=== PATIENT | female | born 1995 | race African-American/Black ===

== ENCOUNTER 2022-12-02 17:53 | Inpatient (IN) | payer OTHER, SELFPAY ==
--- NOTE | 2022-12-02 18:12 | PHA.MEDREC ---
Pharmacy Consult ? Medication Reconciliation Pharmacy has completed the medication reconciliation. Patient dc'd from [facility] with med list. Felicia Starr, JoannaD
[2022-12-02 18:20] VITALS: BP 129/84; PULSE 76; RESP 16; TEMP 36.8; O2SAT 100; BMI 25.4
--- NOTE | 2022-12-02 18:21 | ED_ITS ---
HPI - General Adult General Chief complaint: Psychiatric Symptoms Stated complaint: failed d/c @[facility], needs eval to go back Time Seen by Provider: 12/02/22 17:59 Source: patient Mode of arrival: ambulatory Limitations: no limitations History of Present Illness HPI narrative: This is a 27-year-old female presenting to the emergency department via ambulance according to EMS patient failed discharge at [facility], she was discharged in became acutely psychotic, prior to her going back she needs a full evaluation and re-evaluation by her behavioral health team. According to patient she tells me her mom told her she had to come in and she called an ambulance she said she recently came back from [place] where she had a petra here to [place] and she is very anxious about this and depressed, tells me that she feels safe here but wants to go back to her hometown in [place]. Denies suicidal and homicidal ideations. Denies visual, auditory and tactile hallucinations however seems to be responding to internal stimuli during my history taking. Tells me she smokes marijuana recreationally but no other drugs or alcohol. No medical complaints at this time. She tells me ?my feelings are just hurt ?. Related Data Home Medications Medication Instructions Recorded Confirmed hydroxyzine HCl 50 mg tablet 50 mg PO Q6H PRN Anxiety 12/02/22 12/02/22 melatonin 3 mg tablet 6 mg PO BEDTIME PRN Insomnia 12/02/22 12/02/22 quetiapine 300 mg tablet 300 mg PO BEDTIME 12/02/22 12/02/22 Allergies Allergy/AdvReac Type Severity Reaction Status Date / Time shrimp AdvReac Intermediate Rash Verified 12/02/22 21:40 Review of Systems 2 Review of Systems: Constitutional : No Weight loss, No Fever, No Chills, No Fatigue, No Malaise ENT/Mouth : No sore throat, No Rhinorrhea Eyes: No Eye Pain, No Swelling, No Redness Cardiovascular : No Chest Pain, No SOB, No Dyspnea on Exertion, No Orthopnea, No Edema, No Palpitations Respiratory : No Cough, No Sputum, No Wheezing Gastrointestinal : No Nausea, No Vomiting, No Diarrhea, No Constipation, No abdominal Pain, No Hematochezia, No Melena Genitourinary : No Dysuria, No Urinary Frequency, No Hematuria, Musculoskeletal : No joint pain, No Myalgias, No Joint Swelling Skin : No Skin Lesions, No rash Neuro : No Weakness, No Numbness, No Dizziness, No Headache Psych : + Anxiety/Panic, No Depression, No Si Or HI All other systems reviewed and are negative Yes all other systems are reviewed and are negative [facility] Past Medical History Attestation statement: The following information was validated with the patient. Source: old records reviewed and nursing notes reviewed Social History Social History Smoked in Last 30 Days: No Use of substances other than those prescribed or required for medical reasons: Yes Substance Use Type: Marijuana Advance Directives: No Advance Directives Information Provided: No Patient : No Physical Exam ED Vital Signs: Vital Signs - 24 hr 12/02/22 18:20 12/02/22 19:06 Temperature 98.3 F 98.1 F Pulse Rate 76 83 Respiratory Rate 16 17 Blood Pressure 129/84 131/75 Pulse Oximetry 100 100 Oxygen Delivery Method Room Air Room Air BMI result Body Mass Index 25.4 vss Appearance: Alert.? Oriented X3.? No acute distress.? Patient talking to herself during my history and physical exam. Head: Normocephalic, atraumatic, no step-offs or deformities Eyes: Pupils equal, round and reactive to light.? CVS: Normal heart rate and rhythm.? Pulses normal.? Respiratory: No respiratory distress.? Breath sounds normal.? Abdomen: Soft and nontender.? Skin: Skin warm and dry.? Normal skin color.? Normal skin turgor.? Extremities: No lower extremity edema.? No calf ttp. 5/5 strength to bilateral upper and lower extremities Neuro: Oriented X 3.? No motor deficit.? No sensory deficit. CN 2-12 intact Course Reevaluation(s) Reevaluation #1: CBC unremarkable. Chemistry no acute findings requiring intervention. UA w/ 4+ bacteria concerns for UTI will treat w/ ceftin. Salicylates, acetaminophen negative. Urine positive for marijuana. COVID negative. At this time patient to be placed into observation to allow more time to be evaluated by care team. Is on Ceftin for UTI. At time observation was started patient common cooperative no acute distress will continue to monitor. Time: 22:20 Medical Decision Making Medical Decision Making [facility] Narrative: 1823 27-year-old female presents with acute psychosis responding to internal stimuli. Physical examination benign. Concerns for acute psychosis versus bipolar versus depression versus schizophrenia. Will rule out metabolic derangements, polysubstance abuse and alcohol intoxication. Plan at this time medical clearance evaluation by care team Differential Diagnosis Differential Diagnoses: The differential diagnosis associated with the presentation includes Concerns for acute psychosis versus bipolar versus depression versus schizophrenia. Will rule out metabolic derangements, polysubstance abuse and alcohol intoxication. Admission/Observation Consideration of admission/observation: Escalation of care including admission/observation considered likely Lab Data MDM Lab Attestation statement: I reviewed the patient's lab results. 12/02/22 21:20 12/02/22 21:20 Labs: Lab Results 12/02/22 12/02/22 12/02/22 Range/Units 18:55 21:20 21:48 WBC 7.8 (4.8-10.8) X10*3/uL RBC 4.50 (4.20-5.50) X10*6/uL Hgb 12.9 (12.0-16.0) g/dl Hct 39.6 (37.0-47.0) % MCV 88.0 (80.0-98.0) fL MCH 28.7 (27.0-33.0) pg MCHC 32.6 (31.0-35.0) g/dl RDW 13.0 (11.0-16.0) % Plt Count 221 (160-400) X10*3/uL MPV 11.4 (9.4-12.3) fL Immature Gran % (Auto) 0.3 (0.0-0.4) % Neut % (Auto) 58.9 (45-73) % Lymph % (Auto) 32.4 (20-40) % [place] % (Auto) 7.4 (2-11) % Eos % (Auto) 0.5 (0-4) % Baso % (Auto) 0.5 (0-2) % Lymph # (Auto) 2.5 (1.2-4.9) X10*3/uL [place] # (Auto) 0.6 (0.1-1.2) X10*3/uL Eos # (Auto) 0.0 (0.0-0.4) X10*3/uL Baso # (Auto) 0.0 (0.0-0.2) X10*3/uL Abs Immat Gran (auto) 0.02 (0.00-0.03) X10*3/uL Absolute Neuts (auto) 4.6 (2.0-8.3) x10*3/uL Absolute Nucleated RBC 0.000 (0.0-0.012) X10*3/uL Nucleated RBC % (auto) 0.0 (0.0-0.2) /100WBC Sodium 142 (135-145) mmol/L Potassium 3.8 (3.3-5.1) mmol/L Chloride 105 (96-108) mmol/L Carbon Dioxide 24 (22-29) mmol/L Anion Gap 17 (12-20) BUN 4 L (9-16) mg/dL Creatinine 0.79 (0.5-1.4) mg/dL Estim Creat Clear Calc 86.6 Estimated GFR > 60 Random Glucose 93 (60-115) mg/dL Calcium 10.1 (8.4-10.2) mg/dL Magnesium 2.3 (1.6-2.6) mg/dL Total Bilirubin 0.5 (0.0-1.0) mg/dL AST 18 (5-31) U/L ALT 15 (0-31) U/L Alkaline Phosphatase 85 (39-117) U/L Total Protein 8.2 H (6.5-8.0) g/dL Albumin 4.6 (3.5-5.0) g/dL Urine Color Yellow Urine Appearance Turbid Urine pH 6.5 (5.0-9.0) Ur Specific [place] 1.020 (1.005-1.025) Urine Protein Negative (Neg-Trace) mg/dL Urine Glucose (UA) Negative (Negative) mg/dL Urine Ketones Trace (Negative) mg/dL Urine Blood Negative (Negative) Urine Nitrite Negative (Negative) Ur Leukocyte Esterase Trace H (Negative) Urine RBC 0-2 (0-2) /HPF Urine WBC 11-20 H (0-5) /HPF Ur Squamous Epith Cells 11-20 (0-2) /HPF Urine Bacteria 4+ (None Seen) Hyaline Casts 0-2 (0-2) /LPF Salicylates < 5.0 L (15-30) mg/dL Urine Opiates Screen Not Detected (Not Detect) Urine Fentanyl Screen Not Detected (Not Detect) Acetaminophen < 17 (<30) mcg/mL Ur Barbiturates Screen Not Detected (Not Detect) Ur Phencyclidine Scrn Not Detected (Not Detect) Ur Amphetamines Screen Not Detected (Not Detect) U Benzodiazepines Scrn Not Detected (Not Detect) Urine Cocaine Screen Not Detected (Not Detect) U Marijuana (THC) Screen POSITIVE H (Not Detect) COVID-19 ([facility]) Negative (Negative) COVID-19 Clin Com See Note Social Determinants Patient?s care significantly limited by Social Determinants of Health including: Inadequate housing, Low income, Alcoholism and drug addiction in family, Problems related to primary support group, Unemployment, Problems related to employment and Other Social Determinant of Health Critical Care Time Critical Care Time Critical Care Time: No Discharge Plan Discharge Clinical Impression: Paranoid delusion, UTI (urinary tract infection) Patient Disposition: Still a Patient Additional Instructions: Please dc on ceftin Prescriptions: No Action quetiapine 300 mg Tablet 300 mg PO BEDTIME hydroxyzine HCl 50 mg Tablet 50 mg PO Q6H PRN (Reason: Anxiety) melatonin 3 mg Tablet 6 mg PO BEDTIME PRN (Reason: Insomnia) Interventions: [place]-Suicide Risk Severity Scale Last Done: 12/02/22 18:22
--- NOTE | 2022-12-02 18:25 | PC.NURSE ---
pt changed over with assistance from security, pt was recently d/c from [facility] for failed d/c. Pt has odd affect, unable to have linear conversation, non-logical thought process. Appears to be responding to internal stimuli but denies AH and VH. Denies SI and HI
[2022-12-02 19:06] VITALS: BP 131/75; PULSE 83; RESP 17; TEMP 36.7; O2SAT 100
--- NOTE | 2022-12-02 19:09 | MHC.EDTECH ---
PATIENT WAS UNABLE TO GIVE URINE SAMPLE AT THIS TIME ,ALSO THIS PCT TRIED TO GET LABS ,AND WAS UNABLE BECAUSE PT IS DIFFICULT STICK ,REGULO FRYE AWARE .
[2022-12-02 19:14] LABS: COVID-19 Test Negative (Negative); IDNOW Serial# 6674DD1D
[2022-12-02 21:24] LABS: MANUAL DIFF FLAG NO
[2022-12-02 21:26] LABS: Basophils Percent Auto 0.5 % (0-2); Eosinophils Percent Auto 0.5 % (0-4); Hematocrit 39.6 % (37.0-47.0); Hemoglobin 12.9 g/dl (12.0-16.0); Imm Gran Abs Auto 0.02 X10*3/uL (0.00-0.03); Imm Gran Pct Auto 0.3 % (0.0-0.4); Lymphocytes Absolute Auto 2.5 X10*3/uL (1.2-4.9); Lymphocytes Percent Auto 32.4 % (20-40); Mean Corpuscular HGB Conc 32.6 g/dl (31.0-35.0); Mean Corpuscular Hemoglobin 28.7 pg (27.0-33.0); Mean Platelet Volume 11.4 fL (9.4-12.3); Monocytes Absolute Auto 0.6 X10*3/uL (0.1-1.2); Monocytes Percent Auto 7.4 % (2-11); Neutrophils Absolute Auto 4.6 x10*3/uL (2.0-8.3); Neutrophils Percent Auto 58.9 % (45-73); Platelet Count 221 X10*3/uL (160-400); White Blood Count 7.8 X10*3/uL (4.8-10.8)
[2022-12-02 21:43] LABS: Alanine Aminotransferase 15 U/L (0-31); Albumin Level 4.6 g/dL (3.5-5.0); Alkaline Phosphatase 85 U/L (39-117); Anion Gap 17 (12-20); Aspartate Amino Transferase 18 U/L (5-31); Bilirubin Total 0.5 mg/dL (0.0-1.0); Blood Urea Nitrogen 4 mg/dL (9-16); Calcium 10.1 mg/dL (8.4-10.2); Carbon Dioxide 24 mmol/L (22-29); Chloride 105 mmol/L (96-108); Creatinine Clr Calc Pharmacy 86.6; Estimated Glomerular Filt Rate > 60; Glucose Random 93 mg/dL (60-115); Magnesium 2.3 mg/dL (1.6-2.6); Potassium 3.8 mmol/L (3.3-5.1); Sodium 142 mmol/L (135-145); Total Protein 8.2 g/dL (6.5-8.0)
[2022-12-02 21:44] LABS: Acetaminophen LAB < 17 mcg/mL (<30); Salicylate < 5.0 mg/dL (15-30)
[2022-12-02 21:58] LABS: Appearance Urine Turbid; Color Urine Yellow; Glucose Urine UA Negative (Negative); Leukocyte Esterase Urine Trace (Negative); Nitrite Urine Negative (Negative); PH 6.5 (5.0-9.0); UMIC TRIGGER UACC YES; Urine Blood Negative (Negative); Urine Ketones Trace mg/dL (Negative); Urine Protein Negative (Neg-Trace)
[2022-12-02 22:04] LABS: Amphetamine Screen Urine Not Detected (Not Detect); Bacteria Urine 4+ (None Seen); Barbiturates, Urine Not Detected (Not Detect); Benzodiazepines Screen Urine Not Detected (Not Detect); Cannabinoid Screen Urine POSITIVE (Not Detect); Cocaine Screen Urine Not Detected (Not Detect); Fentanyl, urine Not Detected (Not Detect); Hyaline Casts Urine 0-2 /LPF (0-2); Opiate Screen Urine Not Detected (Not Detect); Phencyclidine Screen Urine Not Detected (Not Detect); RBC Urine 0-2 /HPF (0-2); UACC Culture Trigger YES
[2022-12-02 22:38] LABS: UPreg QC Valid YES; Urine Pregnancy NEGATIVE (NEGATIVE)
[2022-12-02 23:23] LABS: Ethanol < 10 mg/dL
[2022-12-03 02:27] VITALS: BP 119/71; PULSE 66; RESP 16; TEMP 36.4; O2SAT 100
[2022-12-03] MEDS: OLANZapine 5 MG TABLET PO (03:50)
--- NOTE | 2022-12-03 07:18 | PC.NURSE ---
Patient slept through the night, no distress observed/reported, behavior non concerning, thought content paranoid, engaged well with care team disposition is section 12 inpatient bed search, med rec completed/pending provider's approval, VSS, labs completed/resulted, VSS, Ceftin 250 mg initiated for UTI, Olanzapine 5 mg po administered at 0350 with + effect, will continue to monitor.
[2022-12-03 09:14] VITALS: BP 117/61; PULSE 66; RESP 16; TEMP 36.3; O2SAT 100
--- NOTE | 2022-12-03 11:44 | MHC.CARE ---
MILDRED at [facility] calls, informing t/w that patient's possessions/ belongings remain at [facility] and an arrangement will need to be made with patient/ her father to obtain them.
--- NOTE | 2022-12-03 16:52 | PC.NURSE ---
PT in her room resting for most of the day. Ceftin 250mg given this AM for UTI. No behavioral concerns. No paranoia noted but minimally engaging with staff. Pt had a phone call with her father and mood was elevated after this call. Appetite good.
--- OUTSIDE RECORDS SUMMARY | 2022-12-03 17:30 | XMS_ITS | Summary of Care ---
Author Name Unknown Organization [facility] Address [address] [place] [id number]- Care Team Providers Care Wood Turner Name Role Phone ARIANA COOK, MPH, BROOKLYN Devine Primary Care Physic kim Encounter CHB_CSN [id number] Date(s): 05/31/21 - 06/01/[address] [address]- [place] Encounter Diagnosis TMJ - Dislocation of temporomandibular joint(Discharge Diagnosis) - 06/01/21 Discharge Disposition: Home Attending Physician: BO ARAUJO MD Referring Physician: ARIANA COOK, MPH, BROOKLYN Devine Allergies, Adverse Reactions, Alerts No Known Medication Allergies Substance Reaction Severity Status Shrimp Eye swelling Anaphylaxis due to ingested food. Active Medications No Known Medications Problem List Condition Effective Dates Status Health Status Inform ant MENORRHAGIA(Confirmed) Active Primary dysmenorrhea(Confirmed) 1 Active Pubertal bleeding and menorrhagia(Confirmed) 2 Active low von Willebrand levels(Confirmed) Active 1Added by [facility] 2Added by [facility]
[2022-12-03 18:00] VITALS: BP 124/68; PULSE 69; RESP 16; TEMP 36.4; O2SAT 98
[2022-12-03 18:37] VITALS: BMI 25.7
[2022-12-03] MEDS: QUEtiapine Fumarate 300 MG TABLET PO (20:54)
--- NOTE | 2022-12-03 22:54 | PC.ADMIT ---
Pt is a 27 year old -[place] female admitted for prosper. Alert and oriented x3. Vital sign stable, covid negative, tox screen positive for THC. Pt is calm and cooperative but tangential in speech. Speech is regular with regular rhythm, tone and spencer. Pt presents with poor impulse, judgment and insight. Pt denies SI/HI/AH/VH. Pt appears to be responding to internal stimuli. Pt declined FLu vaccine. Pt gives unrelated and nonsensical answers during assessment. Pt is resting in bed currently, no sign of distress noted. Admission orders obtained.
[2022-12-04 06:00] VITALS: BP 103/59; PULSE 70; RESP 16; TEMP 36.6; O2SAT 99
--- NOTE | 2022-12-04 10:06 | P.HPPS_ITS ---
HPI Date of Service: 12/04/22 Chief Complaint: mood Sources of Information: patient interviewed, chart reviewed and crisis/core team assessment reviewed HPI Subjective Notes: Naidu Warning and Conditional Voluntary Narrative: Patient is a 27-year-old female with history of psychotic illness who presents with disorganized speech and behavior, recently discharged from [facility] but brought back to the hospital at the behest of her father. Patient having trouble focusing on conversation and is almost talking in a word salad. If asked a question she will mostly respond with some completely irrelevant and nonsensical answer. She said something about double tongs; [place] song which she saying; physics; something about [place] in [place] and being stalked. She denies any AVH but does seem internally preoccupied. She denies any drug or alcohol use other than weed... A little. Patient gives permission for team to discuss case with her father and gives the phone number. Patient agreed to take antipsychotic medication. Later in the day, patient was more linear and organized. She agreed that she was at the hospital for help and understood criteria for having signed the CV, evidenced by asking relevant questions and later going up and asking to sign a 3 day notice. Past Psychiatric History: Recently discharged from [facility] Other psychiatric history unclear Medical Evaluation Reviewed: Yes PENDING SALE TO [facility] Medical History (Updated 12/04/22 @ 18:40 by Asad Luna MD) Psychosis Family History: Sister: Psychiatric hospital admission Social History: Unclear Substance History: Denies Trauma History: Defer Diagnostics Vital Signs (24Hr): Vital Signs - 24 hr 12/03/22 18:00 12/04/22 06:00 Temperature 97.6 F 98 F Pulse Rate 69 70 Respiratory Rate 16 16 Blood Pressure 124/68 103/59 L Pulse Oximetry 98 99 Oxygen Delivery Method Room Air Room Air BMI result Body Mass Index 25.7 Labs 12/02/22 21:20 12/04/22 08:17 Labs: Laboratory Results - last 48 hr 12/02/22 12/02/22 12/02/22 18:55 21:20 21:48 WBC 7.8 RBC 4.50 Hgb 12.9 Hct 39.6 MCV 88.0 MCH 28.7 MCHC 32.6 RDW 13.0 Plt Count 221 MPV 11.4 Immature Gran % (Auto) 0.3 Neut % (Auto) 58.9 Lymph % (Auto) 32.4 [place] % (Auto) 7.4 Eos % (Auto) 0.5 Baso % (Auto) 0.5 Lymph # (Auto) 2.5 [place] # (Auto) 0.6 Eos # (Auto) 0.0 Baso # (Auto) 0.0 Abs Immat Gran (auto) 0.02 Absolute Neuts (auto) 4.6 Absolute Nucleated RBC 0.000 Nucleated RBC % (auto) 0.0 Sodium 142 Potassium 3.8 Chloride 105 Carbon Dioxide 24 Anion Gap 17 BUN 4 L Creatinine 0.79 Estim Creat Clear Calc 86.6 Estimated GFR > 60 Random Glucose 93 Calcium 10.1 Magnesium 2.3 Total Bilirubin 0.5 AST 18 ALT 15 Alkaline Phosphatase 85 Total Protein 8.2 H Albumin 4.6 Urine Color Yellow Urine Appearance Turbid Urine pH 6.5 Ur Specific [place] 1.020 Urine Protein Negative Urine Glucose (UA) Negative Urine Ketones Trace Urine Blood Negative Urine Nitrite Negative Ur Leukocyte Esterase Trace H Urine RBC 0-2 Urine WBC 11-20 H Ur Squamous Epith Cells 11-20 Urine Bacteria 4+ Hyaline Casts 0-2 Urine Test NEGATIVE Salicylates < 5.0 L Urine Opiates Screen Not Detected Urine Fentanyl Screen Not Detected Acetaminophen < 17 Ur Barbiturates Screen Not Detected Ur Phencyclidine Scrn Not Detected Ur Amphetamines Screen Not Detected U Benzodiazepines Scrn Not Detected Urine Cocaine Screen Not Detected U Marijuana (THC) Screen POSITIVE H Ethyl Alcohol < 10 COVID-19 ([facility]) Negative COVID-19 Clin Com See Note Meds/Allergies Meds Home Medications Medication Instructions Recorded Confirmed Type hydroxyzine HCl 50 mg tablet 50 mg PO Q6H PRN Anxiety 12/02/22 12/02/22 History melatonin 3 mg tablet 6 mg PO BEDTIME PRN Insomnia 12/02/22 12/02/22 History quetiapine 300 mg tablet 300 mg PO BEDTIME 12/02/22 12/02/22 History Allergies Allergies Allergy/AdvReac Type Severity Reaction Status Date / Time shrimp AdvReac Intermediate Rash Verified 12/02/22 21:40 Assessment & Plan Assessment & Plan (1) Psychosis: Status: Acute Code(s): F29 - Unspecified psychosis not due to a substance or known physiological condition (2) UTI (urinary tract infection): Status: Acute Code(s): N39.0 - Urinary tract infection, site not specified Plan Patient is a 27-year-old female with history of psychotic illness who presents with disorganized speech and behavior, recently discharged from [facility] but brought back to the hospital at the behest of her father. Patient having trouble focusing on conversation and is almost talking in a word salad. If asked a question she will mostly respond with some completely irrelevant and nonsensical answer. She said something about double tongs; [employer] [place] song which she saying; physics; something about [place] in [place] and being stalked. She denies any AVH but does seem internally preoccupied. She denies any drug or alcohol use other than weed... A little. Patient gives permission for team to discuss case with her father and gives the phone number. Patient agreed to take antipsychotic medication. Later in the day, patient was more linear and organized. She agreed that she was at the hospital for help and understood criteria for having signed the CV, evidenced by asking relevant questions and later going up and asking to sign a 3 day notice. Plan: CV-now 3 day notice Q 15 minute checks Risperdal 1 mg daily Risperdal 2 mg q.h.s. Gather collateral Patient educated on: diagnosis and medication risk/benefits Informed Consent: understands, does not understand and further education needed Reason for continued inpatient stay Substantial Risk for: inability to function Statement Statement: I have reviewed the history and physical and performed a pertinent examination on my patient. No changes have occurred unless specified. If the History and Physical was not performed prior to admission, the Hospitalist's service will be consulted for completing the admission physical. Time Spent With Patient Time: Total time managing care of this patient today ____ minutes.
[2022-12-04] MEDS: risperiDONE 1 MG TABLET PO (12:37)
[2022-12-04 14:48] LABS: Alanine Aminotransferase 15 U/L (0-31); Albumin Level 4.4 g/dL (3.5-5.0); Alkaline Phosphatase 91 U/L (39-117); Anion Gap 18 (12-20); Aspartate Amino Transferase 24 U/L (5-31); Bilirubin Total 0.7 mg/dL (0.0-1.0); Blood Urea Nitrogen 6 mg/dL (9-16); Carbon Dioxide 21 mmol/L (22-29); Chloride 107 mmol/L (96-108); Cholesterol 152 mg/dL (<200); Creatinine Clr Calc Pharmacy 81.9; Estimated Glomerular Filt Rate > 60; Glucose Fasting 79 mg/dL (60-99); HDL Cholesterol 52 mg/dL (>40); LDL Cholesterol Calculated 85 mg/dL (<100); Potassium 4.1 mmol/L (3.3-5.1); Sodium 142 mmol/L (135-145); Total Protein 8.2 g/dL (6.5-8.0); Triglycerides 75 mg/dL (<150)
[2022-12-04 18:00] VITALS: BP 122/75; PULSE 107; RESP 20; TEMP 36.6; O2SAT 100
[2022-12-04] MEDS: QUEtiapine Fumarate 300 MG TABLET PO (21:07)
[2022-12-04] MEDS: risperiDONE 2 MG TABLET PO (21:07)
[2022-12-05] MEDS: risperiDONE 1 MG TABLET PO (08:13)
[2022-12-05 08:15] VITALS: BP 125/80; PULSE 82; RESP 18; TEMP 36; O2SAT 100
[2022-12-05] MEDS: hydrOXYzine HCL 25 MG TABLET PO (14:33)
--- NOTE | 2022-12-05 20:47 | P.PNPSI_ITS ---
Subjective Subjective Date of Service: 12/05/22 Reason For Visit: mood Interim History: pt seen this morning as she was just waking up; polite, cooperative; confused and disoriented stating she was at a hotel called [facility]. She is still with delusional thinking and disorganized speech; she is eating, compliant with meds and out in milieu for short periods Medication Compliance: Yes Side effects from medications: No Attending Groups: No Review of Systems Acute medical concerns: No Medical Review of Systems: unchanged Review of Systems Review of Systems no change Yes all other systems are reviewed and are negative Mental Status Exam Mental Status Exam Patient Appearance: Disheveled Patient Orientation: Person (self only) Level of Consciousness: Awake Patient Behavior: Cooperative and Poor Eye Contact Mood Description: Calm and Blunted Affect Description: Calm, Blunted and Apprehensive Patient Cognition Impaired: Yes Ability to Follow Directions: Fair Speech Pattern: Mumbled and Long Pauses Memory Description: Remote Impaired, Immediate Impaired and Watch [employer] Supervisor Impaired Hallucinations: Auditory Delusions: Present Thought Process: Disoriented, Illogical and Confusion Thought Content: positive for Loose Associations and positive for Disorganized Judgement: Poor Diagnostics Vital Signs (24Hr): Vital Signs - 24 hr 12/05/22 08:15 Temperature 96.8 F Pulse Rate 82 Respiratory Rate 18 Blood Pressure 125/80 Pulse Oximetry 100 Oxygen Delivery Method Room Air BMI result Body Mass Index 25.7 Labs 12/02/22 21:20 12/04/22 08:17 Labs: Laboratory Results - last 48 hr 12/04/22 08:17 Sodium 142 Potassium 4.1 Chloride 107 Carbon Dioxide 21 L Anion Gap 18 BUN 6 L Creatinine 0.84 Estim Creat Clear Calc 81.9 Estimated GFR > 60 Fasting Glucose 79 Calcium 10.0 Total Bilirubin 0.7 AST 24 ALT 15 Alkaline Phosphatase 91 Total Protein 8.2 H Albumin 4.4 Triglycerides 75 Cholesterol 152 LDL Cholesterol, Calc 85 HDL Cholesterol 52 Medications Medications Current Medications Acetaminophen (Acetaminophen 325 Mg Tablet) 650 mg PO Q6H PRN PRN Reason: Headache/Pain Mild Scale (1-3) Al Hydroxide/Mg Hydroxide (Magnesium Hydrox/Alum Hydrox 30 Ml Oral.Susp) 30 ml PO Q6H PRN PRN Reason: Heartburn/Nausea Cefuroxime Axetil (Cefuroxime Axetil 250 Mg Tablet) 250 mg PO BID LETTY Last Admin: 12/05/22 08:13 Dose: 250 mg Hydroxyzine HCl (Hydroxyzine Hcl 25 Mg Tablet) 25 mg PO Q6H PRN PRN Reason: Anxiety Last Admin: 12/05/22 14:33 Dose: 25 mg Magnesium Hydroxide (Milk Of Magnesia 30 Ml Oral.Susp) 30 ml PO DAILY PRN PRN Reason: Constipation Melatonin (Melatonin 3 Mg Tablet) 6 mg PO BEDTIME PRN PRN Reason: Insomnia Quetiapine Fumarate (Quetiapine Fumarate 300 Mg Tablet) 300 mg PO BEDTIME LETTY Last Admin: 12/04/22 21:07 Dose: 300 mg Risperidone (Risperidone 2 Mg Tablet) 2 mg PO BEDTIME LETTY Last Admin: 12/04/22 21:07 Dose: 2 mg Risperidone (Risperidone 1 Mg Tablet) 1 mg PO DAILY LETTY Last Admin: 12/05/22 08:13 Dose: 1 mg Trazodone HCl (Trazodone Hcl 50 Mg Tablet) 50 mg PO BEDTIME MRX1 PRN PRN Reason: Insomnia Allergies Allergies Allergy/AdvReac Type Severity Reaction Status Date / Time shrimp AdvReac Intermediate Rash Verified 12/02/22 21:40 Assessment & Plan Assessment & Plan (1) Psychosis: Status: Acute Code(s): F29 - Unspecified psychosis not due to a substance or known physiological condition (2) UTI (urinary tract infection): Status: Acute Code(s): N39.0 - Urinary tract infection, site not specified Plan Patient is a 27-year-old female with history of psychotic illness who presents with disorganized speech and behavior, recently discharged from [facility] but brought back to the hospital at the behest of her father. Patient having trouble focusing on conversation and is almost talking in a word salad. If asked a question she will mostly respond with some completely irrelevant and nonsensical answer. She said something about [employer]; [employer] song which she saying; physics; something about [place] in [place] and being stalked. She denies any AVH but does seem internally preoccupied. She denies any drug or alcohol use other than weed... A little. Patient gives permission for team to discuss case with her father and gives the phone number. Patient agreed to take antipsychotic medication. Later in the day, patient was more linear and organized. She agreed that she was at the hospital for help and understood criteria for having signed the CV, evidenced by asking relevant questions and later going up and asking to sign a 3 day notice. Plan: CV-now 3 day notice Q 15 minute checks Risperdal 1 mg daily Risperdal 2 mg q.h.s. Gather collateral 12/05/22 contiue current treatmetn plan Reason for continued inpatient stay Substantial Risk for: harm to self, inability to function and rapid decompensation Time Spent With Patient Time: Total time managing care of this patient today ____ minutes.
[2022-12-05 21:35] VITALS: BP 124/83; PULSE 84; TEMP 36.6
[2022-12-05] MEDS: risperiDONE 2 MG TABLET PO (21:35)
[2022-12-05] MEDS: QUEtiapine Fumarate 300 MG TABLET PO (21:35)
[2022-12-06] MEDS: risperiDONE 1 MG TABLET PO (08:27)
[2022-12-06 10:11] VITALS: BP 134/79; PULSE 92; RESP 16; TEMP 36.8; O2SAT 100
--- NOTE | 2022-12-06 10:58 | HO.PSYCHPN ---
Subjective Subjective Date of Service: 12/06/22 Reason For Visit: mood Interim History: pt remains confused, psychotic and making illogical statements; polite, cooperative but guarded; She is still with delusional thinking and disorganized speech; she is eating, compliant with meds and out in milieu for short periods Medication Compliance: Yes Side effects from medications: No Attending Groups: No Review of Systems Acute medical concerns: No Medical Review of Systems: unchanged Review of Systems Review of Systems no change Yes all other systems are reviewed and are negative Mental Status Exam Mental Status Exam Patient Appearance: Disheveled Patient Orientation: Person (self only) Level of Consciousness: Awake Patient Behavior: Guarded, Cooperative and Poor Eye Contact Mood Description: Calm, Labile and Blunted Affect Description: Calm, Blunted and Apprehensive Patient Cognition Impaired: Yes Ability to Follow Directions: Fair Speech Pattern: Mumbled and Long Pauses Memory Description: Remote Impaired, Immediate Impaired and Assisted Impaired Thought Process: Distracted and Word Salad Judgement: Poor Diagnostics Vital Signs (24Hr): Vital Signs - 24 hr 12/05/22 21:35 12/06/22 10:11 Temperature 97.8 F 98.2 F Pulse Rate 84 92 Respiratory Rate 16 Blood Pressure 124/83 134/79 Pulse Oximetry 100 Oxygen Delivery Method Room Air BMI result Body Mass Index 25.7 Labs 12/02/22 21:20 12/04/22 08:17 Labs: Laboratory Results - last 48 hr 12/04/22 08:17 Sodium 142 Potassium 4.1 Chloride 107 Carbon Dioxide 21 L Anion Gap 18 BUN 6 L Creatinine 0.84 Estim Creat Clear Calc 81.9 Estimated GFR > 60 Fasting Glucose 79 Calcium 10.0 Total Bilirubin 0.7 AST 24 ALT 15 Alkaline Phosphatase 91 Total Protein 8.2 H Albumin 4.4 Triglycerides 75 Cholesterol 152 LDL Cholesterol, Calc 85 HDL Cholesterol 52 Medications Medications Current Medications Acetaminophen (Acetaminophen 325 Mg Tablet) 650 mg PO Q6H PRN PRN Reason: Headache/Pain Mild Scale (1-3) Al Hydroxide/Mg Hydroxide (Magnesium Hydrox/Alum Hydrox 30 Ml Oral.Susp) 30 ml PO Q6H PRN PRN Reason: Heartburn/Nausea Cefuroxime Axetil (Cefuroxime Axetil 250 Mg Tablet) 250 mg PO BID LETTY Last Admin: 12/06/22 08:27 Dose: 250 mg Hydroxyzine HCl (Hydroxyzine Hcl 25 Mg Tablet) 25 mg PO Q6H PRN PRN Reason: Anxiety Last Admin: 12/05/22 14:33 Dose: 25 mg Magnesium Hydroxide (Milk Of Magnesia 30 Ml Oral.Susp) 30 ml PO DAILY PRN PRN Reason: Constipation Melatonin (Melatonin 3 Mg Tablet) 6 mg PO BEDTIME PRN PRN Reason: Insomnia Quetiapine Fumarate (Quetiapine Fumarate 300 Mg Tablet) 300 mg PO BEDTIME LETTY Last Admin: 12/05/22 21:35 Dose: 300 mg Risperidone (Risperidone 2 Mg Tablet) 2 mg PO BEDTIME LETTY Last Admin: 12/05/22 21:35 Dose: 2 mg Risperidone (Risperidone 1 Mg Tablet) 1 mg PO DAILY LETTY Last Admin: 12/06/22 08:27 Dose: 1 mg Trazodone HCl (Trazodone Hcl 50 Mg Tablet) 50 mg PO BEDTIME MRX1 PRN PRN Reason: Insomnia Allergies Allergies Allergy/AdvReac Type Severity Reaction Status Date / Time shrimp AdvReac Intermediate Rash Verified 12/02/22 21:40 Assessment & Plan Assessment & Plan (1) Psychosis: Status: Acute Code(s): F29 - Unspecified psychosis not due to a substance or known physiological condition (2) UTI (urinary tract infection): Status: Acute Code(s): N39.0 - Urinary tract infection, site not specified Plan Patient is a 27-year-old female with history of psychotic illness who presents with disorganized speech and behavior, recently discharged from [facility] but brought back to the hospital at the behest of her father. Patient having trouble focusing on conversation and is almost talking in a word salad. If asked a question she will mostly respond with some completely irrelevant and nonsensical answer. She said something about [employer]; [employer] song which she saying; physics; something about [place] in [place] and being stalked. She denies any AVH but does seem internally preoccupied. She denies any drug or alcohol use other than weed... A little. Patient gives permission for team to discuss case with her father and gives the phone number. Patient agreed to take antipsychotic medication. Later in the day, patient was more linear and organized. She agreed that she was at the hospital for help and understood criteria for having signed the CV, evidenced by asking relevant questions and later going up and asking to sign a 3 day notice. Plan: CV-now 3 day notice Q 15 minute checks Risperdal 1 mg daily Risperdal 2 mg q.h.s. Gather collateral 12/05/22 contiue current treatmetn plan 12/06/22 continue treatment plan Reason for continued inpatient stay Substantial Risk for: harm to self, inability to function and rapid decompensation Time Spent With Patient Time: Total time managing care of this patient today ____ minutes.
[2022-12-06 19:15] VITALS: BP 126/79; PULSE 82; TEMP 35.9
[2022-12-06] MEDS: QUEtiapine Fumarate 300 MG TABLET PO (21:04)
[2022-12-06] MEDS: risperiDONE 2 MG TABLET PO (21:05)
[2022-12-07] MEDS: hydrOXYzine HCL 25 MG TABLET PO ×3 (01:57→20:41)
[2022-12-07 08:00] VITALS: BP 136/80; PULSE 112; RESP 16; TEMP 36.1; O2SAT 100
[2022-12-07] MEDS: risperiDONE 1 MG TABLET PO (09:14)
--- NOTE | 2022-12-07 09:53 | P.PNPSI_ITS ---
Subjective Subjective Date of Service: 12/07/22 Reason For Visit: mood Interim History: Pt oddly related thought disordered illogical difficulty giving any coherent history some improvement on risperadol Medication Compliance: Yes Side effects from medications: No Attending Groups: No Review of Systems Acute medical concerns: No Medical Review of Systems: unchanged Mental Status Exam Mental Status Exam Narrative: Pt behavior is cooperative and calm, guarded; dressed in casual attire; mood is described as good ; eye contact appropriate; Speech is normal rate, volume and prosody and not pressured; no psychomotor agitation/retardation present; thought process is organized and goal directed; Thought content is on discharge; otherwise pertinent to relevant topics and without any delusional content, paranoid ideations or grandiosity; denies SI/HI. There is no evidence of perceptual disturbance. Patients insight and judgment are poor but improving. Diagnostics Vital Signs (24Hr): Vital Signs - 24 hr 12/06/22 10:11 12/06/22 19:15 12/07/22 08:00 Temperature 98.2 F 96.6 F L 96.9 F Pulse Rate 92 82 112 H Respiratory Rate 16 16 Blood Pressure 134/79 126/79 136/80 Pulse Oximetry 100 100 Oxygen Delivery Method Room Air Room Air BMI result Body Mass Index 25.7 Labs 12/02/22 21:20 12/04/22 08:17 Medications Medications Current Medications Acetaminophen (Acetaminophen 325 Mg Tablet) 650 mg PO Q6H PRN PRN Reason: Headache/Pain Mild Scale (1-3) Al Hydroxide/Mg Hydroxide (Magnesium Hydrox/Alum Hydrox 30 Ml Oral.Susp) 30 ml PO Q6H PRN PRN Reason: Heartburn/Nausea Cefuroxime Axetil (Cefuroxime Axetil 250 Mg Tablet) 250 mg PO BID COUNT INCLUDES THE [facility] Last Admin: 12/07/22 09:14 Dose: 250 mg Hydroxyzine HCl (Hydroxyzine Hcl 25 Mg Tablet) 25 mg PO Q6H PRN PRN Reason: Anxiety Last Admin: 12/07/22 01:57 Dose: 25 mg Magnesium Hydroxide (Milk Of Magnesia 30 Ml Oral.Susp) 30 ml PO DAILY PRN PRN Reason: Constipation Melatonin (Melatonin 3 Mg Tablet) 6 mg PO BEDTIME PRN PRN Reason: Insomnia Quetiapine Fumarate (Quetiapine Fumarate 300 Mg Tablet) 300 mg PO BEDTIME COUNT INCLUDES THE [facility] Last Admin: 12/06/22 21:04 Dose: 300 mg Risperidone (Risperidone 2 Mg Tablet) 2 mg PO BEDTIME COUNT INCLUDES THE [facility] Last Admin: 12/06/22 21:05 Dose: 2 mg Risperidone (Risperidone 1 Mg Tablet) 1 mg PO DAILY COUNT INCLUDES THE [facility] Last Admin: 12/07/22 09:14 Dose: 1 mg Trazodone HCl (Trazodone Hcl 50 Mg Tablet) 50 mg PO BEDTIME MRX1 PRN PRN Reason: Insomnia Allergies Allergies Allergy/AdvReac Type Severity Reaction Status Date / Time shrimp AdvReac Intermediate Rash Verified 12/02/22 21:40 Assessment & Plan Assessment & Plan (1) Psychosis: Status: Acute Code(s): F29 - Unspecified psychosis not due to a substance or known physiological condition (2) UTI (urinary tract infection): Status: Acute Code(s): N39.0 - Urinary tract infection, site not specified Plan Patient is a 27-year-old female with history of psychotic illness who presents with disorganized speech and behavior, recently discharged from [facility] but brought back to the hospital at the behest of her father. Patient having trouble focusing on conversation and is almost talking in a word salad. If asked a question she will mostly respond with some completely irrelevant and nonsensical answer. She said something about [employer]; [employer] song which she saying; physics; something about [place] in [place] and being stalked. She denies any AVH but does seem internally preoccupied. She denies any drug or alcohol use other than weed... A little. Patient gives permission for team to discuss case with her father and gives the phone number. Patient agreed to take antipsychotic medication. Later in the day, patient was more linear and organized. She agreed that she was at the hospital for help and understood criteria for having signed the CV, evidenced by asking relevant questions and later going up and asking to sign a 3 day notice. Plan: CV-now 3 day notice Q 15 minute checks Risperdal 1 mg daily Risperdal 2 mg q.h.s. Gather collateral 12/05/22 contiue current treatmetn plan 12/07/22 Continue antipsychotic monitor response Reason for continued inpatient stay Substantial Risk for: inability to function and rapid decompensation Time Spent With Patient Time: Total time managing care of this patient today ____ minutes.
[2022-12-07 14:11] VITALS: BP 135/66; PULSE 100
[2022-12-07 18:00] VITALS: BP 134/89; PULSE 94; RESP 18; TEMP 36.1; O2SAT 99
[2022-12-07] MEDS: QUEtiapine Fumarate 300 MG TABLET PO (20:41)
[2022-12-07] MEDS: risperiDONE 2 MG TABLET PO (20:41)
[2022-12-07] MEDS: traZODone HCL 50 MG TABLET PO (20:41)
[2022-12-08 08:26] VITALS: BP 133/75; PULSE 99; RESP 16; TEMP 36.3; O2SAT 99
[2022-12-08] MEDS: risperiDONE 2 MG TABLET PO ×2 (08:42→20:45)
--- NOTE | 2022-12-08 09:34 | HO.PSYCHPN ---
Subjective Subjective Date of Service: 12/08/22 Reason For Visit: mood Subjective Notes: Conditional Voluntary Interim History: Reviewed in team and . Patient keeping to self. Presents guarded but organized. Pt stated, I'm feeling homesick. I'll keep taking my meds so I can leave . Patient retracted 3 day notice. denies SI/HI/VH/AH. Medication Compliance: Yes Side effects from medications: No Attending Groups: Intermittent Review of Systems Constitutional: Reports as per HPI Eyes: Reports as per HPI Reports as per HPI Cardiovascular: Reports as per HPI Respiratory: Reports as per HPI Gastrointestinal: Reports as per HPI Genitourinary: Reports as per HPI Musculoskeletal: Reports as per HPI Skin/Breast: Reports as per HPI Reports as per HPI Psychiatric: Reports as per HPI Endocrine: Reports as per HPI Hematologic/Lymphatic: Reports as per HPI Allergic/Immunologic: Reports as per HPI Mental Status Exam Mental Status Exam Narrative: Pt behavior is cooperative and calm, guarded; dressed in casual attire; mood is described as good ; eye contact appropriate; Speech is normal rate, volume and prosody and not pressured; no psychomotor agitation/retardation present; thought process is organized and goal directed; Thought content is on discharge; otherwise pertinent to relevant topics and without any delusional content, paranoid ideations or grandiosity; denies SI/HI. There is no evidence of perceptual disturbance. Patients insight and judgment are poor but improving. Diagnostics Vital Signs (24Hr): Vital Signs - 24 hr 12/07/22 14:11 12/07/22 18:00 12/08/22 08:26 Temperature 97.0 F 97.3 F Pulse Rate 100 94 99 Respiratory Rate 18 16 Blood Pressure 135/66 134/89 133/75 Pulse Oximetry 99 99 Oxygen Delivery Method Room Air Room Air BMI result Body Mass Index 25.7 Labs 12/02/22 21:20 12/04/22 08:17 Medications Medications Current Medications Acetaminophen (Acetaminophen 325 Mg Tablet) 650 mg PO Q6H PRN PRN Reason: Headache/Pain Mild Scale (1-3) Al Hydroxide/Mg Hydroxide (Magnesium Hydrox/Alum Hydrox 30 Ml Oral.Susp) 30 ml PO Q6H PRN PRN Reason: Heartburn/Nausea Cefuroxime Axetil (Cefuroxime Axetil 250 Mg Tablet) 250 mg PO BID LETTY Last Admin: 12/08/22 08:42 Dose: 250 mg Hydroxyzine HCl (Hydroxyzine Hcl 25 Mg Tablet) 25 mg PO Q6H PRN PRN Reason: Anxiety Last Admin: 12/07/22 20:41 Dose: 25 mg Magnesium Hydroxide (Milk Of Magnesia 30 Ml Oral.Susp) 30 ml PO DAILY PRN PRN Reason: Constipation Melatonin (Melatonin 3 Mg Tablet) 6 mg PO BEDTIME PRN PRN Reason: Insomnia Quetiapine Fumarate (Quetiapine Fumarate 200 Mg Tablet) 200 mg PO BEDTIME LETTY Risperidone (Risperidone 2 Mg Tablet) 2 mg PO BEDTIME LETTY Last Admin: 12/07/22 20:41 Dose: 2 mg Risperidone (Risperidone 2 Mg Tablet) 2 mg PO DAILY LETTY Last Admin: 12/08/22 08:42 Dose: 2 mg Trazodone HCl (Trazodone Hcl 50 Mg Tablet) 50 mg PO BEDTIME MRX1 PRN PRN Reason: Insomnia Last Admin: 12/07/22 20:41 Dose: 50 mg Allergies Allergies Allergy/AdvReac Type Severity Reaction Status Date / Time shrimp AdvReac Intermediate Rash Verified 12/02/22 21:40 Assessment & Plan Assessment & Plan (1) Psychosis: Status: Acute Code(s): F29 - Unspecified psychosis not due to a substance or known physiological condition (2) UTI (urinary tract infection): Status: Acute Code(s): N39.0 - Urinary tract infection, site not specified Plan Patient is a 27-year-old female with history of psychotic illness who presents with disorganized speech and behavior, recently discharged from [facility] but brought back to the hospital at the behest of her father. Patient having trouble focusing on conversation and is almost talking in a word salad. If asked a question she will mostly respond with some completely irrelevant and nonsensical answer. She said something about [employer]; [employer] song which she saying; physics; something about [place] in [place] and being stalked. She denies any AVH but does seem internally preoccupied. She denies any drug or alcohol use other than weed... A little. Patient gives permission for team to discuss case with her father and gives the phone number. Patient agreed to take antipsychotic medication. Later in the day, patient was more linear and organized. She agreed that she was at the hospital for help and understood criteria for having signed the CV, evidenced by asking relevant questions and later going up and asking to sign a 3 day notice. Plan: CV-now 3 day notice Q 15 minute checks Risperdal 1 mg daily Risperdal 2 mg q.h.s. Gather collateral 12/05/22 contiue current treatmetn plan 12/08: Patient keeping to self. Presents guarded but organized. Pt stated, I'm feeling homesick. I'll keep taking my meds so I can leave . Patient retracted 3 day notice. denies SI/HI/VH/AH. Continue current tx plan. Patient educated on: diagnosis and medication risk/benefits Informed Consent: understands and further education needed Reason for continued inpatient stay Substantial Risk for: med/psych decompensation Time Spent With Patient Time: Total time managing care of this patient today _30___ minutes.
[2022-12-08 18:00] VITALS: BP 113/79; PULSE 117; TEMP 36.4; O2SAT 98
[2022-12-08] MEDS: hydrOXYzine HCL 25 MG TABLET PO (20:00)
[2022-12-08] MEDS: QUEtiapine Fumarate 200 MG TABLET PO (20:01)
[2022-12-08] MEDS: traZODone HCL 50 MG TABLET PO (20:02)
[2022-12-09] MEDS: Melatonin 3 MG TABLET 6 MG PO (01:35)
[2022-12-09] MEDS: traZODone HCL 50 MG TABLET PO (01:35)
[2022-12-09] MEDS: hydrOXYzine HCL 25 MG TABLET PO (01:35)
[2022-12-09] MEDS: risperiDONE 2 MG TABLET PO ×2 (08:38→20:29)
[2022-12-09 08:40] VITALS: BP 155/85; PULSE 124; RESP 18; TEMP 35.8; O2SAT 97
[2022-12-09] MEDS: risperiDONE 0.5 MG TABLET PO (11:06)
[2022-12-09] MEDS: LORazepam 1 MG TABLET PO ×2 (11:06→20:29)
--- NOTE | 2022-12-09 13:26 | HO.PSYCHPN ---
Subjective Subjective Date of Service: 12/09/22 Reason For Visit: mood Subjective Notes: Conditional Voluntary Interim History: Reviewed in team and . Patient presents disorganized, confused with times of echolalia. When T/W would ask pt a question, pt would either repeat the question back, repeat a word from the sentence or state a word she overheard someone use who is standing within hearing distance. Patient attempted to elope from unit multiple times this morning. When T/W asked where she planned on going, pt stated, home. the rn documentation specialist will bring me home . T/W explained to patient she would have to wait until she improved; pt stated, okay. I can do that . Showered. Medication compliant. Medication Compliance: Yes Side effects from medications: No Review of Systems Constitutional: Reports as per HPI Eyes: Reports as per HPI Reports as per HPI Cardiovascular: Reports as per HPI Respiratory: Reports as per HPI Gastrointestinal: Reports as per HPI Genitourinary: Reports as per HPI Musculoskeletal: Reports as per HPI Skin/Breast: Reports as per HPI Reports as per HPI Psychiatric: Reports as per HPI Endocrine: Reports as per HPI Hematologic/Lymphatic: Reports as per HPI Allergic/Immunologic: Reports as per HPI Mental Status Exam Mental Status Exam Narrative: Pt is behavior is guarded and calm; dressed in hospital attire; mood is described as ok ; eye contact appropriate; Speech is normal rate, volume and prosody and not pressured;some echolalia. no psychomotor agitation/retardation present; thought process is disorganized and confused; denies SI/HI. There is no evidence of perceptual disturbance. Patients insight and judgment are poor. Diagnostics Vital Signs (24Hr): Vital Signs - 24 hr 12/08/22 18:00 12/09/22 08:40 Temperature 97.6 F 96.4 F L Pulse Rate 117 H 124 H Respiratory Rate 18 Blood Pressure 113/79 155/85 H Pulse Oximetry 98 97 Oxygen Delivery Method Room Air Room Air BMI result Body Mass Index 25.7 Labs 12/02/22 21:20 12/04/22 08:17 Medications Medications Current Medications Acetaminophen (Acetaminophen 325 Mg Tablet) 650 mg PO Q6H PRN PRN Reason: Headache/Pain Mild Scale (1-3) Al Hydroxide/Mg Hydroxide (Magnesium Hydrox/Alum Hydrox 30 Ml Oral.Susp) 30 ml PO Q6H PRN PRN Reason: Heartburn/Nausea Cefuroxime Axetil (Cefuroxime Axetil 250 Mg Tablet) 250 mg PO BID LETTY Last Admin: 12/09/22 08:38 Dose: 250 mg Hydroxyzine HCl (Hydroxyzine Hcl 25 Mg Tablet) 25 mg PO Q6H PRN PRN Reason: Anxiety Last Admin: 12/09/22 01:35 Dose: 25 mg Lorazepam (Lorazepam 1 Mg Tablet) 1 mg PO BID PRN PRN Reason: anxiety/restlessness Last Admin: 12/09/22 11:06 Dose: 1 mg Magnesium Hydroxide (Milk Of Magnesia 30 Ml Oral.Susp) 30 ml PO DAILY PRN PRN Reason: Constipation Melatonin (Melatonin 3 Mg Tablet) 6 mg PO BEDTIME PRN PRN Reason: Insomnia Last Admin: 12/09/22 01:35 Dose: 6 mg Quetiapine Fumarate (Quetiapine Fumarate 200 Mg Tablet) 200 mg PO BEDTIME LETTY Last Admin: 12/08/22 20:01 Dose: 200 mg Risperidone (Risperidone 2 Mg Tablet) 2 mg PO BEDTIME LETTY Last Admin: 12/08/22 20:45 Dose: 2 mg Risperidone (Risperidone 2 Mg Tablet) 2 mg PO DAILY LETTY Last Admin: 12/09/22 08:38 Dose: 2 mg Risperidone (Risperidone 0.5 Mg Tablet) 0.5 mg PO BID PRN PRN Reason: Psychosis Last Admin: 12/09/22 11:06 Dose: 0.5 mg Trazodone HCl (Trazodone Hcl 50 Mg Tablet) 50 mg PO BEDTIME MRX1 PRN PRN Reason: Insomnia Last Admin: 12/09/22 01:35 Dose: 50 mg Allergies Allergies Allergy/AdvReac Type Severity Reaction Status Date / Time shrimp AdvReac Intermediate Rash Verified 12/02/22 21:40 Assessment & Plan Assessment & Plan (1) Psychosis: Status: Acute Code(s): F29 - Unspecified psychosis not due to a substance or known physiological condition (2) UTI (urinary tract infection): Status: Acute Code(s): N39.0 - Urinary tract infection, site not specified Plan Patient is a 27-year-old female with history of psychotic illness who presents with disorganized speech and behavior, recently discharged from [facility] but brought back to the hospital at the behest of her father. Patient having trouble focusing on conversation and is almost talking in a word salad. If asked a question she will mostly respond with some completely irrelevant and nonsensical answer. She said something about [employer]; [employer] song which she saying; physics; something about [place] in [place] and being stalked. She denies any AVH but does seem internally preoccupied. She denies any drug or alcohol use other than weed... A little. Patient gives permission for team to discuss case with her father and gives the phone number. Patient agreed to take antipsychotic medication. Later in the day, patient was more linear and organized. She agreed that she was at the hospital for help and understood criteria for having signed the CV, evidenced by asking relevant questions and later going up and asking to sign a 3 day notice. Plan: CV-now 3 day notice Q 15 minute checks Risperdal 1 mg daily Risperdal 2 mg q.h.s. Gather collateral 12/05/22 contiue current treatmetn plan 12/08: Patient keeping to self. Presents guarded but organized. Pt stated, I'm feeling homesick. I'll keep taking my meds so I can leave . Patient retracted 3 day notice. denies SI/HI/VH/AH. Continue current tx plan. 12/09: Patient presents disorganized, confused with times of echolalia. When T/W would ask pt a question, pt would either repeat the question back, repeat a word from the sentence or state a word she overheard someone use who is standing within hearing distance. Patient attempted to elope from unit multiple times this morning. When T/W asked where she planned on going, pt stated, home. the rn documentation specialist will bring me home . T/W explained to patient she would have to wait until she improved; pt stated, okay. I can do that . Showered. Medication compliant. Added Ativan 1mg PO BID PRN and Risperdal 0.5mg PO BID PRN. Patient educated on: diagnosis and medication risk/benefits Informed Consent: understands and further education needed Reason for continued inpatient stay Substantial Risk for: med/psych decompensation Time Spent With Patient Time: Total time managing care of this patient today _30___ minutes.
[2022-12-09 18:00] VITALS: BP 144/85; PULSE 91; TEMP 35.2; O2SAT 100
[2022-12-09] MEDS: QUEtiapine Fumarate 200 MG TABLET PO (20:29)
[2022-12-10 07:00] VITALS: BMI 26.1
[2022-12-10] MEDS: risperiDONE 2 MG TABLET PO (08:09)
[2022-12-10 09:03] VITALS: BP 124/75; PULSE 123; RESP 18; TEMP 35.8; O2SAT 98
--- NOTE | 2022-12-10 09:15 | P.PNPSI_ITS ---
Subjective Subjective Date of Service: 12/10/22 Reason For Visit: mood Subjective Notes: Conditional Voluntary Interim History: Reviewed in team and . Patient presents disorganized, confused with times of echolalia. Staff reported patient was seen standing on chair, when asked reasoning, pt stated, I'm not a turkey baster . Patient unable to have logical conversation at this time. Appears restless. Medication compliant. Medication Compliance: Yes Side effects from medications: No Attending Groups: Intermittent Review of Systems Constitutional: Reports as per HPI Eyes: Reports as per HPI Reports as per HPI Cardiovascular: Reports as per HPI Respiratory: Reports as per HPI Gastrointestinal: Reports as per HPI Genitourinary: Reports as per HPI Musculoskeletal: Reports as per HPI Skin/Breast: Reports as per HPI Reports as per HPI Psychiatric: Reports as per HPI Endocrine: Reports as per HPI Hematologic/Lymphatic: Reports as per HPI Allergic/Immunologic: Reports as per HPI Mental Status Exam Mental Status Exam Narrative: Pt is behavior is guarded and calm; dressed in hospital attire; mood is described as ok ; eye contact appropriate; Speech is normal rate, volume and prosody and not pressured;some echolalia. no psychomotor agitation/retardation present; thought process is disorganized and confused; denies SI/HI. There is no evidence of perceptual disturbance. Patients insight and judgment are poor. Diagnostics Vital Signs (24Hr): Vital Signs - 24 hr 12/09/22 18:00 12/10/22 09:03 Temperature 95.3 F L 96.5 F L Pulse Rate 91 123 H Respiratory Rate 18 Blood Pressure 144/85 H 124/75 Pulse Oximetry 100 98 Oxygen Delivery Method Room Air BMI result Body Mass Index 25.7 Labs 12/02/22 21:20 12/04/22 08:17 Medications Medications Current Medications Acetaminophen (Acetaminophen 325 Mg Tablet) 650 mg PO Q6H PRN PRN Reason: Headache/Pain Mild Scale (1-3) Al Hydroxide/Mg Hydroxide (Magnesium Hydrox/Alum Hydrox 30 Ml Oral.Susp) 30 ml PO Q6H PRN PRN Reason: Heartburn/Nausea Cefuroxime Axetil (Cefuroxime Axetil 250 Mg Tablet) 250 mg PO BID LETTY Last Admin: 12/10/22 08:09 Dose: 250 mg Hydroxyzine HCl (Hydroxyzine Hcl 25 Mg Tablet) 25 mg PO Q6H PRN PRN Reason: Anxiety Last Admin: 12/09/22 01:35 Dose: 25 mg Lorazepam (Lorazepam 1 Mg Tablet) 1 mg PO BID PRN PRN Reason: anxiety/restlessness Last Admin: 12/09/22 20:29 Dose: 1 mg Magnesium Hydroxide (Milk Of Magnesia 30 Ml Oral.Susp) 30 ml PO DAILY PRN PRN Reason: Constipation Melatonin (Melatonin 3 Mg Tablet) 6 mg PO BEDTIME PRN PRN Reason: Insomnia Last Admin: 12/09/22 01:35 Dose: 6 mg Quetiapine Fumarate (Quetiapine Fumarate 200 Mg Tablet) 200 mg PO BEDTIME LETTY Last Admin: 12/09/22 20:29 Dose: 200 mg Risperidone (Risperidone 2 Mg Tablet) 2 mg PO BEDTIME LETTY Last Admin: 12/09/22 20:29 Dose: 2 mg Risperidone (Risperidone 2 Mg Tablet) 2 mg PO DAILY LETTY Last Admin: 12/10/22 08:09 Dose: 2 mg Risperidone (Risperidone 0.5 Mg Tablet) 0.5 mg PO BID PRN PRN Reason: Psychosis Last Admin: 12/09/22 11:06 Dose: 0.5 mg Trazodone HCl (Trazodone Hcl 50 Mg Tablet) 50 mg PO BEDTIME MRX1 PRN PRN Reason: Insomnia Last Admin: 12/09/22 01:35 Dose: 50 mg Allergies Allergies Allergy/AdvReac Type Severity Reaction Status Date / Time shrimp AdvReac Intermediate Rash Verified 12/02/22 21:40 Assessment & Plan Assessment & Plan (1) Psychosis: Status: Acute Code(s): F29 - Unspecified psychosis not due to a substance or known physiological condition (2) UTI (urinary tract infection): Status: Acute Code(s): N39.0 - Urinary tract infection, site not specified Plan Patient is a 27-year-old female with history of psychotic illness who presents with disorganized speech and behavior, recently discharged from [facility] but brought back to the hospital at the behest of her father. Patient having trouble focusing on conversation and is almost talking in a word salad. If asked a question she will mostly respond with some completely irrelevant and nonsensical answer. She said something about double tongs; [employer] song which she saying; physics; something about [place] in [place] and being stalked. She denies any AVH but does seem internally preoccupied. She denies any drug or alcohol use other than weed... A little. Patient gives permission for team to discuss case with her father and gives the phone number. Patient agreed to take antipsychotic medication. Later in the day, patient was more linear and organized. She agreed that she was at the hospital for help and understood criteria for having signed the CV, evidenced by asking relevant questions and later going up and asking to sign a 3 day notice. Plan: CV-now 3 day notice Q 15 minute checks Risperdal 1 mg daily Risperdal 2 mg q.h.s. Gather collateral 12/05: contiue current treatmetn plan 12/08: Patient keeping to self. Presents guarded but organized. Pt stated, I'm feeling homesick. I'll keep taking my meds so I can leave . Patient retracted 3 day notice. denies SI/HI/VH/AH. Continue current tx plan. 12/09: Patient presents disorganized, confused with times of echolalia. When T/W would ask pt a question, pt would either repeat the question back, repeat a word from the sentence or state a word she overheard someone use who is standing within hearing distance. Patient attempted to elope from unit multiple times this morning. When T/W asked where she planned on going, pt stated, home. the parts and service manager will bring me home . T/W explained to patient she would have to wait until she improved; pt stated, okay. I can do that . Showered. Medication compliant. Added Ativan 1mg PO BID PRN and Risperdal 0.5mg PO BID PRN. 12/10: Patient presents disorganized, confused with times of echolalia. Staff reported patient was seen standing on chair, when asked reasoning, pt stated, I'm not a turkey baster . Patient unable to have logical conversation at this time. Appears restless. Medication compliant. DC Risperdal, does not seem to be improving psychosis. Start Zyprexa 5mg PO bedtime. Patient aware. Patient educated on: medication risk/benefits Informed Consent: understands and further education needed Reason for continued inpatient stay Substantial Risk for: med/psych decompensation Time Spent With Patient Time: Total time managing care of this patient today _30___ minutes.
[2022-12-10] MEDS: Acetaminophen 325 MG TABLET 650 MG PO (13:43)
[2022-12-10 18:00] VITALS: BP 176/76; PULSE 126; TEMP 35.8; O2SAT 99
[2022-12-10] MEDS: LORazepam 1 MG TABLET PO (18:54)
[2022-12-10] MEDS: traZODone HCL 50 MG TABLET PO (19:52)
[2022-12-10] MEDS: OLANZapine 5 MG TABLET PO (19:52)
[2022-12-10] MEDS: risperiDONE 1 MG TABLET PO (19:52)
[2022-12-10] MEDS: Melatonin 3 MG TABLET 6 MG PO (19:53)
[2022-12-10] MEDS: QUEtiapine Fumarate 200 MG TABLET PO (19:53)
[2022-12-11] MEDS: Acetaminophen 325 MG TABLET 650 MG PO (06:23)
[2022-12-11 07:55] VITALS: BP 129/75; PULSE 103; RESP 16; TEMP 36.1; O2SAT 100
--- NOTE | 2022-12-11 08:00 | ECG_ITS ---
Test Reason : TACHYCARDIA Blood Pressure : / mmHG Vent. Rate : 091 BPM Atrial Rate : 091 BPM P-R Int : 132 ms QRS Dur : 070 ms QT Int : 326 ms P-R-T Axes : 048 053 036 degrees QTc Int : 400 ms Normal sinus rhythm Normal ECG No previous ECGs available Referred By: Jayme Solis Electronically Signed By:PIPPA RAY MD
[2022-12-11] MEDS: risperiDONE 1 MG TABLET PO ×2 (08:03→20:14)
[2022-12-11 08:54] LABS: TSH reflex Free T4 1.47 uIU/mL (0.32-4.0)
--- NOTE | 2022-12-11 09:08 | P.PNPSI_ITS ---
Subjective Subjective Date of Service: 12/11/22 Reason For Visit: mood Subjective Notes: Conditional Voluntary Interim History: Reviewed in team and . Patient presents disorganized, confused with times of echolalia. Patient unable to have logical conversation at this time; flight of ideas. Medication compliant. Patient standing in hallway, jumping up and down and stating I'm bat shit crazy! 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 If I don't go to medical school I'm going to [employer]. I wanna hug you! Medication Compliance: Yes Side effects from medications: No Attending Groups: Intermittent Review of Systems Constitutional: Reports as per HPI Eyes: Reports as per HPI Reports as per HPI Cardiovascular: Reports as per HPI Respiratory: Reports as per HPI Gastrointestinal: Reports as per HPI Genitourinary: Reports as per HPI Musculoskeletal: Reports as per HPI Skin/Breast: Reports as per HPI Reports as per HPI Psychiatric: Reports as per HPI Endocrine: Reports as per HPI Hematologic/Lymphatic: Reports as per HPI Allergic/Immunologic: Reports as per HPI Mental Status Exam Mental Status Exam Narrative: Pt is behavior is guarded and calm; dressed in hospital attire; mood is described as ok ; eye contact appropriate; Speech is normal rate, volume and prosody and not pressured;some echolalia. no psychomotor agitation/retardation present; thought process is disorganized and confused; denies SI/HI. There is no evidence of perceptual disturbance. Patients insight and judgment are poor. Diagnostics Vital Signs (24Hr): Vital Signs - 24 hr 12/10/22 18:00 Temperature 96.4 F L Pulse Rate 126 H Blood Pressure 176/76 H Pulse Oximetry 99 Oxygen Delivery Method Room Air BMI result Body Mass Index 26.1 Labs 12/02/22 21:20 12/04/22 08:17 Labs: Laboratory Results - last 48 hr 12/11/22 07:59 TSH 1.47 Medications Medications Current Medications Acetaminophen (Acetaminophen 325 Mg Tablet) 650 mg PO Q6H PRN PRN Reason: Headache/Pain Mild Scale (1-3) Last Admin: 12/11/22 06:23 Dose: 650 mg Al Hydroxide/Mg Hydroxide (Magnesium Hydrox/Alum Hydrox 30 Ml Oral.Susp) 30 ml PO Q6H PRN PRN Reason: Heartburn/Nausea Cefuroxime Axetil (Cefuroxime Axetil 250 Mg Tablet) 250 mg PO BID LETTY Last Admin: 12/11/22 08:03 Dose: 250 mg Hydroxyzine HCl (Hydroxyzine Hcl 25 Mg Tablet) 25 mg PO Q6H PRN PRN Reason: Anxiety Last Admin: 12/09/22 01:35 Dose: 25 mg Lorazepam (Lorazepam 1 Mg Tablet) 1 mg PO BID PRN PRN Reason: anxiety/restlessness Last Admin: 12/10/22 18:54 Dose: 1 mg Magnesium Hydroxide (Milk Of Magnesia 30 Ml Oral.Susp) 30 ml PO DAILY PRN PRN Reason: Constipation Melatonin (Melatonin 3 Mg Tablet) 6 mg PO BEDTIME LETTY Last Admin: 12/10/22 19:53 Dose: 6 mg Olanzapine (Olanzapine 5 Mg Tablet) 5 mg PO BEDTIME LETTY Last Admin: 12/10/22 19:52 Dose: 5 mg Olanzapine (Olanzapine 5 Mg Tablet) 5 mg PO DAILY PRN PRN Reason: Psychosis Quetiapine Fumarate (Quetiapine Fumarate 200 Mg Tablet) 200 mg PO BEDTIME LETTY Last Admin: 12/10/22 19:53 Dose: 200 mg Risperidone (Risperidone 1 Mg Tablet) 1 mg PO BID LETTY Stop: 12/13/22 09:01 Last Admin: 12/11/22 08:03 Dose: 1 mg Trazodone HCl (Trazodone Hcl 50 Mg Tablet) 50 mg PO BEDTIME MRX1 PRN PRN Reason: Insomnia Last Admin: 12/10/22 19:52 Dose: 50 mg Allergies Allergies Allergy/AdvReac Type Severity Reaction Status Date / Time shrimp AdvReac Intermediate Rash Verified 12/02/22 21:40 Assessment & Plan Assessment & Plan (1) Psychosis: Status: Acute Code(s): F29 - Unspecified psychosis not due to a substance or known physiological condition (2) UTI (urinary tract infection): Status: Acute Code(s): N39.0 - Urinary tract infection, site not specified Plan Patient is a 27-year-old female with history of psychotic illness who presents with disorganized speech and behavior, recently discharged from [facility] but brought back to the hospital at the behest of her father. Patient having trouble focusing on conversation and is almost talking in a word salad. If asked a question she will mostly respond with some completely irrelevant and nonsensical answer. She said something about double tongs; Cathi [employer] song which she saying; physics; something about [place] in [place] and being stalked. She denies any AVH but does seem internally preoccupied. She denies any drug or alcohol use other than weed... A little. Patient gives permission for team to discuss case with her father and gives the phone number. Patient agreed to take antipsychotic medication. Later in the day, patient was more linear and organized. She agreed that she was at the hospital for help and understood criteria for having signed the CV, evidenced by asking relevant questions and later going up and asking to sign a 3 day notice. Plan: CV-now 3 day notice Q 15 minute checks Risperdal 1 mg daily Risperdal 2 mg q.h.s. Gather collateral 12/05: contiue current treatmetn plan 12/08: Patient keeping to self. Presents guarded but organized. Pt stated, I'm feeling homesick. I'll keep taking my meds so I can leave . Patient retracted 3 day notice. denies SI/HI/VH/AH. Continue current tx plan. 12/09: Patient presents disorganized, confused with times of echolalia. When T/W would ask pt a question, pt would either repeat the question back, repeat a word from the sentence or state a word she overheard someone use who is standing within hearing distance. Patient attempted to elope from unit multiple times this morning. When T/W asked where she planned on going, pt stated, home. the watch electrician will bring me home . T/W explained to patient she would have to wait until she improved; pt stated, okay. I can do that . Showered. Medication compliant. Added Ativan 1mg PO BID PRN and Risperdal 0.5mg PO BID PRN. 12/10: Patient presents disorganized, confused with times of echolalia. Staff reported patient was seen standing on chair, when asked reasoning, pt stated, I'm not a turkey baster . Patient unable to have logical conversation at this time. Appears restless. Medication compliant. DC Risperdal, does not seem to be improving psychosis. Start Zyprexa 5mg PO daily. Patient aware. 12/11: Patient presents disorganized, confused with times of echolalia. Patient unable to have logical conversation at this time; flight of ideas. Medication compliant. Patient standing in hallway, jumping up and down and stating I'm bat shit crazy! 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 If I don't go to medical school I'm going to [employer]. I wanna hug you! Continue taper of risperdal and increase in Zyprexa. Patient educated on: diagnosis and medication risk/benefits Informed Consent: understands and further education needed Reason for continued inpatient stay Substantial Risk for: med/psych decompensation Time Spent With Patient Time: Total time managing care of this patient today _30___ minutes.
[2022-12-11] MEDS: OLANZapine 5 MG TABLET PO ×2 (13:33→20:47)
[2022-12-11 18:00] VITALS: BP 140/81; PULSE 97; RESP 18; TEMP 35.5; O2SAT 100
[2022-12-11] MEDS: Melatonin 3 MG TABLET 6 MG PO (20:14)
[2022-12-11] MEDS: QUEtiapine Fumarate 200 MG TABLET PO (20:14)
[2022-12-11] MEDS: LORazepam 1 MG TABLET PO (20:47)
[2022-12-12 08:00] VITALS: BP 120/68; PULSE 78; RESP 16; TEMP 36.6; O2SAT 97
[2022-12-12] MEDS: OLANZapine 5 MG TABLET PO (08:47)
[2022-12-12] MEDS: risperiDONE 1 MG TABLET PO ×2 (08:48→19:24)
--- NOTE | 2022-12-12 10:05 | P.PNPSI_ITS ---
Subjective Subjective Date of Service: 12/12/22 Reason For Visit: mood Interim History: Patient presents disorganized, confused. She is slow in her responses and has increased latency. Says she wants Isabel (her sister) to visit. When asked to call her, she says she doesn't know her number. Then asks for father. She is illogical. Taking medications. Placed on 5 min checks due to entering other people's rooms. Irrelevant and psychotic statements like saying spirits asking her to leave. Exit seeking. Needing redirection. Appears to respond to internal stimuli. Review of Systems Review of Systems no change Yes all other systems are reviewed and are negative Constitutional: Reports as per HPI Eyes: Reports as per HPI Reports as per HPI Cardiovascular: Reports as per HPI Respiratory: Reports as per HPI Gastrointestinal: Reports as per HPI Musculoskeletal: Reports as per HPI Skin/Breast: Reports as per HPI Reports as per HPI Psychiatric: Reports as per HPI Endocrine: Reports as per HPI Hematologic/Lymphatic: Reports as per HPI Allergic/Immunologic: Reports as per HPI Mental Status Exam Mental Status Exam Narrative: Pt is behavior is guarded and calm; dressed in hospital attire; mood is described as ok ; eye contact appropriate; Speech is normal rate, volume and prosody and not pressured;some echolalia. no psychomotor agitation/retardation present; thought process is disorganized and confused; denies SI/HI. There is no evidence of perceptual disturbance. Patients insight and judgment are poor. Patient Appearance: Disheveled Patient Orientation: Person (self only) Level of Consciousness: Awake Patient Behavior: Guarded, Cooperative and Poor Eye Contact Mood Description: Calm, Labile and Blunted Affect Description: Calm, Blunted and Apprehensive Patient Cognition Impaired: Yes Ability to Follow Directions: Fair Speech Pattern: Mumbled and Long Pauses Memory Description: Remote Impaired, Immediate Impaired and [employer] Impaired Diagnostics Vital Signs (24Hr): Vital Signs - 24 hr 12/11/22 18:00 12/12/22 08:00 Temperature 96 F L 97.8 F Pulse Rate 97 78 Respiratory Rate 18 16 Blood Pressure 140/81 H 120/68 Pulse Oximetry 100 97 Oxygen Delivery Method Room Air Room Air BMI result Body Mass Index 26.1 Labs 12/02/22 21:20 12/04/22 08:17 Labs: Laboratory Results - last 48 hr 12/11/22 07:59 TSH 1.47 Medications Medications Current Medications Acetaminophen (Acetaminophen 325 Mg Tablet) 650 mg PO Q6H PRN PRN Reason: Headache/Pain Mild Scale (1-3) Last Admin: 12/11/22 06:23 Dose: 650 mg Al Hydroxide/Mg Hydroxide (Magnesium Hydrox/Alum Hydrox 30 Ml Oral.Susp) 30 ml PO Q6H PRN PRN Reason: Heartburn/Nausea Cefuroxime Axetil (Cefuroxime Axetil 250 Mg Tablet) 250 mg PO BID LETTY Last Admin: 12/12/22 08:47 Dose: 250 mg Hydroxyzine HCl (Hydroxyzine Hcl 25 Mg Tablet) 25 mg PO Q6H PRN PRN Reason: Anxiety Last Admin: 12/09/22 01:35 Dose: 25 mg Lorazepam (Lorazepam 1 Mg Tablet) 1 mg PO BID PRN PRN Reason: anxiety/restlessness Last Admin: 12/11/22 20:47 Dose: 1 mg Magnesium Hydroxide (Milk Of Magnesia 30 Ml Oral.Susp) 30 ml PO DAILY PRN PRN Reason: Constipation Melatonin (Melatonin 3 Mg Tablet) 6 mg PO BEDTIME LETTY Last Admin: 12/11/22 20:14 Dose: 6 mg Olanzapine (Olanzapine 5 Mg Tablet) 5 mg PO DAILY PRN PRN Reason: Psychosis Olanzapine (Olanzapine 5 Mg Tablet) 5 mg PO DAILY LETTY Last Admin: 12/12/22 08:47 Dose: 5 mg Quetiapine Fumarate (Quetiapine Fumarate 200 Mg Tablet) 200 mg PO BEDTIME LETTY Last Admin: 12/11/22 20:14 Dose: 200 mg Risperidone (Risperidone 1 Mg Tablet) 1 mg PO BID LETTY Stop: 12/13/22 09:01 Last Admin: 12/12/22 08:48 Dose: 1 mg Trazodone HCl (Trazodone Hcl 50 Mg Tablet) 50 mg PO BEDTIME MRX1 PRN PRN Reason: Insomnia Last Admin: 12/10/22 19:52 Dose: 50 mg Allergies Allergies Allergy/AdvReac Type Severity Reaction Status Date / Time shrimp AdvReac Intermediate Rash Verified 12/02/22 21:40 Assessment & Plan Assessment & Plan (1) Psychosis: Status: Acute Code(s): F29 - Unspecified psychosis not due to a substance or known physiological condition (2) UTI (urinary tract infection): Status: Acute Code(s): N39.0 - Urinary tract infection, site not specified Plan Patient is a 27-year-old female with history of psychotic illness who presents with disorganized speech and behavior, recently discharged from [facility] but brought back to the hospital at the behest of her father. Patient having trouble focusing on conversation and is almost talking in a word salad. If asked a question she will mostly respond with some completely irrelevant and nonsensical answer. She said something about double tongs; Cathi [employer] song which she saying; physics; something about [place] in [place] and being stalked. She denies any AVH but does seem internally preoccupied. She denies any drug or alcohol use other than weed... A little. Patient gives permission for team to discuss case with her father and gives the phone number. Patient agreed to take antipsychotic medication. Later in the day, patient was more linear and organized. She agreed that she was at the hospital for help and understood criteria for having signed the CV, evidenced by asking relevant questions and later going up and asking to sign a 3 day notice. Plan: CV-now 3 day notice Q 15 minute checks Risperdal 1 mg daily Risperdal 2 mg q.h.s. Gather collateral 12/05: contiue current treatmetn plan 12/08: Patient keeping to self. Presents guarded but organized. Pt stated, I'm feeling homesick. I'll keep taking my meds so I can leave . Patient retracted 3 day notice. denies SI/HI/VH/AH. Continue current tx plan. 12/09: Patient presents disorganized, confused with times of echolalia. When T/W would ask pt a question, pt would either repeat the question back, repeat a word from the sentence or state a word she overheard someone use who is standing within hearing distance. Patient attempted to elope from unit multiple times this morning. When T/W asked where she planned on going, pt stated, home. the allied health teacher will bring me home . T/W explained to patient she would have to wait until she improved; pt stated, okay. I can do that . Showered. Medication compliant. Added Ativan 1mg PO BID PRN and Risperdal 0.5mg PO BID PRN. 12/10: Patient presents disorganized, confused with times of echolalia. Staff reported patient was seen standing on chair, when asked reasoning, pt stated, I'm not a turkey baster . Patient unable to have logical conversation at this time. Appears restless. Medication compliant. DC Risperdal, does not seem to be improving psychosis. Start Zyprexa 5mg PO daily. Patient aware. 12/11: Patient presents disorganized, confused with times of echolalia. Patient unable to have logical conversation at this time; flight of ideas. Medication compliant. Patient standing in hallway, jumping up and down and stating I'm bat shit crazy! 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 If I don't go to medical school I'm going to [employer]. I wanna hug you! Continue taper of risperdal and increase in Zyprexa. 12/12: Increase Zyprexa tomorrow and lower Risperidone. Reason for continued inpatient stay Substantial Risk for: inability to function and rapid decompensation Time Spent With Patient Time: Total time managing care of this patient today ____ minutes.
[2022-12-12 18:00] VITALS: RESP 16
[2022-12-12] MEDS: QUEtiapine Fumarate 200 MG TABLET PO (19:24)
[2022-12-12] MEDS: Melatonin 3 MG TABLET 6 MG PO (19:24)
--- NOTE | 2022-12-13 08:11 | P.PNPSI_ITS ---
Subjective Subjective Date of Service: 12/13/22 Reason For Visit: mood Interim History: Patient presents disorganized, confused. She is slow in her responses and has increased latency. She appears to respond to internal stimuli. Entering people's rooms. She has an odd affect with a faint smile on her face. She is illogical. Taking medications and tolerating them but suspected of cheeking. Can be exit seeking. Needing redirection. Appears to respond to internal stimuli. Review of Systems Review of Systems no change Yes all other systems are reviewed and are negative Constitutional: Reports as per HPI Eyes: Reports as per HPI Reports as per HPI Cardiovascular: Reports as per HPI Respiratory: Reports as per HPI Gastrointestinal: Reports as per HPI Musculoskeletal: Reports as per HPI Skin/Breast: Reports as per HPI Reports as per HPI Psychiatric: Reports as per HPI Endocrine: Reports as per HPI Hematologic/Lymphatic: Reports as per HPI Allergic/Immunologic: Reports as per HPI Mental Status Exam Mental Status Exam Narrative: Pt is behavior is guarded and calm; dressed in hospital attire; mood is described as ok ; eye contact appropriate; Speech is normal rate, volume and prosody and not pressured;some echolalia. no psychomotor agitation/retardation present; thought process is disorganized and confused; denies SI/HI. There is no evidence of perceptual disturbance. Patients insight and judgment are poor. Patient Appearance: Disheveled Patient Orientation: Person (self only) Level of Consciousness: Awake Patient Behavior: Guarded, Cooperative and Poor Eye Contact Mood Description: Calm, Labile and Blunted Affect Description: Calm, Blunted and Apprehensive Patient Cognition Impaired: Yes Ability to Follow Directions: Fair Speech Pattern: Mumbled and Long Pauses Memory Description: Remote Impaired, Immediate Impaired and Accounting Manager Controller Impaired Diagnostics Vital Signs (24Hr): Vital Signs - 24 hr 12/12/22 18:00 Respiratory Rate 16 BMI result Body Mass Index 26.1 Labs 12/02/22 21:20 12/04/22 08:17 Labs: Laboratory Results - last 48 hr 12/11/22 07:59 TSH 1.47 Medications Medications Current Medications Acetaminophen (Acetaminophen 325 Mg Tablet) 650 mg PO Q6H PRN PRN Reason: Headache/Pain Mild Scale (1-3) Last Admin: 12/11/22 06:23 Dose: 650 mg Al Hydroxide/Mg Hydroxide (Magnesium Hydrox/Alum Hydrox 30 Ml Oral.Susp) 30 ml PO Q6H PRN PRN Reason: Heartburn/Nausea Cefuroxime Axetil (Cefuroxime Axetil 250 Mg Tablet) 250 mg PO BID LETTY Last Admin: 12/12/22 19:24 Dose: 250 mg Hydroxyzine HCl (Hydroxyzine Hcl 25 Mg Tablet) 25 mg PO Q6H PRN PRN Reason: Anxiety Last Admin: 12/09/22 01:35 Dose: 25 mg Lorazepam (Lorazepam 1 Mg Tablet) 1 mg PO BID PRN PRN Reason: anxiety/restlessness Last Admin: 12/11/22 20:47 Dose: 1 mg Magnesium Hydroxide (Milk Of Magnesia 30 Ml Oral.Susp) 30 ml PO DAILY PRN PRN Reason: Constipation Melatonin (Melatonin 3 Mg Tablet) 6 mg PO BEDTIME LETTY Last Admin: 12/12/22 19:24 Dose: 6 mg Olanzapine (Olanzapine 5 Mg Tablet) 5 mg PO DAILY PRN PRN Reason: Psychosis Olanzapine (Olanzapine 5 Mg Tablet) 5 mg PO BID LETTY Quetiapine Fumarate (Quetiapine Fumarate 200 Mg Tablet) 200 mg PO BEDTIME LETTY Last Admin: 12/12/22 19:24 Dose: 200 mg Risperidone (Risperidone 1 Mg Tablet) 1 mg PO BID LETTY Stop: 12/13/22 09:01 Last Admin: 12/12/22 19:24 Dose: 1 mg Trazodone HCl (Trazodone Hcl 50 Mg Tablet) 50 mg PO BEDTIME MRX1 PRN PRN Reason: Insomnia Last Admin: 12/10/22 19:52 Dose: 50 mg Allergies Allergies Allergy/AdvReac Type Severity Reaction Status Date / Time shrimp AdvReac Intermediate Rash Verified 12/02/22 21:40 Assessment & Plan Assessment & Plan (1) Psychosis: Status: Acute Code(s): F29 - Unspecified psychosis not due to a substance or known physiological condition (2) UTI (urinary tract infection): Status: Acute Code(s): N39.0 - Urinary tract infection, site not specified Plan Patient is a 27-year-old female with history of psychotic illness who presents with disorganized speech and behavior, recently discharged from [facility] but brought back to the hospital at the behest of her father. Patient having trouble focusing on conversation and is almost talking in a word salad. If asked a question she will mostly respond with some completely irrelevant and nonsensical answer. 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 She denies any AVH but does seem internally preoccupied. She denies any drug or alcohol use other than weed... A little. Patient gives permission for team to discuss case with her father and gives the phone number. Patient agreed to take antipsychotic medication. Later in the day, patient was more linear and organized. She agreed that she was at the hospital for help and understood criteria for having signed the CV, evidenced by asking relevant questions and later going up and asking to sign a 3 day notice. Plan: CV-now 3 day notice Q 15 minute checks Risperdal 1 mg daily Risperdal 2 mg q.h.s. Gather collateral 12/05: contiue current treatmetn plan 12/08: Patient keeping to self. Presents guarded but organized. Pt stated, I'm feeling homesick. I'll keep taking my meds so I can leave . Patient retracted 3 day notice. denies SI/HI/VH/AH. Continue current tx plan. 12/09: Patient presents disorganized, confused with times of echolalia. When T/W would ask pt a question, pt would either repeat the question back, repeat a word from the sentence or state a word she overheard someone use who is standing within hearing distance. Patient attempted to elope from unit multiple times this morning. When T/W asked where she planned on going, pt stated, home. the nurse researcher will bring me home . T/W explained to patient she would have to wait until she improved; pt stated, okay. I can do that . Showered. Medication compliant. Added Ativan 1mg PO BID PRN and Risperdal 0.5mg PO BID PRN. 12/10: Patient presents disorganized, confused with times of echolalia. Staff reported patient was seen standing on chair, when asked reasoning, pt stated, I'm not a turkey baster . Patient unable to have logical conversation at this time. Appears restless. Medication compliant. DC Risperdal, does not seem to be improving psychosis. Start Zyprexa 5mg PO daily. Patient aware. 12/11: Patient presents disorganized, confused with times of echolalia. Patient unable to have logical conversation at this time; flight of ideas. Medication compliant. Patient standing in hallway, jumping up and down and stating I'm bat shit crazy! 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 If I don't go to medical school I'm going to [place]. I wanna hug you! Continue taper of risperdal and increase in Zyprexa. 12/12: Increase Zyprexa tomorrow and lower Risperidone. 12/13: DC Risperidone. Continue titrating Zyprexa. Mouth checks. Reason for continued inpatient stay Substantial Risk for: inability to function and rapid decompensation Time Spent With Patient Time: Total time managing care of this patient today ____ minutes.
[2022-12-13] MEDS: risperiDONE 1 MG TABLET PO (08:17)
[2022-12-13] MEDS: OLANZapine 5 MG TABLET PO ×2 (08:17→19:12)
[2022-12-13 08:20] VITALS: BP 135/77; PULSE 94; RESP 16; TEMP 36.5; O2SAT 99
[2022-12-13 18:00] VITALS: BP 169/84; PULSE 84; TEMP 36.1; O2SAT 99
[2022-12-13] MEDS: QUEtiapine Fumarate 200 MG TABLET PO (19:12)
[2022-12-13] MEDS: traZODone HCL 50 MG TABLET PO (19:12)
[2022-12-13] MEDS: Melatonin 3 MG TABLET 6 MG PO (19:13)
[2022-12-14 08:36] VITALS: BP 140/72; PULSE 109; RESP 16; TEMP 36.4; O2SAT 99
--- NOTE | 2022-12-14 10:15 | P.PNPSI_ITS ---
Subjective Subjective Date of Service: 12/14/22 Reason For Visit: mood Interim History: met with patient; discussed with team; reviewed chart pt disorganized and difficult with which to engage; would not speak to music writer. Pt going in/out of peers rooms, intrusive and irritating peers. Pt not sleeping. Mental Status Exam Mental Status Exam Narrative: Pt is alert and oriented to self; behavior is disorganized, intrusive; patient is not in distress; dressed in casual/hospital attire with unkempt hair and marginal hygiene; mood and affect blunted; eye contact limited; Speech sparse; no psychomotor agitation/retardation present; thought process disorganized; Thought content is vacuous; internally preoccupied Patients insight and judgment impaired. Diagnostics Vital Signs (24Hr): Vital Signs - 24 hr 12/13/22 18:00 12/14/22 08:36 Temperature 96.9 F 97.5 F Pulse Rate 84 109 H Respiratory Rate 16 Blood Pressure 169/84 H 140/72 H Pulse Oximetry 99 99 Oxygen Delivery Method Room Air Room Air BMI result Body Mass Index 26.1 Labs 12/02/22 21:20 12/04/22 08:17 Medications Medications Current Medications Acetaminophen (Acetaminophen 325 Mg Tablet) 650 mg PO Q6H PRN PRN Reason: Headache/Pain Mild Scale (1-3) Last Admin: 12/11/22 06:23 Dose: 650 mg Al Hydroxide/Mg Hydroxide (Magnesium Hydrox/Alum Hydrox 30 Ml Oral.Susp) 30 ml PO Q6H PRN PRN Reason: Heartburn/Nausea Hydroxyzine HCl (Hydroxyzine Hcl 25 Mg Tablet) 25 mg PO Q6H PRN PRN Reason: Anxiety Last Admin: 12/09/22 01:35 Dose: 25 mg Lorazepam (Lorazepam 1 Mg Tablet) 1 mg PO BID PRN PRN Reason: anxiety/restlessness Last Admin: 12/11/22 20:47 Dose: 1 mg Magnesium Hydroxide (Milk Of Magnesia 30 Ml Oral.Susp) 30 ml PO DAILY PRN PRN Reason: Constipation Melatonin (Melatonin 3 Mg Tablet) 6 mg PO BEDTIME LETTY Last Admin: 12/13/22 19:13 Dose: 6 mg Olanzapine (Olanzapine 5 Mg Tablet) 5 mg PO DAILY PRN PRN Reason: Psychosis Olanzapine (Olanzapine Odt 10 Mg Tab.Rapdis) 10 mg TRANSLINGU BID LETTY Olanzapine (Olanzapine Odt 10 Mg Tab.Rapdis) 10 mg TRANSLINGU ONCE ONE Stop: 12/14/22 10:13 Quetiapine Fumarate (Quetiapine Fumarate 200 Mg Tablet) 200 mg PO BEDTIME LETTY Last Admin: 12/13/22 19:12 Dose: 200 mg Trazodone HCl (Trazodone Hcl 50 Mg Tablet) 50 mg PO BEDTIME MRX1 PRN PRN Reason: Insomnia Last Admin: 12/13/22 19:12 Dose: 50 mg Allergies Allergies Allergy/AdvReac Type Severity Reaction Status Date / Time shrimp AdvReac Intermediate Rash Verified 12/02/22 21:40 Assessment & Plan Assessment & Plan (1) Psychosis: Status: Acute Code(s): F29 - Unspecified psychosis not due to a substance or known physiological condition (2) UTI (urinary tract infection): Status: Acute Code(s): N39.0 - Urinary tract infection, site not specified Plan Patient is a 27-year-old female with history of psychotic illness who presents with disorganized speech and behavior, recently discharged from [facility] but brought back to the hospital at the behest of her father. Patient having trouble focusing on conversation and is almost talking in a word salad. If asked a question she will mostly respond with some completely irrelevant and nonsensical answer. 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 She denies any AVH but does seem internally preoccupied. She denies any drug or alcohol use other than weed... A little. Patient gives permission for team to discuss case with her father and gives the phone number. Patient agreed to take antipsychotic medication. Later in the day, patient was more linear and organized. She agreed that she was at the hospital for help and understood criteria for having signed the CV, evidenced by asking relevant questions and later going up and asking to sign a 3 day notice. Plan: CV-now 3 day notice Q 15 minute checks Risperdal 1 mg daily Risperdal 2 mg q.h.s. Gather collateral Hospital course: 12/05: contiue current treatmetn plan 12/08: Patient keeping to self. Presents guarded but organized. Pt stated, I'm feeling homesick. I'll keep taking my meds so I can leave . Patient retracted 3 day notice. denies SI/HI/VH/AH. Continue current tx plan. 12/09: Patient presents disorganized, confused with times of echolalia. When T/W would ask pt a question, pt would either repeat the question back, repeat a word from the sentence or state a word she overheard someone use who is standing within hearing distance. Patient attempted to elope from unit multiple times this morning. When T/W asked where she planned on going, pt stated, home. the geothermal system installer will bring me home . T/W explained to patient she would have to wait until she improved; pt stated, okay. I can do that . Showered. Medication compliant. Added Ativan 1mg PO BID PRN and Risperdal 0.5mg PO BID PRN. 12/10: Patient presents disorganized, confused with times of echolalia. Staff reported patient was seen standing on chair, when asked reasoning, pt stated, I'm not a turkey baster . Patient unable to have logical conversation at this time. Appears restless. Medication compliant. DC Risperdal, does not seem to be improving psychosis. Start Zyprexa 5mg PO daily. Patient aware. 12/11: Patient presents disorganized, confused with times of echolalia. Patient unable to have logical conversation at this time; flight of ideas. Medication compliant. Patient standing in hallway, jumping up and down and stating I'm bat shit crazy! 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 If I don't go to medical school I'm going to [place]. I wanna hug you! Continue taper of risperdal and increase in Zyprexa. 12/12: Increase Zyprexa tomorrow and lower Risperidone. 12/13: DC Risperidone. Continue titrating Zyprexa. Mouth checks. 12/14: remains floridly psychotic, disorganized. Will switch to Zydis and increase dose to 10mg bid (up from 5mg bid) Patient educated on: diagnosis and medication risk/benefits Informed Consent: does not understand Reason for continued inpatient stay Substantial Risk for: inability to function Time Spent With Patient Time: Total time managing care of this patient today ____ minutes.
[2022-12-14] MEDS: OLANZapine ODT 10 MG TAB.RAPDIS TRANSLINGU ×2 (10:44→21:10)
[2022-12-14 17:10] VITALS: BP 146/80; PULSE 104; RESP 16; TEMP 36.2; O2SAT 100
[2022-12-14] MEDS: OLANZapine 5 MG TABLET PO (18:51)
[2022-12-14] MEDS: LORazepam 1 MG TABLET PO (18:51)
--- NOTE | 2022-12-14 20:07 | PC.NURSE ---
PT continues with intrusive behaviors however this evening they have escalated. PT walked in to another pt's room and took their belongings and also has attempted to disrobe in the hallway twice. Dr. Otriz contacted- pt placed on 1:1 observation for safety due to impulsivity, elopement risk and intrusiveness.
[2022-12-14] MEDS: Melatonin 3 MG TABLET 6 MG PO (21:10)
[2022-12-14] MEDS: QUEtiapine Fumarate 200 MG TABLET PO (21:10)
[2022-12-15 08:27] VITALS: BP 135/75; PULSE 127; RESP 16; TEMP 36.6; O2SAT 98
[2022-12-15] MEDS: OLANZapine ODT 10 MG TAB.RAPDIS TRANSLINGU (08:45)
[2022-12-15] MEDS: LORazepam 1 MG TABLET PO ×2 (08:54→18:35)
[2022-12-15] MEDS: hydrOXYzine HCL 25 MG TABLET PO (11:17)
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
[2022-12-15 18:00] VITALS: BP 142/85; PULSE 90; TEMP 35.8; O2SAT 90
[2022-12-16] MEDS: OLANZapine 5 MG TABLET PO (01:47)
[2022-12-16] MEDS: traZODone HCL 50 MG TABLET PO ×2 (01:47→21:37)
[2022-12-16 08:00] VITALS: BP 135/79; PULSE 107; RESP 16; TEMP 36.4; O2SAT 99
[2022-12-16] MEDS: OLANZapine ODT 10 MG TAB.RAPDIS TRANSLINGU (09:22)
[2022-12-16] MEDS: LORazepam 1 MG TABLET PO ×3 (09:22→21:36)
[2022-12-16] MEDS: Docusate Sodium 100 MG CAPSULE PO ×2 (09:22→21:36)
[2022-12-16 14:39] LABS: Risperidone 6.6 ng/mL; Risperidone + OH Risperidone 45.6 ng/mL
--- NOTE | 2022-12-16 15:54 | HO.PSYCHPN ---
Subjective Subjective Date of Service: 12/16/22 Reason For Visit: mood Interim History: met with patient; discussed with team Patient a little more linear today. Said she is feeling better. And that it has been a crazy ride. She said she thinks the medications are helping She can not really say more about it however. She then referenced getting an associate's degree at [employer]... Conversation was not productive going forward Mental Status Exam Mental Status Exam Narrative: Pt is alert and oriented to self; behavior is disorganized, intrusive; patient is not in distress; dressed in casual/hospital attire with unkempt hair and marginal hygiene; mood and affect blunted; eye contact limited; Speech sparse; no psychomotor agitation/retardation present; thought process disorganized; Thought content is vacuous; internally preoccupied Patients insight and judgment impaired. Diagnostics Vital Signs (24Hr): Vital Signs - 24 hr 12/15/22 18:00 12/16/22 08:00 Temperature 96.4 F L 97.6 F Pulse Rate 90 107 H Respiratory Rate 16 Blood Pressure 142/85 H 135/79 Pulse Oximetry 90 L 99 Oxygen Delivery Method Room Air Room Air BMI result Body Mass Index 26.1 Labs 12/02/22 21:20 12/04/22 08:17 Labs: Laboratory Results - last 48 hr 12/09/22 18:24 Risperidone 6.6 Risperidone &9-Hydroxy 45.6 9-Hydroxy Risperidone 39.0 Medications Medications Current Medications Acetaminophen (Acetaminophen 325 Mg Tablet) 650 mg PO Q6H PRN PRN Reason: Headache/Pain Mild Scale (1-3) Last Admin: 12/11/22 06:23 Dose: 650 mg Al Hydroxide/Mg Hydroxide (Magnesium Hydrox/Alum Hydrox 30 Ml Oral.Susp) 30 ml PO Q6H PRN PRN Reason: Heartburn/Nausea Docusate Sodium (Docusate Sodium 100 Mg Capsule) 100 mg PO BID LETTY Last Admin: 12/16/22 09:22 Dose: 100 mg Hydroxyzine HCl (Hydroxyzine Hcl 25 Mg Tablet) 25 mg PO Q6H PRN PRN Reason: Anxiety Last Admin: 12/15/22 11:17 Dose: 25 mg Lorazepam (Lorazepam 1 Mg Tablet) 1 mg PO BID PRN PRN Reason: anxiety/restlessness Last Admin: 12/15/22 18:35 Dose: 1 mg Lorazepam (Lorazepam 1 Mg Tablet) 1 mg PO TID LETTY Last Admin: 12/16/22 15:26 Dose: 1 mg Magnesium Hydroxide (Milk Of Magnesia 30 Ml Oral.Susp) 30 ml PO DAILY PRN PRN Reason: Constipation Melatonin (Melatonin 3 Mg Tablet) 6 mg PO BEDTIME LETTY Last Admin: 12/15/22 23:05 Dose: Not Given Olanzapine (Olanzapine 5 Mg Tablet) 5 mg PO DAILY PRN PRN Reason: Psychosis Last Admin: 12/16/22 01:47 Dose: 5 mg Olanzapine (Olanzapine Odt 10 Mg Tab.Rapdis) 10 mg TRANSLINGU DAILY LETTY Olanzapine (Olanzapine Odt 10 Mg Tab.Rapdis) 20 mg TRANSLINGU BEDTIME LETTY Trazodone HCl (Trazodone Hcl 50 Mg Tablet) 50 mg PO BEDTIME MRX1 PRN PRN Reason: Insomnia Last Admin: 12/16/22 01:47 Dose: 50 mg Allergies Allergies Allergy/AdvReac Type Severity Reaction Status Date / Time shrimp AdvReac Intermediate Rash Verified 12/02/22 21:40 Assessment & Plan Assessment & Plan (1) Psychosis: Status: Acute Code(s): F29 - Unspecified psychosis not due to a substance or known physiological condition (2) UTI (urinary tract infection): Status: Acute Code(s): N39.0 - Urinary tract infection, site not specified Plan Patient is a 27-year-old female with history of psychotic illness who presents with disorganized speech and behavior, recently discharged from [facility] but brought back to the hospital at the behest of her father. Patient having trouble focusing on conversation and is almost talking in a word salad. If asked a question she will mostly respond with some completely irrelevant and nonsensical answer. 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 She denies any AVH but does seem internally preoccupied. She denies any drug or alcohol use other than weed... A little. Patient gives permission for team to discuss case with her father and gives the phone number. Patient agreed to take antipsychotic medication. Later in the day, patient was more linear and organized. She agreed that she was at the hospital for help and understood criteria for having signed the CV, evidenced by asking relevant questions and later going up and asking to sign a 3 day notice. Hospital course: 12/05: contiue current treatmetn plan 12/08: Patient keeping to self. Presents guarded but organized. Pt stated, I'm feeling homesick. I'll keep taking my meds so I can leave . Patient retracted 3 day notice. denies SI/HI/VH/AH. Continue current tx plan. 12/09: Patient presents disorganized, confused with times of echolalia. When T/W would ask pt a question, pt would either repeat the question back, repeat a word from the sentence or state a word she overheard someone use who is standing within hearing distance. Patient attempted to elope from unit multiple times this morning. When T/W asked where she planned on going, pt stated, home. the hotel maintenance worker will bring me home . T/W explained to patient she would have to wait until she improved; pt stated, okay. I can do that . Showered. Medication compliant. Added Ativan 1mg PO BID PRN and Risperdal 0.5mg PO BID PRN. 12/10: Patient presents disorganized, confused with times of echolalia. Staff reported patient was seen standing on chair, when asked reasoning, pt stated, I'm not a turkey baster . Patient unable to have logical conversation at this time. Appears restless. Medication compliant. DC Risperdal, does not seem to be improving psychosis. Start Zyprexa 5mg PO daily. Patient aware. 12/11: Patient presents disorganized, confused with times of echolalia. Patient unable to have logical conversation at this time; flight of ideas. Medication compliant. Patient standing in hallway, jumping up and down and stating I'm bat shit crazy! 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 If I don't go to medical school I'm going to [employer]. I wanna hug you! Continue taper of risperdal and increase in Zyprexa. 12/12: Increase Zyprexa tomorrow and lower Risperidone. 12/13: DC Risperidone. Continue titrating Zyprexa. Mouth checks. 12/14: remains floridly psychotic, disorganized. Will switch to Zydis and increase dose to 10mg bid (up from 5mg bid) 12/15 continue tx plan 12/16 remains dsorganized; maybe a little less...did not sleep overnight. Will increase Zydis to 20mg qhs -service writer reviewed collateral and this seems to be a 1st break for patient; some psychotic symptoms coming up here in their over the past year but they emerged profoundly recently when patient got back from visiting a boyfriend in [place]. Plan: CV Q 15 minute checks continue Zydis 10mg daily Increased to Zydis 20mg qhs dc'd [place] Patient educated on: diagnosis and medication risk/benefits Informed Consent: understands, does not understand and further education needed Reason for continued inpatient stay Substantial Risk for: inability to function Time Spent With Patient Time: Total time managing care of this patient today ____ minutes.
[2022-12-16 17:04] VITALS: BP 142/83; PULSE 97; RESP 16; TEMP 36.2; O2SAT 100
[2022-12-16] MEDS: Melatonin 3 MG TABLET 6 MG PO (21:36)
[2022-12-16] MEDS: hydrOXYzine HCL 25 MG TABLET PO (21:36)
[2022-12-16] MEDS: OLANZapine ODT 10 MG TAB.RAPDIS 20 MG TRANSLINGU (21:37)
[2022-12-17 08:00] VITALS: BP 111/71; PULSE 77; RESP 16; TEMP 36.4; O2SAT 99
[2022-12-17] MEDS: LORazepam 1 MG TABLET PO ×2 (09:29→21:25)
[2022-12-17] MEDS: OLANZapine ODT 10 MG TAB.RAPDIS TRANSLINGU ×2 (09:29→21:25)
[2022-12-17] MEDS: Docusate Sodium 100 MG CAPSULE PO ×2 (09:29→21:25)
--- NOTE | 2022-12-17 10:03 | HO.PSYCHPN ---
Subjective Subjective Date of Service: 12/17/22 Reason For Visit: mood Interim History: met with patient; discussed with team This morning, patient was able to maintain a linear conversation with telegraphic typewriter repairer and then with nurse that was mostly logical. Attempted to take patient off one-to-one. Improvement did not last and patient soon dysregulated, wandering the halls, talking loudly and nonsensically; patient clawing at the doors trying to open them to leave the unit; on the phone talking to Ori a former patient that patient says she can see outside her window and thinks that the 2 are engaged. Patient also said she can see her family members outside the window. Patient told staff she feels unsafe without being on a one-to-one because there is safety in numbers. She also put soap in her mouth and explained it was because no one was with me... Patient also walking around the milieu with her hands on her neck imitating as if she is choking herself. Patient did come down some when she was replaced on one-to-one. Diagnostics Vital Signs (24Hr): Vital Signs - 24 hr 12/16/22 17:04 12/17/22 08:00 Temperature 97.2 F 97.5 F Pulse Rate 97 77 Respiratory Rate 16 16 Blood Pressure 142/83 H 111/71 Pulse Oximetry 100 99 Oxygen Delivery Method Room Air Room Air BMI result Body Mass Index 26.1 Labs 12/02/22 21:20 12/04/22 08:17 Labs: Laboratory Results - last 48 hr 12/09/22 18:24 Risperidone 6.6 Risperidone &9-Hydroxy 45.6 9-Hydroxy Risperidone 39.0 Medications Medications Current Medications Acetaminophen (Acetaminophen 325 Mg Tablet) 650 mg PO Q6H PRN PRN Reason: Headache/Pain Mild Scale (1-3) Last Admin: 12/11/22 06:23 Dose: 650 mg Al Hydroxide/Mg Hydroxide (Magnesium Hydrox/Alum Hydrox 30 Ml Oral.Susp) 30 ml PO Q6H PRN PRN Reason: Heartburn/Nausea Docusate Sodium (Docusate Sodium 100 Mg Capsule) 100 mg PO BID LETTY Last Admin: 12/17/22 09:29 Dose: 100 mg Hydroxyzine HCl (Hydroxyzine Hcl 25 Mg Tablet) 25 mg PO Q6H PRN PRN Reason: Anxiety Last Admin: 12/16/22 21:36 Dose: 25 mg Lorazepam (Lorazepam 1 Mg Tablet) 1 mg PO BID PRN PRN Reason: anxiety/restlessness Last Admin: 12/15/22 18:35 Dose: 1 mg Lorazepam (Lorazepam 1 Mg Tablet) 1 mg PO TID LETTY Last Admin: 12/17/22 09:29 Dose: 1 mg Magnesium Hydroxide (Milk Of Magnesia 30 Ml Oral.Susp) 30 ml PO DAILY PRN PRN Reason: Constipation Melatonin (Melatonin 3 Mg Tablet) 6 mg PO BEDTIME LETTY Last Admin: 12/16/22 21:36 Dose: 6 mg Olanzapine (Olanzapine 5 Mg Tablet) 5 mg PO DAILY PRN PRN Reason: Psychosis Last Admin: 12/16/22 01:47 Dose: 5 mg Olanzapine (Olanzapine Odt 10 Mg Tab.Rapdis) 10 mg TRANSLINGU DAILY LETTY Last Admin: 12/17/22 09:31 Dose: 10 mg Olanzapine (Olanzapine Odt 10 Mg Tab.Rapdis) 20 mg TRANSLINGU BEDTIME LETYT Last Admin: 12/16/22 21:37 Dose: 20 mg Trazodone HCl (Trazodone Hcl 50 Mg Tablet) 50 mg PO BEDTIME MRX1 PRN PRN Reason: Insomnia Last Admin: 12/16/22 21:37 Dose: 50 mg Allergies Allergies Allergy/AdvReac Type Severity Reaction Status Date / Time shrimp AdvReac Intermediate Rash Verified 12/02/22 21:40 Assessment & Plan Assessment & Plan (1) Psychosis: Status: Acute Code(s): F29 - Unspecified psychosis not due to a substance or known physiological condition (2) UTI (urinary tract infection): Status: Acute Code(s): N39.0 - Urinary tract infection, site not specified Plan Patient is a 27-year-old female with history of psychotic illness who presents with disorganized speech and behavior, recently discharged from [facility] but brought back to the hospital at the behest of her father. Patient having trouble focusing on conversation and is almost talking in a word salad. If asked a question she will mostly respond with some completely irrelevant and nonsensical answer. She said something about [employer]; [employer] song which she saying; physics; something about [place] in [place] and being stalked. She denies any AVH but does seem internally preoccupied. She denies any drug or alcohol use other than weed... A little. Patient gives permission for team to discuss case with her father and gives the phone number. Patient agreed to take antipsychotic medication. Later in the day, patient was more linear and organized. She agreed that she was at the hospital for help and understood criteria for having signed the CV, evidenced by asking relevant questions and later going up and asking to sign a 3 day notice. Hospital course: 12/05: contiue current treatmetn plan 12/08: Patient keeping to self. Presents guarded but organized. Pt stated, I'm feeling homesick. I'll keep taking my meds so I can leave . Patient retracted 3 day notice. denies SI/HI/VH/AH. Continue current tx plan. 12/09: Patient presents disorganized, confused with times of echolalia. When T/W would ask pt a question, pt would either repeat the question back, repeat a word from the sentence or state a word she overheard someone use who is standing within hearing distance. Patient attempted to elope from unit multiple times this morning. When T/W asked where she planned on going, pt stated, home. the email production consultant will bring me home . T/W explained to patient she would have to wait until she improved; pt stated, okay. I can do that . Showered. Medication compliant. Added Ativan 1mg PO BID PRN and Risperdal 0.5mg PO BID PRN. 12/10: Patient presents disorganized, confused with times of echolalia. Staff reported patient was seen standing on chair, when asked reasoning, pt stated, I'm not a turkey baster . Patient unable to have logical conversation at this time. Appears restless. Medication compliant. DC Risperdal, does not seem to be improving psychosis. Start Zyprexa 5mg PO daily. Patient aware. 12/11: Patient presents disorganized, confused with times of echolalia. Patient unable to have logical conversation at this time; flight of ideas. Medication compliant. Patient standing in hallway, jumping up and down and stating I'm bat shit crazy! 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 If I don't go to medical school I'm going to [employer]. I wanna hug you! Continue taper of risperdal and increase in Zyprexa. 12/12: Increase Zyprexa tomorrow and lower Risperidone. 12/13: DC Risperidone. Continue titrating Zyprexa. Mouth checks. 12/14: remains floridly psychotic, disorganized. Will switch to Zydis and increase dose to 10mg bid (up from 5mg bid) 12/15 continue tx plan 12/16 remains dsorganized; maybe a little less...did not sleep overnight. Will increase Zydis to 20mg qhs -telegraphic typewriter repairer reviewed collateral and this seems to be a 1st break for patient; some psychotic symptoms coming up here in their over the past year but they emerged profoundly recently when patient got back from visiting a boyfriend in [place]. 12/17 This morning, patient was able to maintain a linear conversation with telegraphic typewriter repairer and then with nurse that was mostly logical. Attempted to take patient off one-to-one. Improvement did not last and patient soon dysregulated, wandering the halls, talking loudly and nonsensically; patient clawing at the doors trying to open them to leave the unit; on the phone talking to Ori a former patient that patient says she can see outside her window and thinks that the 2 are engaged. Patient also said she can see her family members outside the window. Patient told staff she feels unsafe without being on a one-to-one because there is safety in numbers. She also put soap in her mouth and explained it was because no one was with me... Patient also walking around the milieu with her hands on her neck imitating as if she is choking herself. Patient did come down some when she was replaced on one-to-one. -since patient seem to improve a little bit with increase Zyprexa dose will leave current regimen for now; however if not continued improvements will consider whether to switch medications or to and another medication, possibly Depakote Plan: CV Q 15 minute checks continue Zydis 10mg daily Increased to Zydis 20mg qhs dc'd Risperdal; did not seem affective Patient educated on: diagnosis and medication risk/benefits Informed Consent: does not understand Reason for continued inpatient stay Substantial Risk for: inability to function Time Spent With Patient Time: Total time managing care of this patient today ____ minutes.
[2022-12-17] MEDS: Melatonin 3 MG TABLET 6 MG PO (21:24)
[2022-12-17] MEDS: OLANZapine ODT 10 MG TAB.RAPDIS 20 MG TRANSLINGU (21:26)
[2022-12-18 08:45] VITALS: BP 138/74; PULSE 98; RESP 18; TEMP 36.6; O2SAT 100
[2022-12-18] MEDS: Docusate Sodium 100 MG CAPSULE PO ×2 (09:58→21:45)
[2022-12-18] MEDS: LORazepam 1 MG TABLET PO ×3 (09:58→21:46)
[2022-12-18] MEDS: OLANZapine ODT 10 MG TAB.RAPDIS TRANSLINGU (09:58)
--- NOTE | 2022-12-18 10:06 | HO.PSYCHPN ---
Subjective Subjective Date of Service: 12/18/22 Reason For Visit: mood Interim History: met with patient; discussed with team pt slept through the night. Still disorganized requiring 1:1. ON approach, pt stepped back and agreed that she was a little frightened of database report writer and that said she did no know who this database report writer (despite database report writer having talked with her daily for past 4 days). Then she said Jorge Heriberto! are you Jorge Heriberto? Typesetting Supervisor reminded her database report writer was her provider; she then said she's looking for her mauricio and database report writer is not her mauricio... Mental Status Exam Mental Status Exam Narrative: Pt is alert and oriented to self; behavior is disorganized, intrusive; patient is not in distress; dressed in casual/hospital attire with unkempt hair and marginal hygiene; mood and affect blunted; eye contact appropriate; Speech sparse; no psychomotor agitation/retardation present; thought process disorganized; Thought content is vacuous or on random topics; pt internally preoccupied and with AVH. Patients insight and judgment impaired. Diagnostics Vital Signs (24Hr): Vital Signs - 24 hr 12/18/22 08:45 Temperature 97.9 F Pulse Rate 98 Respiratory Rate 18 Blood Pressure 138/74 Pulse Oximetry 100 Oxygen Delivery Method Room Air BMI result Body Mass Index 26.1 Labs 12/02/22 21:20 12/04/22 08:17 Labs: Laboratory Results - last 48 hr 12/09/22 18:24 Risperidone 6.6 Risperidone &9-Hydroxy 45.6 9-Hydroxy Risperidone 39.0 Medications Medications Current Medications Acetaminophen (Acetaminophen 325 Mg Tablet) 650 mg PO Q6H PRN PRN Reason: Headache/Pain Mild Scale (1-3) Last Admin: 12/11/22 06:23 Dose: 650 mg Al Hydroxide/Mg Hydroxide (Magnesium Hydrox/Alum Hydrox 30 Ml Oral.Susp) 30 ml PO Q6H PRN PRN Reason: Heartburn/Nausea Docusate Sodium (Docusate Sodium 100 Mg Capsule) 100 mg PO BID [facility] Last Admin: 12/18/22 09:58 Dose: 100 mg Hydroxyzine HCl (Hydroxyzine Hcl 25 Mg Tablet) 25 mg PO Q6H PRN PRN Reason: Anxiety Last Admin: 12/16/22 21:36 Dose: 25 mg Lorazepam (Lorazepam 1 Mg Tablet) 1 mg PO BID PRN PRN Reason: anxiety/restlessness Last Admin: 12/15/22 18:35 Dose: 1 mg Lorazepam (Lorazepam 1 Mg Tablet) 1 mg PO TID LETTY Last Admin: 12/18/22 09:58 Dose: 1 mg Magnesium Hydroxide (Milk Of Magnesia 30 Ml Oral.Susp) 30 ml PO DAILY PRN PRN Reason: Constipation Melatonin (Melatonin 3 Mg Tablet) 6 mg PO BEDTIME LETTY Last Admin: 12/17/22 21:24 Dose: 6 mg Olanzapine (Olanzapine 5 Mg Tablet) 5 mg PO DAILY PRN PRN Reason: Psychosis Last Admin: 12/16/22 01:47 Dose: 5 mg Olanzapine (Olanzapine Odt 10 Mg Tab.Rapdis) 10 mg TRANSLINGU DAILY LETTY Last Admin: 12/18/22 09:58 Dose: 10 mg Olanzapine (Olanzapine Odt 10 Mg Tab.Rapdis) 20 mg TRANSLINGU BEDTIME LETTY Last Admin: 12/17/22 21:26 Dose: 20 mg Trazodone HCl (Trazodone Hcl 50 Mg Tablet) 50 mg PO BEDTIME MRX1 PRN PRN Reason: Insomnia Last Admin: 12/16/22 21:37 Dose: 50 mg Allergies Allergies Allergy/AdvReac Type Severity Reaction Status Date / Time shrimp AdvReac Intermediate Rash Verified 12/02/22 21:40 Assessment & Plan Assessment & Plan (1) Psychosis: Status: Acute Code(s): F29 - Unspecified psychosis not due to a substance or known physiological condition (2) UTI (urinary tract infection): Status: Acute Code(s): N39.0 - Urinary tract infection, site not specified Plan Patient is a 27-year-old female with history of psychotic illness who presents with disorganized speech and behavior, recently discharged from [facility] but brought back to the hospital at the behest of her father. Patient having trouble focusing on conversation and is almost talking in a word salad. If asked a question she will mostly respond with some completely irrelevant and nonsensical answer. 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 She denies any AVH but does seem internally preoccupied. She denies any drug or alcohol use other than weed... A little. Patient gives permission for team to discuss case with her father and gives the phone number. Patient agreed to take antipsychotic medication. Later in the day, patient was more linear and organized. She agreed that she was at the hospital for help and understood criteria for having signed the CV, evidenced by asking relevant questions and later going up and asking to sign a 3 day notice. Hospital course: 12/05: contiue current treatmetn plan 12/08: Patient keeping to self. Presents guarded but organized. Pt stated, I'm feeling homesick. I'll keep taking my meds so I can leave . Patient retracted 3 day notice. denies SI/HI/VH/AH. Continue current tx plan. 12/09: Patient presents disorganized, confused with times of echolalia. When T/W would ask pt a question, pt would either repeat the question back, repeat a word from the sentence or state a word she overheard someone use who is standing within hearing distance. Patient attempted to elope from unit multiple times this morning. When T/W asked where she planned on going, pt stated, home. the ton cylinder inspector will bring me home . T/W explained to patient she would have to wait until she improved; pt stated, okay. I can do that . Showered. Medication compliant. Added Ativan 1mg PO BID PRN and Risperdal 0.5mg PO BID PRN. 12/10: Patient presents disorganized, confused with times of echolalia. Staff reported patient was seen standing on chair, when asked reasoning, pt stated, I'm not a turkey baster . Patient unable to have logical conversation at this time. Appears restless. Medication compliant. DC Risperdal, does not seem to be improving psychosis. Start Zyprexa 5mg PO daily. Patient aware. 12/11: Patient presents disorganized, confused with times of echolalia. Patient unable to have logical conversation at this time; flight of ideas. Medication compliant. Patient standing in hallway, jumping up and down and stating I'm bat shit crazy! 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 If I don't go to medical school I'm going to [employer]. I wanna hug you! Continue taper of risperdal and increase in Zyprexa. 12/12: Increase Zyprexa tomorrow and lower Risperidone. 12/13: DC Risperidone. Continue titrating Zyprexa. Mouth checks. 12/14: remains floridly psychotic, disorganized. Will switch to Zydis and increase dose to 10mg bid (up from 5mg bid) 12/15 continue tx plan 12/16 remains dsorganized; maybe a little less...did not sleep overnight. Will increase Zydis to 20mg qhs -database report writer reviewed collateral and this seems to be a 1st break for patient; some psychotic symptoms coming up here in their over the past year but they emerged profoundly recently when patient got back from visiting a boyfriend in [place]. 12/17 This morning, patient was able to maintain a linear conversation with database report writer and then with nurse that was mostly logical. Attempted to take patient off one-to-one. Improvement did not last and patient soon dysregulated, wandering the halls, talking loudly and nonsensically; patient clawing at the doors trying to open them to leave the unit; on the phone talking to Ori a former patient that patient says she can see outside her window and thinks that the 2 are engaged. Patient also said she can see her family members outside the window. Patient told staff she feels unsafe without being on a one-to-one because there is safety in numbers. She also put soap in her mouth and explained it was because no one was with me... Patient also walking around the milieu with her hands on her neck imitating as if she is choking herself. Patient did come down some when she was replaced on one-to-one. -since patient seem to improve a little bit with increase Zyprexa dose will leave current regimen for now; however if not continued improvements will consider whether to switch medications or to and another medication, possibly Depakote 12/18 pt is minimally better than on admission, sometimes able to have and now sleeping more through the night, suggesting that Zyprexa maybe partially helpful; however, she remains significantly disorganized; debating med change vs continue w/ zyprexa. Difficult to discern if there is a manic component of if pt is just disorganzed (was not sleeping, but symptoms more psychotic than manic); considering Haldol or other 1st generatoin antipsychotic Plan: CV Q 15 minute checks continue Zydis 10mg daily Increased to Zydis 20mg qhs dc'd Risperdal; did not seem affective Patient educated on: diagnosis Informed Consent: does not understand Reason for continued inpatient stay Substantial Risk for: inability to function Time Spent With Patient Time: Total time managing care of this patient today ____ minutes.
[2022-12-18 17:40] VITALS: BP 125/65; PULSE 107; RESP 18; TEMP 36.6; O2SAT 99
[2022-12-18] MEDS: Melatonin 3 MG TABLET 6 MG PO (21:46)
[2022-12-18] MEDS: OLANZapine ODT 10 MG TAB.RAPDIS 20 MG TRANSLINGU (21:46)
[2022-12-18] MEDS: HaloperidoL 5 MG TABLET PO (21:48)
[2022-12-19 08:20] VITALS: BP 147/80; PULSE 106; RESP 18; TEMP 36.6; O2SAT 100
[2022-12-19] MEDS: Docusate Sodium 100 MG CAPSULE PO ×2 (09:10→20:42)
[2022-12-19] MEDS: HaloperidoL 5 MG TABLET PO ×3 (09:10→20:42)
[2022-12-19] MEDS: LORazepam 1 MG TABLET PO ×3 (09:10→20:42)
[2022-12-19] MEDS: OLANZapine ODT 10 MG TAB.RAPDIS TRANSLINGU (09:15)
--- NOTE | 2022-12-19 09:54 | P.PNPSI_ITS ---
Subjective Subjective Date of Service: 12/19/22 Reason For Visit: mood Interim History: With patient; discussed with team Patient much more quiet today, sleeping most of the day. Patient sleeping on approach. Senior Javascript Developer decided to let her sleep rather than wake her. Mental Status Exam Mental Status Exam Narrative: Pt is alert and oriented to self; behavior is quiet; patient is not in distress; dressed in casual/hospital attire with unkempt hair and marginal hygiene; mood and affect blunted; Speech sparse; no psychomotor agitation/retardation present; thought process disorganized; Thought content is vacuous or on random topics; pt internally preoccupied and with AVH. Patients insight and judgment impaired. Diagnostics Vital Signs (24Hr): Vital Signs - 24 hr 12/18/22 17:40 12/19/22 08:20 Temperature 97.9 F 97.8 F Pulse Rate 107 H 106 H Respiratory Rate 18 18 Blood Pressure 125/65 147/80 H Pulse Oximetry 99 100 Oxygen Delivery Method Room Air Room Air BMI result Body Mass Index 26.1 Labs 12/02/22 21:20 12/04/22 08:17 Medications Medications Current Medications Acetaminophen (Acetaminophen 325 Mg Tablet) 650 mg PO Q6H PRN PRN Reason: Headache/Pain Mild Scale (1-3) Last Admin: 12/11/22 06:23 Dose: 650 mg Al Hydroxide/Mg Hydroxide (Magnesium Hydrox/Alum Hydrox 30 Ml Oral.Susp) 30 ml PO Q6H PRN PRN Reason: Heartburn/Nausea Docusate Sodium (Docusate Sodium 100 Mg Capsule) 100 mg PO BID [facility] Last Admin: 12/19/22 09:10 Dose: 100 mg Haloperidol (Haloperidol 5 Mg Tablet) 5 mg PO TID [facility] Last Admin: 12/19/22 09:10 Dose: 5 mg Hydroxyzine HCl (Hydroxyzine Hcl 25 Mg Tablet) 25 mg PO Q6H PRN PRN Reason: Anxiety Last Admin: 12/16/22 21:36 Dose: 25 mg Lorazepam (Lorazepam 1 Mg Tablet) 1 mg PO BID PRN PRN Reason: anxiety/restlessness Last Admin: 12/15/22 18:35 Dose: 1 mg Lorazepam (Lorazepam 1 Mg Tablet) 1 mg PO TID [facility] Last Admin: 12/19/22 09:10 Dose: 1 mg Magnesium Hydroxide (Milk Of Magnesia 30 Ml Oral.Susp) 30 ml PO DAILY PRN PRN Reason: Constipation Melatonin (Melatonin 3 Mg Tablet) 6 mg PO BEDTIME LETTY Last Admin: 12/18/22 21:46 Dose: 6 mg Olanzapine (Olanzapine 5 Mg Tablet) 5 mg PO DAILY PRN PRN Reason: Psychosis Last Admin: 12/16/22 01:47 Dose: 5 mg Olanzapine (Olanzapine Odt 10 Mg Tab.Rapdis) 10 mg TRANSLINGU DAILY LETTY Last Admin: 12/19/22 09:15 Dose: 10 mg Olanzapine (Olanzapine Odt 10 Mg Tab.Rapdis) 20 mg TRANSLINGU BEDTIME LETTY Last Admin: 12/18/22 21:46 Dose: 20 mg Trazodone HCl (Trazodone Hcl 50 Mg Tablet) 50 mg PO BEDTIME MRX1 PRN PRN Reason: Insomnia Last Admin: 12/16/22 21:37 Dose: 50 mg Allergies Allergies Allergy/AdvReac Type Severity Reaction Status Date / Time shrimp AdvReac Intermediate Rash Verified 12/02/22 21:40 Assessment & Plan Assessment & Plan (1) Psychosis: Status: Acute Code(s): F29 - Unspecified psychosis not due to a substance or known physiological condition (2) UTI (urinary tract infection): Status: Acute Code(s): N39.0 - Urinary tract infection, site not specified Plan Patient is a 27-year-old female with history of psychotic illness who presents with disorganized speech and behavior, recently discharged from [facility] but brought back to the hospital at the behest of her father. Patient having trouble focusing on conversation and is almost talking in a word salad. If asked a question she will mostly respond with some completely irrelevant and nonsensical answer. She said something about [employer]; [employer] song which she saying; physics; something about [place] in [place] and being stalked. She denies any AVH but does seem internally preoccupied. She denies any drug or alcohol use other than weed... A little. Patient gives permission for team to discuss case with her father and gives the phone number. Patient agreed to take antipsychotic medication. Later in the day, patient was more linear and organized. She agreed that she was at the hospital for help and understood criteria for having signed the CV, evidenced by asking relevant questions and later going up and asking to sign a 3 day notice. Hospital course: 12/05: contiue current treatmetn plan 12/08: Patient keeping to self. Presents guarded but organized. Pt stated, I'm feeling homesick. I'll keep taking my meds so I can leave . Patient retracted 3 day notice. denies SI/HI/VH/AH. Continue current tx plan. 12/09: Patient presents disorganized, confused with times of echolalia. When T/W would ask pt a question, pt would either repeat the question back, repeat a word from the sentence or state a word she overheard someone use who is standing within hearing distance. Patient attempted to elope from unit multiple times this morning. When T/W asked where she planned on going, pt stated, home. the workforce management analyst will bring me home . T/W explained to patient she would have to wait until she improved; pt stated, okay. I can do that . Showered. Medication compliant. Added Ativan 1mg PO BID PRN and Risperdal 0.5mg PO BID PRN. 12/10: Patient presents disorganized, confused with times of echolalia. Staff reported patient was seen standing on chair, when asked reasoning, pt stated, I'm not a turkey baster . Patient unable to have logical conversation at this time. Appears restless. Medication compliant. DC Risperdal, does not seem to be improving psychosis. Start Zyprexa 5mg PO daily. Patient aware. 12/11: Patient presents disorganized, confused with times of echolalia. Patient unable to have logical conversation at this time; flight of ideas. Medication compliant. Patient standing in hallway, jumping up and down and stating I'm bat shit crazy! 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 If I don't go to medical school I'm going to [employer]. I wanna hug you! Continue taper of risperdal and increase in Zyprexa. 12/12: Increase Zyprexa tomorrow and lower Risperidone. 12/13: DC Risperidone. Continue titrating Zyprexa. Mouth checks. 12/14: remains floridly psychotic, disorganized. Will switch to Zydis and increase dose to 10mg bid (up from 5mg bid) 12/15 continue tx plan 12/16 remains dsorganized; maybe a little less...did not sleep overnight. Will increase Zydis to 20mg qhs -comic book writer reviewed collateral and this seems to be a 1st break for patient; some psychotic symptoms coming up here in their over the past year but they emerged profoundly recently when patient got back from visiting a boyfriend in [place]. 12/17 This morning, patient was able to maintain a linear conversation with comic book writer and then with nurse that was mostly logical. Attempted to take patient off one-to-one. Improvement did not last and patient soon dysregulated, wandering the halls, talking loudly and nonsensically; patient clawing at the doors trying to open them to leave the unit; on the phone talking to Ori a former patient that patient says she can see outside her window and thinks that the 2 are engaged. Patient also said she can see her family members outside the window. Patient told staff she feels unsafe without being on a one-to-one because there is safety in numbers. She also put soap in her mouth and explained it was because no one was with me... Patient also walking around the milieu with her hands on her neck imitating as if she is choking herself. Patient did come down some when she was replaced on one-to-one. -since patient seem to improve a little bit with increase Zyprexa dose will leave current regimen for now; however if not continued improvements will consider whether to switch medications or to and another medication, possibly Depakote 12/18 pt is minimally better than on admission, sometimes able to have and now sleeping more through the night, suggesting that Zyprexa maybe partially helpful; however, she remains significantly disorganized; debating med change vs continue w/ zyprexa. Difficult to discern if there is a manic component of if pt is just disorganzed (was not sleeping, but symptoms more psychotic than manic); considering Haldol or other 1st generatoin antipsychotic 12/19 will continue with Haldol 5 mg t.i.d. and discontinue Zyprexa. Having started Haldol, This is the 1st time patient is psychotic symptoms have been subdued. Will continue to monitor Plan: CV Q 15 minute checks Continue Haldol 5 mg t.i.d. Discontinue Zydis dc'd Risperdal; did not seem affective Reason for continued inpatient stay Substantial Risk for: inability to function Time Spent With Patient Time: Total time managing care of this patient today ____ minutes.
[2022-12-19 18:00] VITALS: BP 138/82; PULSE 88; TEMP 36.7
[2022-12-19] MEDS: Melatonin 3 MG TABLET 6 MG PO (20:42)
[2022-12-20 08:50] VITALS: BP 134/84; PULSE 91; RESP 16; TEMP 36.2; O2SAT 100
[2022-12-20] MEDS: LORazepam 1 MG TABLET PO ×3 (08:58→21:26)
[2022-12-20] MEDS: HaloperidoL 5 MG TABLET PO ×2 (08:58→12:56)
[2022-12-20] MEDS: Docusate Sodium 100 MG CAPSULE PO ×2 (08:58→21:26)
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
[2022-12-20 17:41] VITALS: BP 132/65; PULSE 112; RESP 18; TEMP 36.7; O2SAT 99
[2022-12-20] MEDS: traZODone HCL 50 MG TABLET PO (21:26)
[2022-12-20] MEDS: Melatonin 3 MG TABLET 6 MG PO (21:26)
[2022-12-20] MEDS: HaloperidoL 5 MG TABLET 10 MG PO (21:26)
[2022-12-21] MEDS: Acetaminophen 325 MG TABLET 650 MG PO (02:55)
[2022-12-21 08:00] VITALS: BP 122/86; PULSE 111; RESP 18; TEMP 35.8; O2SAT 100
[2022-12-21] MEDS: LORazepam 1 MG TABLET PO ×2 (08:45→15:49)
[2022-12-21] MEDS: Docusate Sodium 100 MG CAPSULE PO (08:45)
[2022-12-21] MEDS: HaloperidoL 5 MG TABLET 10 MG PO (08:45)
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
[2022-12-21 18:00] VITALS: BP 118/78; PULSE 84; RESP 16; TEMP 36.6; O2SAT 100
--- NOTE | 2022-12-21 22:06 | PC.NURSE ---
Pt unable to cooperate with EKG due to mental status. PT would not sit still.
--- NOTE | 2022-12-21 22:08 | PC.NURSE ---
PT would not wake for evening meds. Kept rolling away from this quality analyst/technical writer. Multiple attempts made.
[2022-12-22] MEDS: hydrOXYzine HCL 25 MG TABLET PO (05:19)
[2022-12-22] MEDS: OLANZapine 5 MG TABLET PO (05:22)
[2022-12-22] MEDS: HaloperidoL 5 MG TABLET 10 MG PO ×2 (08:40→21:30)
[2022-12-22] MEDS: LORazepam 1 MG TABLET PO ×3 (08:40→21:30)
[2022-12-22] MEDS: Docusate Sodium 100 MG CAPSULE PO ×2 (08:40→21:30)
--- NOTE | 2022-12-22 09:00 | ECG_ITS ---
Test Reason : HTN Blood Pressure : / mmHG Vent. Rate : 120 BPM Atrial Rate : 120 BPM P-R Int : 128 ms QRS Dur : 072 ms QT Int : 306 ms P-R-T Axes : 048 048 013 degrees QTc Int : 432 ms Sinus tachycardia Nonspecific ST abnormality Abnormal ECG When compared with ECG of 11-DEC-2022 11:37, ST more depressed Inferior leads Referred By: Asad Luna Electronically Signed By:PIPPA RAY MD
[2022-12-22 09:41] VITALS: BP 144/91; PULSE 105; RESP 20; TEMP 36.3; O2SAT 100
--- NOTE | 2022-12-22 11:40 | P.PNPSI_ITS ---
Subjective Subjective Date of Service: 12/22/22 Reason For Visit: mood Interim History: Met with patient; discussed with team Had an encouraging discussion with patient who was aware of person place and time, date, year, that it was Halloween; no she is at [facility] in the psychiatric unit. She is here because her parents think she has .a little to crazy.. And she agrees that they had reason to be concerned prior to admission. She says she knows she is not . Patient agrees to try getting off one-to-one. Despite this seemingly lucid conversation, patient has been telling other staff all day long that she is worried about her ; sometimes able to talk in a logical/linear way other times remains disorganized Diagnostics Vital Signs (24Hr): Vital Signs - 24 hr 12/21/22 18:00 12/22/22 09:41 Temperature 98 F 97.3 F Pulse Rate 84 105 H Respiratory Rate 16 20 Blood Pressure 118/78 144/91 H Pulse Oximetry 100 100 Oxygen Delivery Method Room Air Room Air BMI result Body Mass Index 26.1 Labs 12/02/22 21:20 12/04/22 08:17 Medications Medications Current Medications Acetaminophen (Acetaminophen 325 Mg Tablet) 650 mg PO Q6H PRN PRN Reason: Headache/Pain Mild Scale (1-3) Last Admin: 12/21/22 02:55 Dose: 650 mg Al Hydroxide/Mg Hydroxide (Magnesium Hydrox/Alum Hydrox 30 Ml Oral.Susp) 30 ml PO Q6H PRN PRN Reason: Heartburn/Nausea Benztropine Mesylate (Benztropine Mesylate 0.5 Mg Tablet) 0.5 mg PO BID PRN PRN Reason: EPS Docusate Sodium (Docusate Sodium 100 Mg Capsule) 100 mg PO BID [facility] Last Admin: 12/22/22 08:40 Dose: 100 mg Haloperidol (Haloperidol 5 Mg Tablet) 10 mg PO BID [facility] Last Admin: 12/22/22 08:40 Dose: 10 mg Hydroxyzine HCl (Hydroxyzine Hcl 25 Mg Tablet) 25 mg PO Q6H PRN PRN Reason: Anxiety Last Admin: 12/22/22 05:19 Dose: 25 mg Lorazepam (Lorazepam 1 Mg Tablet) 1 mg PO TID [facility] Last Admin: 12/22/22 08:40 Dose: 1 mg Magnesium Hydroxide (Milk Of Magnesia 30 Ml Oral.Susp) 30 ml PO DAILY PRN PRN Reason: Constipation Melatonin (Melatonin 3 Mg Tablet) 6 mg PO BEDTIME LETTY Last Admin: 12/21/22 22:07 Dose: Not Given Olanzapine (Olanzapine 5 Mg Tablet) 5 mg PO DAILY PRN PRN Reason: Psychosis Last Admin: 12/22/22 05:22 Dose: 5 mg Trazodone HCl (Trazodone Hcl 50 Mg Tablet) 50 mg PO BEDTIME MRX1 PRN PRN Reason: Insomnia Last Admin: 12/20/22 21:26 Dose: 50 mg Allergies Allergies Allergy/AdvReac Type Severity Reaction Status Date / Time shrimp AdvReac Intermediate Rash Verified 12/02/22 21:40 Assessment & Plan Assessment & Plan (1) Psychosis: Status: Acute Code(s): F29 - Unspecified psychosis not due to a substance or known physiological condition (2) UTI (urinary tract infection): Status: Acute Code(s): N39.0 - Urinary tract infection, site not specified Plan Patient is a 27-year-old female with history of psychotic illness who presents with disorganized speech and behavior, recently discharged from [facility] but brought back to the hospital at the behest of her father. Patient having trouble focusing on conversation and is almost talking in a word salad. If asked a question she will mostly respond with some completely irrelevant and nonsensical answer. She said something about [place]; [employer] song which she saying; physics; something about [place] in [place] and being stalked. She denies any AVH but does seem internally preoccupied. She denies any drug or alcohol use other than weed... A little. Patient gives permission for team to discuss case with her father and gives the phone number. Patient agreed to take antipsychotic medication. Later in the day, patient was more linear and organized. She agreed that she was at the hospital for help and understood criteria for having signed the CV, evidenced by asking relevant questions and later going up and asking to sign a 3 day notice. Hospital course: 12/05: contiue current treatmetn plan 12/08: Patient keeping to self. Presents guarded but organized. Pt stated, I'm feeling homesick. I'll keep taking my meds so I can leave . Patient retracted 3 day notice. denies SI/HI/VH/AH. Continue current tx plan. 12/09: Patient presents disorganized, confused with times of echolalia. When T/W would ask pt a question, pt would either repeat the question back, repeat a word from the sentence or state a word she overheard someone use who is standing within hearing distance. Patient attempted to elope from unit multiple times this morning. When T/W asked where she planned on going, pt stated, home. the chief enterprise architect will bring me home . T/W explained to patient she would have to wait until she improved; pt stated, okay. I can do that . Showered. Medication compliant. Added Ativan 1mg PO BID PRN and Risperdal 0.5mg PO BID PRN. 12/10: Patient presents disorganized, confused with times of echolalia. Staff reported patient was seen standing on chair, when asked reasoning, pt stated, I'm not a turkey baster . Patient unable to have logical conversation at this time. Appears restless. Medication compliant. DC Risperdal, does not seem to be improving psychosis. Start Zyprexa 5mg PO daily. Patient aware. 12/11: Patient presents disorganized, confused with times of echolalia. Patient unable to have logical conversation at this time; flight of ideas. Medication compliant. Patient standing in hallway, jumping up and down and stating I'm bat shit crazy! 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 If I don't go to medical school I'm going to [employer]. I wanna hug you! Continue taper of risperdal and increase in Zyprexa. 12/12: Increase Zyprexa tomorrow and lower Risperidone. 12/13: DC Risperidone. Continue titrating Zyprexa. Mouth checks. 12/14: remains floridly psychotic, disorganized. Will switch to Zydis and increase dose to 10mg bid (up from 5mg bid) 12/15 continue tx plan 12/16 remains dsorganized; maybe a little less...did not sleep overnight. Will increase Zydis to 20mg qhs -hand sign writer reviewed collateral and this seems to be a 1st break for patient; some psychotic symptoms coming up here in their over the past year but they emerged profoundly recently when patient got back from visiting a boyfriend in [place]. 12/17 This morning, patient was able to maintain a linear conversation with hand sign writer and then with nurse that was mostly logical. Attempted to take patient off one-to-one. Improvement did not last and patient soon dysregulated, wandering the halls, talking loudly and nonsensically; patient clawing at the doors trying to open them to leave the unit; on the phone talking to Ori a former patient that patient says she can see outside her window and thinks that the 2 are engaged. Patient also said she can see her family members outside the window. Patient told staff she feels unsafe without being on a one-to-one because there is safety in numbers. She also put soap in her mouth and explained it was because no one was with me... Patient also walking around the milieu with her hands on her neck imitating as if she is choking herself. Patient did come down some when she was replaced on one-to-one. -since patient seem to improve a little bit with increase Zyprexa dose will leave current regimen for now; however if not continued improvements will consider whether to switch medications or to and another medication, possibly Depakote 12/18 pt is minimally better than on admission, sometimes able to have and now sleeping more through the night, suggesting that Zyprexa maybe partially helpful; however, she remains significantly disorganized; debating med change vs continue w/ zyprexa. Difficult to discern if there is a manic component of if pt is just disorganzed (was not sleeping, but symptoms more psychotic than manic); considering Haldol or other 1st generatoin antipsychotic 12/19 will continue with Haldol 5 mg t.i.d. and discontinue Zyprexa. Having started Haldol, This is the 1st time patient is psychotic symptoms have been subdued. Will continue to monitor 12/20 Will increase Haldol to 10 mg b.i.d. 12/21 not sure if Haldol is working; some hints that it might be lowering symptoms. Will continue with current regimen and monitor 12/22Had an encouraging discussion with patient who was aware of person place and time, date, year, that it was Halloween; no she is at [facility] in the psychiatric unit. She is here because her parents think she has .a little to crazy.. And she agrees that they had reason to be concerned prior to admission. She says she knows she is not . Patient agrees to try getting off one-to-one. Despite this seemingly lucid conversation, patient has been telling other staff all day long that she is worried about her ; sometimes able to talk in a logical/linear way other times remains disorganized -will soon decide whether to go up on Haldol or to switch medications Plan: CV Q 15 minute checks Continue Haldol 10 mg b.i.d. Discontinue Zydis dc'd Risperdal; did not seem affective Patient educated on: diagnosis and medication risk/benefits Informed Consent: understands, does not understand and further education needed Reason for continued inpatient stay Substantial Risk for: inability to function and rapid decompensation Time Spent With Patient Time: Total time managing care of this patient today ____ minutes.
[2022-12-22 18:00] VITALS: BP 142/77; PULSE 106; RESP 18; TEMP 36.5; O2SAT 99
[2022-12-22] MEDS: Melatonin 3 MG TABLET 6 MG PO (21:30)
[2022-12-23] MEDS: OLANZapine 5 MG TABLET PO (06:53)
[2022-12-23 08:30] VITALS: BP 152/71; PULSE 82; RESP 16; TEMP 36.2; O2SAT 100
[2022-12-23] MEDS: HaloperidoL 5 MG TABLET 10 MG PO ×2 (08:54→20:44)
[2022-12-23] MEDS: LORazepam 1 MG TABLET PO ×3 (08:54→20:44)
[2022-12-23 16:45] VITALS: BP 134/71; PULSE 110; RESP 16; TEMP 36; O2SAT 99
--- NOTE | 2022-12-23 18:06 | P.PNPSI_ITS ---
Subjective Subjective Date of Service: 12/23/22 Reason For Visit: mood Interim History: Met with patient; discussed with team Same presentation. Transcription Specialist asked how she was doing and she yelled out [place]... On further inquiry she said that is where she wants to go to get out of here. Still knows where she is. Still much disorganized thinking Mental Status Exam Mental Status Exam Narrative: Pt is alert and oriented to self; behavior is cooperative, still disorganized but maybe a little less so, calm and less intrusive; patient is not in distress; dressed in casual/hospital attire with unkempt hair and marginal hygiene; mood and affect blunted; Speech normal rate, volume, prosody; no psychomotor agitation/retardation present; thought process can be linear but still often disorganized; Thought content is on random topics; pt internally preoccupied and with AVH. Patients insight and judgment impaired. Diagnostics Vital Signs (24Hr): Vital Signs - 24 hr 12/23/22 08:30 12/23/22 16:45 Temperature 97.1 F 96.8 F Pulse Rate 82 110 H Respiratory Rate 16 16 Blood Pressure 152/71 H 134/71 Pulse Oximetry 100 99 Oxygen Delivery Method Room Air BMI result Body Mass Index 26.1 Labs 12/02/22 21:20 12/04/22 08:17 Medications Medications Current Medications Acetaminophen (Acetaminophen 325 Mg Tablet) 650 mg PO Q6H PRN PRN Reason: Headache/Pain Mild Scale (1-3) Last Admin: 12/21/22 02:55 Dose: 650 mg Al Hydroxide/Mg Hydroxide (Magnesium Hydrox/Alum Hydrox 30 Ml Oral.Susp) 30 ml PO Q6H PRN PRN Reason: Heartburn/Nausea Benztropine Mesylate (Benztropine Mesylate 0.5 Mg Tablet) 0.5 mg PO BID PRN PRN Reason: EPS Docusate Sodium (Docusate Sodium 100 Mg Capsule) 100 mg PO BID [facility] Last Admin: 12/23/22 08:56 Dose: Not Given Haloperidol (Haloperidol 5 Mg Tablet) 10 mg PO BID [facility] Last Admin: 12/23/22 08:54 Dose: 10 mg Hydroxyzine HCl (Hydroxyzine Hcl 25 Mg Tablet) 25 mg PO Q6H PRN PRN Reason: Anxiety Last Admin: 12/22/22 05:19 Dose: 25 mg Lorazepam (Lorazepam 1 Mg Tablet) 1 mg PO TID [facility] Last Admin: 12/23/22 14:13 Dose: 1 mg Magnesium Hydroxide (Milk Of Magnesia 30 Ml Oral.Susp) 30 ml PO DAILY PRN PRN Reason: Constipation Melatonin (Melatonin 3 Mg Tablet) 6 mg PO BEDTIME LETTY Last Admin: 12/22/22 21:30 Dose: 6 mg Olanzapine (Olanzapine 5 Mg Tablet) 5 mg PO DAILY PRN PRN Reason: Psychosis Last Admin: 12/23/22 06:53 Dose: 5 mg Trazodone HCl (Trazodone Hcl 50 Mg Tablet) 50 mg PO BEDTIME MRX1 PRN PRN Reason: Insomnia Last Admin: 12/20/22 21:26 Dose: 50 mg Allergies Allergies Allergy/AdvReac Type Severity Reaction Status Date / Time shrimp AdvReac Intermediate Rash Verified 12/02/22 21:40 Assessment & Plan Assessment & Plan (1) Psychosis: Status: Acute Code(s): F29 - Unspecified psychosis not due to a substance or known physiological condition (2) UTI (urinary tract infection): Status: Acute Code(s): N39.0 - Urinary tract infection, site not specified Plan Patient is a 27-year-old female with history of psychotic illness who presents with disorganized speech and behavior, recently discharged from [facility] but brought back to the hospital at the behest of her father. Patient having trouble focusing on conversation and is almost talking in a word salad. If asked a question she will mostly respond with some completely irrelevant and nonsensical answer. She said something about [employer]; [employer] song which she saying; physics; something about [place] in [place] and being stalked. She denies any AVH but does seem internally preoccupied. She denies any drug or alcohol use other than weed... A little. Patient gives permission for team to discuss case with her father and gives the phone number. Patient agreed to take antipsychotic medication. Later in the day, patient was more linear and organized. She agreed that she was at the hospital for help and understood criteria for having signed the CV, evidenced by asking relevant questions and later going up and asking to sign a 3 day notice. Hospital course: 12/05: contiue current treatmetn plan 12/08: Patient keeping to self. Presents guarded but organized. Pt stated, I'm feeling homesick. I'll keep taking my meds so I can leave . Patient retracted 3 day notice. denies SI/HI/VH/AH. Continue current tx plan. 12/09: Patient presents disorganized, confused with times of echolalia. When T/W would ask pt a question, pt would either repeat the question back, repeat a word from the sentence or state a word she overheard someone use who is standing within hearing distance. Patient attempted to elope from unit multiple times this morning. When T/W asked where she planned on going, pt stated, home. the commercial credit analyst will bring me home . T/W explained to patient she would have to wait until she improved; pt stated, okay. I can do that . Showered. Medication compliant. Added Ativan 1mg PO BID PRN and Risperdal 0.5mg PO BID PRN. 12/10: Patient presents disorganized, confused with times of echolalia. Staff reported patient was seen standing on chair, when asked reasoning, pt stated, I'm not a turkey baster . Patient unable to have logical conversation at this time. Appears restless. Medication compliant. DC Risperdal, does not seem to be improving psychosis. Start Zyprexa 5mg PO daily. Patient aware. 12/11: Patient presents disorganized, confused with times of echolalia. Patient unable to have logical conversation at this time; flight of ideas. Medication compliant. Patient standing in hallway, jumping up and down and stating I'm bat shit crazy! 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 If I don't go to medical school I'm going to [employer]. I wanna hug you! Continue taper of risperdal and increase in Zyprexa. 12/12: Increase Zyprexa tomorrow and lower Risperidone. 12/13: DC Risperidone. Continue titrating Zyprexa. Mouth checks. 12/14: remains floridly psychotic, disorganized. Will switch to Zydis and increase dose to 10mg bid (up from 5mg bid) 12/15 continue tx plan 12/16 remains dsorganized; maybe a little less...did not sleep overnight. Will increase Zydis to 20mg qhs -financial writer reviewed collateral and this seems to be a 1st break for patient; some psychotic symptoms coming up here in their over the past year but they emerged profoundly recently when patient got back from visiting a boyfriend in [place]. 12/17 This morning, patient was able to maintain a linear conversation with financial writer and then with nurse that was mostly logical. Attempted to take patient off one-to-one. Improvement did not last and patient soon dysregulated, wandering the halls, talking loudly and nonsensically; patient clawing at the doors trying to open them to leave the unit; on the phone talking to Ori a former patient that patient says she can see outside her window and thinks that the 2 are engaged. Patient also said she can see her family members outside the window. Patient told staff she feels unsafe without being on a one-to-one because there is safety in numbers. She also put soap in her mouth and explained it was because no one was with me... Patient also walking around the milieu with her hands on her neck imitating as if she is choking herself. Patient did come down some when she was replaced on one-to-one. -since patient seem to improve a little bit with increase Zyprexa dose will leave current regimen for now; however if not continued improvements will consider whether to switch medications or to and another medication, possibly Depakote 12/18 pt is minimally better than on admission, sometimes able to have and now sleeping more through the night, suggesting that Zyprexa maybe partially helpful; however, she remains significantly disorganized; debating med change vs continue w/ zyprexa. Difficult to discern if there is a manic component of if pt is just disorganzed (was not sleeping, but symptoms more psychotic than manic); considering Haldol or other 1st generatoin antipsychotic 12/19 will continue with Haldol 5 mg t.i.d. and discontinue Zyprexa. Having started Haldol, This is the 1st time patient is psychotic symptoms have been subdued. Will continue to monitor 12/20 Will increase Haldol to 10 mg b.i.d. 12/21 not sure if Haldol is working; some hints that it might be lowering symptoms. Will continue with current regimen and monitor 12/22Had an encouraging discussion with patient who was aware of person place and time, date, year, that it was Halloween; no she is at [facility] in the psychiatric unit. She is here because her parents think she has .a little to crazy.. And she agrees that they had reason to be concerned prior to admission. She says she knows she is not . Patient agrees to try getting off one-to-one. Despite this seemingly lucid conversation, patient has been telling other staff all day long that she is worried about her ; sometimes able to talk in a logical/linear way other times remains disorganized -will soon decide whether to go up on Haldol or to switch medications 12/23 continue current treatment plan Plan: CV Q 15 minute checks Continue Haldol 10 mg b.i.d. Discontinue Zydis dc'd Risperdal; did not seem affective Patient educated on: diagnosis Informed Consent: understands, does not understand and further education needed Reason for continued inpatient stay Substantial Risk for: inability to function Time Spent With Patient Time: Total time managing care of this patient today ____ minutes.
[2022-12-23] MEDS: Docusate Sodium 100 MG CAPSULE PO (20:44)
[2022-12-23] MEDS: traZODone HCL 50 MG TABLET PO (20:44)
[2022-12-23] MEDS: Melatonin 3 MG TABLET 6 MG PO (20:44)
[2022-12-24 08:30] VITALS: BP 141/82; PULSE 90; RESP 16; TEMP 36.2; O2SAT 98
[2022-12-24] MEDS: Docusate Sodium 100 MG CAPSULE PO ×2 (08:37→20:23)
[2022-12-24] MEDS: HaloperidoL 5 MG TABLET 10 MG PO ×2 (08:37→20:23)
[2022-12-24] MEDS: LORazepam 1 MG TABLET PO ×3 (08:37→20:23)
[2022-12-24 09:41] VITALS: BMI 25.5
--- NOTE | 2022-12-24 12:56 | PC.NURSE ---
PT signed a 3-day notice, 12/24, up on Wednesday, 12/29. MILDRED SEBASTIAN MD notified via email.
[2022-12-24] MEDS: HaloperidoL 5 MG TABLET PO (14:11)
[2022-12-24] MEDS: Divalproex Sodium ER 250 MG TAB.ER.24H PO (15:30)
[2022-12-24 18:00] VITALS: BP 140/87; PULSE 110; TEMP 36.2; O2SAT 100
[2022-12-24] MEDS: traZODone HCL 50 MG TABLET PO (20:23)
[2022-12-24] MEDS: Melatonin 3 MG TABLET 6 MG PO (20:23)
--- NOTE | 2022-12-24 23:43 | HO.PSYCHPN ---
Subjective Subjective Date of Service: 12/24/22 Reason For Visit: mood Interim History: met with patient; discussed with team no change in presentation pt says she's homesick; signed 3 day; says she'd stay longer if her father would visit Mental Status Exam Mental Status Exam Narrative: Pt is alert and oriented to self; behavior is cooperative, still disorganized but maybe a little less so, calm and less intrusive; patient is not in distress; dressed in casual/hospital attire with unkempt hair and marginal hygiene; mood and affect blunted; Speech normal rate, volume, prosody; no psychomotor agitation/retardation present; thought process can be linear but still often disorganized; Thought content is on random topics; pt internally preoccupied and with AVH. Patients insight and judgment impaired. Diagnostics Vital Signs (24Hr): Vital Signs - 24 hr 12/24/22 08:30 12/24/22 18:00 Temperature 97.1 F 97.2 F Pulse Rate 90 110 H Respiratory Rate 16 Blood Pressure 141/82 H 140/87 H Pulse Oximetry 98 100 Oxygen Delivery Method Room Air Room Air BMI result Body Mass Index 25.5 Labs 12/02/22 21:20 12/04/22 08:17 Medications Medications Current Medications Acetaminophen (Acetaminophen 325 Mg Tablet) 650 mg PO Q6H PRN PRN Reason: Headache/Pain Mild Scale (1-3) Last Admin: 12/21/22 02:55 Dose: 650 mg Al Hydroxide/Mg Hydroxide (Magnesium Hydrox/Alum Hydrox 30 Ml Oral.Susp) 30 ml PO Q6H PRN PRN Reason: Heartburn/Nausea Benztropine Mesylate (Benztropine Mesylate 0.5 Mg Tablet) 0.5 mg PO BID PRN PRN Reason: EPS Divalproex Sodium (Divalproex Sodium Er 250 Mg Tab.Er.24h) 250 mg PO DAILY [facility] Last Admin: 12/24/22 15:30 Dose: 250 mg Docusate Sodium (Docusate Sodium 100 Mg Capsule) 100 mg PO BID [facility] Last Admin: 12/24/22 20:23 Dose: 100 mg Haloperidol (Haloperidol 5 Mg Tablet) 10 mg PO BID [facility] Last Admin: 12/24/22 20:23 Dose: 10 mg Haloperidol (Haloperidol 5 Mg Tablet) 5 mg PO DAILY@1300 [facility] Last Admin: 12/24/22 14:11 Dose: 5 mg Hydroxyzine HCl (Hydroxyzine Hcl 25 Mg Tablet) 25 mg PO Q6H PRN PRN Reason: Anxiety Last Admin: 12/22/22 05:19 Dose: 25 mg Lorazepam (Lorazepam 1 Mg Tablet) 1 mg PO TID [facility]TY Last Admin: 12/24/22 20:23 Dose: 1 mg Magnesium Hydroxide (Milk Of Magnesia 30 Ml Oral.Susp) 30 ml PO DAILY PRN PRN Reason: Constipation Melatonin (Melatonin 3 Mg Tablet) 6 mg PO BEDTIME [facility] Last Admin: 12/24/22 20:23 Dose: 6 mg Olanzapine (Olanzapine 5 Mg Tablet) 5 mg PO DAILY PRN PRN Reason: Psychosis Last Admin: 12/23/22 06:53 Dose: 5 mg Trazodone HCl (Trazodone Hcl 50 Mg Tablet) 50 mg PO BEDTIME MRX1 PRN PRN Reason: Insomnia Last Admin: 12/24/22 20:23 Dose: 50 mg Allergies Allergies Allergy/AdvReac Type Severity Reaction Status Date / Time shrimp AdvReac Intermediate Rash Verified 12/02/22 21:40 Assessment & Plan Assessment & Plan (1) Psychosis: Status: Acute Code(s): F29 - Unspecified psychosis not due to a substance or known physiological condition (2) UTI (urinary tract infection): Status: Acute Code(s): N39.0 - Urinary tract infection, site not specified Plan Patient is a 27-year-old female with history of psychotic illness who presents with disorganized speech and behavior, recently discharged from [facility] but brought back to the hospital at the behest of her father. Patient having trouble focusing on conversation and is almost talking in a word salad. If asked a question she will mostly respond with some completely irrelevant and nonsensical answer. 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 She denies any AVH but does seem internally preoccupied. She denies any drug or alcohol use other than weed... A little. Patient gives permission for team to discuss case with her father and gives the phone number. Patient agreed to take antipsychotic medication. Later in the day, patient was more linear and organized. She agreed that she was at the hospital for help and understood criteria for having signed the CV, evidenced by asking relevant questions and later going up and asking to sign a 3 day notice. Hospital course: 12/05: contiue current treatmetn plan 12/08: Patient keeping to self. Presents guarded but organized. Pt stated, I'm feeling homesick. I'll keep taking my meds so I can leave . Patient retracted 3 day notice. denies SI/HI/VH/AH. Continue current tx plan. 12/09: Patient presents disorganized, confused with times of echolalia. When T/W would ask pt a question, pt would either repeat the question back, repeat a word from the sentence or state a word she overheard someone use who is standing within hearing distance. Patient attempted to elope from unit multiple times this morning. When T/W asked where she planned on going, pt stated, home. the food production associate will bring me home . T/W explained to patient she would have to wait until she improved; pt stated, okay. I can do that . Showered. Medication compliant. Added Ativan 1mg PO BID PRN and Risperdal 0.5mg PO BID PRN. 12/10: Patient presents disorganized, confused with times of echolalia. Staff reported patient was seen standing on chair, when asked reasoning, pt stated, I'm not a turkey baster . Patient unable to have logical conversation at this time. Appears restless. Medication compliant. DC Risperdal, does not seem to be improving psychosis. Start Zyprexa 5mg PO daily. Patient aware. 12/11: Patient presents disorganized, confused with times of echolalia. Patient unable to have logical conversation at this time; flight of ideas. Medication compliant. Patient standing in hallway, jumping up and down and stating I'm bat shit crazy! 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 If I don't go to medical school I'm going to [employer]. I wanna hug you! Continue taper of risperdal and increase in Zyprexa. 12/12: Increase Zyprexa tomorrow and lower Risperidone. 12/13: DC Risperidone. Continue titrating Zyprexa. Mouth checks. 12/14: remains floridly psychotic, disorganized. Will switch to Zydis and increase dose to 10mg bid (up from 5mg bid) 12/15 continue tx plan 12/16 remains dsorganized; maybe a little less...did not sleep overnight. Will increase Zydis to 20mg qhs -scientific technical writer reviewed collateral and this seems to be a 1st break for patient; some psychotic symptoms coming up here in their over the past year but they emerged profoundly recently when patient got back from visiting a boyfriend in [place]. 12/17 This morning, patient was able to maintain a linear conversation with scientific technical writer and then with nurse that was mostly logical. Attempted to take patient off one-to-one. Improvement did not last and patient soon dysregulated, wandering the halls, talking loudly and nonsensically; patient clawing at the doors trying to open them to leave the unit; on the phone talking to Ori a former patient that patient says she can see outside her window and thinks that the 2 are engaged. Patient also said she can see her family members outside the window. Patient told staff she feels unsafe without being on a one-to-one because there is safety in numbers. She also put soap in her mouth and explained it was because no one was with me... Patient also walking around the milieu with her hands on her neck imitating as if she is choking herself. Patient did come down some when she was replaced on one-to-one. -since patient seem to improve a little bit with increase Zyprexa dose will leave current regimen for now; however if not continued improvements will consider whether to switch medications or to and another medication, possibly Depakote 12/18 pt is minimally better than on admission, sometimes able to have and now sleeping more through the night, suggesting that Zyprexa maybe partially helpful; however, she remains significantly disorganized; debating med change vs continue w/ zyprexa. Difficult to discern if there is a manic component of if pt is just disorganzed (was not sleeping, but symptoms more psychotic than manic); considering Haldol or other 1st generatoin antipsychotic 12/19 will continue with Haldol 5 mg t.i.d. and discontinue Zyprexa. Having started Haldol, This is the 1st time patient is psychotic symptoms have been subdued. Will continue to monitor 12/20 Will increase Haldol to 10 mg b.i.d. 12/21 not sure if Haldol is working; some hints that it might be lowering symptoms. Will continue with current regimen and monitor 12/22Had an encouraging discussion with patient who was aware of person place and time, date, year, that it was Halloween; no she is at [facility] in the psychiatric unit. She is here because her parents think she has .a little to crazy.. And she agrees that they had reason to be concerned prior to admission. She says she knows she is not . Patient agrees to try getting off one-to-one. Despite this seemingly lucid conversation, patient has been telling other staff all day long that she is worried about her ; sometimes able to talk in a logical/linear way other times remains disorganized -will soon decide whether to go up on Haldol or to switch medications 12/23 continue current treatment plan 12/24 increasing haldol; added depakote Plan: 3 DAY Q 15 minute checks adding low dose depakote 250mg to see if helpful added Haldol 5mg @1300 Continue Haldol 10 mg b.i.d. Discontinue Zydis dc'd Risperdal; did not seem affective Patient educated on: diagnosis Informed Consent: understands, does not understand and further education needed Reason for continued inpatient stay Substantial Risk for: inability to function Time Spent With Patient Time: Total time managing care of this patient today ____ minutes.
[2022-12-25] MEDS: traZODone HCL 50 MG TABLET PO ×2 (00:37→19:44)
[2022-12-25] MEDS: hydrOXYzine HCL 25 MG TABLET PO (03:53)
[2022-12-25] MEDS: Divalproex Sodium ER 250 MG TAB.ER.24H PO (08:10)
[2022-12-25] MEDS: Docusate Sodium 100 MG CAPSULE PO ×2 (08:11→19:44)
[2022-12-25] MEDS: HaloperidoL 5 MG TABLET 10 MG PO ×2 (08:11→19:44)
[2022-12-25] MEDS: LORazepam 1 MG TABLET PO ×3 (08:11→19:44)
[2022-12-25 08:40] VITALS: BP 117/59; PULSE 97; RESP 18; TEMP 36.3; O2SAT 99
--- NOTE | 2022-12-25 10:06 | HO.PSYCHPN ---
Subjective Subjective Date of Service: 12/25/22 Reason For Visit: mood Subjective Notes: 3 Day Interim History: Reviewed with . Patient guarded and brief during 1:1. Soft spoken. She reports feeling okay today. Pt stated, I'm just hanging out. I'm not going to groups because they are boring . denies SI/HI/VH/AH. Medication Compliance: Yes Side effects from medications: No Attending Groups: No Review of Systems Constitutional: Reports as per HPI Eyes: Reports as per HPI Reports as per HPI Cardiovascular: Reports as per HPI Respiratory: Reports as per HPI Gastrointestinal: Reports as per HPI Genitourinary: Reports as per HPI Musculoskeletal: Reports as per HPI Skin/Breast: Reports as per HPI Reports as per HPI Psychiatric: Reports as per HPI Endocrine: Reports as per HPI Hematologic/Lymphatic: Reports as per HPI Allergic/Immunologic: Reports as per HPI Mental Status Exam Mental Status Exam Narrative: Pt behavior is cooperative, calm, guarded; dressed in casual attire; mood is described as good ; eye contact appropriate; Speech is normal rate, soft spoken and not pressured; no psychomotor agitation/retardation present; thought process is organized; Thought content is on discharge; denies any SI/HI/AH/VH. Diagnostics Vital Signs (24Hr): Vital Signs - 24 hr 12/24/22 18:00 Temperature 97.2 F Pulse Rate 110 H Blood Pressure 140/87 H Pulse Oximetry 100 Oxygen Delivery Method Room Air BMI result Body Mass Index 25.5 Labs 12/02/22 21:20 12/04/22 08:17 Medications Medications Current Medications Acetaminophen (Acetaminophen 325 Mg Tablet) 650 mg PO Q6H PRN PRN Reason: Headache/Pain Mild Scale (1-3) Last Admin: 12/21/22 02:55 Dose: 650 mg Al Hydroxide/Mg Hydroxide (Magnesium Hydrox/Alum Hydrox 30 Ml Oral.Susp) 30 ml PO Q6H PRN PRN Reason: Heartburn/Nausea Benztropine Mesylate (Benztropine Mesylate 0.5 Mg Tablet) 0.5 mg PO BID PRN PRN Reason: EPS Divalproex Sodium (Divalproex Sodium Er 250 Mg Tab.Er.24h) 250 mg PO DAILY [facility] Last Admin: 12/25/22 08:10 Dose: 250 mg Docusate Sodium (Docusate Sodium 100 Mg Capsule) 100 mg PO BID [facility] Last Admin: 12/25/22 08:11 Dose: 100 mg Haloperidol (Haloperidol 5 Mg Tablet) 10 mg PO BID [facility] Last Admin: 12/25/22 08:11 Dose: 10 mg Haloperidol (Haloperidol 5 Mg Tablet) 5 mg PO DAILY@1300 [facility] Last Admin: 12/24/22 14:11 Dose: 5 mg Hydroxyzine HCl (Hydroxyzine Hcl 25 Mg Tablet) 25 mg PO Q6H PRN PRN Reason: Anxiety Last Admin: 12/25/22 03:53 Dose: 25 mg Lorazepam (Lorazepam 1 Mg Tablet) 1 mg PO TID [facility] Last Admin: 12/25/22 08:11 Dose: 1 mg Magnesium Hydroxide (Milk Of Magnesia 30 Ml Oral.Susp) 30 ml PO DAILY PRN PRN Reason: Constipation Melatonin (Melatonin 3 Mg Tablet) 6 mg PO BEDTIME [facility] Last Admin: 12/24/22 20:23 Dose: 6 mg Olanzapine (Olanzapine 5 Mg Tablet) 5 mg PO DAILY PRN PRN Reason: Psychosis Last Admin: 12/23/22 06:53 Dose: 5 mg Trazodone HCl (Trazodone Hcl 50 Mg Tablet) 50 mg PO BEDTIME MRX1 PRN PRN Reason: Insomnia Last Admin: 12/25/22 00:37 Dose: 50 mg Allergies Allergies Allergy/AdvReac Type Severity Reaction Status Date / Time shrimp AdvReac Intermediate Rash Verified 12/02/22 21:40 Assessment & Plan Assessment & Plan (1) Psychosis: Status: Acute Code(s): F29 - Unspecified psychosis not due to a substance or known physiological condition (2) UTI (urinary tract infection): Status: Acute Code(s): N39.0 - Urinary tract infection, site not specified Plan Patient is a 27-year-old female with history of psychotic illness who presents with disorganized speech and behavior, recently discharged from [facility] but brought back to the hospital at the behest of her father. Patient having trouble focusing on conversation and is almost talking in a word salad. If asked a question she will mostly respond with some completely irrelevant and nonsensical answer. She said something about [employer]; [employer] song which she saying; physics; something about [place] in [place] and being stalked. She denies any AVH but does seem internally preoccupied. She denies any drug or alcohol use other than weed... A little. Patient gives permission for team to discuss case with her father and gives the phone number. Patient agreed to take antipsychotic medication. Later in the day, patient was more linear and organized. She agreed that she was at the hospital for help and understood criteria for having signed the CV, evidenced by asking relevant questions and later going up and asking to sign a 3 day notice. Hospital course: 12/05: contiue current treatmetn plan 12/08: Patient keeping to self. Presents guarded but organized. Pt stated, I'm feeling homesick. I'll keep taking my meds so I can leave . Patient retracted 3 day notice. denies SI/HI/VH/AH. Continue current tx plan. 12/09: Patient presents disorganized, confused with times of echolalia. When T/W would ask pt a question, pt would either repeat the question back, repeat a word from the sentence or state a word she overheard someone use who is standing within hearing distance. Patient attempted to elope from unit multiple times this morning. When T/W asked where she planned on going, pt stated, home. the fluorescent lamp replacer will bring me home . T/W explained to patient she would have to wait until she improved; pt stated, okay. I can do that . Showered. Medication compliant. Added Ativan 1mg PO BID PRN and Risperdal 0.5mg PO BID PRN. 12/10: Patient presents disorganized, confused with times of echolalia. Staff reported patient was seen standing on chair, when asked reasoning, pt stated, I'm not a turkey baster . Patient unable to have logical conversation at this time. Appears restless. Medication compliant. DC Risperdal, does not seem to be improving psychosis. Start Zyprexa 5mg PO daily. Patient aware. 12/11: Patient presents disorganized, confused with times of echolalia. Patient unable to have logical conversation at this time; flight of ideas. Medication compliant. Patient standing in hallway, jumping up and down and stating I'm bat shit crazy! 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 If I don't go to medical school I'm going to [employer]. I wanna hug you! Continue taper of risperdal and increase in Zyprexa. 12/12: Increase Zyprexa tomorrow and lower Risperidone. 12/13: DC Risperidone. Continue titrating Zyprexa. Mouth checks. 12/14: remains floridly psychotic, disorganized. Will switch to Zydis and increase dose to 10mg bid (up from 5mg bid) 12/15 continue tx plan 12/16 remains dsorganized; maybe a little less...did not sleep overnight. Will increase Zydis to 20mg qhs -procedure writer reviewed collateral and this seems to be a 1st break for patient; some psychotic symptoms coming up here in their over the past year but they emerged profoundly recently when patient got back from visiting a boyfriend in [place]. 12/17 This morning, patient was able to maintain a linear conversation with procedure writer and then with nurse that was mostly logical. Attempted to take patient off one-to-one. Improvement did not last and patient soon dysregulated, wandering the halls, talking loudly and nonsensically; patient clawing at the doors trying to open them to leave the unit; on the phone talking to Ori a former patient that patient says she can see outside her window and thinks that the 2 are engaged. Patient also said she can see her family members outside the window. Patient told staff she feels unsafe without being on a one-to-one because there is safety in numbers. She also put soap in her mouth and explained it was because no one was with me... Patient also walking around the milieu with her hands on her neck imitating as if she is choking herself. Patient did come down some when she was replaced on one-to-one. -since patient seem to improve a little bit with increase Zyprexa dose will leave current regimen for now; however if not continued improvements will consider whether to switch medications or to and another medication, possibly Depakote 12/18 pt is minimally better than on admission, sometimes able to have and now sleeping more through the night, suggesting that Zyprexa maybe partially helpful; however, she remains significantly disorganized; debating med change vs continue w/ zyprexa. Difficult to discern if there is a manic component of if pt is just disorganzed (was not sleeping, but symptoms more psychotic than manic); considering Haldol or other 1st generatoin antipsychotic 12/19 will continue with Haldol 5 mg t.i.d. and discontinue Zyprexa. Having started Haldol, This is the 1st time patient is psychotic symptoms have been subdued. Will continue to monitor 12/20 Will increase Haldol to 10 mg b.i.d. 12/21 not sure if Haldol is working; some hints that it might be lowering symptoms. Will continue with current regimen and monitor 12/22Had an encouraging discussion with patient who was aware of person place and time, date, year, that it was Halloween; no she is at [facility] in the psychiatric unit. She is here because her parents think she has .a little to crazy.. And she agrees that they had reason to be concerned prior to admission. She says she knows she is not . Patient agrees to try getting off one-to-one. Despite this seemingly lucid conversation, patient has been telling other staff all day long that she is worried about her ; sometimes able to talk in a logical/linear way other times remains disorganized -will soon decide whether to go up on Haldol or to switch medications 12/23 continue current treatment plan 12/25: Continue current tx plan. Plan: CV Q 15 minute checks Continue Haldol 10 mg b.i.d. Discontinue Zydis dc'd Risperdal; did not seem affective Patient educated on: diagnosis, medication risk/benefits and therapeutic strategies Informed Consent: understands and further education needed Reason for continued inpatient stay Substantial Risk for: med/psych decompensation Time Spent With Patient Time: Total time managing care of this patient today _30___ minutes.
[2022-12-25] MEDS: HaloperidoL 5 MG TABLET PO (14:22)
[2022-12-25 18:30] VITALS: BP 142/81; PULSE 113; RESP 16; TEMP 36.3; O2SAT 99
[2022-12-25] MEDS: Melatonin 3 MG TABLET 6 MG PO (19:44)
[2022-12-26 08:58] VITALS: BP 126/83; PULSE 105; RESP 18; TEMP 36.2; O2SAT 100
[2022-12-26] MEDS: Divalproex Sodium ER 250 MG TAB.ER.24H PO (09:25)
[2022-12-26] MEDS: Docusate Sodium 100 MG CAPSULE PO ×2 (09:25→20:13)
[2022-12-26] MEDS: HaloperidoL 5 MG TABLET 10 MG PO ×2 (09:25→20:13)
[2022-12-26] MEDS: LORazepam 1 MG TABLET PO ×2 (09:26→20:13)
--- NOTE | 2022-12-26 11:39 | HO.PSYCHPN ---
Subjective Subjective Date of Service: 12/26/22 Reason For Visit: mood Subjective Notes: 3 Day Healthcare Proxy: No Guardianship: No Medical Problems Affecting Mental Status: No Interim History: Reports feeling sleepy Has a list of her medications and understands that I will be looking at the list to address this complaint. Some sleep disturbance noted in chart. Eating OK. Medication Compliance: Yes Side effects from medications: No Attending Groups: Intermittent Review of Systems Acute medical concerns: No Medical Review of Systems: unchanged Mental Status Exam Mental Status Exam Patient Appearance: Unkempt (food stain on her shirt, otherwise well groomed) Patient Orientation: Person, Place, Time and Situation Level of Consciousness: Alert Patient Behavior: Appropriate Mood Description: Calm ( really good ) Affect Description: Blunted Patient Cognition Impaired: No Ability to Follow Directions: Good Speech Pattern: Clear Memory Description: Intact Hallucinations: None Delusions: Not Present Thought Process: Goal Oriented Thought Content: positive for Poverty of Content Depressive Symptoms: Insomnia Judgement: Good Diagnostics Vital Signs (24Hr): Vital Signs - 24 hr 12/25/22 18:30 12/26/22 08:58 Temperature 97.3 F 97.2 F Pulse Rate 113 H 105 H Respiratory Rate 16 18 Blood Pressure 142/81 H 126/83 Pulse Oximetry 99 100 Oxygen Delivery Method Room Air BMI result Body Mass Index 25.5 Labs 12/02/22 21:20 12/04/22 08:17 Medications Medications Current Medications Acetaminophen (Acetaminophen 325 Mg Tablet) 650 mg PO Q6H PRN PRN Reason: Headache/Pain Mild Scale (1-3) Last Admin: 12/21/22 02:55 Dose: 650 mg Al Hydroxide/Mg Hydroxide (Magnesium Hydrox/Alum Hydrox 30 Ml Oral.Susp) 30 ml PO Q6H PRN PRN Reason: Heartburn/Nausea Benztropine Mesylate (Benztropine Mesylate 0.5 Mg Tablet) 0.5 mg PO BID PRN PRN Reason: EPS Divalproex Sodium (Divalproex Sodium Er 250 Mg Tab.Er.24h) 250 mg PO DAILY [facility] Last Admin: 12/26/22 09:25 Dose: 250 mg Docusate Sodium (Docusate Sodium 100 Mg Capsule) 100 mg PO BID [facility] Last Admin: 12/26/22 09:25 Dose: 100 mg Haloperidol (Haloperidol 5 Mg Tablet) 10 mg PO BID [facility] Last Admin: 12/26/22 09:25 Dose: 10 mg Haloperidol (Haloperidol 5 Mg Tablet) 5 mg PO DAILY@1300 [facility] Last Admin: 12/25/22 14:22 Dose: 5 mg Hydroxyzine HCl (Hydroxyzine Hcl 25 Mg Tablet) 25 mg PO Q6H PRN PRN Reason: Anxiety Last Admin: 12/25/22 03:53 Dose: 25 mg Lorazepam (Lorazepam 1 Mg Tablet) 1 mg PO TID [facility] Last Admin: 12/26/22 09:26 Dose: 1 mg Magnesium Hydroxide (Milk Of Magnesia 30 Ml Oral.Susp) 30 ml PO DAILY PRN PRN Reason: Constipation Melatonin (Melatonin 3 Mg Tablet) 6 mg PO BEDTIME [facility] Last Admin: 12/25/22 19:44 Dose: 6 mg Olanzapine (Olanzapine 5 Mg Tablet) 5 mg PO DAILY PRN PRN Reason: Psychosis Last Admin: 12/23/22 06:53 Dose: 5 mg Trazodone HCl (Trazodone Hcl 50 Mg Tablet) 50 mg PO BEDTIME MRX1 PRN PRN Reason: Insomnia Last Admin: 12/25/22 19:44 Dose: 50 mg Allergies Allergies Allergy/AdvReac Type Severity Reaction Status Date / Time shrimp AdvReac Intermediate Rash Verified 12/02/22 21:40 Assessment & Plan Assessment & Plan (1) Psychosis: Status: Acute Code(s): F29 - Unspecified psychosis not due to a substance or known physiological condition (2) UTI (urinary tract infection): Status: Acute Code(s): N39.0 - Urinary tract infection, site not specified Plan Patient is a 27-year-old female with history of psychotic illness who presents with disorganized speech and behavior, recently discharged from [facility] but brought back to the hospital at the behest of her father. Patient having trouble focusing on conversation and is almost talking in a word salad. If asked a question she will mostly respond with some completely irrelevant and nonsensical answer. She said something about [employer]; [employer] song which she saying; physics; something about [place] in [place] and being stalked. She denies any AVH but does seem internally preoccupied. She denies any drug or alcohol use other than weed... A little. Patient gives permission for team to discuss case with her father and gives the phone number. Patient agreed to take antipsychotic medication. Later in the day, patient was more linear and organized. She agreed that she was at the hospital for help and understood criteria for having signed the CV, evidenced by asking relevant questions and later going up and asking to sign a 3 day notice. Hospital course: 12/05: contiue current treatmetn plan 12/08: Patient keeping to self. Presents guarded but organized. Pt stated, I'm feeling homesick. I'll keep taking my meds so I can leave . Patient retracted 3 day notice. denies SI/HI/VH/AH. Continue current tx plan. 12/09: Patient presents disorganized, confused with times of echolalia. When T/W would ask pt a question, pt would either repeat the question back, repeat a word from the sentence or state a word she overheard someone use who is standing within hearing distance. Patient attempted to elope from unit multiple times this morning. When T/W asked where she planned on going, pt stated, home. the script developer will bring me home . T/W explained to patient she would have to wait until she improved; pt stated, okay. I can do that . Showered. Medication compliant. Added Ativan 1mg PO BID PRN and Risperdal 0.5mg PO BID PRN. 12/10: Patient presents disorganized, confused with times of echolalia. Staff reported patient was seen standing on chair, when asked reasoning, pt stated, I'm not a turkey baster . Patient unable to have logical conversation at this time. Appears restless. Medication compliant. DC Risperdal, does not seem to be improving psychosis. Start Zyprexa 5mg PO daily. Patient aware. 12/11: Patient presents disorganized, confused with times of echolalia. Patient unable to have logical conversation at this time; flight of ideas. Medication compliant. Patient standing in hallway, jumping up and down and stating I'm bat shit crazy! 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 If I don't go to medical school I'm going to [employer]. I wanna hug you! Continue taper of risperdal and increase in Zyprexa. 12/12: Increase Zyprexa tomorrow and lower Risperidone. 12/13: DC Risperidone. Continue titrating Zyprexa. Mouth checks. 12/14: remains floridly psychotic, disorganized. Will switch to Zydis and increase dose to 10mg bid (up from 5mg bid) 12/15 continue tx plan 12/16 remains dsorganized; maybe a little less...did not sleep overnight. Will increase Zydis to 20mg qhs -story writer reviewed collateral and this seems to be a 1st break for patient; some psychotic symptoms coming up here in their over the past year but they emerged profoundly recently when patient got back from visiting a boyfriend in [place]. 12/17 This morning, patient was able to maintain a linear conversation with story writer and then with nurse that was mostly logical. Attempted to take patient off one-to-one. Improvement did not last and patient soon dysregulated, wandering the halls, talking loudly and nonsensically; patient clawing at the doors trying to open them to leave the unit; on the phone talking to Ori a former patient that patient says she can see outside her window and thinks that the 2 are engaged. Patient also said she can see her family members outside the window. Patient told staff she feels unsafe without being on a one-to-one because there is safety in numbers. She also put soap in her mouth and explained it was because no one was with me... Patient also walking around the milieu with her hands on her neck imitating as if she is choking herself. Patient did come down some when she was replaced on one-to-one. -since patient seem to improve a little bit with increase Zyprexa dose will leave current regimen for now; however if not continued improvements will consider whether to switch medications or to and another medication, possibly Depakote 12/18 pt is minimally better than on admission, sometimes able to have and now sleeping more through the night, suggesting that Zyprexa maybe partially helpful; however, she remains significantly disorganized; debating med change vs continue w/ zyprexa. Difficult to discern if there is a manic component of if pt is just disorganzed (was not sleeping, but symptoms more psychotic than manic); considering Haldol or other 1st generatoin antipsychotic 12/19 will continue with Haldol 5 mg t.i.d. and discontinue Zyprexa. Having started Haldol, This is the 1st time patient is psychotic symptoms have been subdued. Will continue to monitor 12/20 Will increase Haldol to 10 mg b.i.d. 12/21 not sure if Haldol is working; some hints that it might be lowering symptoms. Will continue with current regimen and monitor 12/22Had an encouraging discussion with patient who was aware of person place and time, date, year, that it was Halloween; no she is at [facility] in the psychiatric unit. She is here because her parents think she has .a little to crazy.. And she agrees that they had reason to be concerned prior to admission. She says she knows she is not . Patient agrees to try getting off one-to-one. Despite this seemingly lucid conversation, patient has been telling other staff all day long that she is worried about her ; sometimes able to talk in a logical/linear way other times remains disorganized -will soon decide whether to go up on Haldol or to switch medications 12/23 continue current treatment plan 12/25: Continue current tx plan. 12/26: change ativan to bid dosing Plan: CV Q 15 minute checks Continue Haldol 10 mg b.i.d. Discontinue Zydis dc'd Risperdal; did not seem affective Reason for continued inpatient stay Substantial Risk for: med/psych decompensation Time Spent With Patient Time: Total time managing care of this patient today ____ minutes.
[2022-12-26] MEDS: HaloperidoL 5 MG TABLET PO (13:17)
[2022-12-26 16:43] VITALS: BP 142/102; PULSE 117; RESP 16; TEMP 36.5; O2SAT 100
[2022-12-26 18:16] VITALS: BP 142/92; PULSE 99; RESP 16
--- NOTE | 2022-12-26 19:50 | PC.NURSE ---
PT's BP noted to be elevated and appears to have been trending that way more often than not since admission. PT also has been noted to be tachycardic frequently. Brought to the attention of Gayla Ortiz, telecommunications professional provider via [employer]. No further orders at this time. Plan of care ongoing.
[2022-12-26] MEDS: Melatonin 3 MG TABLET 6 MG PO (20:13)
--- NOTE | 2022-12-27 07:45 | HO.PSYCHPN ---
Subjective Subjective Date of Service: 12/27/22 Reason For Visit: mood Subjective Notes: 3 Day Healthcare Proxy: No Guardianship: No Medical Problems Affecting Mental Status: No Medication Compliance: Yes Side effects from medications: No Attending Groups: Intermittent Review of Systems Acute medical concerns: No Medical Review of Systems: unchanged Mental Status Exam Mental Status Exam Patient Appearance: Disheveled (clothing stained) Patient Orientation: Person, Place and Time Level of Consciousness: Alert Patient Behavior: Suspicious Mood Description: Withdrawn Affect Description: Flat Patient Cognition Impaired: No Ability to Follow Directions: Good Speech Pattern: Soft-Spoken Memory Description: Intact Hallucinations: Auditory (patient denies but latency of response consistent with internal stimuli) Delusions: Not Present Thought Process: Linear Thought Content: positive for Poverty of Content Abnormal Motor Activity Signs and Symptoms: Psychomotor Retardation Judgement: Fair Diagnostics Vital Signs (24Hr): Vital Signs - 24 hr 12/26/22 08:58 12/26/22 16:43 12/26/22 18:16 Temperature 97.2 F 97.7 F Pulse Rate 105 H 117 H 99 Respiratory Rate 18 16 16 Blood Pressure 126/83 142/102 H 142/92 H Pulse Oximetry 100 100 Oxygen Delivery Method Room Air Room Air BMI result Body Mass Index 25.5 Labs 12/02/22 21:20 12/04/22 08:17 Medications Medications Current Medications Acetaminophen (Acetaminophen 325 Mg Tablet) 650 mg PO Q6H PRN PRN Reason: Headache/Pain Mild Scale (1-3) Last Admin: 12/21/22 02:55 Dose: 650 mg Al Hydroxide/Mg Hydroxide (Magnesium Hydrox/Alum Hydrox 30 Ml Oral.Susp) 30 ml PO Q6H PRN PRN Reason: Heartburn/Nausea Benztropine Mesylate (Benztropine Mesylate 0.5 Mg Tablet) 0.5 mg PO BID PRN PRN Reason: EPS Divalproex Sodium (Divalproex Sodium Er 250 Mg Tab.Er.24h) 250 mg PO DAILY [facility] Last Admin: 12/26/22 09:25 Dose: 250 mg Docusate Sodium (Docusate Sodium 100 Mg Capsule) 100 mg PO BID [facility] Last Admin: 12/26/22 20:13 Dose: 100 mg Haloperidol (Haloperidol 5 Mg Tablet) 10 mg PO BID [facility] Last Admin: 12/26/22 20:13 Dose: 10 mg Haloperidol (Haloperidol 5 Mg Tablet) 5 mg PO DAILY@1300 [facility] Last Admin: 12/26/22 13:17 Dose: 5 mg Hydroxyzine HCl (Hydroxyzine Hcl 25 Mg Tablet) 25 mg PO Q6H PRN PRN Reason: Anxiety Last Admin: 12/25/22 03:53 Dose: 25 mg Lorazepam (Lorazepam 1 Mg Tablet) 1 mg PO BID [facility] Last Admin: 12/26/22 20:13 Dose: 1 mg Magnesium Hydroxide (Milk Of Magnesia 30 Ml Oral.Susp) 30 ml PO DAILY PRN PRN Reason: Constipation Melatonin (Melatonin 3 Mg Tablet) 6 mg PO BEDTIME [facility] Last Admin: 12/26/22 20:13 Dose: 6 mg Olanzapine (Olanzapine 5 Mg Tablet) 5 mg PO DAILY PRN PRN Reason: Psychosis Last Admin: 12/23/22 06:53 Dose: 5 mg Trazodone HCl (Trazodone Hcl 50 Mg Tablet) 50 mg PO BEDTIME MRX1 PRN PRN Reason: Insomnia Last Admin: 12/25/22 19:44 Dose: 50 mg Allergies Allergies Allergy/AdvReac Type Severity Reaction Status Date / Time shrimp AdvReac Intermediate Rash Verified 12/02/22 21:40 Assessment & Plan Assessment & Plan (1) Psychosis: Status: Acute Code(s): F29 - Unspecified psychosis not due to a substance or known physiological condition (2) UTI (urinary tract infection): Status: Acute Code(s): N39.0 - Urinary tract infection, site not specified Plan Patient is a 27-year-old female with history of psychotic illness who presents with disorganized speech and behavior, recently discharged from [facility] but brought back to the hospital at the behest of her father. Patient having trouble focusing on conversation and is almost talking in a word salad. If asked a question she will mostly respond with some completely irrelevant and nonsensical answer. She said something about [employer]; [employer] song which she saying; physics; something about [place] in [place] and being stalked. She denies any AVH but does seem internally preoccupied. She denies any drug or alcohol use other than weed... A little. Patient gives permission for team to discuss case with her father and gives the phone number. Patient agreed to take antipsychotic medication. Later in the day, patient was more linear and organized. She agreed that she was at the hospital for help and understood criteria for having signed the CV, evidenced by asking relevant questions and later going up and asking to sign a 3 day notice. Hospital course: 12/05: contiue current treatmetn plan 12/08: Patient keeping to self. Presents guarded but organized. Pt stated, I'm feeling homesick. I'll keep taking my meds so I can leave . Patient retracted 3 day notice. denies SI/HI/VH/AH. Continue current tx plan. 12/09: Patient presents disorganized, confused with times of echolalia. When T/W would ask pt a question, pt would either repeat the question back, repeat a word from the sentence or state a word she overheard someone use who is standing within hearing distance. Patient attempted to elope from unit multiple times this morning. When T/W asked where she planned on going, pt stated, home. the career development counselor will bring me home . T/W explained to patient she would have to wait until she improved; pt stated, okay. I can do that . Showered. Medication compliant. Added Ativan 1mg PO BID PRN and Risperdal 0.5mg PO BID PRN. 12/10: Patient presents disorganized, confused with times of echolalia. Staff reported patient was seen standing on chair, when asked reasoning, pt stated, I'm not a turkey baster . Patient unable to have logical conversation at this time. Appears restless. Medication compliant. DC Risperdal, does not seem to be improving psychosis. Start Zyprexa 5mg PO daily. Patient aware. 12/11: Patient presents disorganized, confused with times of echolalia. Patient unable to have logical conversation at this time; flight of ideas. Medication compliant. Patient standing in hallway, jumping up and down and stating I'm bat shit crazy! 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 If I don't go to medical school I'm going to [employer]. I wanna hug you! Continue taper of risperdal and increase in Zyprexa. 12/12: Increase Zyprexa tomorrow and lower Risperidone. 12/13: DC Risperidone. Continue titrating Zyprexa. Mouth checks. 12/14: remains floridly psychotic, disorganized. Will switch to Zydis and increase dose to 10mg bid (up from 5mg bid) 12/15 continue tx plan 12/16 remains dsorganized; maybe a little less...did not sleep overnight. Will increase Zydis to 20mg qhs -functional tester typewriters reviewed collateral and this seems to be a 1st break for patient; some psychotic symptoms coming up here in their over the past year but they emerged profoundly recently when patient got back from visiting a boyfriend in [place]. 12/17 This morning, patient was able to maintain a linear conversation with functional tester typewriters and then with nurse that was mostly logical. Attempted to take patient off one-to-one. Improvement did not last and patient soon dysregulated, wandering the halls, talking loudly and nonsensically; patient clawing at the doors trying to open them to leave the unit; on the phone talking to Ori a former patient that patient says she can see outside her window and thinks that the 2 are engaged. Patient also said she can see her family members outside the window. Patient told staff she feels unsafe without being on a one-to-one because there is safety in numbers. She also put soap in her mouth and explained it was because no one was with me... Patient also walking around the milieu with her hands on her neck imitating as if she is choking herself. Patient did come down some when she was replaced on one-to-one. -since patient seem to improve a little bit with increase Zyprexa dose will leave current regimen for now; however if not continued improvements will consider whether to switch medications or to and another medication, possibly Depakote 12/18 pt is minimally better than on admission, sometimes able to have and now sleeping more through the night, suggesting that Zyprexa maybe partially helpful; however, she remains significantly disorganized; debating med change vs continue w/ zyprexa. Difficult to discern if there is a manic component of if pt is just disorganzed (was not sleeping, but symptoms more psychotic than manic); considering Haldol or other 1st generatoin antipsychotic 12/19 will continue with Haldol 5 mg t.i.d. and discontinue Zyprexa. Having started Haldol, This is the 1st time patient is psychotic symptoms have been subdued. Will continue to monitor 10/29 Will increase Haldol to 10 mg b.i.d. 12/21 not sure if Haldol is working; some hints that it might be lowering symptoms. Will continue with current regimen and monitor 12/22Had an encouraging discussion with patient who was aware of person place and time, date, year, that it was Halloween; no she is at [facility] in the psychiatric unit. She is here because her parents think she has .a little to crazy.. And she agrees that they had reason to be concerned prior to admission. She says she knows she is not . Patient agrees to try getting off one-to-one. Despite this seemingly lucid conversation, patient has been telling other staff all day long that she is worried about her ; sometimes able to talk in a logical/linear way other times remains disorganized -will soon decide whether to go up on Haldol or to switch medications 12/23 continue current treatment plan 12/25: Continue current tx plan. 12/26: change ativan to bid dosing 12/27: monitor vitals as BP and pulse have been mildly elevated. Add standing jennifer as patient looking somewhat Parkinsonian. Plan: CV Q 15 minute checks Continue Haldol 11/26/09 Discontinue Zestiven dc'd Risperdal; did not seem affective Reason for continued inpatient stay Substantial Risk for: inability to function Time Spent With Patient Time: Total time managing care of this patient today ____ minutes.
[2022-12-27 08:00] VITALS: BP 143/82; PULSE 99; RESP 18; TEMP 36.1; O2SAT 98
[2022-12-27] MEDS: HaloperidoL 5 MG TABLET 10 MG PO ×2 (08:44→20:54)
[2022-12-27] MEDS: LORazepam 1 MG TABLET PO ×2 (08:44→20:54)
[2022-12-27] MEDS: Docusate Sodium 100 MG CAPSULE PO ×2 (08:44→20:54)
[2022-12-27] MEDS: Divalproex Sodium ER 250 MG TAB.ER.24H PO (08:44)
[2022-12-27] MEDS: Benztropine Mesylate 0.5 MG TABLET PO ×2 (08:45→20:54)
[2022-12-27] MEDS: HaloperidoL 5 MG TABLET PO (12:06)
[2022-12-27 18:00] VITALS: BP 143/70; PULSE 112; RESP 16; TEMP 37.2; O2SAT 94
[2022-12-27] MEDS: traZODone HCL 50 MG TABLET PO (20:54)
[2022-12-27] MEDS: Melatonin 3 MG TABLET 6 MG PO (20:54)
[2022-12-28 08:35] VITALS: BP 130/69; PULSE 110; RESP 18; TEMP 36.2; O2SAT 98
[2022-12-28] MEDS: Benztropine Mesylate 0.5 MG TABLET PO ×2 (08:39→20:21)
[2022-12-28] MEDS: Docusate Sodium 100 MG CAPSULE PO ×2 (08:39→20:39)
[2022-12-28] MEDS: LORazepam 1 MG TABLET PO ×2 (08:39→20:22)
[2022-12-28] MEDS: Divalproex Sodium ER 250 MG TAB.ER.24H PO (08:40)
[2022-12-28] MEDS: HaloperidoL 5 MG TABLET 10 MG PO (08:40)
--- NOTE | 2022-12-28 09:58 | P.PNPSI_ITS ---
Subjective Subjective Date of Service: 12/28/22 Reason For Visit: mood Interim History: met with patient; discussed with team Patient with flat affect, no expression, talking in monotone voice; walking more slowly. Thought content seems more vacuous, just answering questions and not referring to various thoughts she is having unlike the week prior. Patient is more organized in speech, answering questions appropriately however she is very concrete in her answers and with no extraneous words or thoughts expressed. Conservation Biology Professor asked about Ori a former patient about whom patient would sometimes expressed delusional memories, to which patient answered that was just a andrés I liked.. Which was matter of fact and without the typical additional odd or delusional comments. Denies AVH. Patient says she sleepy and over the weekend and today has been mostly keeping to herself, sleeping, not interacting with others, unchanged previous week Says she had a good visit with her family and that her parents told her to remain on the unit until the doctors think she is ready to go home. To that and patient agreed to retract 3 day notice. Again discussed clozapine and patient agreed to trial including weekly blood draws. Mental Status Exam Mental Status Exam Narrative: Pt is alert and oriented to self, place, partially to situation; behavior is cooperative, blunted affect, monotone voice, isolative; patient is not in distress; dressed in hospital attire with unkempt hair and marginal hygiene; mood and affect significantly blunted; monotone speech, softer volume; psychomotor retardation present; thought process goal oriented and concrete; Thought content is more vacuous and patient is not expressing much; not sure if internally preoccupied Patients insight and judgment impaired. Diagnostics Vital Signs (24Hr): Vital Signs - 24 hr 12/27/22 18:00 12/28/22 08:35 Temperature 98.9 F 97.1 F Pulse Rate 112 H 110 H Respiratory Rate 16 18 Blood Pressure 143/70 H 130/69 Pulse Oximetry 94 98 Oxygen Delivery Method Room Air Room Air BMI result Body Mass Index 25.5 Labs 12/02/22 21:20 12/04/22 08:17 Medications Medications Current Medications Acetaminophen (Acetaminophen 325 Mg Tablet) 650 mg PO Q6H PRN PRN Reason: Headache/Pain Mild Scale (1-3) Last Admin: 12/21/22 02:55 Dose: 650 mg Al Hydroxide/Mg Hydroxide (Magnesium Hydrox/Alum Hydrox 30 Ml Oral.Susp) 30 ml PO Q6H PRN PRN Reason: Heartburn/Nausea Benztropine Mesylate (Benztropine Mesylate 0.5 Mg Tablet) 0.5 mg PO BID PRN PRN Reason: EPS Benztropine Mesylate (Benztropine Mesylate 0.5 Mg Tablet) 0.5 mg PO BID [facility] Last Admin: 12/28/22 08:39 Dose: 0.5 mg Divalproex Sodium (Divalproex Sodium Er 250 Mg Tab.Er.24h) 250 mg PO DAILY [facility] Last Admin: 12/28/22 08:40 Dose: 250 mg Docusate Sodium (Docusate Sodium 100 Mg Capsule) 100 mg PO BID [facility] Last Admin: 12/28/22 08:39 Dose: 100 mg Haloperidol (Haloperidol 5 Mg Tablet) 10 mg PO BID [facility] Last Admin: 12/28/22 08:40 Dose: 10 mg Haloperidol (Haloperidol 5 Mg Tablet) 5 mg PO DAILY@1300 [facility] Last Admin: 12/27/22 12:06 Dose: 5 mg Hydroxyzine HCl (Hydroxyzine Hcl 25 Mg Tablet) 25 mg PO Q6H PRN PRN Reason: Anxiety Last Admin: 12/25/22 03:53 Dose: 25 mg Lorazepam (Lorazepam 1 Mg Tablet) 1 mg PO BID [facility] Last Admin: 12/28/22 08:39 Dose: 1 mg Magnesium Hydroxide (Milk Of Magnesia 30 Ml Oral.Susp) 30 ml PO DAILY PRN PRN Reason: Constipation Melatonin (Melatonin 3 Mg Tablet) 6 mg PO BEDTIME [facility] Last Admin: 12/27/22 20:54 Dose: 6 mg Olanzapine (Olanzapine 5 Mg Tablet) 5 mg PO DAILY PRN PRN Reason: Psychosis Last Admin: 12/23/22 06:53 Dose: 5 mg Trazodone HCl (Trazodone Hcl 50 Mg Tablet) 50 mg PO BEDTIME MRX1 PRN PRN Reason: Insomnia Last Admin: 12/27/22 20:54 Dose: 50 mg Allergies Allergies Allergy/AdvReac Type Severity Reaction Status Date / Time shrimp AdvReac Intermediate Rash Verified 12/02/22 21:40 Assessment & Plan Assessment & Plan (1) Psychosis: Status: Acute Code(s): F29 - Unspecified psychosis not due to a substance or known physiological condition (2) UTI (urinary tract infection): Status: Acute Code(s): N39.0 - Urinary tract infection, site not specified Plan Patient is a 27-year-old female with history of psychotic illness who presents with disorganized speech and behavior, recently discharged from [facility] but brought back to the hospital at the behest of her father. Patient having trouble focusing on conversation and is almost talking in a word salad. If asked a question she will mostly respond with some completely irrelevant and nonsensical answer. She said something about double tongs; [employer] song which she saying; physics; something about [place] in [place] and being stalked. She denies any AVH but does seem internally preoccupied. She denies any drug or alcohol use other than weed... A little. Patient gives permission for team to discuss case with her father and gives the phone number. Patient agreed to take antipsychotic medication. Later in the day, patient was more linear and organized. She agreed that she was at the hospital for help and understood criteria for having signed the CV, evidenced by asking relevant questions and later going up and asking to sign a 3 day notice. Hospital course: 12/05: contiue current treatmetn plan 12/08: Patient keeping to self. Presents guarded but organized. Pt stated, I'm feeling homesick. I'll keep taking my meds so I can leave . Patient retracted 3 day notice. denies SI/HI/VH/AH. Continue current tx plan. 12/09: Patient presents disorganized, confused with times of echolalia. When T/W would ask pt a question, pt would either repeat the question back, repeat a word from the sentence or state a word she overheard someone use who is standing within hearing distance. Patient attempted to elope from unit multiple times this morning. When T/W asked where she planned on going, pt stated, home. the pharmacy teacher will bring me home . T/W explained to patient she would have to wait until she improved; pt stated, okay. I can do that . Showered. Medication compliant. Added Ativan 1mg PO BID PRN and Risperdal 0.5mg PO BID PRN. 12/10: Patient presents disorganized, confused with times of echolalia. Staff reported patient was seen standing on chair, when asked reasoning, pt stated, I'm not a turkey baster . Patient unable to have logical conversation at this time. Appears restless. Medication compliant. DC Risperdal, does not seem to be improving psychosis. Start Zyprexa 5mg PO daily. Patient aware. 12/11: Patient presents disorganized, confused with times of echolalia. Patient unable to have logical conversation at this time; flight of ideas. Medication compliant. Patient standing in hallway, jumping up and down and stating I'm bat shit crazy! 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 If I don't go to medical school I'm going to [employer]. I wanna hug you! Continue taper of risperdal and increase in Zyprexa. 12/12: Increase Zyprexa tomorrow and lower Risperidone. 12/13: DC Risperidone. Continue titrating Zyprexa. Mouth checks. 12/14: remains floridly psychotic, disorganized. Will switch to Zydis and increase dose to 10mg bid (up from 5mg bid) 12/15 continue tx plan 12/16 remains dsorganized; maybe a little less...did not sleep overnight. Will increase Zydis to 20mg qhs -marine underwriter reviewed collateral and this seems to be a 1st break for patient; some psychotic symptoms coming up here in their over the past year but they emerged profoundly recently when patient got back from visiting a boyfriend in [place]. 12/17 This morning, patient was able to maintain a linear conversation with marine underwriter and then with nurse that was mostly logical. Attempted to take patient off one-to-one. Improvement did not last and patient soon dysregulated, wandering the halls, talking loudly and nonsensically; patient clawing at the doors trying to open them to leave the unit; on the phone talking to Ori a former patient that patient says she can see outside her window and thinks that the 2 are engaged. Patient also said she can see her family members outside the window. Patient told staff she feels unsafe without being on a one-to-one because there is safety in numbers. She also put soap in her mouth and explained it was because no one was with me... Patient also walking around the milieu with her hands on her neck imitating as if she is choking herself. Patient did come down some when she was replaced on one-to-one. -since patient seem to improve a little bit with increase Zyprexa dose will leave current regimen for now; however if not continued improvements will consider whether to switch medications or to and another medication, possibly Depakote 12/18 pt is minimally better than on admission, sometimes able to have and now sleeping more through the night, suggesting that Zyprexa maybe partially helpful; however, she remains significantly disorganized; debating med change vs continue w/ zyprexa. Difficult to discern if there is a manic component of if pt is just disorganzed (was not sleeping, but symptoms more psychotic than manic); considering Haldol or other 1st generatoin antipsychotic 12/19 will continue with Haldol 5 mg t.i.d. and discontinue Zyprexa. Having started Haldol, This is the 1st time patient is psychotic symptoms have been subdued. Will continue to monitor 12/20 Will increase Haldol to 10 mg b.i.d. 12/21 not sure if Haldol is working; some hints that it might be lowering symptoms. Will continue with current regimen and monitor 12/22Had an encouraging discussion with patient who was aware of person place and time, date, year, that it was Halloween; no she is at [facility] in the psychiatric unit. She is here because her parents think she has .a little to crazy.. And she agrees that they had reason to be concerned prior to admission. She says she knows she is not . Patient agrees to try getting off one-to-one. Despite this seemingly lucid conversation, patient has been telling other staff all day long that she is worried about her ; sometimes able to talk in a logical/linear way other times remains disorganized -will soon decide whether to go up on Haldol or to switch medications 12/23 continue current treatment plan 12/24 increasing haldol; added depakote 12/28Patient with flat affect, no expression, talking in monotone voice; walking more slowly. Thought content seems more vacuous, just answering questions and not referring to various thoughts she is having unlike the week prior. Patient is more organized in speech, answering questions appropriately however she is very concrete in her answers and with no extraneous words or thoughts expressed. Conservation [employer] Professor asked about Ori a former patient about whom patient would sometimes expressed delusional memories, to which patient answered that was just a andrés I liked.. Which was matter of fact and without the typical additional odd or delusional comments. Denies AVH. Patient says she sleepy and over the weekend and today has been mostly keeping to herself, sleeping, not interacting with others, unchanged previous week -Says she had a good visit with her family and that her parents told her to remain on the unit until the doctors think she is ready to go home. To that and patient agreed to retract 3 day notice. Again discussed clozapine and patient agreed to trial including weekly blood draws. -observation: On lower dose of Haldol, 10 mg b.i.d., patient with improved symptoms compared to admission, however still disorganized; with increased Haldol, adding Haldol 5 mg in the afternoon, patient was more organized thought process however significantly blunted affect and still with limited insight and ability to discuss illness Plan: CV (retracted 3 DAY on 12/28) Q 15 minute checks Discontinued depakote Lowered Haldol back to 10 mg b.i.d. Discontinued Haldol 5mg @1300 Discontinued Zyprexa; maybe partially effective Discontinued Risperdal; did not seem affective Patient educated on: diagnosis and medication risk/benefits Informed Consent: understands, does not understand and further education needed Reason for continued inpatient stay Substantial Risk for: inability to function Time Spent With Patient Time: Total time managing care of this patient today ____ minutes.
[2022-12-28] MEDS: HaloperidoL 5 MG TABLET PO ×2 (13:00→20:22)
[2022-12-28 18:00] VITALS: BP 129/71; PULSE 100; RESP 16; TEMP 36.7; O2SAT 95
[2022-12-28] MEDS: Melatonin 3 MG TABLET 6 MG PO (20:22)
[2022-12-29 08:00] VITALS: BP 137/61; PULSE 94; TEMP 36.3; O2SAT 100
[2022-12-29] MEDS: Benztropine Mesylate 0.5 MG TABLET PO ×2 (08:10)
[2022-12-29] MEDS: LORazepam 1 MG TABLET PO ×2 (08:10→19:21)
[2022-12-29] MEDS: HaloperidoL 5 MG TABLET 10 MG PO ×2 (08:10→19:20)
[2022-12-29] MEDS: Docusate Sodium 100 MG CAPSULE PO ×2 (08:10→19:21)
[2022-12-29 17:06] VITALS: BP 148/73; PULSE 102; TEMP 36.5; O2SAT 99
--- NOTE | 2022-12-29 17:52 | HO.PSYCHPN ---
Subjective Subjective Date of Service: 12/29/22 Reason For Visit: mood Interim History: Met with patient; discussed with team; discussed with colleagues both Dr. Solis and Dr. Horowitz Patient a little less flat today with lower dose of Haldol. She remains improved from admission but still disorganized and in the milieu patient would sit, stand again set then stand again without any obvious reason. Discussed case with colleagues who agreed that Haldol at 10 mg b.i.d. is partially helpful and at this point, having failed to resolve symptoms with 3 antipsychotic trials, the best next option is to add a 2nd antipsychotic. Discussed options which included both clozapine and Abilify. Patient is open to either, including blood draws for clozapine. However Patient's father had some hesitancy about clozapine, not sure if getting weekly blood draws was realistic. Elected to start Abilify Mental Status Exam Mental Status Exam Narrative: Pt is alert and oriented to self, place, partially to situation; behavior is cooperative, affect a little less blunted, more expressive, in the milieu more; patient is not in distress; dressed in hospital attire with unkempt hair and marginal hygiene; mood and affect still blunted but less; speech still softer volume but with a little more in flexion; mild psychomotor retardation/Agitation present; thought process goal oriented and concrete; Thought content is on missing her family another random topics; seems internally preoccupied Patients insight and judgment impaired. Diagnostics Vital Signs (24Hr): Vital Signs - 24 hr 12/28/22 18:00 12/29/22 08:00 12/29/22 17:06 Temperature 98.1 F 97.3 F 97.7 F Pulse Rate 100 94 102 H Respiratory Rate 16 Blood Pressure 129/71 137/61 148/73 H Pulse Oximetry 95 100 99 Oxygen Delivery Method Room Air Room Air Room Air BMI result Body Mass Index 25.5 Labs 12/02/22 21:20 12/04/22 08:17 Medications Medications Current Medications Acetaminophen (Acetaminophen 325 Mg Tablet) 650 mg PO Q6H PRN PRN Reason: Headache/Pain Mild Scale (1-3) Last Admin: 12/21/22 02:55 Dose: 650 mg Al Hydroxide/Mg Hydroxide (Magnesium Hydrox/Alum Hydrox 30 Ml Oral.Susp) 30 ml PO Q6H PRN PRN Reason: Heartburn/Nausea Aripiprazole (Aripiprazole 2 Mg Tablet) 2 mg PO DAILY [facility] Benztropine Mesylate (Benztropine Mesylate 0.5 Mg Tablet) 0.5 mg PO BID PRN PRN Reason: EPS Last Admin: 12/29/22 08:10 Dose: 0.5 mg Benztropine Mesylate (Benztropine Mesylate 0.5 Mg Tablet) 0.5 mg PO DAILY [facility] Last Admin: 12/29/22 08:10 Dose: 0.5 mg Docusate Sodium (Docusate Sodium 100 Mg Capsule) 100 mg PO BID [facility] Last Admin: 12/29/22 08:10 Dose: 100 mg Haloperidol (Haloperidol 5 Mg Tablet) 10 mg PO BID [facility] Hydroxyzine HCl (Hydroxyzine Hcl 25 Mg Tablet) 25 mg PO Q6H PRN PRN Reason: Anxiety Last Admin: 12/25/22 03:53 Dose: 25 mg Lorazepam (Lorazepam 1 Mg Tablet) 1 mg PO BID [facility] Stop: 12/29/22 21:00 Last Admin: 12/29/22 08:10 Dose: 1 mg Lorazepam (Lorazepam 1 Mg Tablet) 1 mg PO DAILY [facility] Magnesium Hydroxide (Milk Of Magnesia 30 Ml Oral.Susp) 30 ml PO DAILY PRN PRN Reason: Constipation Melatonin (Melatonin 3 Mg Tablet) 6 mg PO BEDTIME LETTY Last Admin: 12/28/22 20:22 Dose: 6 mg Trazodone HCl (Trazodone Hcl 50 Mg Tablet) 50 mg PO BEDTIME MRX1 PRN PRN Reason: Insomnia Last Admin: 12/27/22 20:54 Dose: 50 mg Allergies Allergies Allergy/AdvReac Type Severity Reaction Status Date / Time shrimp AdvReac Intermediate Rash Verified 12/02/22 21:40 Assessment & Plan Assessment & Plan (1) Psychosis: Status: Acute Code(s): F29 - Unspecified psychosis not due to a substance or known physiological condition (2) UTI (urinary tract infection): Status: Acute Code(s): N39.0 - Urinary tract infection, site not specified Plan Patient is a 27-year-old female with history of psychotic illness who presents with disorganized speech and behavior, recently discharged from [facility] but brought back to the hospital at the behest of her father. Patient having trouble focusing on conversation and is almost talking in a word salad. If asked a question she will mostly respond with some completely irrelevant and nonsensical answer. She said something about double tongs; Cathi Barakat song which she saying; physics; something about [place] in [place] and being stalked. She denies any AVH but does seem internally preoccupied. She denies any drug or alcohol use other than weed... A little. Patient gives permission for team to discuss case with her father and gives the phone number. Patient agreed to take antipsychotic medication. Later in the day, patient was more linear and organized. She agreed that she was at the hospital for help and understood criteria for having signed the CV, evidenced by asking relevant questions and later going up and asking to sign a 3 day notice. Hospital course: 12/05: contiue current treatmetn plan 12/08: Patient keeping to self. Presents guarded but organized. Pt stated, I'm feeling homesick. I'll keep taking my meds so I can leave . Patient retracted 3 day notice. denies SI/HI/VH/AH. Continue current tx plan. 12/09: Patient presents disorganized, confused with times of echolalia. When T/W would ask pt a question, pt would either repeat the question back, repeat a word from the sentence or state a word she overheard someone use who is standing within hearing distance. Patient attempted to elope from unit multiple times this morning. When T/W asked where she planned on going, pt stated, home. the vanstone machine operator will bring me home . T/W explained to patient she would have to wait until she improved; pt stated, okay. I can do that . Showered. Medication compliant. Added Ativan 1mg PO BID PRN and Risperdal 0.5mg PO BID PRN. 12/10: Patient presents disorganized, confused with times of echolalia. Staff reported patient was seen standing on chair, when asked reasoning, pt stated, I'm not a turkey baster . Patient unable to have logical conversation at this time. Appears restless. Medication compliant. DC Risperdal, does not seem to be improving psychosis. Start Zyprexa 5mg PO daily. Patient aware. 12/11: Patient presents disorganized, confused with times of echolalia. Patient unable to have logical conversation at this time; flight of ideas. Medication compliant. Patient standing in hallway, jumping up and down and stating I'm bat shit crazy! 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 If I don't go to medical school I'm going to [employer] [facility]. I wanna hug you! Continue taper of risperdal and increase in Zyprexa. 12/12: Increase Zyprexa tomorrow and lower Risperidone. 12/13: DC Risperidone. Continue titrating Zyprexa. Mouth checks. 12/14: remains floridly psychotic, disorganized. Will switch to Zydis and increase dose to 10mg bid (up from 5mg bid) 12/15 continue tx plan 12/16 remains dsorganized; maybe a little less...did not sleep overnight. Will increase Zydis to 20mg qhs -check writer salesperson reviewed collateral and this seems to be a 1st break for patient; some psychotic symptoms coming up here in their over the past year but they emerged profoundly recently when patient got back from visiting a boyfriend in [place]. 12/17 This morning, patient was able to maintain a linear conversation with check writer salesperson and then with nurse that was mostly logical. Attempted to take patient off one-to-one. Improvement did not last and patient soon dysregulated, wandering the halls, talking loudly and nonsensically; patient clawing at the doors trying to open them to leave the unit; on the phone talking to Ori a former patient that patient says she can see outside her window and thinks that the 2 are engaged. Patient also said she can see her family members outside the window. Patient told staff she feels unsafe without being on a one-to-one because there is safety in numbers. She also put soap in her mouth and explained it was because no one was with me... Patient also walking around the milieu with her hands on her neck imitating as if she is choking herself. Patient did come down some when she was replaced on one-to-one. -since patient seem to improve a little bit with increase Zyprexa dose will leave current regimen for now; however if not continued improvements will consider whether to switch medications or to and another medication, possibly Depakote 12/18 pt is minimally better than on admission, sometimes able to have and now sleeping more through the night, suggesting that Zyprexa maybe partially helpful; however, she remains significantly disorganized; debating med change vs continue w/ zyprexa. Difficult to discern if there is a manic component of if pt is just disorganzed (was not sleeping, but symptoms more psychotic than manic); considering Haldol or other 1st generatoin antipsychotic 12/19 will continue with Haldol 5 mg t.i.d. and discontinue Zyprexa. Having started Haldol, This is the 1st time patient is psychotic symptoms have been subdued. Will continue to monitor 12/20 Will increase Haldol to 10 mg b.i.d. 12/21 not sure if Haldol is working; some hints that it might be lowering symptoms. Will continue with current regimen and monitor 12/22Had an encouraging discussion with patient who was aware of person place and time, date, year, that it was Halloween; no she is at [facility] in the psychiatric unit. She is here because her parents think she has .a little to crazy.. And she agrees that they had reason to be concerned prior to admission. She says she knows she is not . Patient agrees to try getting off one-to-one. Despite this seemingly lucid conversation, patient has been telling other staff all day long that she is worried about her ; sometimes able to talk in a logical/linear way other times remains disorganized -will soon decide whether to go up on Haldol or to switch medications 12/23 continue current treatment plan 12/24 increasing haldol; added depakote 12/28Patient with flat affect, no expression, talking in monotone voice; walking more slowly. Thought content seems more vacuous, just answering questions and not referring to various thoughts she is having unlike the week prior. Patient is more organized in speech, answering questions appropriately however she is very concrete in her answers and with no extraneous words or thoughts expressed. Food Service Supervisor asked about Ori a former patient about whom patient would sometimes expressed delusional memories, to which patient answered that was just a andrés I liked.. Which was matter of fact and without the typical additional odd or delusional comments. Denies AVH. Patient says she sleepy and over the weekend and today has been mostly keeping to herself, sleeping, not interacting with others, unchanged previous week -Says she had a good visit with her family and that her parents told her to remain on the unit until the doctors think she is ready to go home. To that and patient agreed to retract 3 day notice. Again discussed clozapine and patient agreed to trial including weekly blood draws. -observation: On lower dose of Haldol, 10 mg b.i.d., patient with improved symptoms compared to admission, however still disorganized; with increased Haldol, adding Haldol 5 mg in the afternoon, patient was more organized thought process however significantly blunted affect and still with limited insight and ability to discuss illness 12/29Patient a little less flat today with lower dose of Haldol. She remains improved from admission but still disorganized and in the milieu patient would sit, stand again set then stand again without any obvious reason. Discussed case with colleagues who agreed that Haldol at 10 mg b.i.d. is partially helpful and at this point, having failed to resolve symptoms with 3 antipsychotic trials, the best next option is to add a 2nd antipsychotic. Discussed options which included both clozapine and Abilify. Patient is open to either, including blood draws for clozapine. However Patient's father had some hesitancy about clozapine, not sure if getting weekly blood draws was realistic. Elected to start Abilify Plan: CV (retracted 3 DAY on 12/28) Q 15 minute checks Start abilify 2.5mg daily Discontinued depakote Lowered Haldol back to 10 mg b.i.d. Discontinued Haldol 5mg @1300 Discontinued Zyprexa; maybe partially effective Discontinued Risperdal; did not seem affective Patient educated on: diagnosis and medication risk/benefits Informed Consent: understands, does not understand and further education needed Reason for continued inpatient stay Substantial Risk for: inability to function Time Spent With Patient Time: Total time managing care of this patient today ____ minutes.
[2022-12-29] MEDS: Melatonin 3 MG TABLET 6 MG PO (19:20)
[2022-12-29] MEDS: ARIPiprazole 2 MG TABLET PO (19:20)
[2022-12-30] MEDS: ARIPiprazole 2 MG TABLET PO (07:57)
[2022-12-30] MEDS: LORazepam 1 MG TABLET PO (07:57)
[2022-12-30] MEDS: HaloperidoL 5 MG TABLET 10 MG PO ×2 (07:57→20:53)
[2022-12-30] MEDS: Docusate Sodium 100 MG CAPSULE PO ×2 (07:57→20:53)
[2022-12-30 08:00] VITALS: BP 134/60; PULSE 103; RESP 16; TEMP 36.2; O2SAT 99
[2022-12-30] MEDS: Benztropine Mesylate 0.5 MG TABLET PO (08:00)
[2022-12-30 17:15] VITALS: BP 141/92; PULSE 98; RESP 16; TEMP 36.8; O2SAT 99
--- NOTE | 2022-12-30 19:23 | HO.PSYCHPN ---
Subjective Subjective Date of Service: 12/30/22 Reason For Visit: mood Interim History: Met with patient; discussed with team Still disorganized but blunted affect is resolving and Patient more expressive and more interactive. Patient remains concrete but attended group and sat appropriately and answered a question appropriately as well. Still missing her family and hopes they will visit this weekend. Mental Status Exam Mental Status Exam Narrative: Pt is alert and oriented to self, place, partially to situation; behavior is cooperative, calm, more expressive and interactive in the milieu; patient is not in distress; dressed in hospital attire with unkempt hair and marginal hygiene; mood and affect still blunted but less so; speech normal volume; rate remains somewhat slowed but with improved inflexion; mild psychomotor retardation/Agitation present; thought process goal oriented and concrete, though also distracted; Thought content is on missing her family another random topics; seems internally preoccupied Patients insight and judgment impaired. Diagnostics Vital Signs (24Hr): Vital Signs - 24 hr 12/30/22 08:00 12/30/22 17:15 Temperature 97.2 F 98.2 F Pulse Rate 103 H 98 Respiratory Rate 16 16 Blood Pressure 134/60 141/92 H Pulse Oximetry 99 99 Oxygen Delivery Method Room Air Room Air BMI result Body Mass Index 25.5 Labs 12/02/22 21:20 12/04/22 08:17 Medications Medications Current Medications Acetaminophen (Acetaminophen 325 Mg Tablet) 650 mg PO Q6H PRN PRN Reason: Headache/Pain Mild Scale (1-3) Last Admin: 12/21/22 02:55 Dose: 650 mg Al Hydroxide/Mg Hydroxide (Magnesium Hydrox/Alum Hydrox 30 Ml Oral.Susp) 30 ml PO Q6H PRN PRN Reason: Heartburn/Nausea Aripiprazole (Aripiprazole 5 Mg Tablet) 5 mg PO DAILY [facility] Benztropine Mesylate (Benztropine Mesylate 0.5 Mg Tablet) 0.5 mg PO BID PRN PRN Reason: EPS Last Admin: 12/29/22 08:10 Dose: 0.5 mg Benztropine Mesylate (Benztropine Mesylate 0.5 Mg Tablet) 0.5 mg PO DAILY [facility] Last Admin: 12/30/22 08:00 Dose: 0.5 mg Docusate Sodium (Docusate Sodium 100 Mg Capsule) 100 mg PO BID [facility] Last Admin: 12/30/22 07:57 Dose: 100 mg Haloperidol (Haloperidol 5 Mg Tablet) 10 mg PO BID [facility] Last Admin: 12/30/22 07:57 Dose: 10 mg Hydroxyzine HCl (Hydroxyzine Hcl 25 Mg Tablet) 25 mg PO Q6H PRN PRN Reason: Anxiety Last Admin: 12/25/22 03:53 Dose: 25 mg Lorazepam (Lorazepam 1 Mg Tablet) 1 mg PO DAILY [facility] Last Admin: 12/30/22 07:57 Dose: 1 mg Magnesium Hydroxide (Milk Of Magnesia 30 Ml Oral.Susp) 30 ml PO DAILY PRN PRN Reason: Constipation Melatonin (Melatonin 3 Mg Tablet) 6 mg PO BEDTIME [facility] Last Admin: 12/29/22 19:20 Dose: 6 mg Trazodone HCl (Trazodone Hcl 50 Mg Tablet) 50 mg PO BEDTIME MRX1 PRN PRN Reason: Insomnia Last Admin: 12/27/22 20:54 Dose: 50 mg Allergies Allergies Allergy/AdvReac Type Severity Reaction Status Date / Time shrimp AdvReac Intermediate Rash Verified 12/02/22 21:40 Assessment & Plan Assessment & Plan (1) Schizophrenia: Status: Suspected Code(s): F20.9 - Schizophrenia, unspecified Plan Patient is a 27-year-old female with history of psychotic illness who presents with disorganized speech and behavior, recently discharged from [facility] but brought back to the hospital at the behest of her father. Patient having trouble focusing on conversation and is almost talking in a word salad. If asked a question she will mostly respond with some completely irrelevant and nonsensical answer. She said something about [employer]; [employer] song which she saying; physics; something about [place] in [place] and being stalked. She denies any AVH but does seem internally preoccupied. She denies any drug or alcohol use other than weed... A little. Patient gives permission for team to discuss case with her father and gives the phone number. Patient agreed to take antipsychotic medication. Later in the day, patient was more linear and organized. She agreed that she was at the hospital for help and understood criteria for having signed the CV, evidenced by asking relevant questions and later going up and asking to sign a 3 day notice. Hospital course: 12/05: contiue current treatmetn plan 12/08: Patient keeping to self. Presents guarded but organized. Pt stated, I'm feeling homesick. I'll keep taking my meds so I can leave . Patient retracted 3 day notice. denies SI/HI/VH/AH. Continue current tx plan. 12/09: Patient presents disorganized, confused with times of echolalia. When T/W would ask pt a question, pt would either repeat the question back, repeat a word from the sentence or state a word she overheard someone use who is standing within hearing distance. Patient attempted to elope from unit multiple times this morning. When T/W asked where she planned on going, pt stated, home. the bindery operator will bring me home . T/W explained to patient she would have to wait until she improved; pt stated, okay. I can do that . Showered. Medication compliant. Added Ativan 1mg PO BID PRN and Risperdal 0.5mg PO BID PRN. 12/10: Patient presents disorganized, confused with times of echolalia. Staff reported patient was seen standing on chair, when asked reasoning, pt stated, I'm not a turkey baster . Patient unable to have logical conversation at this time. Appears restless. Medication compliant. DC Risperdal, does not seem to be improving psychosis. Start Zyprexa 5mg PO daily. Patient aware. 12/11: Patient presents disorganized, confused with times of echolalia. Patient unable to have logical conversation at this time; flight of ideas. Medication compliant. Patient standing in hallway, jumping up and down and stating I'm bat shit crazy! 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 If I don't go to medical school I'm going to [employer]. I wanna hug you! Continue taper of risperdal and increase in Zyprexa. 12/12: Increase Zyprexa tomorrow and lower Risperidone. 12/13: DC Risperidone. Continue titrating Zyprexa. Mouth checks. 12/14: remains floridly psychotic, disorganized. Will switch to Zydis and increase dose to 10mg bid (up from 5mg bid) 12/15 continue tx plan 12/16 remains dsorganized; maybe a little less...did not sleep overnight. Will increase Zydis to 20mg qhs -automobile and property underwriter reviewed collateral and this seems to be a 1st break for patient; some psychotic symptoms coming up here in their over the past year but they emerged profoundly recently when patient got back from visiting a boyfriend in [place]. 12/17 This morning, patient was able to maintain a linear conversation with automobile and property underwriter and then with nurse that was mostly logical. Attempted to take patient off one-to-one. Improvement did not last and patient soon dysregulated, wandering the halls, talking loudly and nonsensically; patient clawing at the doors trying to open them to leave the unit; on the phone talking to Ori a former patient that patient says she can see outside her window and thinks that the 2 are engaged. Patient also said she can see her family members outside the window. Patient told staff she feels unsafe without being on a one-to-one because there is safety in numbers. She also put soap in her mouth and explained it was because no one was with me... Patient also walking around the milieu with her hands on her neck imitating as if she is choking herself. Patient did come down some when she was replaced on one-to-one. -since patient seem to improve a little bit with increase Zyprexa dose will leave current regimen for now; however if not continued improvements will consider whether to switch medications or to and another medication, possibly Depakote 12/18 pt is minimally better than on admission, sometimes able to have and now sleeping more through the night, suggesting that Zyprexa maybe partially helpful; however, she remains significantly disorganized; debating med change vs continue w/ zyprexa. Difficult to discern if there is a manic component of if pt is just disorganzed (was not sleeping, but symptoms more psychotic than manic); considering Haldol or other 1st generatoin antipsychotic 12/19 will continue with Haldol 5 mg t.i.d. and discontinue Zyprexa. Having started Haldol, This is the 1st time patient is psychotic symptoms have been subdued. Will continue to monitor 12/20 Will increase Haldol to 10 mg b.i.d. 12/21 not sure if Haldol is working; some hints that it might be lowering symptoms. Will continue with current regimen and monitor 12/22Had an encouraging discussion with patient who was aware of person place and time, date, year, that it was Halloween; no she is at [facility] in the psychiatric unit. She is here because her parents think she has .a little to crazy.. And she agrees that they had reason to be concerned prior to admission. She says she knows she is not . Patient agrees to try getting off one-to-one. Despite this seemingly lucid conversation, patient has been telling other staff all day long that she is worried about her ; sometimes able to talk in a logical/linear way other times remains disorganized -will soon decide whether to go up on Haldol or to switch medications 12/23 continue current treatment plan 12/24 increasing haldol; added depakote 12/28Patient with flat affect, no expression, talking in monotone voice; walking more slowly. Thought content seems more vacuous, just answering questions and not referring to various thoughts she is having unlike the week prior. Patient is more organized in speech, answering questions appropriately however she is very concrete in her answers and with no extraneous words or thoughts expressed. Protection Agent asked about Ori a former patient about whom patient would sometimes expressed delusional memories, to which patient answered that was just a andrés I liked.. Which was matter of fact and without the typical additional odd or delusional comments. Denies AVH. Patient says she sleepy and over the weekend and today has been mostly keeping to herself, sleeping, not interacting with others, unchanged previous week -Says she had a good visit with her family and that her parents told her to remain on the unit until the doctors think she is ready to go home. To that and patient agreed to retract 3 day notice. Again discussed clozapine and patient agreed to trial including weekly blood draws. -observation: On lower dose of Haldol, 10 mg b.i.d., patient with improved symptoms compared to admission, however still disorganized; with increased Haldol, adding Haldol 5 mg in the afternoon, patient was more organized thought process however significantly blunted affect and still with limited insight and ability to discuss illness 12/29Patient a little less flat today with lower dose of Haldol. She remains improved from admission but still disorganized and in the milieu patient would sit, stand again set then stand again without any obvious reason. Discussed case with colleagues who agreed that Haldol at 10 mg b.i.d. is partially helpful and at this point, having failed to resolve symptoms with 3 antipsychotic trials, the best next option is to add a 2nd antipsychotic. Discussed options which included both clozapine and Abilify. Patient is open to either, including blood draws for clozapine. However Patient's father had some hesitancy about clozapine, not sure if getting weekly blood draws was realistic. Elected to start Abilify 12/30 Still disorganized but blunted affect is resolving and Patient more expressive and more interactive. Patient remains concrete but attended group and sat appropriately and answered a question appropriately as well. Still missing her family and hopes they will visit this weekend. eKG 12/22/22: QT Int : 306 ms/ QTc Int : 432 ms DX: schizophrenia (provisional as need to further; rule out schizoaffective disorder and clarify timeline of symptoms) Plan: CV (retracted 3 DAY on 12/28) Q 15 minute checks Increase to Abilify 5mg daily; no side effects noted (last QTC WNL; Abilify known to lower QTC if anything) Continue Haldol 10 mg b.i.d. (higher dose caused significant negative symptoms) Discontinued Zyprexa; maybe partially effective Discontinued Risperdal; did not seem affective Discontinued depakote; was only on a low dose for few days and deemed not necessary Patient educated on: diagnosis and medication risk/benefits Informed Consent: understands, does not understand and further education needed Reason for continued inpatient stay Substantial Risk for: inability to function Time Spent With Patient Time: Total time managing care of this patient today ____ minutes.
[2022-12-30] MEDS: Melatonin 3 MG TABLET 6 MG PO (20:53)
[2022-12-31 08:00] VITALS: BP 151/65; PULSE 104; RESP 16; TEMP 36.9; O2SAT 99
[2022-12-31] MEDS: Docusate Sodium 100 MG CAPSULE PO ×2 (09:07→21:28)
[2022-12-31] MEDS: Benztropine Mesylate 0.5 MG TABLET PO ×2 (09:07→16:45)
[2022-12-31] MEDS: HaloperidoL 5 MG TABLET 10 MG PO ×2 (09:07→21:28)
[2022-12-31] MEDS: LORazepam 1 MG TABLET PO (09:07)
[2022-12-31] MEDS: ARIPiprazole 5 MG TABLET PO (09:08)
[2022-12-31 09:32] VITALS: TEMP 36.9
[2022-12-31] MEDS: Ondansetron ODT 8 MG TAB.RAPDIS TRANSLINGU (10:07)
--- NOTE | 2022-12-31 11:01 | HO.PSYCHPN ---
Subjective Subjective Date of Service: 12/31/22 Reason For Visit: mood Interim History: Met with patient; discussed with team Patient nauseous today and threw up 2 times; gave Zofran and it resolved; not sure if it is due to increased Abilify or something else. However Patient a little less flat today with increased Abilify. Mental Status Exam Mental Status Exam Narrative: Pt is alert and oriented to self, place, partially to situation; behavior is cooperative, calm, a little more expressive and interactive in the milieu; patient is not in distress; dressed in hospital attire with unkempt hair and marginal hygiene; mood and affect still blunted but less so; speech normal volume; rate remains somewhat slowed but with improved inflexion; mild psychomotor retardation present; thought process goal oriented and concrete, though also distracted; Thought content is on missing her family another random topics; seems internally preoccupied Patients insight and judgment impaired. Diagnostics Vital Signs (24Hr): Vital Signs - 24 hr 12/30/22 17:15 12/31/22 08:00 12/31/22 09:32 Temperature 98.2 F 98.5 F 98.4 F Pulse Rate 98 104 H Respiratory Rate 16 16 Blood Pressure 141/92 H 151/65 H Pulse Oximetry 99 99 Oxygen Delivery Method Room Air Room Air BMI result Body Mass Index 25.5 Labs 12/02/22 21:20 12/04/22 08:17 Medications Medications Current Medications Acetaminophen (Acetaminophen 325 Mg Tablet) 650 mg PO Q6H PRN PRN Reason: Headache/Pain Mild Scale (1-3) Last Admin: 12/21/22 02:55 Dose: 650 mg Al Hydroxide/Mg Hydroxide (Magnesium Hydrox/Alum Hydrox 30 Ml Oral.Susp) 30 ml PO Q6H PRN PRN Reason: Heartburn/Nausea Aripiprazole (Aripiprazole 5 Mg Tablet) 5 mg PO DAILY LETTY Last Admin: 12/31/22 09:08 Dose: 5 mg Benztropine Mesylate (Benztropine Mesylate 0.5 Mg Tablet) 0.5 mg PO BID PRN PRN Reason: EPS Last Admin: 12/29/22 08:10 Dose: 0.5 mg Docusate Sodium (Docusate Sodium 100 Mg Capsule) 100 mg PO BID LETTY Last Admin: 12/31/22 09:07 Dose: 100 mg Haloperidol (Haloperidol 5 Mg Tablet) 10 mg PO BID LETTY Last Admin: 12/31/22 09:07 Dose: 10 mg Hydroxyzine HCl (Hydroxyzine Hcl 25 Mg Tablet) 25 mg PO Q6H PRN PRN Reason: Anxiety Last Admin: 12/25/22 03:53 Dose: 25 mg Lorazepam (Lorazepam 1 Mg Tablet) 1 mg PO DAILY [facility] Last Admin: 12/31/22 09:07 Dose: 1 mg Magnesium Hydroxide (Milk Of Magnesia 30 Ml Oral.Susp) 30 ml PO DAILY PRN PRN Reason: Constipation Melatonin (Melatonin 3 Mg Tablet) 6 mg PO BEDTIME [facility] Last Admin: 12/30/22 20:53 Dose: 6 mg Ondansetron HCl (Ondansetron Odt 4 Mg Tab.Rapdis) 4 mg TRANSLINGU Q6H PRN PRN Reason: Nausea and Vomiting Trazodone HCl (Trazodone Hcl 50 Mg Tablet) 50 mg PO BEDTIME MRX1 PRN PRN Reason: Insomnia Last Admin: 12/27/22 20:54 Dose: 50 mg Allergies Allergies Allergy/AdvReac Type Severity Reaction Status Date / Time shrimp AdvReac Intermediate Rash Verified 12/02/22 21:40 Assessment & Plan Assessment & Plan (1) Schizophrenia: Status: Suspected Code(s): F20.9 - Schizophrenia, unspecified Plan Patient is a 27-year-old female with history of psychotic illness who presents with disorganized speech and behavior, recently discharged from [facility] but brought back to the hospital at the behest of her father. Patient having trouble focusing on conversation and is almost talking in a word salad. If asked a question she will mostly respond with some completely irrelevant and nonsensical answer. She said something about [employer]; [place] song which she saying; physics; something about [place] in [place] and being stalked. She denies any AVH but does seem internally preoccupied. She denies any drug or alcohol use other than weed... A little. Patient gives permission for team to discuss case with her father and gives the phone number. Patient agreed to take antipsychotic medication. Later in the day, patient was more linear and organized. She agreed that she was at the hospital for help and understood criteria for having signed the CV, evidenced by asking relevant questions and later going up and asking to sign a 3 day notice. Hospital course: 12/05: contiue current treatmetn plan 12/08: Patient keeping to self. Presents guarded but organized. Pt stated, I'm feeling homesick. I'll keep taking my meds so I can leave . Patient retracted 3 day notice. denies SI/HI/VH/AH. Continue current tx plan. 12/09: Patient presents disorganized, confused with times of echolalia. When T/W would ask pt a question, pt would either repeat the question back, repeat a word from the sentence or state a word she overheard someone use who is standing within hearing distance. Patient attempted to elope from unit multiple times this morning. When T/W asked where she planned on going, pt stated, home. the respiratory manager will bring me home . T/W explained to patient she would have to wait until she improved; pt stated, okay. I can do that . Showered. Medication compliant. Added Ativan 1mg PO BID PRN and Risperdal 0.5mg PO BID PRN. 12/10: Patient presents disorganized, confused with times of echolalia. Staff reported patient was seen standing on chair, when asked reasoning, pt stated, I'm not a turkey baster . Patient unable to have logical conversation at this time. Appears restless. Medication compliant. DC Risperdal, does not seem to be improving psychosis. Start Zyprexa 5mg PO daily. Patient aware. 12/11: Patient presents disorganized, confused with times of echolalia. Patient unable to have logical conversation at this time; flight of ideas. Medication compliant. Patient standing in hallway, jumping up and down and stating I'm bat shit crazy! 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 If I don't go to medical school I'm going to [employer]. I wanna hug you! Continue taper of risperdal and increase in Zyprexa. 12/12: Increase Zyprexa tomorrow and lower Risperidone. 12/13: DC Risperidone. Continue titrating Zyprexa. Mouth checks. 12/14: remains floridly psychotic, disorganized. Will switch to Zydis and increase dose to 10mg bid (up from 5mg bid) 12/15 continue tx plan 12/16 remains dsorganized; maybe a little less...did not sleep overnight. Will increase Zydis to 20mg qhs -financial underwriter reviewed collateral and this seems to be a 1st break for patient; some psychotic symptoms coming up here in their over the past year but they emerged profoundly recently when patient got back from visiting a boyfriend in [place]. 12/17 This morning, patient was able to maintain a linear conversation with financial underwriter and then with nurse that was mostly logical. Attempted to take patient off one-to-one. Improvement did not last and patient soon dysregulated, wandering the halls, talking loudly and nonsensically; patient clawing at the doors trying to open them to leave the unit; on the phone talking to Ori a former patient that patient says she can see outside her window and thinks that the 2 are engaged. Patient also said she can see her family members outside the window. Patient told staff she feels unsafe without being on a one-to-one because there is safety in numbers. She also put soap in her mouth and explained it was because no one was with me... Patient also walking around the milieu with her hands on her neck imitating as if she is choking herself. Patient did come down some when she was replaced on one-to-one. -since patient seem to improve a little bit with increase Zyprexa dose will leave current regimen for now; however if not continued improvements will consider whether to switch medications or to and another medication, possibly Depakote 12/18 pt is minimally better than on admission, sometimes able to have and now sleeping more through the night, suggesting that Zyprexa maybe partially helpful; however, she remains significantly disorganized; debating med change vs continue w/ zyprexa. Difficult to discern if there is a manic component of if pt is just disorganzed (was not sleeping, but symptoms more psychotic than manic); considering Haldol or other 1st generatoin antipsychotic 12/19 will continue with Haldol 5 mg t.i.d. and discontinue Zyprexa. Having started Haldol, This is the 1st time patient is psychotic symptoms have been subdued. Will continue to monitor 12/20 Will increase Haldol to 10 mg b.i.d. 12/21 not sure if Haldol is working; some hints that it might be lowering symptoms. Will continue with current regimen and monitor 12/22Had an encouraging discussion with patient who was aware of person place and time, date, year, that it was Halloween; no she is at [facility] in the psychiatric unit. She is here because her parents think she has .a little to crazy.. And she agrees that they had reason to be concerned prior to admission. She says she knows she is not . Patient agrees to try getting off one-to-one. Despite this seemingly lucid conversation, patient has been telling other staff all day long that she is worried about her ; sometimes able to talk in a logical/linear way other times remains disorganized -will soon decide whether to go up on Haldol or to switch medications 12/23 continue current treatment plan 12/24 increasing haldol; added depakote 12/28Patient with flat affect, no expression, talking in monotone voice; walking more slowly. Thought content seems more vacuous, just answering questions and not referring to various thoughts she is having unlike the week prior. Patient is more organized in speech, answering questions appropriately however she is very concrete in her answers and with no extraneous words or thoughts expressed. Insulator Apprentice asked about Ori a former patient about whom patient would sometimes expressed delusional memories, to which patient answered that was just a andrés I liked.. Which was matter of fact and without the typical additional odd or delusional comments. Denies AVH. Patient says she sleepy and over the weekend and today has been mostly keeping to herself, sleeping, not interacting with others, unchanged previous week -Says she had a good visit with her family and that her parents told her to remain on the unit until the doctors think she is ready to go home. To that and patient agreed to retract 3 day notice. Again discussed clozapine and patient agreed to trial including weekly blood draws. -observation: On lower dose of Haldol, 10 mg b.i.d., patient with improved symptoms compared to admission, however still disorganized; with increased Haldol, adding Haldol 5 mg in the afternoon, patient was more organized thought process however significantly blunted affect and still with limited insight and ability to discuss illness 12/29Patient a little less flat today with lower dose of Haldol. She remains improved from admission but still disorganized and in the milieu patient would sit, stand again set then stand again without any obvious reason. Discussed case with colleagues who agreed that Haldol at 10 mg b.i.d. is partially helpful and at this point, having failed to resolve symptoms with 3 antipsychotic trials, the best next option is to add a 2nd antipsychotic. Discussed options which included both clozapine and Abilify. Patient is open to either, including blood draws for clozapine. However Patient's father had some hesitancy about clozapine, not sure if getting weekly blood draws was realistic. Elected to start Abilify 12/30 Still disorganized but blunted affect is resolving and Patient more expressive and more interactive. Patient remains concrete but attended group and sat appropriately and answered a question appropriately as well. Still missing her family and hopes they will visit this weekend. eKG 12/22/22: QT Int : 306 ms/ QTc Int : 432 ms 12/31 Patient nauseous today and threw up 2 times; gave Zofran and it resolved; not sure if it is due to increased Abilify or something else. However Patient a little less flat today with increased Abilify. -some mouth twitching maybe tightness in the mouth Cogentin 0.5 mg 1 time dose given -continue current treatment plan for now DX: schizophrenia (provisional as need to further; rule out schizoaffective disorder and clarify timeline of symptoms) Plan: CV Q 15 minute checks Continue Abilify 5mg daily; no side effects noted (last QTC WNL; Abilify known to lower QTC if anything) Continue Haldol 10 mg b.i.d. (higher dose caused significant negative symptoms) Cogentin 0.5 mg b.i.d. p.r.n. for EPS Discontinued Zyprexa; maybe partially effective Discontinued Risperdal; did not seem affective Discontinued depakote; was only on a low dose for few days and deemed not necessary Patient educated on: diagnosis and medication risk/benefits Informed Consent: understands, does not understand and further education needed Reason for continued inpatient stay Substantial Risk for: inability to function Time Spent With Patient Time: Total time managing care of this patient today ____ minutes.
[2022-12-31 14:39] VITALS: BMI 26.7
--- NOTE | 2022-12-31 16:50 | PC.NURSE ---
PT reports my mouth feels tight unable to elaborate more than that. Able to open and extend tongue without issue or pain. Cogentin 0.5mg given, effect pending. Plan of care ongoing.
[2022-12-31 17:47] VITALS: BP 144/74; PULSE 99; TEMP 36.1; O2SAT 98
--- NOTE | 2022-12-31 18:14 | PC.NURSE ---
PT reports symptom of tight jaw was completely resolved with Cogentin. Plan of care ongoing.
[2022-12-31] MEDS: Melatonin 3 MG TABLET 6 MG PO (21:28)
[2023-01-01 08:00] VITALS: BP 137/65; PULSE 89; RESP 16; TEMP 36.1; O2SAT 100
[2023-01-01] MEDS: HaloperidoL 5 MG TABLET 10 MG PO (09:05)
[2023-01-01] MEDS: ARIPiprazole 5 MG TABLET PO (09:06)
[2023-01-01] MEDS: LORazepam 1 MG TABLET PO (09:06)
--- NOTE | 2023-01-01 16:49 | HO.PSYCHPN ---
Subjective Subjective Date of Service: 01/01/23 Reason For Visit: mood Interim History: Met with patient; discussed with team; discussed with Dr. Solis Patient remains with flat affect; seems to be walking a little stiffly. Focused exam and no rigidity or cogwheeling bilateral extremities Although significant emotional blunting remains with flat affect, patient is answering questions in a much more organized way. Patient has been talking about how much she misses her family; she asked about when her discharge date might be. Child Support Specialist said something to the effect that she is not quite back to her regular self to which patient asked can I decide that with my family question? Child Support Specialist found this to be of a well placed and insight question. Complains of daytime tiredness; will discontinue Ativan Mental Status Exam Mental Status Exam Narrative: Pt is alert and oriented to self, place, partially to situation; behavior is cooperative, calm, still flat affect but a little more expressive and interactive in the milieu; patient is not in distress; dressed in hospital attire with unkempt hair and marginal hygiene; mood and affect still blunted but less so; speech normal volume; rate remains somewhat slowed but with improved inflexion; mild psychomotor retardation present; thought process goal oriented and concrete, though also distracted; Thought content is on missing her family another random topics; seems internally preoccupied Patients insight and judgment impaired but improved Diagnostics Vital Signs (24Hr): Vital Signs - 24 hr 12/31/22 17:47 01/01/23 08:00 Temperature 96.9 F 97 F Pulse Rate 99 89 Respiratory Rate 16 Blood Pressure 144/74 H 137/65 Pulse Oximetry 98 100 Oxygen Delivery Method Room Air Room Air BMI result Body Mass Index 26.7 Labs 12/02/22 21:20 12/04/22 08:17 Medications Medications Current Medications Acetaminophen (Acetaminophen 325 Mg Tablet) 650 mg PO Q6H PRN PRN Reason: Headache/Pain Mild Scale (1-3) Last Admin: 12/21/22 02:55 Dose: 650 mg Al Hydroxide/Mg Hydroxide (Magnesium Hydrox/Alum Hydrox 30 Ml Oral.Susp) 30 ml PO Q6H PRN PRN Reason: Heartburn/Nausea Aripiprazole (Aripiprazole 5 Mg Tablet) 5 mg PO DAILY LETTY Last Admin: 01/01/23 09:06 Dose: 5 mg Benztropine Mesylate (Benztropine Mesylate 0.5 Mg Tablet) 0.5 mg PO BID LETTY Docusate Sodium (Docusate Sodium 100 Mg Capsule) 100 mg PO BID LETTY Last Admin: 01/01/23 09:15 Dose: Not Given Haloperidol (Haloperidol 5 Mg Tablet) 5 mg PO BID LETTY Hydroxyzine HCl (Hydroxyzine Hcl 25 Mg Tablet) 25 mg PO Q6H PRN PRN Reason: Anxiety Last Admin: 12/25/22 03:53 Dose: 25 mg Magnesium Hydroxide (Milk Of Magnesia 30 Ml Oral.Susp) 30 ml PO DAILY PRN PRN Reason: Constipation Melatonin (Melatonin 3 Mg Tablet) 6 mg PO BEDTIME LETTY Last Admin: 12/31/22 21:28 Dose: 6 mg Ondansetron HCl (Ondansetron Odt 4 Mg Tab.Rapdis) 4 mg TRANSLINGU Q6H PRN PRN Reason: Nausea and Vomiting Trazodone HCl (Trazodone Hcl 50 Mg Tablet) 50 mg PO BEDTIME MRX1 PRN PRN Reason: Insomnia Last Admin: 12/27/22 20:54 Dose: 50 mg Allergies Allergies Allergy/AdvReac Type Severity Reaction Status Date / Time shrimp AdvReac Intermediate Rash Verified 12/02/22 21:40 Assessment & Plan Assessment & Plan (1) Schizophrenia: Status: Suspected Code(s): F20.9 - Schizophrenia, unspecified Plan Patient is a 27-year-old female with history of psychotic illness who presents with disorganized speech and behavior, recently discharged from [facility] but brought back to the hospital at the behest of her father. Patient having trouble focusing on conversation and is almost talking in a word salad. If asked a question she will mostly respond with some completely irrelevant and nonsensical answer. She said something about [employer]; [employer] song which she saying; physics; something about [place] in [place] and being stalked. She denies any AVH but does seem internally preoccupied. She denies any drug or alcohol use other than weed... A little. Patient gives permission for team to discuss case with her father and gives the phone number. Patient agreed to take antipsychotic medication. Later in the day, patient was more linear and organized. She agreed that she was at the hospital for help and understood criteria for having signed the CV, evidenced by asking relevant questions and later going up and asking to sign a 3 day notice. Hospital course: 10/14: contiue current treatmetn plan 12/08: Patient keeping to self. Presents guarded but organized. Pt stated, I'm feeling homesick. I'll keep taking my meds so I can leave . Patient retracted 3 day notice. denies SI/HI/VH/AH. Continue current tx plan. 12/09: Patient presents disorganized, confused with times of echolalia. When T/W would ask pt a question, pt would either repeat the question back, repeat a word from the sentence or state a word she overheard someone use who is standing within hearing distance. Patient attempted to elope from unit multiple times this morning. When T/W asked where she planned on going, pt stated, home. the vaccine specialist will bring me home . T/W explained to patient she would have to wait until she improved; pt stated, okay. I can do that . Showered. Medication compliant. Added Ativan 1mg PO BID PRN and Risperdal 0.5mg PO BID PRN. 12/10: Patient presents disorganized, confused with times of echolalia. Staff reported patient was seen standing on chair, when asked reasoning, pt stated, I'm not a turkey baster . Patient unable to have logical conversation at this time. Appears restless. Medication compliant. DC Risperdal, does not seem to be improving psychosis. Start Zyprexa 5mg PO daily. Patient aware. 12/11: Patient presents disorganized, confused with times of echolalia. Patient unable to have logical conversation at this time; flight of ideas. Medication compliant. Patient standing in hallway, jumping up and down and stating I'm bat shit crazy! 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 If I don't go to medical school I'm going to [employer]. I wanna hug you! Continue taper of risperdal and increase in Zyprexa. 12/12: Increase Zyprexa tomorrow and lower Risperidone. 12/13: DC Risperidone. Continue titrating Zyprexa. Mouth checks. 12/14: remains floridly psychotic, disorganized. Will switch to Zydis and increase dose to 10mg bid (up from 5mg bid) 12/15 continue tx plan 12/16 remains dsorganized; maybe a little less...did not sleep overnight. Will increase Zydis to 20mg qhs -freelance copywriter reviewed collateral and this seems to be a 1st break for patient; some psychotic symptoms coming up here in their over the past year but they emerged profoundly recently when patient got back from visiting a boyfriend in [place]. 12/17 This morning, patient was able to maintain a linear conversation with freelance copywriter and then with nurse that was mostly logical. Attempted to take patient off one-to-one. Improvement did not last and patient soon dysregulated, wandering the halls, talking loudly and nonsensically; patient clawing at the doors trying to open them to leave the unit; on the phone talking to Ori a former patient that patient says she can see outside her window and thinks that the 2 are engaged. Patient also said she can see her family members outside the window. Patient told staff she feels unsafe without being on a one-to-one because there is safety in numbers. She also put soap in her mouth and explained it was because no one was with me... Patient also walking around the milieu with her hands on her neck imitating as if she is choking herself. Patient did come down some when she was replaced on one-to-one. -since patient seem to improve a little bit with increase Zyprexa dose will leave current regimen for now; however if not continued improvements will consider whether to switch medications or to and another medication, possibly Depakote 12/18 pt is minimally better than on admission, sometimes able to have and now sleeping more through the night, suggesting that Zyprexa maybe partially helpful; however, she remains significantly disorganized; debating med change vs continue w/ zyprexa. Difficult to discern if there is a manic component of if pt is just disorganzed (was not sleeping, but symptoms more psychotic than manic); considering Haldol or other 1st generatoin antipsychotic 12/19 will continue with Haldol 5 mg t.i.d. and discontinue Zyprexa. Having started Haldol, This is the 1st time patient is psychotic symptoms have been subdued. Will continue to monitor 12/20 Will increase Haldol to 10 mg b.i.d. 12/21 not sure if Haldol is working; some hints that it might be lowering symptoms. Will continue with current regimen and monitor 12/22Had an encouraging discussion with patient who was aware of person place and time, date, year, that it was Halloween; no she is at [facility] in the psychiatric unit. She is here because her parents think she has .a little to crazy.. And she agrees that they had reason to be concerned prior to admission. She says she knows she is not . Patient agrees to try getting off one-to-one. Despite this seemingly lucid conversation, patient has been telling other staff all day long that she is worried about her ; sometimes able to talk in a logical/linear way other times remains disorganized -will soon decide whether to go up on Haldol or to switch medications 12/23 continue current treatment plan 12/24 increasing haldol; added depakote 12/28Patient with flat affect, no expression, talking in monotone voice; walking more slowly. Thought content seems more vacuous, just answering questions and not referring to various thoughts she is having unlike the week prior. Patient is more organized in speech, answering questions appropriately however she is very concrete in her answers and with no extraneous words or thoughts expressed. Child Support Specialist asked about Ori a former patient about whom patient would sometimes expressed delusional memories, to which patient answered that was just a andrés I liked.. Which was matter of fact and without the typical additional odd or delusional comments. Denies AVH. Patient says she sleepy and over the weekend and today has been mostly keeping to herself, sleeping, not interacting with others, unchanged previous week -Says she had a good visit with her family and that her parents told her to remain on the unit until the doctors think she is ready to go home. To that and patient agreed to retract 3 day notice. Again discussed clozapine and patient agreed to trial including weekly blood draws. -observation: On lower dose of Haldol, 10 mg b.i.d., patient with improved symptoms compared to admission, however still disorganized; with increased Haldol, adding Haldol 5 mg in the afternoon, patient was more organized thought process however significantly blunted affect and still with limited insight and ability to discuss illness 12/29Patient a little less flat today with lower dose of Haldol. She remains improved from admission but still disorganized and in the milieu patient would sit, stand again set then stand again without any obvious reason. Discussed case with colleagues who agreed that Haldol at 10 mg b.i.d. is partially helpful and at this point, having failed to resolve symptoms with 3 antipsychotic trials, the best next option is to add a 2nd antipsychotic. Discussed options which included both clozapine and Abilify. Patient is open to either, including blood draws for clozapine. However Patient's father had some hesitancy about clozapine, not sure if getting weekly blood draws was realistic. Elected to start Abilify 12/30 Still disorganized but blunted affect is resolving and Patient more expressive and more interactive. Patient remains concrete but attended group and sat appropriately and answered a question appropriately as well. Still missing her family and hopes they will visit this weekend. eKG 12/22/22: QT Int : 306 ms/ QTc Int : 432 ms 12/31 Patient nauseous today and threw up 2 times; gave Zofran and it resolved; not sure if it is due to increased Abilify or something else. However Patient a little less flat today with increased Abilify. -some mouth twitching maybe tightness in the mouth Cogentin 0.5 mg 1 time dose given 01/01 patient remains very flat, blunted affect. Also walking a little stiffly. That said she is not expressing any psychotic symptoms and her answers are more organized. Will lower Haldol to 5 mg b.i.d. to try and reduce negative symptoms and EPS; for now will leave Abilify at 5 mg per day *If psychotic symptoms return increase Abilify DX: schizophrenia (provisional as need to further; rule out schizoaffective disorder and clarify timeline of symptoms) Plan: CV Q 15 minute checks CONTINUE Abilify 5mg daily; no side effects noted (last QTC WNL; Abilify known to lower QTC if anything) LOWERED to Haldol 5 mg b.i.d. (on higher dose caused significant negative symptoms) Scheduling Cogentin 0.5 mg b.i.d. due to EPS Discontinue Ativan; patient complains of daytime tiredness Med trials discontinued during this admission: Discontinued Zyprexa; maybe partially effective Discontinued Risperdal; did not seem affective Discontinued depakote; was only on a low dose for few days and deemed not necessary Reason for continued inpatient stay Substantial Risk for: inability to function Time Spent With Patient Time: Total time managing care of this patient today ____ minutes.
[2023-01-01] MEDS: HaloperidoL 5 MG TABLET PO (19:30)
[2023-01-01] MEDS: Benztropine Mesylate 0.5 MG TABLET PO (19:30)
[2023-01-01] MEDS: Melatonin 3 MG TABLET 6 MG PO (19:30)
[2023-01-01] MEDS: Docusate Sodium 100 MG CAPSULE PO (19:30)
[2023-01-01 22:15] VITALS: BP 129/79; PULSE 92; RESP 16; TEMP 36.7; O2SAT 99
[2023-01-02 09:13] VITALS: BP 149/78; PULSE 89; RESP 16; TEMP 35.8; O2SAT 100
[2023-01-02] MEDS: HaloperidoL 5 MG TABLET PO ×2 (09:46→20:03)
[2023-01-02] MEDS: Benztropine Mesylate 0.5 MG TABLET PO ×2 (09:46→20:03)
[2023-01-02] MEDS: Docusate Sodium 100 MG CAPSULE PO ×2 (09:46→20:03)
[2023-01-02] MEDS: ARIPiprazole 5 MG TABLET PO (09:46)
--- NOTE | 2023-01-02 10:44 | HO.PSYCHPN ---
Subjective Subjective Date of Service: 01/02/23 Reason For Visit: mood Interim History: Patient remains with flat affect; slow to respond; staring blankly at times; seems to be walking a little stiffly and shuffling. pt whispering answers. Medication Compliance: Yes Side effects from medications: Yes (? slow to respond and shuffling med side efect vs increased psychosis ) Attending Groups: No Review of Systems Acute medical concerns: No Medical Review of Systems: unchanged Review of Systems Review of Systems no change Yes all other systems are reviewed and are negative Constitutional: Reports as per HPI Eyes: Reports as per HPI Reports as per HPI Cardiovascular: Reports as per HPI Respiratory: Reports as per HPI Gastrointestinal: Reports as per HPI Musculoskeletal: Reports as per HPI Skin/Breast: Reports as per HPI Reports as per HPI Psychiatric: Reports as per HPI Endocrine: Reports as per HPI Hematologic/Lymphatic: Reports as per HPI Allergic/Immunologic: Reports as per HPI Mental Status Exam Mental Status Exam Narrative: Pt is alert and oriented to self, place, partially to situation; behavior is cooperative, calm, still flat affect but a little more expressive and interactive in the milieu; patient is not in distress; dressed in hospital attire with unkempt hair and marginal hygiene; mood and affect still blunted but less so; speech normal volume; rate remains somewhat slowed but with improved inflexion; mild psychomotor retardation present; thought process goal oriented and concrete, though also distracted; Thought content is on missing her family another random topics; seems internally preoccupied Patients insight and judgment impaired but improved Patient Appearance: Disheveled (clothing stained) Patient Orientation: Person, Place and Time Level of Consciousness: Alert Patient Behavior: Suspicious Mood Description: Withdrawn Affect Description: Flat Patient Cognition Impaired: No Ability to Follow Directions: Good Speech Pattern: Soft-Spoken Memory Description: Intact Diagnostics Vital Signs (24Hr): Vital Signs - 24 hr 01/01/23 22:15 01/02/23 09:13 Temperature 98.1 F 96.5 F L Pulse Rate 92 89 Respiratory Rate 16 16 Blood Pressure 129/79 149/78 H Pulse Oximetry 99 100 Oxygen Delivery Method Room Air Room Air BMI result Body Mass Index 26.7 Labs 12/02/22 21:20 12/04/22 08:17 Medications Medications Current Medications Acetaminophen (Acetaminophen 325 Mg Tablet) 650 mg PO Q6H PRN PRN Reason: Headache/Pain Mild Scale (1-3) Last Admin: 12/21/22 02:55 Dose: 650 mg Al Hydroxide/Mg Hydroxide (Magnesium Hydrox/Alum Hydrox 30 Ml Oral.Susp) 30 ml PO Q6H PRN PRN Reason: Heartburn/Nausea Aripiprazole (Aripiprazole 5 Mg Tablet) 5 mg PO DAILY [facility] Last Admin: 01/02/23 09:46 Dose: 5 mg Benztropine Mesylate (Benztropine Mesylate 0.5 Mg Tablet) 0.5 mg PO BID [facility] Last Admin: 01/02/23 09:46 Dose: 0.5 mg Docusate Sodium (Docusate Sodium 100 Mg Capsule) 100 mg PO BID [facility] Last Admin: 01/02/23 09:46 Dose: 100 mg Haloperidol (Haloperidol 5 Mg Tablet) 5 mg PO BID [facility] Last Admin: 01/02/23 09:46 Dose: 5 mg Hydroxyzine HCl (Hydroxyzine Hcl 25 Mg Tablet) 25 mg PO Q6H PRN PRN Reason: Anxiety Last Admin: 12/25/22 03:53 Dose: 25 mg Magnesium Hydroxide (Milk Of Magnesia 30 Ml Oral.Susp) 30 ml PO DAILY PRN PRN Reason: Constipation Melatonin (Melatonin 3 Mg Tablet) 6 mg PO BEDTIME [facility] Last Admin: 01/01/23 19:30 Dose: 6 mg Ondansetron HCl (Ondansetron Odt 4 Mg Tab.Rapdis) 4 mg TRANSLINGU Q6H PRN PRN Reason: Nausea and Vomiting Trazodone HCl (Trazodone Hcl 50 Mg Tablet) 50 mg PO BEDTIME MRX1 PRN PRN Reason: Insomnia Last Admin: 12/27/22 20:54 Dose: 50 mg Allergies Allergies Allergy/AdvReac Type Severity Reaction Status Date / Time shrimp AdvReac Intermediate Rash Verified 12/02/22 21:40 Assessment & Plan Assessment & Plan (1) Schizophrenia: Status: Suspected Code(s): F20.9 - Schizophrenia, unspecified Plan Patient is a 27-year-old female with history of psychotic illness who presents with disorganized speech and behavior, recently discharged from [facility] but brought back to the hospital at the behest of her father. Patient having trouble focusing on conversation and is almost talking in a word salad. If asked a question she will mostly respond with some completely irrelevant and nonsensical answer. She said something about double tongs; Cathi Barakat song which she saying; physics; something about [place] in [place] and being stalked. She denies any AVH but does seem internally preoccupied. She denies any drug or alcohol use other than weed... A little. Patient gives permission for team to discuss case with her father and gives the phone number. Patient agreed to take antipsychotic medication. Later in the day, patient was more linear and organized. She agreed that she was at the hospital for help and understood criteria for having signed the CV, evidenced by asking relevant questions and later going up and asking to sign a 3 day notice. Hospital course: 12/05: contiue current treatmetn plan 12/08: Patient keeping to self. Presents guarded but organized. Pt stated, I'm feeling homesick. I'll keep taking my meds so I can leave . Patient retracted 3 day notice. denies SI/HI/VH/AH. Continue current tx plan. 12/09: Patient presents disorganized, confused with times of echolalia. When T/W would ask pt a question, pt would either repeat the question back, repeat a word from the sentence or state a word she overheard someone use who is standing within hearing distance. Patient attempted to elope from unit multiple times this morning. When T/W asked where she planned on going, pt stated, home. the production team leader will bring me home . T/W explained to patient she would have to wait until she improved; pt stated, okay. I can do that . Showered. Medication compliant. Added Ativan 1mg PO BID PRN and Risperdal 0.5mg PO BID PRN. 12/10: Patient presents disorganized, confused with times of echolalia. Staff reported patient was seen standing on chair, when asked reasoning, pt stated, I'm not a turkey baster . Patient unable to have logical conversation at this time. Appears restless. Medication compliant. DC Risperdal, does not seem to be improving psychosis. Start Zyprexa 5mg PO daily. Patient aware. 12/11: Patient presents disorganized, confused with times of echolalia. Patient unable to have logical conversation at this time; flight of ideas. Medication compliant. Patient standing in hallway, jumping up and down and stating I'm bat shit crazy! 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 If I don't go to medical school I'm going to [employer]. I wanna hug you! Continue taper of risperdal and increase in Zyprexa. 12/12: Increase Zyprexa tomorrow and lower Risperidone. 12/13: DC Risperidone. Continue titrating Zyprexa. Mouth checks. 12/14: remains floridly psychotic, disorganized. Will switch to Zydis and increase dose to 10mg bid (up from 5mg bid) 12/15 continue tx plan 12/16 remains dsorganized; maybe a little less...did not sleep overnight. Will increase Zydis to 20mg qhs -ticket writer reviewed collateral and this seems to be a 1st break for patient; some psychotic symptoms coming up here in their over the past year but they emerged profoundly recently when patient got back from visiting a boyfriend in [place]. 12/17 This morning, patient was able to maintain a linear conversation with ticket writer and then with nurse that was mostly logical. Attempted to take patient off one-to-one. Improvement did not last and patient soon dysregulated, wandering the halls, talking loudly and nonsensically; patient clawing at the doors trying to open them to leave the unit; on the phone talking to Ori a former patient that patient says she can see outside her window and thinks that the 2 are engaged. Patient also said she can see her family members outside the window. Patient told staff she feels unsafe without being on a one-to-one because there is safety in numbers. She also put soap in her mouth and explained it was because no one was with me... Patient also walking around the milieu with her hands on her neck imitating as if she is choking herself. Patient did come down some when she was replaced on one-to-one. -since patient seem to improve a little bit with increase Zyprexa dose will leave current regimen for now; however if not continued improvements will consider whether to switch medications or to and another medication, possibly Depakote 12/18 pt is minimally better than on admission, sometimes able to have and now sleeping more through the night, suggesting that Zyprexa maybe partially helpful; however, she remains significantly disorganized; debating med change vs continue w/ zyprexa. Difficult to discern if there is a manic component of if pt is just disorganzed (was not sleeping, but symptoms more psychotic than manic); considering Haldol or other 1st generatoin antipsychotic 12/19 will continue with Haldol 5 mg t.i.d. and discontinue Zyprexa. Having started Haldol, This is the 1st time patient is psychotic symptoms have been subdued. Will continue to monitor 12/20 Will increase Haldol to 10 mg b.i.d. 12/21 not sure if Haldol is working; some hints that it might be lowering symptoms. Will continue with current regimen and monitor 12/22Had an encouraging discussion with patient who was aware of person place and time, date, year, that it was Halloween; no she is at [facility] in the psychiatric unit. She is here because her parents think she has .a little to crazy.. And she agrees that they had reason to be concerned prior to admission. She says she knows she is not . Patient agrees to try getting off one-to-one. Despite this seemingly lucid conversation, patient has been telling other staff all day long that she is worried about her ; sometimes able to talk in a logical/linear way other times remains disorganized -will soon decide whether to go up on Haldol or to switch medications 12/23 continue current treatment plan 12/24 increasing haldol; added depakote 12/28Patient with flat affect, no expression, talking in monotone voice; walking more slowly. Thought content seems more vacuous, just answering questions and not referring to various thoughts she is having unlike the week prior. Patient is more organized in speech, answering questions appropriately however she is very concrete in her answers and with no extraneous words or thoughts expressed. Cigarette Carton Sealer asked about Ori a former patient about whom patient would sometimes expressed delusional memories, to which patient answered that was just a andrés I liked.. Which was matter of fact and without the typical additional odd or delusional comments. Denies AVH. Patient says she sleepy and over the weekend and today has been mostly keeping to herself, sleeping, not interacting with others, unchanged previous week -Says she had a good visit with her family and that her parents told her to remain on the unit until the doctors think she is ready to go home. To that and patient agreed to retract 3 day notice. Again discussed clozapine and patient agreed to trial including weekly blood draws. -observation: On lower dose of Haldol, 10 mg b.i.d., patient with improved symptoms compared to admission, however still disorganized; with increased Haldol, adding Haldol 5 mg in the afternoon, patient was more organized thought process however significantly blunted affect and still with limited insight and ability to discuss illness 12/29Patient a little less flat today with lower dose of Haldol. She remains improved from admission but still disorganized and in the milieu patient would sit, stand again set then stand again without any obvious reason. Discussed case with colleagues who agreed that Haldol at 10 mg b.i.d. is partially helpful and at this point, having failed to resolve symptoms with 3 antipsychotic trials, the best next option is to add a 2nd antipsychotic. Discussed options which included both clozapine and Abilify. Patient is open to either, including blood draws for clozapine. However Patient's father had some hesitancy about clozapine, not sure if getting weekly blood draws was realistic. Elected to start Abilify 12/30 Still disorganized but blunted affect is resolving and Patient more expressive and more interactive. Patient remains concrete but attended group and sat appropriately and answered a question appropriately as well. Still missing her family and hopes they will visit this weekend. eKG 12/22/22: QT Int : 306 ms/ QTc Int : 432 ms 12/31 Patient nauseous today and threw up 2 times; gave Zofran and it resolved; not sure if it is due to increased Abilify or something else. However Patient a little less flat today with increased Abilify. -some mouth twitching maybe tightness in the mouth Cogentin 0.5 mg 1 time dose given 01/01 patient remains very flat, blunted affect. Also walking a little stiffly. That said she is not expressing any psychotic symptoms and her answers are more organized. Will lower Haldol to 5 mg b.i.d. to try and reduce negative symptoms and EPS; for now will leave Abilify at 5 mg per day *If psychotic symptoms return increase Abilify 01/02/23 continue current treatment plan DX: schizophrenia (provisional as need to further; rule out schizoaffective disorder and clarify timeline of symptoms) Plan: CV Q 15 minute checks CONTINUE Abilify 5mg daily; no side effects noted (last QTC WNL; Abilify known to lower QTC if anything) LOWERED to Haldol 5 mg b.i.d. (on higher dose caused significant negative symptoms) Scheduling Cogentin 0.5 mg b.i.d. due to EPS Discontinue Ativan; patient complains of daytime tiredness Med trials discontinued during this admission: Discontinued Zyprexa; maybe partially effective Discontinued Risperdal; did not seem affective Discontinued depakote; was only on a low dose for few days and deemed not necessary Reason for continued inpatient stay Substantial Risk for: inability to function and rapid decompensation Time Spent With Patient Time: Total time managing care of this patient today ____ minutes.
[2023-01-02 16:35] VITALS: BP 130/76; PULSE 84; RESP 16; TEMP 36.3; O2SAT 98
[2023-01-02] MEDS: Melatonin 3 MG TABLET 6 MG PO (20:03)
[2023-01-03 08:21] VITALS: BP 116/61; PULSE 77; TEMP 36.5; O2SAT 99
[2023-01-03] MEDS: Benztropine Mesylate 0.5 MG TABLET PO ×2 (09:11→20:42)
[2023-01-03] MEDS: Docusate Sodium 100 MG CAPSULE PO ×2 (09:11→20:39)
[2023-01-03] MEDS: HaloperidoL 5 MG TABLET PO ×2 (09:11→20:39)
[2023-01-03] MEDS: ARIPiprazole 5 MG TABLET PO (09:11)
[2023-01-03 17:05] VITALS: BP 132/69; PULSE 78; RESP 16; TEMP 37; O2SAT 100
--- NOTE | 2023-01-03 18:35 | HO.PSYCHPN ---
Subjective Subjective Date of Service: 01/03/23 Reason For Visit: mood Interim History: Patient remains with flat affect; respond more appropriately but still soft spoken and delayed; seems to be walking a little stiffly and shuffling.more visible on unit and attending to ADLs Medication Compliance: Yes Side effects from medications: No Attending Groups: No Review of Systems Acute medical concerns: No Medical Review of Systems: unchanged Review of Systems Review of Systems no change Yes all other systems are reviewed and are negative Constitutional: Reports as per HPI Eyes: Reports as per HPI Reports as per HPI Cardiovascular: Reports as per HPI Respiratory: Reports as per HPI Gastrointestinal: Reports as per HPI Musculoskeletal: Reports as per HPI Skin/Breast: Reports as per HPI Reports as per HPI Psychiatric: Reports as per HPI Endocrine: Reports as per HPI Hematologic/Lymphatic: Reports as per HPI Allergic/Immunologic: Reports as per HPI Mental Status Exam Mental Status Exam Narrative: Pt is alert and oriented to self, place, partially to situation; behavior is cooperative, calm, still flat affect but a little more expressive and interactive in the milieu; patient is not in distress; dressed in hospital attire with unkempt hair and marginal hygiene; mood and affect still blunted but less so; speech normal volume; rate remains somewhat slowed but with improved inflexion; mild psychomotor retardation present; thought process goal oriented and concrete, though also distracted; Thought content is on missing her family another random topics; seems internally preoccupied. Patients insight and judgment impaired but improved Patient Appearance: Disheveled (clothing stained) Patient Orientation: Person, Place and Time Level of Consciousness: Alert Patient Behavior: Suspicious Mood Description: Withdrawn Affect Description: Flat Patient Cognition Impaired: No Ability to Follow Directions: Good Speech Pattern: Soft-Spoken Memory Description: Intact Diagnostics Vital Signs (24Hr): Vital Signs - 24 hr 01/03/23 08:21 01/03/23 17:05 Temperature 97.7 F 98.6 F Pulse Rate 77 78 Respiratory Rate 16 Blood Pressure 116/61 132/69 Pulse Oximetry 99 100 Oxygen Delivery Method Room Air Room Air BMI result Body Mass Index 26.7 Labs 12/02/22 21:20 12/04/22 08:17 Medications Medications Current Medications Acetaminophen (Acetaminophen 325 Mg Tablet) 650 mg PO Q6H PRN PRN Reason: Headache/Pain Mild Scale (1-3) Last Admin: 12/21/22 02:55 Dose: 650 mg Al Hydroxide/Mg Hydroxide (Magnesium Hydrox/Alum Hydrox 30 Ml Oral.Susp) 30 ml PO Q6H PRN PRN Reason: Heartburn/Nausea Aripiprazole (Aripiprazole 5 Mg Tablet) 5 mg PO DAILY [facility] Last Admin: 01/03/23 09:11 Dose: 5 mg Benztropine Mesylate (Benztropine Mesylate 0.5 Mg Tablet) 0.5 mg PO BID [facility] Last Admin: 01/03/23 09:11 Dose: 0.5 mg Docusate Sodium (Docusate Sodium 100 Mg Capsule) 100 mg PO BID [facility] Last Admin: 01/03/23 09:11 Dose: 100 mg Haloperidol (Haloperidol 5 Mg Tablet) 5 mg PO BID [facility] Last Admin: 01/03/23 09:11 Dose: 5 mg Hydroxyzine HCl (Hydroxyzine Hcl 25 Mg Tablet) 25 mg PO Q6H PRN PRN Reason: Anxiety Last Admin: 12/25/22 03:53 Dose: 25 mg Magnesium Hydroxide (Milk Of Magnesia 30 Ml Oral.Susp) 30 ml PO DAILY PRN PRN Reason: Constipation Melatonin (Melatonin 3 Mg Tablet) 6 mg PO BEDTIME [facility] Last Admin: 01/02/23 20:03 Dose: 6 mg Ondansetron HCl (Ondansetron Odt 4 Mg Tab.Rapdis) 4 mg TRANSLINGU Q6H PRN PRN Reason: Nausea and Vomiting Trazodone HCl (Trazodone Hcl 50 Mg Tablet) 50 mg PO BEDTIME MRX1 PRN PRN Reason: Insomnia Last Admin: 12/27/22 20:54 Dose: 50 mg Allergies Allergies Allergy/AdvReac Type Severity Reaction Status Date / Time shrimp AdvReac Intermediate Rash Verified 12/02/22 21:40 Assessment & Plan Assessment & Plan (1) Schizophrenia: Status: Suspected Code(s): F20.9 - Schizophrenia, unspecified Plan Patient is a 27-year-old female with history of psychotic illness who presents with disorganized speech and behavior, recently discharged from [facility] but brought back to the hospital at the behest of her father. Patient having trouble focusing on conversation and is almost talking in a word salad. If asked a question she will mostly respond with some completely irrelevant and nonsensical answer. She said something about [employer]; [employer] song which she saying; physics; something about [place] in [place] and being stalked. She denies any AVH but does seem internally preoccupied. She denies any drug or alcohol use other than weed... A little. Patient gives permission for team to discuss case with her father and gives the phone number. Patient agreed to take antipsychotic medication. Later in the day, patient was more linear and organized. She agreed that she was at the hospital for help and understood criteria for having signed the CV, evidenced by asking relevant questions and later going up and asking to sign a 3 day notice. Hospital course: 12/05: contiue current treatmetn plan 12/08: Patient keeping to self. Presents guarded but organized. Pt stated, I'm feeling homesick. I'll keep taking my meds so I can leave . Patient retracted 3 day notice. denies SI/HI/VH/AH. Continue current tx plan. 12/09: Patient presents disorganized, confused with times of echolalia. When T/W would ask pt a question, pt would either repeat the question back, repeat a word from the sentence or state a word she overheard someone use who is standing within hearing distance. Patient attempted to elope from unit multiple times this morning. When T/W asked where she planned on going, pt stated, home. the service writer will bring me home . T/W explained to patient she would have to wait until she improved; pt stated, okay. I can do that . Showered. Medication compliant. Added Ativan 1mg PO BID PRN and Risperdal 0.5mg PO BID PRN. 12/10: Patient presents disorganized, confused with times of echolalia. Staff reported patient was seen standing on chair, when asked reasoning, pt stated, I'm not a turkey baster . Patient unable to have logical conversation at this time. Appears restless. Medication compliant. DC Risperdal, does not seem to be improving psychosis. Start Zyprexa 5mg PO daily. Patient aware. 12/11: Patient presents disorganized, confused with times of echolalia. Patient unable to have logical conversation at this time; flight of ideas. Medication compliant. Patient standing in hallway, jumping up and down and stating I'm bat shit crazy! 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 If I don't go to medical school I'm going to [employer]. I wanna hug you! Continue taper of risperdal and increase in Zyprexa. 12/12: Increase Zyprexa tomorrow and lower Risperidone. 12/13: DC Risperidone. Continue titrating Zyprexa. Mouth checks. 12/14: remains floridly psychotic, disorganized. Will switch to Zydis and increase dose to 10mg bid (up from 5mg bid) 12/15 continue tx plan 12/16 remains dsorganized; maybe a little less...did not sleep overnight. Will increase Zydis to 20mg qhs -business writer reviewed collateral and this seems to be a 1st break for patient; some psychotic symptoms coming up here in their over the past year but they emerged profoundly recently when patient got back from visiting a boyfriend in [place]. 12/17 This morning, patient was able to maintain a linear conversation with business writer and then with nurse that was mostly logical. Attempted to take patient off one-to-one. Improvement did not last and patient soon dysregulated, wandering the halls, talking loudly and nonsensically; patient clawing at the doors trying to open them to leave the unit; on the phone talking to Ori a former patient that patient says she can see outside her window and thinks that the 2 are engaged. Patient also said she can see her family members outside the window. Patient told staff she feels unsafe without being on a one-to-one because there is safety in numbers. She also put soap in her mouth and explained it was because no one was with me... Patient also walking around the milieu with her hands on her neck imitating as if she is choking herself. Patient did come down some when she was replaced on one-to-one. -since patient seem to improve a little bit with increase Zyprexa dose will leave current regimen for now; however if not continued improvements will consider whether to switch medications or to and another medication, possibly Depakote 12/18 pt is minimally better than on admission, sometimes able to have and now sleeping more through the night, suggesting that Zyprexa maybe partially helpful; however, she remains significantly disorganized; debating med change vs continue w/ zyprexa. Difficult to discern if there is a manic component of if pt is just disorganzed (was not sleeping, but symptoms more psychotic than manic); considering Haldol or other 1st generatoin antipsychotic 12/19 will continue with Haldol 5 mg t.i.d. and discontinue Zyprexa. Having started Haldol, This is the 1st time patient is psychotic symptoms have been subdued. Will continue to monitor 12/20 Will increase Haldol to 10 mg b.i.d. 12/21 not sure if Haldol is working; some hints that it might be lowering symptoms. Will continue with current regimen and monitor 12/22Had an encouraging discussion with patient who was aware of person place and time, date, year, that it was Halloween; no she is at [facility] in the psychiatric unit. She is here because her parents think she has .a little to crazy.. And she agrees that they had reason to be concerned prior to admission. She says she knows she is not . Patient agrees to try getting off one-to-one. Despite this seemingly lucid conversation, patient has been telling other staff all day long that she is worried about her ; sometimes able to talk in a logical/linear way other times remains disorganized -will soon decide whether to go up on Haldol or to switch medications 12/23 continue current treatment plan 12/24 increasing haldol; added depakote 12/28Patient with flat affect, no expression, talking in monotone voice; walking more slowly. Thought content seems more vacuous, just answering questions and not referring to various thoughts she is having unlike the week prior. Patient is more organized in speech, answering questions appropriately however she is very concrete in her answers and with no extraneous words or thoughts expressed. Leasing Sales Consultant asked about Ori a former patient about whom patient would sometimes expressed delusional memories, to which patient answered that was just a andrés I liked.. Which was matter of fact and without the typical additional odd or delusional comments. Denies AVH. Patient says she sleepy and over the weekend and today has been mostly keeping to herself, sleeping, not interacting with others, unchanged previous week -Says she had a good visit with her family and that her parents told her to remain on the unit until the doctors think she is ready to go home. To that and patient agreed to retract 3 day notice. Again discussed clozapine and patient agreed to trial including weekly blood draws. -observation: On lower dose of Haldol, 10 mg b.i.d., patient with improved symptoms compared to admission, however still disorganized; with increased Haldol, adding Haldol 5 mg in the afternoon, patient was more organized thought process however significantly blunted affect and still with limited insight and ability to discuss illness 12/29Patient a little less flat today with lower dose of Haldol. She remains improved from admission but still disorganized and in the milieu patient would sit, stand again set then stand again without any obvious reason. Discussed case with colleagues who agreed that Haldol at 10 mg b.i.d. is partially helpful and at this point, having failed to resolve symptoms with 3 antipsychotic trials, the best next option is to add a 2nd antipsychotic. Discussed options which included both clozapine and Abilify. Patient is open to either, including blood draws for clozapine. However Patient's father had some hesitancy about clozapine, not sure if getting weekly blood draws was realistic. Elected to start Abilify 12/30 Still disorganized but blunted affect is resolving and Patient more expressive and more interactive. Patient remains concrete but attended group and sat appropriately and answered a question appropriately as well. Still missing her family and hopes they will visit this weekend. eKG 12/22/22: QT Int : 306 ms/ QTc Int : 432 ms 12/31 Patient nauseous today and threw up 2 times; gave Zofran and it resolved; not sure if it is due to increased Abilify or something else. However Patient a little less flat today with increased Abilify. -some mouth twitching maybe tightness in the mouth Cogentin 0.5 mg 1 time dose given 01/01 patient remains very flat, blunted affect. Also walking a little stiffly. That said she is not expressing any psychotic symptoms and her answers are more organized. Will lower Haldol to 5 mg b.i.d. to try and reduce negative symptoms and EPS; for now will leave Abilify at 5 mg per day *If psychotic symptoms return increase Abilify 01/02/23 continue current treatment plan 01/03/23 continue tx plan DX: schizophrenia (provisional as need to further; rule out schizoaffective disorder and clarify timeline of symptoms) Plan: CV Q 15 minute checks CONTINUE Abilify 5mg daily; no side effects noted (last QTC WNL; Abilify known to lower QTC if anything) LOWERED to Haldol 5 mg b.i.d. (on higher dose caused significant negative symptoms) Scheduling Cogentin 0.5 mg b.i.d. due to EPS Discontinue Ativan; patient complains of daytime tiredness Med trials discontinued during this admission: Discontinued Zyprexa; maybe partially effective Discontinued Risperdal; did not seem affective Discontinued depakote; was only on a low dose for few days and deemed not necessary Reason for continued inpatient stay Substantial Risk for: inability to function and rapid decompensation Time Spent With Patient Time: Total time managing care of this patient today ____ minutes.
[2023-01-03] MEDS: Melatonin 3 MG TABLET 6 MG PO (20:39)
[2023-01-04 08:00] VITALS: BP 115/65; PULSE 81; RESP 18; TEMP 36.9; O2SAT 99
[2023-01-04] MEDS: Docusate Sodium 100 MG CAPSULE PO ×2 (08:59→21:25)
[2023-01-04] MEDS: ARIPiprazole 5 MG TABLET PO (08:59)
[2023-01-04] MEDS: Benztropine Mesylate 0.5 MG TABLET PO ×3 (08:59→21:26)
[2023-01-04] MEDS: HaloperidoL 5 MG TABLET PO (08:59)
--- NOTE | 2023-01-04 09:13 | P.PNPSI_ITS ---
Subjective Subjective Date of Service: 01/04/23 Reason For Visit: mood Interim History: Met with patient; discussed with team; reviewed notes Patient remains with negative symptoms, flat affect and some tongue/lip fasciculations and walking stiffly. Patient asked about discharge but accepted that her father wants her to remain on the unit longer in order to find a medication regimen that will both reduce her symptoms and have less negative side effects. Manufacturer Representative talked with patient's father earlier today who said he thinks patient should remain in the hospital until symptoms are significantly reduced; discussed also with father about patient's diagnosis and medications, including clozapine, reviewing the side effects/risk profile of clozapine and other antipsychotic medications which he is considering; patient herself agrees to clozapine. Mental Status Exam Mental Status Exam Narrative: Pt is alert and oriented to self, place, partially to situation; behavior is cooperative, calm, flat affect, talking very quietly, isolative with minimal interaction with others; patient is not in distress; dressed in hospital attire with unkempt hair and poor hygiene; mood and affect still blunted;; speech soft; rate remains somewhat slowed; psychomotor retardation present; thought process goal oriented and concrete, though also distracted; Thought content is on missing her family; seems internally preoccupied Patients insight and judgment impaired but improved Diagnostics Vital Signs (24Hr): Vital Signs - 24 hr 01/03/23 17:05 Temperature 98.6 F Pulse Rate 78 Respiratory Rate 16 Blood Pressure 132/69 Pulse Oximetry 100 Oxygen Delivery Method Room Air BMI result Body Mass Index 26.7 Labs 12/02/22 21:20 12/04/22 08:17 Medications Medications Current Medications Acetaminophen (Acetaminophen 325 Mg Tablet) 650 mg PO Q6H PRN PRN Reason: Headache/Pain Mild Scale (1-3) Last Admin: 12/21/22 02:55 Dose: 650 mg Al Hydroxide/Mg Hydroxide (Magnesium Hydrox/Alum Hydrox 30 Ml Oral.Susp) 30 ml PO Q6H PRN PRN Reason: Heartburn/Nausea Aripiprazole (Aripiprazole 5 Mg Tablet) 5 mg PO DAILY [facility] Last Admin: 01/04/23 08:59 Dose: 5 mg Benztropine Mesylate (Benztropine Mesylate 0.5 Mg Tablet) 0.5 mg PO BID [facility] Last Admin: 01/04/23 08:59 Dose: 0.5 mg Docusate Sodium (Docusate Sodium 100 Mg Capsule) 100 mg PO BID [facility] Last Admin: 01/04/23 08:59 Dose: 100 mg Haloperidol (Haloperidol 5 Mg Tablet) 5 mg PO BID [facility] Last Admin: 01/04/23 08:59 Dose: 5 mg Hydroxyzine HCl (Hydroxyzine Hcl 25 Mg Tablet) 25 mg PO Q6H PRN PRN Reason: Anxiety Last Admin: 12/25/22 03:53 Dose: 25 mg Magnesium Hydroxide (Milk Of Magnesia 30 Ml Oral.Susp) 30 ml PO DAILY PRN PRN Reason: Constipation Melatonin (Melatonin 3 Mg Tablet) 6 mg PO BEDTIME [facility] Last Admin: 01/03/23 20:39 Dose: 6 mg Ondansetron HCl (Ondansetron Odt 4 Mg Tab.Rapdis) 4 mg TRANSLINGU Q6H PRN PRN Reason: Nausea and Vomiting Trazodone HCl (Trazodone Hcl 50 Mg Tablet) 50 mg PO BEDTIME MRX1 PRN PRN Reason: Insomnia Last Admin: 12/27/22 20:54 Dose: 50 mg Allergies Allergies Allergy/AdvReac Type Severity Reaction Status Date / Time shrimp AdvReac Intermediate Rash Verified 12/02/22 21:40 Assessment & Plan Assessment & Plan (1) Schizophrenia: Status: Suspected Code(s): F20.9 - Schizophrenia, unspecified Plan Patient is a 27-year-old female with history of psychotic illness who presents with disorganized speech and behavior, recently discharged from [facility] but brought back to the hospital at the behest of her father. Patient having trouble focusing on conversation and is almost talking in a word salad. If asked a question she will mostly respond with some completely irrelevant and nonsensical answer. 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 She denies any AVH but does seem internally preoccupied. She denies any drug or alcohol use other than weed... A little. Patient gives permission for team to discuss case with her father and gives the phone number. Patient agreed to take antipsychotic medication. Later in the day, patient was more linear and organized. She agreed that she was at the hospital for help and understood criteria for having signed the CV, evidenced by asking relevant questions and later going up and asking to sign a 3 day notice. Hospital course: 12/05: contiue current treatmetn plan 12/08: Patient keeping to self. Presents guarded but organized. Pt stated, I'm feeling homesick. I'll keep taking my meds so I can leave . Patient retracted 3 day notice. denies SI/HI/VH/AH. Continue current tx plan. 12/09: Patient presents disorganized, confused with times of echolalia. When T/W would ask pt a question, pt would either repeat the question back, repeat a word from the sentence or state a word she overheard someone use who is standing within hearing distance. Patient attempted to elope from unit multiple times this morning. When T/W asked where she planned on going, pt stated, home. the programmer operator numerical control will bring me home . T/W explained to patient she would have to wait until she improved; pt stated, okay. I can do that . Showered. Medication compliant. Added Ativan 1mg PO BID PRN and Risperdal 0.5mg PO BID PRN. 12/10: Patient presents disorganized, confused with times of echolalia. Staff reported patient was seen standing on chair, when asked reasoning, pt stated, I'm not a turkey baster . Patient unable to have logical conversation at this time. Appears restless. Medication compliant. DC Risperdal, does not seem to be improving psychosis. Start Zyprexa 5mg PO daily. Patient aware. 12/11: Patient presents disorganized, confused with times of echolalia. Patient unable to have logical conversation at this time; flight of ideas. Medication compliant. Patient standing in hallway, jumping up and down and stating I'm bat shit crazy! 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 If I don't go to medical school I'm going to [employer]. I wanna hug you! Continue taper of risperdal and increase in Zyprexa. 12/12: Increase Zyprexa tomorrow and lower Risperidone. 12/13: DC Risperidone. Continue titrating Zyprexa. Mouth checks. 12/14: remains floridly psychotic, disorganized. Will switch to Zydis and increase dose to 10mg bid (up from 5mg bid) 12/15 continue tx plan 12/16 remains dsorganized; maybe a little less...did not sleep overnight. Will increase Zydis to 20mg qhs -advertising writer reviewed collateral and this seems to be a 1st break for patient; some psychotic symptoms coming up here in their over the past year but they emerged profoundly recently when patient got back from visiting a boyfriend in [place]. 12/17 This morning, patient was able to maintain a linear conversation with advertising writer and then with nurse that was mostly logical. Attempted to take patient off one-to-one. Improvement did not last and patient soon dysregulated, wandering the halls, talking loudly and nonsensically; patient clawing at the doors trying to open them to leave the unit; on the phone talking to Ori a former patient that patient says she can see outside her window and thinks that the 2 are engaged. Patient also said she can see her family members outside the window. Patient told staff she feels unsafe without being on a one-to-one because there is safety in numbers. She also put soap in her mouth and explained it was because no one was with me... Patient also walking around the milieu with her hands on her neck imitating as if she is choking herself. Patient did come down some when she was replaced on one-to-one. -since patient seem to improve a little bit with increase Zyprexa dose will leave current regimen for now; however if not continued improvements will consider whether to switch medications or to and another medication, possibly Depakote 12/18 pt is minimally better than on admission, sometimes able to have and now sleeping more through the night, suggesting that Zyprexa maybe partially helpful; however, she remains significantly disorganized; debating med change vs continue w/ zyprexa. Difficult to discern if there is a manic component of if pt is just disorganzed (was not sleeping, but symptoms more psychotic than manic); considering Haldol or other 1st generatoin antipsychotic 12/19 will continue with Haldol 5 mg t.i.d. and discontinue Zyprexa. Having started Haldol, This is the 1st time patient is psychotic symptoms have been subdued. Will continue to monitor 12/20 Will increase Haldol to 10 mg b.i.d. 12/21 not sure if Haldol is working; some hints that it might be lowering symptoms. Will continue with current regimen and monitor 12/22Had an encouraging discussion with patient who was aware of person place and time, date, year, that it was Halloween; no she is at [facility] in the psychiatric unit. She is here because her parents think she has .a little to crazy.. And she agrees that they had reason to be concerned prior to admission. She says she knows she is not . Patient agrees to try getting off one-to-one. Despite this seemingly lucid conversation, patient has been telling other staff all day long that she is worried about her ; sometimes able to talk in a logical/linear way other times remains disorganized -will soon decide whether to go up on Haldol or to switch medications 12/23 continue current treatment plan 12/24 increasing haldol; added depakote 12/28Patient with flat affect, no expression, talking in monotone voice; walking more slowly. Thought content seems more vacuous, just answering questions and not referring to various thoughts she is having unlike the week prior. Patient is more organized in speech, answering questions appropriately however she is very concrete in her answers and with no extraneous words or thoughts expressed. Manufacturer Representative asked about Ori a former patient about whom patient would sometimes expressed delusional memories, to which patient answered that was just a andrés I liked.. Which was matter of fact and without the typical additional odd or delusional comments. Denies AVH. Patient says she sleepy and over the weekend and today has been mostly keeping to herself, sleeping, not interacting with others, unchanged previous week -Says she had a good visit with her family and that her parents told her to remain on the unit until the doctors think she is ready to go home. To that and patient agreed to retract 3 day notice. Again discussed clozapine and patient agreed to trial including weekly blood draws. -observation: On lower dose of Haldol, 10 mg b.i.d., patient with improved symptoms compared to admission, however still disorganized; with increased Haldol, adding Haldol 5 mg in the afternoon, patient was more organized thought process however significantly blunted affect and still with limited insight and ability to discuss illness 12/29Patient a little less flat today with lower dose of Haldol. She remains improved from admission but still disorganized and in the milieu patient would sit, stand again set then stand again without any obvious reason. Discussed case with colleagues who agreed that Haldol at 10 mg b.i.d. is partially helpful and at this point, having failed to resolve symptoms with 3 antipsychotic trials, the best next option is to add a 2nd antipsychotic. Discussed options which included both clozapine and Abilify. Patient is open to either, including blood draws for clozapine. However Patient's father had some hesitancy about clozapine, not sure if getting weekly blood draws was realistic. Elected to start Abilify 12/30 Still disorganized but blunted affect is resolving and Patient more expressive and more interactive. Patient remains concrete but attended group and sat appropriately and answered a question appropriately as well. Still missing her family and hopes they will visit this weekend. eKG 12/22/22: QT Int : 306 ms/ QTc Int : 432 ms 12/31 Patient nauseous today and threw up 2 times; gave Zofran and it resolved; not sure if it is due to increased Abilify or something else. However Patient a little less flat today with increased Abilify. -some mouth twitching maybe tightness in the mouth Cogentin 0.5 mg 1 time dose given 01/01 patient remains very flat, blunted affect. Also walking a little stiffly. That said she is not expressing any psychotic symptoms and her answers are more organized. Will lower Haldol to 5 mg b.i.d. to try and reduce negative symptoms and EPS; for now will leave Abilify at 5 mg per day 01/04 same presentation, flat, monotone, EPS symptoms. Not expressing psychotic, delusional thinking but far from baseline and with limited insight. Will give Cogentin 0.5 mg 1 time dose since patient already got a 0.5 mg dose this morning; will discontinue Haldol due to only partial benefit with intolerable EPS side effects; will consider whether to increase Abilify. Patient agrees to clozapine; discussed this medication at length with her father. -will consider catatonia as well if negative symptoms do not subside with discontinuation of Haldol DX: schizophrenia (provisional as need to further; rule out schizoaffective disorder and clarify timeline of symptoms) Plan: CV Q 15 minute checks Continue Abilify 5mg daily; no side effects noted (last QTC WNL; Abilify known to lower QTC if anything) Discontinue Haldol; only partially effective and causing significant negative side effects and EPS; although psychotic symptoms have lessened with Haldol, side effects will not be tolerable long-term Scheduling Cogentin 0.5 mg b.i.d. due to EPS Discontinue Ativan; patient complains of daytime tiredness Med trials discontinued during this admission: Discontinue Haldol; only partially effective and causing significant negative side effects and EPS; although psychotic symptoms have lessened with Haldol, side effects will not be tolerable long-term Discontinued Zyprexa; maybe partially effective Discontinued Risperdal; did not seem affective Discontinued depakote; was only on a low dose for few days and deemed not necessary Patient educated on: diagnosis and medication risk/benefits Informed Consent: understands, does not understand and further education needed Reason for continued inpatient stay Substantial Risk for: inability to function Time Spent With Patient Time: Total time managing care of this patient today ____ minutes.
[2023-01-04 21:13] VITALS: BP 124/75; PULSE 77; RESP 18; TEMP 36.4; O2SAT 98
[2023-01-04] MEDS: Melatonin 3 MG TABLET 6 MG PO (21:26)
[2023-01-05 08:00] VITALS: BP 123/66; PULSE 91; RESP 16; TEMP 36.4; O2SAT 99
[2023-01-05] MEDS: Benztropine Mesylate 0.5 MG TABLET PO ×2 (08:52→20:54)
[2023-01-05] MEDS: ARIPiprazole 5 MG TABLET PO (08:52)
--- NOTE | 2023-01-05 09:26 | HO.PSYCHPN ---
Subjective Subjective Date of Service: 01/05/23 Reason For Visit: mood Interim History: Met with patient; discussed with team Patient much more organized in conversation and behavior. She waved remote mortgage underwriter over and wanted to discuss treatment. Patient said she is definitely feeling more organized in her thoughts. She volunteers that she went to group and shared appropriately (which staff corroborates) at that overall she not quite fully back to her regular self, is feeling better. She denies any AVH. Brazer Resistance inquired and patient does not remember her behaviors when she was 1st admitted and on hearing them expressed deeper understanding why she has had to remain on the unit. In discussion, patient decided that she rather remain longer on the unit for further med management rather than leaving to soon and risk having to return to the hospital. Patient shared that at baseline, she is mostly is shy and quiet person. Brazer Resistance reviewed history with director social service. Father reports that patient has been living at home with him and prior to this fall, no psychiatric events. There was a time in high school when she met a man on lying and went to [employer], though it is not clear for how long. About 6 months ago, patient moved out of her father's house so she could be more independent. She was sleeping with her roommate, had a job and was taking some classes a [employer]. It does not seem that her father was aware of her day-to-day presentations or if she had any psychotic symptoms. This past patient met man online and went down to see him in [place]. After few weeks he sent her back and when she got off the plane her father could tell that she was acting a little strange; over the next few days her strange tennis increased, he brought her to the hospital and she was psychiatrically admitted at [facility], where she spent 2 or 3 days and then was admitted to this hospital. Mental Status Exam Mental Status Exam Narrative: Pt is alert and oriented; behavior is cooperative, calm, flat affect, talking quietly but audibly; increased interactions with others and attending groups, interacting appropriately; patient is not in distress; dressed in hospital attire with braided hair, marginal hygiene; mood and affect still blunted but less so; speech soft, a little slowed and psychomotor retardation present, though improving; thought process goal oriented, linear, a little less concrete; Thought content is on treatment, missing her family; denies AVH; seems to be internally preoccupied but difficult to tell; Patients insight and judgment impaired but much improved Diagnostics Vital Signs (24Hr): Vital Signs - 24 hr 01/04/23 21:13 01/05/23 08:00 Temperature 97.6 F 97.5 F Pulse Rate 77 91 Respiratory Rate 18 16 Blood Pressure 124/75 123/66 Pulse Oximetry 98 99 Oxygen Delivery Method Room Air Room Air BMI result Body Mass Index 26.7 Labs 12/02/22 21:20 12/04/22 08:17 Medications Medications Current Medications Acetaminophen (Acetaminophen 325 Mg Tablet) 650 mg PO Q6H PRN PRN Reason: Headache/Pain Mild Scale (1-3) Last Admin: 12/21/22 02:55 Dose: 650 mg Al Hydroxide/Mg Hydroxide (Magnesium Hydrox/Alum Hydrox 30 Ml Oral.Susp) 30 ml PO Q6H PRN PRN Reason: Heartburn/Nausea Aripiprazole (Aripiprazole 5 Mg Tablet) 5 mg PO DAILY [facility] Last Admin: 01/05/23 08:52 Dose: 5 mg Benztropine Mesylate (Benztropine Mesylate 0.5 Mg Tablet) 0.5 mg PO BID [facility] Last Admin: 01/05/23 08:52 Dose: 0.5 mg Docusate Sodium (Docusate Sodium 100 Mg Capsule) 100 mg PO BID [facility] Last Admin: 01/05/23 08:54 Dose: Not Given Hydroxyzine HCl (Hydroxyzine Hcl 25 Mg Tablet) 25 mg PO Q6H PRN PRN Reason: Anxiety Last Admin: 12/25/22 03:53 Dose: 25 mg Magnesium Hydroxide (Milk Of Magnesia 30 Ml Oral.Susp) 30 ml PO DAILY PRN PRN Reason: Constipation Melatonin (Melatonin 3 Mg Tablet) 6 mg PO BEDTIME [facility] Last Admin: 01/04/23 21:26 Dose: 6 mg Ondansetron HCl (Ondansetron Odt 4 Mg Tab.Rapdis) 4 mg TRANSLINGU Q6H PRN PRN Reason: Nausea and Vomiting Trazodone HCl (Trazodone Hcl 50 Mg Tablet) 50 mg PO BEDTIME MRX1 PRN PRN Reason: Insomnia Last Admin: 12/27/22 20:54 Dose: 50 mg Allergies Allergies Allergy/AdvReac Type Severity Reaction Status Date / Time shrimp AdvReac Intermediate Rash Verified 12/02/22 21:40 Assessment & Plan Assessment & Plan (1) Schizophrenia: Status: Suspected Code(s): F20.9 - Schizophrenia, unspecified Plan Patient is a 27-year-old female with history of psychotic illness who presents with disorganized speech and behavior, recently discharged from [facility] but brought back to the hospital at the behest of her father. Patient having trouble focusing on conversation and is almost talking in a word salad. If asked a question she will mostly respond with some completely irrelevant and nonsensical answer. She said something about double tongs; [employer] song which she saying; physics; something about [place] in [place] and being stalked. She denies any AVH but does seem internally preoccupied. She denies any drug or alcohol use other than weed... A little. Patient gives permission for team to discuss case with her father and gives the phone number. Patient agreed to take antipsychotic medication. Later in the day, patient was more linear and organized. She agreed that she was at the hospital for help and understood criteria for having signed the CV, evidenced by asking relevant questions and later going up and asking to sign a 3 day notice. Hospital course: 12/05: contiue current treatmetn plan 12/08: Patient keeping to self. Presents guarded but organized. Pt stated, I'm feeling homesick. I'll keep taking my meds so I can leave . Patient retracted 3 day notice. denies SI/HI/VH/AH. Continue current tx plan. 12/09: Patient presents disorganized, confused with times of echolalia. When T/W would ask pt a question, pt would either repeat the question back, repeat a word from the sentence or state a word she overheard someone use who is standing within hearing distance. Patient attempted to elope from unit multiple times this morning. When T/W asked where she planned on going, pt stated, home. the realtime captioner will bring me home . T/W explained to patient she would have to wait until she improved; pt stated, okay. I can do that . Showered. Medication compliant. Added Ativan 1mg PO BID PRN and Risperdal 0.5mg PO BID PRN. 12/10: Patient presents disorganized, confused with times of echolalia. Staff reported patient was seen standing on chair, when asked reasoning, pt stated, I'm not a turkey baster . Patient unable to have logical conversation at this time. Appears restless. Medication compliant. DC Risperdal, does not seem to be improving psychosis. Start Zyprexa 5mg PO daily. Patient aware. 12/11: Patient presents disorganized, confused with times of echolalia. Patient unable to have logical conversation at this time; flight of ideas. Medication compliant. Patient standing in hallway, jumping up and down and stating I'm bat shit crazy! 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 If I don't go to medical school I'm going to [employer]. I wanna hug you! Continue taper of risperdal and increase in Zyprexa. 12/12: Increase Zyprexa tomorrow and lower Risperidone. 12/13: DC Risperidone. Continue titrating Zyprexa. Mouth checks. 12/14: remains floridly psychotic, disorganized. Will switch to Zydis and increase dose to 10mg bid (up from 5mg bid) 12/15 continue tx plan 12/16 remains dsorganized; maybe a little less...did not sleep overnight. Will increase Zydis to 20mg qhs -remote mortgage underwriter reviewed collateral and this seems to be a 1st break for patient; some psychotic symptoms coming up here in their over the past year but they emerged profoundly recently when patient got back from visiting a boyfriend in [place]. 12/17 This morning, patient was able to maintain a linear conversation with remote mortgage underwriter and then with nurse that was mostly logical. Attempted to take patient off one-to-one. Improvement did not last and patient soon dysregulated, wandering the halls, talking loudly and nonsensically; patient clawing at the doors trying to open them to leave the unit; on the phone talking to Ori a former patient that patient says she can see outside her window and thinks that the 2 are engaged. Patient also said she can see her family members outside the window. Patient told staff she feels unsafe without being on a one-to-one because there is safety in numbers. She also put soap in her mouth and explained it was because no one was with me... Patient also walking around the milieu with her hands on her neck imitating as if she is choking herself. Patient did come down some when she was replaced on one-to-one. -since patient seem to improve a little bit with increase Zyprexa dose will leave current regimen for now; however if not continued improvements will consider whether to switch medications or to and another medication, possibly Depakote 12/18 pt is minimally better than on admission, sometimes able to have and now sleeping more through the night, suggesting that Zyprexa maybe partially helpful; however, she remains significantly disorganized; debating med change vs continue w/ zyprexa. Difficult to discern if there is a manic component of if pt is just disorganzed (was not sleeping, but symptoms more psychotic than manic); considering Haldol or other 1st generatoin antipsychotic 12/19 will continue with Haldol 5 mg t.i.d. and discontinue Zyprexa. Having started Haldol, This is the 1st time patient is psychotic symptoms have been subdued. Will continue to monitor 12/20 Will increase Haldol to 10 mg b.i.d. 12/21 not sure if Haldol is working; some hints that it might be lowering symptoms. Will continue with current regimen and monitor 12/22Had an encouraging discussion with patient who was aware of person place and time, date, year, that it was Halloween; no she is at [facility] in the psychiatric unit. She is here because her parents think she has .a little to crazy.. And she agrees that they had reason to be concerned prior to admission. She says she knows she is not . Patient agrees to try getting off one-to-one. Despite this seemingly lucid conversation, patient has been telling other staff all day long that she is worried about her ; sometimes able to talk in a logical/linear way other times remains disorganized -will soon decide whether to go up on Haldol or to switch medications 12/23 continue current treatment plan 12/24 increasing haldol; added depakote 12/28Patient with flat affect, no expression, talking in monotone voice; walking more slowly. Thought content seems more vacuous, just answering questions and not referring to various thoughts she is having unlike the week prior. Patient is more organized in speech, answering questions appropriately however she is very concrete in her answers and with no extraneous words or thoughts expressed. Brazer Resistance asked about Ori a former patient about whom patient would sometimes expressed delusional memories, to which patient answered that was just a andrés I liked.. Which was matter of fact and without the typical additional odd or delusional comments. Denies AVH. Patient says she sleepy and over the weekend and today has been mostly keeping to herself, sleeping, not interacting with others, unchanged previous week -Says she had a good visit with her family and that her parents told her to remain on the unit until the doctors think she is ready to go home. To that and patient agreed to retract 3 day notice. Again discussed clozapine and patient agreed to trial including weekly blood draws. -observation: On lower dose of Haldol, 10 mg b.i.d., patient with improved symptoms compared to admission, however still disorganized; with increased Haldol, adding Haldol 5 mg in the afternoon, patient was more organized thought process however significantly blunted affect and still with limited insight and ability to discuss illness 12/29Patient a little less flat today with lower dose of Haldol. She remains improved from admission but still disorganized and in the milieu patient would sit, stand again set then stand again without any obvious reason. Discussed case with colleagues who agreed that Haldol at 10 mg b.i.d. is partially helpful and at this point, having failed to resolve symptoms with 3 antipsychotic trials, the best next option is to add a 2nd antipsychotic. Discussed options which included both clozapine and Abilify. Patient is open to either, including blood draws for clozapine. However Patient's father had some hesitancy about clozapine, not sure if getting weekly blood draws was realistic. Elected to start Abilify 12/30 Still disorganized but blunted affect is resolving and Patient more expressive and more interactive. Patient remains concrete but attended group and sat appropriately and answered a question appropriately as well. Still missing her family and hopes they will visit this weekend. eKG 12/22/22: QT Int : 306 ms/ QTc Int : 432 ms 12/31 Patient nauseous today and threw up 2 times; gave Zofran and it resolved; not sure if it is due to increased Abilify or something else. However Patient a little less flat today with increased Abilify. -some mouth twitching maybe tightness in the mouth Cogentin 0.5 mg 1 time dose given 01/01 patient remains very flat, blunted affect. Also walking a little stiffly. That said she is not expressing any psychotic symptoms and her answers are more organized. Will lower Haldol to 5 mg b.i.d. to try and reduce negative symptoms and EPS; for now will leave Abilify at 5 mg per day 01/04 same presentation, flat, monotone, EPS symptoms. Not expressing psychotic, delusional thinking but far from baseline and with limited insight. Will give Cogentin 0.5 mg 1 time dose since patient already got a 0.5 mg dose this morning; will discontinue Haldol due to only partial benefit with intolerable EPS side effects; will consider whether to increase Abilify. Patient agrees to clozapine; discussed this medication at length with her father. -will consider catatonia as well if negative symptoms do not subside with discontinuation of Haldol 01/05 Patient much more organized in conversation and behavior. She waved remote mortgage underwriter over and wanted to discuss treatment. Patient said she is definitely feeling more organized in her thoughts. She volunteers that she went to group and shared appropriately (which staff corroborates) at that overall she not quite fully back to her regular self, is feeling better. She denies any AVH. Brazer Resistance inquired and patient does not remember her behaviors when she was 1st admitted and on hearing them expressed deeper understanding why she has had to remain on the unit. In discussion, patient decided that she rather remain longer on the unit for further med management rather than leaving to soon and risk having to return to the hospital. Patient shared that at baseline, she is mostly is shy and quiet person. -patient still with flat but but it is helpful to learned that patient is on the shy and quiet side at baseline. No over psychotic symptoms exhibited and patient is organized in speech and (more or less) in behavior. Haldol was discontinued and she is now only on Abilify 5 mg daily; EPS/TD/dystonia seem to be resolving, the patient is also on scheduled Cogentin. At this time it is not clear if she will remain stable with Haldol discontinued or if Abilify will proved to be adequate. Prior to being medicated patient was floridly psychotic and it is too early to tell if symptoms will return or for main resolved with current medication regimen. Will leave her on Abilify 5 mg for now and see how she does. DX: schizophrenia (provisional as need to further; rule out schizoaffective disorder and clarify timeline of symptoms) Plan: CV Q 15 minute checks Continue Abilify 5mg daily; no side effects noted (last QTC WNL; Abilify known to lower QTC if anything) Discontinue Haldol; only partially effective and causing significant negative side effects and EPS; although psychotic symptoms have lessened with Haldol, side effects will not be tolerable long-term Scheduling Cogentin 0.5 mg b.i.d. due to EPS Discontinue Ativan; patient complains of daytime tiredness Med trials discontinued during this admission: Discontinue Haldol; only partially effective and causing significant negative side effects and EPS; although psychotic symptoms have lessened with Haldol, side effects will not be tolerable long-term Discontinued Zyprexa; maybe partially effective Discontinued Risperdal; did not seem affective Discontinued depakote; was only on a low dose for few days and deemed not necessary Brazer Resistance reviewed history with director social service. Father reports that patient has been living at home with him and prior to this fall, no psychiatric events. There was a time in high school when she met a man on lying and went to [employer], though it is not clear for how long. About 6 months ago, patient moved out of her father's house so she could be more independent. She was sleeping with her roommate, had a job and was taking some classes a [employer]. It does not seem that her father was aware of her day-to-day presentations or if she had any psychotic symptoms. This past patient met man online and went down to see him in [place]. After few weeks he sent her back and when she got off the plane her father could tell that she was acting a little strange; over the next few days her strange tennis increased, he brought her to the hospital and she was psychiatrically admitted at [facility], where she spent 2 or 3 days and then was admitted to this hospital. Father reports patient is shy and quiet, but also friendly at baseline Patient educated on: diagnosis and medication risk/benefits Informed Consent: understands Reason for continued inpatient stay Substantial Risk for: rapid decompensation Time Spent With Patient Time: Total time managing care of this patient today ____ minutes.
[2023-01-05 17:15] VITALS: BP 117/63; PULSE 84; RESP 16; TEMP 36.7; O2SAT 99
[2023-01-05 18:00] VITALS: BP 117/63; PULSE 84; RESP 16
[2023-01-05] MEDS: Melatonin 3 MG TABLET 6 MG PO (20:54)
[2023-01-05] MEDS: Docusate Sodium 100 MG CAPSULE PO (20:54)
[2023-01-06] MEDS: Benztropine Mesylate 0.5 MG TABLET PO ×2 (08:59→19:51)
[2023-01-06] MEDS: ARIPiprazole 5 MG TABLET PO (08:59)
--- NOTE | 2023-01-06 12:16 | HO.PSYCHPN ---
Subjective Subjective Date of Service: 01/06/23 Reason For Visit: mood Interim History: met with patient; discussed with team Patient still with flat affect but remains with organized speech and behavior. Patient continues to report that she is feeling much more clear minded. She has no memory of her behaviors or the events that led up to this admission or while on the unit and said it was hard to hear about them yesterday when justowriter operator explained. She said that she is having trouble reading but only due to lack of motivation, and she denies being internally distracted. Patient shared about her life prior to this admission, when she was doing well, good mood and working. She said that right now she is about 4/10, 10 being her regular self however she cannot articulate what is missing. Patient shared more about her history. After high school she was living with her mom; became involved with a relationship and moved to [place] where she lived for 2 years with her boyfriend. She felt some mild depression but otherwise no other mental health issues. She returned home and lived with her father for several years, working at [employer], good mood no psychiatric symptoms. Around 2020 she started dating another man and together they moved in together during which time she worked at a [employer] and took a college class; together they moved to [place] for about a year. Little over a month ago patient became came confused though she has no idea why; she was trying to come home but could not figure out how to get herself to the airport. Otherwise she has no clear memory of what she was experiencing or her behaviors that led to her hospitalization at [facility] and then this 1 at [place]. Mental Status Exam Mental Status Exam Narrative: Pt is alert and oriented; behavior is cooperative, calm, flat affect, talking quietly but audibly; increased interactions with others and attending groups, interacting appropriately; patient is not in distress; dressed in casual attire with braided hair, marginal hygiene; mood and affect still blunted but less so; speech soft, a little slowed with some latency; psychomotor retardation present, though improving; thought process goal oriented, linear, a little less concrete; Thought content is on treatment, missing her family; denies AVH; seems to be internally distracted however denies any AVH; Patients insight and judgment impaired but much improved Diagnostics Vital Signs (24Hr): Vital Signs - 24 hr 01/05/23 17:15 01/05/23 18:00 Temperature 98.1 F Pulse Rate 84 84 Respiratory Rate 16 16 Blood Pressure 117/63 117/63 Pulse Oximetry 99 Oxygen Delivery Method Room Air BMI result Body Mass Index 26.7 Labs 12/02/22 21:20 12/04/22 08:17 Medications Medications Current Medications Acetaminophen (Acetaminophen 325 Mg Tablet) 650 mg PO Q6H PRN PRN Reason: Headache/Pain Mild Scale (1-3) Last Admin: 12/21/22 02:55 Dose: 650 mg Al Hydroxide/Mg Hydroxide (Magnesium Hydrox/Alum Hydrox 30 Ml Oral.Susp) 30 ml PO Q6H PRN PRN Reason: Heartburn/Nausea Aripiprazole (Aripiprazole 5 Mg Tablet) 5 mg PO DAILY [facility] Last Admin: 01/06/23 08:59 Dose: 5 mg Benztropine Mesylate (Benztropine Mesylate 0.5 Mg Tablet) 0.5 mg PO BID [facility] Last Admin: 01/06/23 08:59 Dose: 0.5 mg Docusate Sodium (Docusate Sodium 100 Mg Capsule) 100 mg PO BID [facility] Last Admin: 01/06/23 09:00 Dose: Not Given Hydroxyzine HCl (Hydroxyzine Hcl 25 Mg Tablet) 25 mg PO Q6H PRN PRN Reason: Anxiety Last Admin: 12/25/22 03:53 Dose: 25 mg Magnesium Hydroxide (Milk Of Magnesia 30 Ml Oral.Susp) 30 ml PO DAILY PRN PRN Reason: Constipation Melatonin (Melatonin 3 Mg Tablet) 6 mg PO BEDTIME [facility] Last Admin: 01/05/23 20:54 Dose: 6 mg Ondansetron HCl (Ondansetron Odt 4 Mg Tab.Rapdis) 4 mg TRANSLINGU Q6H PRN PRN Reason: Nausea and Vomiting Trazodone HCl (Trazodone Hcl 50 Mg Tablet) 50 mg PO BEDTIME MRX1 PRN PRN Reason: Insomnia Last Admin: 12/27/22 20:54 Dose: 50 mg Allergies Allergies Allergy/AdvReac Type Severity Reaction Status Date / Time shrimp AdvReac Intermediate Rash Verified 12/02/22 21:40 Assessment & Plan Assessment & Plan (1) Schizophrenia: Status: Suspected Code(s): F20.9 - Schizophrenia, unspecified Plan Patient is a 27-year-old female with history of psychotic illness who presents with disorganized speech and behavior, recently discharged from [facility] but brought back to the hospital at the behest of her father. Patient having trouble focusing on conversation and is almost talking in a word salad. If asked a question she will mostly respond with some completely irrelevant and nonsensical answer. She said something about double tongs; Cathi Barakat song which she saying; physics; something about [place] in [place] and being stalked. She denies any AVH but does seem internally preoccupied. She denies any drug or alcohol use other than weed... A little. Patient gives permission for team to discuss case with her father and gives the phone number. Patient agreed to take antipsychotic medication. Later in the day, patient was more linear and organized. She agreed that she was at the hospital for help and understood criteria for having signed the CV, evidenced by asking relevant questions and later going up and asking to sign a 3 day notice. Hospital course: 12/05: contiue current treatmetn plan 12/08: Patient keeping to self. Presents guarded but organized. Pt stated, I'm feeling homesick. I'll keep taking my meds so I can leave . Patient retracted 3 day notice. denies SI/HI/VH/AH. Continue current tx plan. 12/09: Patient presents disorganized, confused with times of echolalia. When T/W would ask pt a question, pt would either repeat the question back, repeat a word from the sentence or state a word she overheard someone use who is standing within hearing distance. Patient attempted to elope from unit multiple times this morning. When T/W asked where she planned on going, pt stated, home. the mainspring strip gauger will bring me home . T/W explained to patient she would have to wait until she improved; pt stated, okay. I can do that . Showered. Medication compliant. Added Ativan 1mg PO BID PRN and Risperdal 0.5mg PO BID PRN. 12/10: Patient presents disorganized, confused with times of echolalia. Staff reported patient was seen standing on chair, when asked reasoning, pt stated, I'm not a turkey baster . Patient unable to have logical conversation at this time. Appears restless. Medication compliant. DC Risperdal, does not seem to be improving psychosis. Start Zyprexa 5mg PO daily. Patient aware. 12/11: Patient presents disorganized, confused with times of echolalia. Patient unable to have logical conversation at this time; flight of ideas. Medication compliant. Patient standing in hallway, jumping up and down and stating I'm bat shit crazy! 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 If I don't go to medical school I'm going to [place]. I wanna hug you! Continue taper of risperdal and increase in Zyprexa. 12/12: Increase Zyprexa tomorrow and lower Risperidone. 12/13: DC Risperidone. Continue titrating Zyprexa. Mouth checks. 12/14: remains floridly psychotic, disorganized. Will switch to Zydis and increase dose to 10mg bid (up from 5mg bid) 12/15 continue tx plan 12/16 remains dsorganized; maybe a little less...did not sleep overnight. Will increase Zydis to 20mg qhs -justowriter operator reviewed collateral and this seems to be a 1st break for patient; some psychotic symptoms coming up here in their over the past year but they emerged profoundly recently when patient got back from visiting a boyfriend in [place]. 12/17 This morning, patient was able to maintain a linear conversation with justowriter operator and then with nurse that was mostly logical. Attempted to take patient off one-to-one. Improvement did not last and patient soon dysregulated, wandering the halls, talking loudly and nonsensically; patient clawing at the doors trying to open them to leave the unit; on the phone talking to Ori shay former patient that patient says she can see outside her window and thinks that the 2 are engaged. Patient also said she can see her family members outside the window. Patient told staff she feels unsafe without being on a one-to-one because there is safety in numbers. She also put soap in her mouth and explained it was because no one was with me... Patient also walking around the milieu with her hands on her neck imitating as if she is choking herself. Patient did come down some when she was replaced on one-to-one. -since patient seem to improve a little bit with increase Zyprexa dose will leave current regimen for now; however if not continued improvements will consider whether to switch medications or to and another medication, possibly Depakote 12/18 pt is minimally better than on admission, sometimes able to have and now sleeping more through the night, suggesting that Zyprexa maybe partially helpful; however, she remains significantly disorganized; debating med change vs continue w/ zyprexa. Difficult to discern if there is a manic component of if pt is just disorganzed (was not sleeping, but symptoms more psychotic than manic); considering Haldol or other 1st generatoin antipsychotic 12/19 will continue with Haldol 5 mg t.i.d. and discontinue Zyprexa. Having started Haldol, This is the 1st time patient is psychotic symptoms have been subdued. Will continue to monitor 12/20 Will increase Haldol to 10 mg b.i.d. 12/21 not sure if Haldol is working; some hints that it might be lowering symptoms. Will continue with current regimen and monitor 12/22Had an encouraging discussion with patient who was aware of person place and time, date, year, that it was Halloween; no she is at [facility] in the psychiatric unit. She is here because her parents think she has .a little to crazy.. And she agrees that they had reason to be concerned prior to admission. She says she knows she is not . Patient agrees to try getting off one-to-one. Despite this seemingly lucid conversation, patient has been telling other staff all day long that she is worried about her ; sometimes able to talk in a logical/linear way other times remains disorganized -will soon decide whether to go up on Haldol or to switch medications 12/23 continue current treatment plan 12/24 increasing haldol; added depakote 12/28Patient with flat affect, no expression, talking in monotone voice; walking more slowly. Thought content seems more vacuous, just answering questions and not referring to various thoughts she is having unlike the week prior. Patient is more organized in speech, answering questions appropriately however she is very concrete in her answers and with no extraneous words or thoughts expressed. Toll Line Inspector asked about Ori a former patient about whom patient would sometimes expressed delusional memories, to which patient answered that was just a andrés I liked.. Which was matter of fact and without the typical additional odd or delusional comments. Denies AVH. Patient says she sleepy and over the weekend and today has been mostly keeping to herself, sleeping, not interacting with others, unchanged previous week -Says she had a good visit with her family and that her parents told her to remain on the unit until the doctors think she is ready to go home. To that and patient agreed to retract 3 day notice. Again discussed clozapine and patient agreed to trial including weekly blood draws. -observation: On lower dose of Haldol, 10 mg b.i.d., patient with improved symptoms compared to admission, however still disorganized; with increased Haldol, adding Haldol 5 mg in the afternoon, patient was more organized thought process however significantly blunted affect and still with limited insight and ability to discuss illness 12/29Patient a little less flat today with lower dose of Haldol. She remains improved from admission but still disorganized and in the milieu patient would sit, stand again set then stand again without any obvious reason. Discussed case with colleagues who agreed that Haldol at 10 mg b.i.d. is partially helpful and at this point, having failed to resolve symptoms with 3 antipsychotic trials, the best next option is to add a 2nd antipsychotic. Discussed options which included both clozapine and Abilify. Patient is open to either, including blood draws for clozapine. However Patient's father had some hesitancy about clozapine, not sure if getting weekly blood draws was realistic. Elected to start Abilify 12/30 Still disorganized but blunted affect is resolving and Patient more expressive and more interactive. Patient remains concrete but attended group and sat appropriately and answered a question appropriately as well. Still missing her family and hopes they will visit this weekend. eKG 12/22/22: QT Int : 306 ms/ QTc Int : 432 ms 12/31 Patient nauseous today and threw up 2 times; gave Zofran and it resolved; not sure if it is due to increased Abilify or something else. However Patient a little less flat today with increased Abilify. -some mouth twitching maybe tightness in the mouth Cogentin 0.5 mg 1 time dose given 01/01 patient remains very flat, blunted affect. Also walking a little stiffly. That said she is not expressing any psychotic symptoms and her answers are more organized. Will lower Haldol to 5 mg b.i.d. to try and reduce negative symptoms and EPS; for now will leave Abilify at 5 mg per day 01/04 same presentation, flat, monotone, EPS symptoms. Not expressing psychotic, delusional thinking but far from baseline and with limited insight. Will give Cogentin 0.5 mg 1 time dose since patient already got a 0.5 mg dose this morning; will discontinue Haldol due to only partial benefit with intolerable EPS side effects; will consider whether to increase Abilify. Patient agrees to clozapine; discussed this medication at length with her father. -will consider catatonia as well if negative symptoms do not subside with discontinuation of Haldol 01/05 Patient much more organized in conversation and behavior. She waved justowriter operator over and wanted to discuss treatment. Patient said she is definitely feeling more organized in her thoughts. She volunteers that she went to group and shared appropriately (which staff corroborates) at that overall she not quite fully back to her regular self, is feeling better. She denies any AVH. Toll Line Inspector inquired and patient does not remember her behaviors when she was 1st admitted and on hearing them expressed deeper understanding why she has had to remain on the unit. In discussion, patient decided that she rather remain longer on the unit for further med management rather than leaving to soon and risk having to return to the hospital. Patient shared that at baseline, she is mostly is shy and quiet person. -patient still with flat but but it is helpful to learned that patient is on the shy and quiet side at baseline. No over psychotic symptoms exhibited and patient is organized in speech and (more or less) in behavior. Haldol was discontinued and she is now only on Abilify 5 mg daily; EPS/TD/dystonia seem to be resolving, the patient is also on scheduled Cogentin. At this time it is not clear if she will remain stable with Haldol discontinued or if Abilify will proved to be adequate. Prior to being medicated patient was floridly psychotic and it is too early to tell if symptoms will return or for main resolved with current medication regimen. Will leave her on Abilify 5 mg for now and see how she does. 01/06 Patient still with flat affect but remains with organized speech and behavior; feeling much more clear minded; denies AVH. No memory of her behaviors/ events surrounding decompensation/admissions and says hard to hear about them. Thinks that currently she is at a 4/10 (10 being her regular self) however she cannot articulate what is missing. DX: schizophrenia (provisional as need to further; rule out schizoaffective disorder and clarify timeline of symptoms) Plan: CV Q 15 minute checks Continue Abilify 5mg daily; no side effects noted (last QTC WNL; Abilify known to lower QTC if anything) Discontinue Haldol; only partially effective and causing significant negative side effects and EPS; although psychotic symptoms have lessened with Haldol, side effects will not be tolerable long-term Scheduling Cogentin 0.5 mg b.i.d. due to EPS Discontinue Ativan; patient complains of daytime tiredness Med trials discontinued during this admission: Discontinue Haldol; only partially effective and causing significant negative side effects and EPS; although psychotic symptoms have lessened with Haldol, side effects will not be tolerable long-term Discontinued Zyprexa; maybe partially effective Discontinued Risperdal; did not seem affective Discontinued depakote; was only on a low dose for few days and deemed not necessary Toll Line Inspector reviewed history with social services analyst. Lived with her father through high school. After high school she was living with her mom during which time became involved in a relationship and moved to [place] where she lived for 2 years with her boyfriend; some mild depression but otherwise no other mental health issues. She returned home and lived with her father for several years, working at [employer], good mood no psychiatric symptoms. 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 This past fall, Little over a month ago patient became came confused though she has no idea why; either he sent her home or she was trying to come home but she could not figure out how to get herself to the airport. She has no other memory of what she was experiencing or her behaviors that led to her hospitalization at [facility] and then this 1 at [place]. -when she got off the plane her father could tell that she was acting a little strange; over the next few days her strangeness increased, he brought her to the hospital and she was psychiatrically admitted at [facility], where she spent 2 or 3 days and then was admitted to this hospital. Father reports patient is shy and quiet, but also friendly at baseline Patient educated on: diagnosis and medication risk/benefits Informed Consent: understands and further education needed Reason for continued inpatient stay Substantial Risk for: rapid decompensation Time Spent With Patient Time: Total time managing care of this patient today ____ minutes.
[2023-01-06 18:00] VITALS: BP 116/76; PULSE 76; TEMP 36.8; O2SAT 98
[2023-01-06] MEDS: Melatonin 3 MG TABLET 6 MG PO (19:51)
[2023-01-06] MEDS: Docusate Sodium 100 MG CAPSULE PO (19:52)
[2023-01-06] MEDS: traZODone HCL 50 MG TABLET PO (19:52)
[2023-01-07 07:50] VITALS: BP 136/74; PULSE 100; RESP 18; TEMP 36.4; O2SAT 99
[2023-01-07] MEDS: Benztropine Mesylate 0.5 MG TABLET PO ×2 (08:47→20:27)
[2023-01-07] MEDS: ARIPiprazole 5 MG TABLET PO (08:47)
[2023-01-07 14:05] VITALS: BMI 26.1
--- NOTE | 2023-01-07 15:16 | P.PNPSI_ITS ---
Subjective Subjective Date of Service: 01/07/23 Reason For Visit: mood Interim History: Met with patient; discussed with team No change in presentation; continues to have flat affect and often keeps to herself however she remains with organized speech, linear and logical. Patient shared how she like group today which she explained was about passive aggressiveness and relationships. Patient shared how this applied to her past relationships gave example. She clarified that she and her [place] boyfriend broke up due to problems with his parents; they had a fight and patient wanted to return home. Around this time however she did start getting confused. Talked about history of cannabis use which was every few days and only for a few months while in [place], always bought at a dispensary; no other drug or alcohol use. Mental Status Exam Mental Status Exam Narrative: Pt is alert and oriented; behavior is cooperative, calm, flat affect, talking quietly but audibly; increased interactions with others and attending groups, interacting appropriately; patient is not in distress; dressed in casual attire with braided hair, marginal hygiene; mood and affect still blunted but less so; speech soft, a little slowed with some latency; psychomotor retardation present, though improving; thought process goal oriented, linear, a little less concrete; Thought content is on treatment, missing her family; denies AVH; seems to be internally distracted however denies any AVH; Patients insight and judgment impaired but much improved Diagnostics Vital Signs (24Hr): Vital Signs - 24 hr 01/06/23 18:00 01/07/23 07:50 Temperature 98.2 F 97.6 F Pulse Rate 76 100 Respiratory Rate 18 Blood Pressure 116/76 136/74 Pulse Oximetry 98 99 Oxygen Delivery Method Room Air Room Air BMI result Body Mass Index 26.1 Labs 12/02/22 21:20 12/04/22 08:17 Medications Medications Current Medications Acetaminophen (Acetaminophen 325 Mg Tablet) 650 mg PO Q6H PRN PRN Reason: Headache/Pain Mild Scale (1-3) Last Admin: 12/21/22 02:55 Dose: 650 mg Al Hydroxide/Mg Hydroxide (Magnesium Hydrox/Alum Hydrox 30 Ml Oral.Susp) 30 ml PO Q6H PRN PRN Reason: Heartburn/Nausea Aripiprazole (Aripiprazole 5 Mg Tablet) 5 mg PO DAILY LETTY Last Admin: 01/07/23 08:47 Dose: 5 mg Benztropine Mesylate (Benztropine Mesylate 0.5 Mg Tablet) 0.5 mg PO BID [facility] Last Admin: 01/07/23 08:47 Dose: 0.5 mg Docusate Sodium (Docusate Sodium 100 Mg Capsule) 100 mg PO BID [facility] Last Admin: 01/07/23 08:46 Dose: Not Given Hydroxyzine HCl (Hydroxyzine Hcl 25 Mg Tablet) 25 mg PO Q6H PRN PRN Reason: Anxiety Last Admin: 12/25/22 03:53 Dose: 25 mg Magnesium Hydroxide (Milk Of Magnesia 30 Ml Oral.Susp) 30 ml PO DAILY PRN PRN Reason: Constipation Melatonin (Melatonin 3 Mg Tablet) 6 mg PO BEDTIME [facility] Last Admin: 01/06/23 19:51 Dose: 6 mg Ondansetron HCl (Ondansetron Odt 4 Mg Tab.Rapdis) 4 mg TRANSLINGU Q6H PRN PRN Reason: Nausea and Vomiting Trazodone HCl (Trazodone Hcl 50 Mg Tablet) 50 mg PO BEDTIME MRX1 PRN PRN Reason: Insomnia Last Admin: 01/06/23 19:52 Dose: 50 mg Allergies Allergies Allergy/AdvReac Type Severity Reaction Status Date / Time shrimp AdvReac Intermediate Rash Verified 12/02/22 21:40 Assessment & Plan Assessment & Plan (1) Schizophrenia: Status: Suspected Code(s): F20.9 - Schizophrenia, unspecified Plan Patient is a 27-year-old female with history of psychotic illness who presents with disorganized speech and behavior, recently discharged from [facility] but brought back to the hospital at the behest of her father. Patient having trouble focusing on conversation and is almost talking in a word salad. If asked a question she will mostly respond with some completely irrelevant and nonsensical answer. She said something about double tongs; Spoqa song which she saying; physics; something about [place] in [place] and being stalked. She denies any AVH but does seem internally preoccupied. She denies any drug or alcohol use other than weed... A little. Patient gives permission for team to discuss case with her father and gives the phone number. Patient agreed to take antipsychotic medication. Later in the day, patient was more linear and organized. She agreed that she was at the hospital for help and understood criteria for having signed the CV, evidenced by asking relevant questions and later going up and asking to sign a 3 day notice. Hospital course: 12/05: contiue current treatmetn plan 12/08: Patient keeping to self. Presents guarded but organized. Pt stated, I'm feeling homesick. I'll keep taking my meds so I can leave . Patient retracted 3 day notice. denies SI/HI/VH/AH. Continue current tx plan. 12/09: Patient presents disorganized, confused with times of echolalia. When T/W would ask pt a question, pt would either repeat the question back, repeat a word from the sentence or state a word she overheard someone use who is standing within hearing distance. Patient attempted to elope from unit multiple times this morning. When T/W asked where she planned on going, pt stated, home. the felt hat pouncing operator hand will bring me home . T/W explained to patient she would have to wait until she improved; pt stated, okay. I can do that . Showered. Medication compliant. Added Ativan 1mg PO BID PRN and Risperdal 0.5mg PO BID PRN. 12/10: Patient presents disorganized, confused with times of echolalia. Staff reported patient was seen standing on chair, when asked reasoning, pt stated, I'm not a turkey baster . Patient unable to have logical conversation at this time. Appears restless. Medication compliant. DC Risperdal, does not seem to be improving psychosis. Start Zyprexa 5mg PO daily. Patient aware. 12/11: Patient presents disorganized, confused with times of echolalia. Patient unable to have logical conversation at this time; flight of ideas. Medication compliant. Patient standing in hallway, jumping up and down and stating I'm bat shit crazy! 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 If I don't go to medical school I'm going to [place] [employer]. I wanna hug you! Continue taper of risperdal and increase in Zyprexa. 12/12: Increase Zyprexa tomorrow and lower Risperidone. 12/13: DC Risperidone. Continue titrating Zyprexa. Mouth checks. 12/14: remains floridly psychotic, disorganized. Will switch to Zydis and increase dose to 10mg bid (up from 5mg bid) 12/15 continue tx plan 12/16 remains dsorganized; maybe a little less...did not sleep overnight. Will increase Zydis to 20mg qhs -commercial insurance underwriter reviewed collateral and this seems to be a 1st break for patient; some psychotic symptoms coming up here in their over the past year but they emerged profoundly recently when patient got back from visiting a boyfriend in [place]. 12/17 This morning, patient was able to maintain a linear conversation with commercial insurance underwriter and then with nurse that was mostly logical. Attempted to take patient off one-to-one. Improvement did not last and patient soon dysregulated, wandering the halls, talking loudly and nonsensically; patient clawing at the doors trying to open them to leave the unit; on the phone talking to Ori a former patient that patient says she can see outside her window and thinks that the 2 are engaged. Patient also said she can see her family members outside the window. Patient told staff she feels unsafe without being on a one-to-one because there is safety in numbers. She also put soap in her mouth and explained it was because no one was with me... Patient also walking around the milieu with her hands on her neck imitating as if she is choking herself. Patient did come down some when she was replaced on one-to-one. -since patient seem to improve a little bit with increase Zyprexa dose will leave current regimen for now; however if not continued improvements will consider whether to switch medications or to and another medication, possibly Depakote 12/18 pt is minimally better than on admission, sometimes able to have and now sleeping more through the night, suggesting that Zyprexa maybe partially helpful; however, she remains significantly disorganized; debating med change vs continue w/ zyprexa. Difficult to discern if there is a manic component of if pt is just disorganzed (was not sleeping, but symptoms more psychotic than manic); considering Haldol or other 1st generatoin antipsychotic 12/19 will continue with Haldol 5 mg t.i.d. and discontinue Zyprexa. Having started Haldol, This is the 1st time patient is psychotic symptoms have been subdued. Will continue to monitor 12/20 Will increase Haldol to 10 mg b.i.d. 12/21 not sure if Haldol is working; some hints that it might be lowering symptoms. Will continue with current regimen and monitor 12/22Had an encouraging discussion with patient who was aware of person place and time, date, year, that it was Halloween; no she is at [facility] in the psychiatric unit. She is here because her parents think she has .a little to crazy.. And she agrees that they had reason to be concerned prior to admission. She says she knows she is not . Patient agrees to try getting off one-to-one. Despite this seemingly lucid conversation, patient has been telling other staff all day long that she is worried about her ; sometimes able to talk in a logical/linear way other times remains disorganized -will soon decide whether to go up on Haldol or to switch medications 12/23 continue current treatment plan 12/24 increasing haldol; added depakote 12/28Patient with flat affect, no expression, talking in monotone voice; walking more slowly. Thought content seems more vacuous, just answering questions and not referring to various thoughts she is having unlike the week prior. Patient is more organized in speech, answering questions appropriately however she is very concrete in her answers and with no extraneous words or thoughts expressed. [employer] asked about Ori a former patient about whom patient would sometimes expressed delusional memories, to which patient answered that was just a andrés I liked.. Which was matter of fact and without the typical additional odd or delusional comments. Denies AVH. Patient says she sleepy and over the weekend and today has been mostly keeping to herself, sleeping, not interacting with others, unchanged previous week -Says she had a good visit with her family and that her parents told her to remain on the unit until the doctors think she is ready to go home. To that and patient agreed to retract 3 day notice. Again discussed clozapine and patient agreed to trial including weekly blood draws. -observation: On lower dose of Haldol, 10 mg b.i.d., patient with improved symptoms compared to admission, however still disorganized; with increased Haldol, adding Haldol 5 mg in the afternoon, patient was more organized thought process however significantly blunted affect and still with limited insight and ability to discuss illness 12/29Patient a little less flat today with lower dose of Haldol. She remains improved from admission but still disorganized and in the milieu patient would sit, stand again set then stand again without any obvious reason. Discussed case with colleagues who agreed that Haldol at 10 mg b.i.d. is partially helpful and at this point, having failed to resolve symptoms with 3 antipsychotic trials, the best next option is to add a 2nd antipsychotic. Discussed options which included both clozapine and Abilify. Patient is open to either, including blood draws for clozapine. However Patient's father had some hesitancy about clozapine, not sure if getting weekly blood draws was realistic. Elected to start Abilify 12/30 Still disorganized but blunted affect is resolving and Patient more expressive and more interactive. Patient remains concrete but attended group and sat appropriately and answered a question appropriately as well. Still missing her family and hopes they will visit this weekend. eKG 12/22/22: QT Int : 306 ms/ QTc Int : 432 ms 12/31 Patient nauseous today and threw up 2 times; gave Zofran and it resolved; not sure if it is due to increased Abilify or something else. However Patient a little less flat today with increased Abilify. -some mouth twitching maybe tightness in the mouth Cogentin 0.5 mg 1 time dose given 01/01 patient remains very flat, blunted affect. Also walking a little stiffly. That said she is not expressing any psychotic symptoms and her answers are more organized. Will lower Haldol to 5 mg b.i.d. to try and reduce negative symptoms and EPS; for now will leave Abilify at 5 mg per day 01/04 same presentation, flat, monotone, EPS symptoms. Not expressing psychotic, delusional thinking but far from baseline and with limited insight. Will give Cogentin 0.5 mg 1 time dose since patient already got a 0.5 mg dose this morning; will discontinue Haldol due to only partial benefit with intolerable EPS side effects; will consider whether to increase Abilify. Patient agrees to clozapine; discussed this medication at length with her father. -will consider catatonia as well if negative symptoms do not subside with discontinuation of Haldol 01/05 Patient much more organized in conversation and behavior. She waved commercial insurance underwriter over and wanted to discuss treatment. Patient said she is definitely feeling more organized in her thoughts. She volunteers that she went to group and shared appropriately (which staff corroborates) at that overall she not quite fully back to her regular self, is feeling better. She denies any AVH. [employer] inquired and patient does not remember her behaviors when she was 1st admitted and on hearing them expressed deeper understanding why she has had to remain on the unit. In discussion, patient decided that she rather remain longer on the unit for further med management rather than leaving to soon and risk having to return to the hospital. Patient shared that at baseline, she is mostly is shy and quiet person. -patient still with flat but but it is helpful to learned that patient is on the shy and quiet side at baseline. No over psychotic symptoms exhibited and patient is organized in speech and (more or less) in behavior. Haldol was discontinued and she is now only on Abilify 5 mg daily; EPS/TD/dystonia seem to be resolving, the patient is also on scheduled Cogentin. At this time it is not clear if she will remain stable with Haldol discontinued or if Abilify will proved to be adequate. Prior to being medicated patient was floridly psychotic and it is too early to tell if symptoms will return or for main resolved with current medication regimen. Will leave her on Abilify 5 mg for now and see how she does. 01/06 Patient still with flat affect but remains with organized speech and behavior; feeling much more clear minded; denies AVH. No memory of her behaviors/ events surrounding decompensation/admissions and says hard to hear about them. Thinks that currently she is at a 4/10 (10 being her regular self) however she cannot articulate what is missing. 01/07 No change in presentation; continues to have flat affect and often keeps to herself however she remains with organized speech, linear and logical. Patient shared about group; applied it to her own life. She clarified that she and her [place] boyfriend broke up due to problems with his parents; they had a fight and patient wanted to return home. Around this time however she did start getting confused. hx of cannabis use started in [place], eat gummies only ever bought at a dispensary and used every few days and for a few months; no other drug or alcohol use. At this time will continue with current medication regimen of Abilify 5 mg. Will continue to monitor and see if patient's symptoms reappear or if she is able to remain stable. DX: schizophrenia (provisional as need to further; rule out schizoaffective disorder and clarify timeline of symptoms) Plan: CV Q 15 minute checks Continue Abilify 5mg daily; no side effects noted (last QTC WNL; Abilify known to lower QTC if anything) Discontinue Haldol; only partially effective and causing significant negative side effects and EPS; although psychotic symptoms have lessened with Haldol, side effects will not be tolerable long-term Scheduling Cogentin 0.5 mg b.i.d. due to EPS Discontinue Ativan; patient complains of daytime tiredness Med trials discontinued during this admission: Discontinue Haldol; only partially effective and causing significant negative side effects and EPS; although psychotic symptoms have lessened with Haldol, side effects will not be tolerable long-term Discontinued Zyprexa; maybe partially effective Discontinued Risperdal; did not seem affective Discontinued depakote; was only on a low dose for few days and deemed not necessary [employer] reviewed history with social insurance adviser. Lived with her father through high school. After high school she was living with her mom during which time became involved in a relationship and moved to [place] where she lived for 2 years with her boyfriend; some mild depression but otherwise no other mental health issues. She returned home and lived with her father for several years, working at [employer], good mood no psychiatric symptoms. 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 This past fall, [place] over a month ago patient became came confused though she has no idea why; either he sent her home or she was trying to come home but she could not figure out how to get herself to the airport. She has no other memory of what she was experiencing or her behaviors that led to her hospitalization at [facility] and then this 1 at [place]. -when she got off the plane her father could tell that she was acting a little strange; over the next few days her strangeness increased, he brought her to the hospital and she was psychiatrically admitted at [facility], where she spent 2 or 3 days and then was admitted to this hospital. Father reports patient is shy and quiet, but also friendly at baseline Patient educated on: diagnosis, medication risk/benefits and substance abuse Informed Consent: understands and further education needed Reason for continued inpatient stay Substantial Risk for: rapid decompensation Time Spent With Patient Time: Total time managing care of this patient today ____ minutes.
[2023-01-07 18:00] VITALS: BP 120/65; PULSE 81; TEMP 36.4; O2SAT 98
[2023-01-07] MEDS: Docusate Sodium 100 MG CAPSULE PO (20:27)
[2023-01-07] MEDS: Melatonin 3 MG TABLET 6 MG PO (20:27)
[2023-01-08 08:00] VITALS: BP 106/60; PULSE 97; RESP 16; TEMP 36.8; O2SAT 97
[2023-01-08] MEDS: ARIPiprazole 5 MG TABLET PO (09:20)
[2023-01-08] MEDS: Docusate Sodium 100 MG CAPSULE PO ×2 (09:20→22:43)
[2023-01-08] MEDS: Benztropine Mesylate 0.5 MG TABLET PO ×2 (09:20→22:42)
[2023-01-08] MEDS: hydrOXYzine HCL 25 MG TABLET PO ×2 (09:26→22:42)
--- NOTE | 2023-01-08 09:29 | P.PNPSI_ITS ---
Subjective Subjective Date of Service: 01/08/23 Reason For Visit: mood Interim History: Met with patient; discussed with team No change in presentation; patient said she will try to get her father to come earlier in the day tomorrow to have a family meeting. Going to select groups Mental Status Exam Mental Status Exam Narrative: Pt is alert and oriented; behavior is cooperative, calm, flat affect, talking quietly but audibly; increased interactions with others and attending groups, interacting appropriately; patient is not in distress; dressed in casual attire with braided hair, marginal hygiene; mood and affect still blunted but less so; speech soft, a little slowed with some latency; psychomotor retardation present, though improving; thought process goal oriented, linear, a little less concrete; Thought content is on treatment, missing her family; denies AVH; seems to be internally distracted however denies any AVH; Patients insight and judgment impaired but much improved Diagnostics Vital Signs (24Hr): Vital Signs - 24 hr 01/07/23 18:00 01/08/23 08:00 Temperature 97.6 F 98.2 F Pulse Rate 81 97 Respiratory Rate 16 Blood Pressure 120/65 106/60 Pulse Oximetry 98 97 Oxygen Delivery Method Room Air Room Air BMI result Body Mass Index 26.1 Labs 12/02/22 21:20 12/04/22 08:17 Medications Medications Current Medications Acetaminophen (Acetaminophen 325 Mg Tablet) 650 mg PO Q6H PRN PRN Reason: Headache/Pain Mild Scale (1-3) Last Admin: 12/21/22 02:55 Dose: 650 mg Al Hydroxide/Mg Hydroxide (Magnesium Hydrox/Alum Hydrox 30 Ml Oral.Susp) 30 ml PO Q6H PRN PRN Reason: Heartburn/Nausea Aripiprazole (Aripiprazole 5 Mg Tablet) 5 mg PO DAILY [facility] Last Admin: 01/08/23 09:20 Dose: 5 mg Benztropine Mesylate (Benztropine Mesylate 0.5 Mg Tablet) 0.5 mg PO BID [facility] Last Admin: 01/08/23 09:20 Dose: 0.5 mg Docusate Sodium (Docusate Sodium 100 Mg Capsule) 100 mg PO BID [facility] Last Admin: 01/08/23 09:20 Dose: 100 mg Hydroxyzine HCl (Hydroxyzine Hcl 25 Mg Tablet) 25 mg PO Q6H PRN PRN Reason: Anxiety Last Admin: 01/08/23 09:26 Dose: 25 mg Magnesium Hydroxide (Milk Of Magnesia 30 Ml Oral.Susp) 30 ml PO DAILY PRN PRN Reason: Constipation Melatonin (Melatonin 3 Mg Tablet) 6 mg PO BEDTIME LETTY Last Admin: 01/07/23 20:27 Dose: 6 mg Ondansetron HCl (Ondansetron Odt 4 Mg Tab.Rapdis) 4 mg TRANSLINGU Q6H PRN PRN Reason: Nausea and Vomiting Trazodone HCl (Trazodone Hcl 50 Mg Tablet) 50 mg PO BEDTIME MRX1 PRN PRN Reason: Insomnia Last Admin: 01/06/23 19:52 Dose: 50 mg Allergies Allergies Allergy/AdvReac Type Severity Reaction Status Date / Time shrimp AdvReac Intermediate Rash Verified 12/02/22 21:40 Assessment & Plan Assessment & Plan (1) Schizophrenia: Status: Suspected Code(s): F20.9 - Schizophrenia, unspecified Plan Patient is a 27-year-old female with history of psychotic illness who presents with disorganized speech and behavior, recently discharged from [facility] but brought back to the hospital at the behest of her father. Patient having trouble focusing on conversation and is almost talking in a word salad. If asked a question she will mostly respond with some completely irrelevant and nonsensical answer. She said something about [employer]; [employer] song which she saying; physics; something about [place] in [place] and being stalked. She denies any AVH but does seem internally preoccupied. She denies any drug or alcohol use other than weed... A little. Patient gives permission for team to discuss case with her father and gives the phone number. Patient agreed to take antipsychotic medication. Later in the day, patient was more linear and organized. She agreed that she was at the hospital for help and understood criteria for having signed the CV, evidenced by asking relevant questions and later going up and asking to sign a 3 day notice. Hospital course: 12/05: contiue current treatmetn plan 12/08: Patient keeping to self. Presents guarded but organized. Pt stated, I'm feeling homesick. I'll keep taking my meds so I can leave . Patient retracted 3 day notice. denies SI/HI/VH/AH. Continue current tx plan. 12/09: Patient presents disorganized, confused with times of echolalia. When T/W would ask pt a question, pt would either repeat the question back, repeat a word from the sentence or state a word she overheard someone use who is standing within hearing distance. Patient attempted to elope from unit multiple times this morning. When T/W asked where she planned on going, pt stated, home. the gynecology teacher will bring me home . T/W explained to patient she would have to wait until she improved; pt stated, okay. I can do that . Showered. Medication compliant. Added Ativan 1mg PO BID PRN and Risperdal 0.5mg PO BID PRN. 12/10: Patient presents disorganized, confused with times of echolalia. Staff reported patient was seen standing on chair, when asked reasoning, pt stated, I'm not a turkey baster . Patient unable to have logical conversation at this time. Appears restless. Medication compliant. DC Risperdal, does not seem to be improving psychosis. Start Zyprexa 5mg PO daily. Patient aware. 12/11: Patient presents disorganized, confused with times of echolalia. Patient unable to have logical conversation at this time; flight of ideas. Medication compliant. Patient standing in hallway, jumping up and down and stating I'm bat shit crazy! 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 If I don't go to medical school I'm going to [employer]. I wanna hug you! Continue taper of risperdal and increase in Zyprexa. 12/12: Increase Zyprexa tomorrow and lower Risperidone. 12/13: DC Risperidone. Continue titrating Zyprexa. Mouth checks. 12/14: remains floridly psychotic, disorganized. Will switch to Zydis and increase dose to 10mg bid (up from 5mg bid) 12/15 continue tx plan 12/16 remains dsorganized; maybe a little less...did not sleep overnight. Will increase Zydis to 20mg qhs -science writer reviewed collateral and this seems to be a 1st break for patient; some psychotic symptoms coming up here in their over the past year but they emerged profoundly recently when patient got back from visiting a boyfriend in [place]. 12/17 This morning, patient was able to maintain a linear conversation with science writer and then with nurse that was mostly logical. Attempted to take patient off one-to-one. Improvement did not last and patient soon dysregulated, wandering the halls, talking loudly and nonsensically; patient clawing at the doors trying to open them to leave the unit; on the phone talking to Ori a former patient that patient says she can see outside her window and thinks that the 2 are engaged. Patient also said she can see her family members outside the window. Patient told staff she feels unsafe without being on a one-to-one because there is safety in numbers. She also put soap in her mouth and explained it was because no one was with me... Patient also walking around the milieu with her hands on her neck imitating as if she is choking herself. Patient did come down some when she was replaced on one-to-one. -since patient seem to improve a little bit with increase Zyprexa dose will leave current regimen for now; however if not continued improvements will consider whether to switch medications or to and another medication, possibly Depakote 12/18 pt is minimally better than on admission, sometimes able to have and now sleeping more through the night, suggesting that Zyprexa maybe partially helpful; however, she remains significantly disorganized; debating med change vs continue w/ zyprexa. Difficult to discern if there is a manic component of if pt is just disorganzed (was not sleeping, but symptoms more psychotic than manic); considering Haldol or other 1st generatoin antipsychotic 12/19 will continue with Haldol 5 mg t.i.d. and discontinue Zyprexa. Having started Haldol, This is the 1st time patient is psychotic symptoms have been subdued. Will continue to monitor 12/20 Will increase Haldol to 10 mg b.i.d. 12/21 not sure if Haldol is working; some hints that it might be lowering symptoms. Will continue with current regimen and monitor 12/22Had an encouraging discussion with patient who was aware of person place and time, date, year, that it was Halloween; no she is at [facility] in the psychiatric unit. She is here because her parents think she has .a little to crazy.. And she agrees that they had reason to be concerned prior to admission. She says she knows she is not . Patient agrees to try getting off one-to-one. Despite this seemingly lucid conversation, patient has been telling other staff all day long that she is worried about her ; sometimes able to talk in a logical/linear way other times remains disorganized -will soon decide whether to go up on Haldol or to switch medications 12/23 continue current treatment plan 12/24 increasing haldol; added depakote 12/28Patient with flat affect, no expression, talking in monotone voice; walking more slowly. Thought content seems more vacuous, just answering questions and not referring to various thoughts she is having unlike the week prior. Patient is more organized in speech, answering questions appropriately however she is very concrete in her answers and with no extraneous words or thoughts expressed. Design Tech asked about Ori a former patient about whom patient would sometimes expressed delusional memories, to which patient answered that was just a andrés I liked.. Which was matter of fact and without the typical additional odd or delusional comments. Denies AVH. Patient says she sleepy and over the weekend and today has been mostly keeping to herself, sleeping, not interacting with others, unchanged previous week -Says she had a good visit with her family and that her parents told her to remain on the unit until the doctors think she is ready to go home. To that and patient agreed to retract 3 day notice. Again discussed clozapine and patient agreed to trial including weekly blood draws. -observation: On lower dose of Haldol, 10 mg b.i.d., patient with improved symptoms compared to admission, however still disorganized; with increased Haldol, adding Haldol 5 mg in the afternoon, patient was more organized thought process however significantly blunted affect and still with limited insight and ability to discuss illness 12/29Patient a little less flat today with lower dose of Haldol. She remains improved from admission but still disorganized and in the milieu patient would sit, stand again set then stand again without any obvious reason. Discussed case with colleagues who agreed that Haldol at 10 mg b.i.d. is partially helpful and at this point, having failed to resolve symptoms with 3 antipsychotic trials, the best next option is to add a 2nd antipsychotic. Discussed options which included both clozapine and Abilify. Patient is open to either, including blood draws for clozapine. However Patient's father had some hesitancy about clozapine, not sure if getting weekly blood draws was realistic. Elected to start Abilify 12/30 Still disorganized but blunted affect is resolving and Patient more expressive and more interactive. Patient remains concrete but attended group and sat appropriately and answered a question appropriately as well. Still missing her family and hopes they will visit this weekend. eKG 12/22/22: QT Int : 306 ms/ QTc Int : 432 ms 12/31 Patient nauseous today and threw up 2 times; gave Zofran and it resolved; not sure if it is due to increased Abilify or something else. However Patient a little less flat today with increased Abilify. -some mouth twitching maybe tightness in the mouth Cogentin 0.5 mg 1 time dose given 01/01 patient remains very flat, blunted affect. Also walking a little stiffly. That said she is not expressing any psychotic symptoms and her answers are more organized. Will lower Haldol to 5 mg b.i.d. to try and reduce negative symptoms and EPS; for now will leave Abilify at 5 mg per day 01/04 same presentation, flat, monotone, EPS symptoms. Not expressing psychotic, delusional thinking but far from baseline and with limited insight. Will give Cogentin 0.5 mg 1 time dose since patient already got a 0.5 mg dose this morning; will discontinue Haldol due to only partial benefit with intolerable EPS side effects; will consider whether to increase Abilify. Patient agrees to clozapine; discussed this medication at length with her father. -will consider catatonia as well if negative symptoms do not subside with discontinuation of Haldol 01/05 Patient much more organized in conversation and behavior. She waved science writer over and wanted to discuss treatment. Patient said she is definitely feeling more organized in her thoughts. She volunteers that she went to group and shared appropriately (which staff corroborates) at that overall she not quite fully back to her regular self, is feeling better. She denies any AVH. Design Tech inquired and patient does not remember her behaviors when she was 1st admitted and on hearing them expressed deeper understanding why she has had to remain on the unit. In discussion, patient decided that she rather remain longer on the unit for further med management rather than leaving to soon and risk having to return to the hospital. Patient shared that at baseline, she is mostly is shy and quiet person. -patient still with flat but but it is helpful to learned that patient is on the shy and quiet side at baseline. No over psychotic symptoms exhibited and patient is organized in speech and (more or less) in behavior. Haldol was discontinued and she is now only on Abilify 5 mg daily; EPS/TD/dystonia seem to be resolving, the patient is also on scheduled Cogentin. At this time it is not clear if she will remain stable with Haldol discontinued or if Abilify will proved to be adequate. Prior to being medicated patient was floridly psychotic and it is too early to tell if symptoms will return or for main resolved with current medication regimen. Will leave her on Abilify 5 mg for now and see how she does. 01/06 Patient still with flat affect but remains with organized speech and behavior; feeling much more clear minded; denies AVH. No memory of her behaviors/ events surrounding decompensation/admissions and says hard to hear about them. Thinks that currently she is at a 4/10 (10 being her regular self) however she cannot articulate what is missing. 01/07 No change in presentation; continues to have flat affect and often keeps to herself however she remains with organized speech, linear and logical. Patient shared about group; applied it to her own life. She clarified that she and her [place] boyfriend broke up due to problems with his parents; they had a fight and patient wanted to return home. Around this time however she did start getting confused. hx of cannabis use started in [place], eat gummies only ever bought at a dispensary and used every few days and for a few months; no other drug or alcohol use. 01/08 no change in presentation; continue current treatment plan At this time will continue with current medication regimen of Abilify 5 mg. Will continue to monitor and see if patient's symptoms reappear or if she is able to remain stable. DX: schizophrenia (provisional as need to further; rule out schizoaffective disorder and clarify timeline of symptoms) Plan: CV Q 15 minute checks Continue Abilify 5mg daily; no side effects noted (last QTC WNL; Abilify known to lower QTC if anything) Discontinue Haldol; only partially effective and causing significant negative side effects and EPS; although psychotic symptoms have lessened with Haldol, side effects will not be tolerable long-term Scheduling Cogentin 0.5 mg b.i.d. due to EPS Discontinue Ativan; patient complains of daytime tiredness Med trials discontinued during this admission: Discontinue Haldol; only partially effective and causing significant negative side effects and EPS; although psychotic symptoms have lessened with Haldol, side effects will not be tolerable long-term Discontinued Zyprexa; maybe partially effective Discontinued Risperdal; did not seem affective Discontinued depakote; was only on a low dose for few days and deemed not necessary Design Tech reviewed history with healthcare social worker. Lived with her father through high school. After high school she was living with her mom during which time became involved in a relationship and moved to [place] where she lived for 2 years with her boyfriend; some mild depression but otherwise no other mental health issues. She returned home and lived with her father for several years, working at [employer], good mood no psychiatric symptoms. Around 2020 she started dating another man and they live together during which time she worked at a [employer] and took a college class; together they moved to [place] for about a year. This past fall, [place] over a month ago patient became came confused though she has no idea why; either he sent her home or she was trying to come home but she could not figure out how to get herself to the airport. She has no other memory of what she was experiencing or her behaviors that led to her hospitalization at [facility] and then this 1 at [place]. -when she got off the plane her father could tell that she was acting a little strange; over the next few days her strangeness increased, he brought her to the hospital and she was psychiatrically admitted at [facility], where she spent 2 or 3 days and then was admitted to this hospital. Father reports patient is shy and quiet, but also friendly at baseline Patient educated on: diagnosis Informed Consent: understands and further education needed Reason for continued inpatient stay Substantial Risk for: rapid decompensation Time Spent With Patient Time: Total time managing care of this patient today ____ minutes.
[2023-01-08 17:26] VITALS: BP 123/56; PULSE 91; O2SAT 98
[2023-01-08] MEDS: traZODone HCL 50 MG TABLET PO (22:42)
[2023-01-08] MEDS: Melatonin 3 MG TABLET 6 MG PO (22:42)
[2023-01-09 08:00] VITALS: BP 137/73; PULSE 90; RESP 16; TEMP 36.8; O2SAT 97
[2023-01-09] MEDS: Benztropine Mesylate 0.5 MG TABLET PO ×2 (08:44→19:36)
[2023-01-09] MEDS: Docusate Sodium 100 MG CAPSULE PO ×2 (08:44→19:37)
[2023-01-09] MEDS: ARIPiprazole 5 MG TABLET PO (08:44)
--- NOTE | 2023-01-09 09:26 | P.PNPSI_ITS ---
Subjective Subjective Date of Service: 01/09/23 Reason For Visit: mood Interim History: Met with patient; discussed with team; family meeting with mother and father Parents shared about behaviors after coming back to [place] and patient appears to have been manic, father reporting patient was hyperactive, talking fast, cleaning excessively, not making sense, grandiose and saying she made someone a million dollars... Discussed treatment options including remaining on current medication regimen verses adding or switching to another 1 and the potential outcomes. At this time patient and family agree to remain on current treatment. Patient is still with some limited insight, not aware of her flat affect/negative symptoms. Father has great concern about patient discharging to soon and decompensating since this is what happened at last admission. Window Air Conditioner Installer has some of the same concerns and patient is still disorganized, wearing her her shoes on the opposite foot... Very concrete Mental Status Exam Mental Status Exam Narrative: Pt is alert and oriented; behavior is cooperative, calm, flat affect, talking quietly but audibly; some disorganization; increased interactions with others and attending groups, interacting appropriately; patient is not in distress; dressed in casual attire with braided hair, marginal hygiene; mood and affect still blunted but less so; speech soft, a little slowed with some latency; psychomotor retardation present, though improving; thought process goal oriented, linear, a little less concrete; Thought content is on treatment, missing her family; denies AVH; seems to be internally distracted however denies any AVH; Patients insight and judgment impaired but much improved Diagnostics Vital Signs (24Hr): Vital Signs - 24 hr 01/08/23 17:26 01/09/23 08:00 Temperature 98.2 F Pulse Rate 91 90 Respiratory Rate 16 Blood Pressure 123/56 L 137/73 Pulse Oximetry 98 97 Oxygen Delivery Method Room Air Room Air BMI result Body Mass Index 26.1 Labs 12/02/22 21:20 12/04/22 08:17 Medications Medications Current Medications Acetaminophen (Acetaminophen 325 Mg Tablet) 650 mg PO Q6H PRN PRN Reason: Headache/Pain Mild Scale (1-3) Last Admin: 12/21/22 02:55 Dose: 650 mg Al Hydroxide/Mg Hydroxide (Magnesium Hydrox/Alum Hydrox 30 Ml Oral.Susp) 30 ml PO Q6H PRN PRN Reason: Heartburn/Nausea Aripiprazole (Aripiprazole 5 Mg Tablet) 5 mg PO DAILY [facility] Last Admin: 01/09/23 08:44 Dose: 5 mg Benztropine Mesylate (Benztropine Mesylate 0.5 Mg Tablet) 0.5 mg PO BID [facility] Last Admin: 01/09/23 08:44 Dose: 0.5 mg Docusate Sodium (Docusate Sodium 100 Mg Capsule) 100 mg PO BID [facility] Last Admin: 01/09/23 08:44 Dose: 100 mg Hydroxyzine HCl (Hydroxyzine Hcl 25 Mg Tablet) 25 mg PO Q6H PRN PRN Reason: Anxiety Last Admin: 01/08/23 22:42 Dose: 25 mg Magnesium Hydroxide (Milk Of Magnesia 30 Ml Oral.Susp) 30 ml PO DAILY PRN PRN Reason: Constipation Melatonin (Melatonin 3 Mg Tablet) 6 mg PO BEDTIME [facility] Last Admin: 01/08/23 22:42 Dose: 6 mg Ondansetron HCl (Ondansetron Odt 4 Mg Tab.Rapdis) 4 mg TRANSLINGU Q6H PRN PRN Reason: Nausea and Vomiting Trazodone HCl (Trazodone Hcl 50 Mg Tablet) 50 mg PO BEDTIME MRX1 PRN PRN Reason: Insomnia Last Admin: 01/08/23 22:42 Dose: 50 mg Allergies Allergies Allergy/AdvReac Type Severity Reaction Status Date / Time shrimp AdvReac Intermediate Rash Verified 12/02/22 21:40 Assessment & Plan Assessment & Plan (1) Schizophrenia: Status: Suspected Code(s): F20.9 - Schizophrenia, unspecified Plan Patient is a 27-year-old female with history of psychotic illness who presents with disorganized speech and behavior, recently discharged from [facility] but brought back to the hospital at the behest of her father. Patient having trouble focusing on conversation and is almost talking in a word salad. If asked a question she will mostly respond with some completely irrelevant and nonsensical answer. She said something about [employer]; [employer] song which she saying; physics; something about [place] in [place] and being stalked. She denies any AVH but does seem internally preoccupied. She denies any drug or alcohol use other than weed... A little. Patient gives permission for team to discuss case with her father and gives the phone number. Patient agreed to take antipsychotic medication. Later in the day, patient was more linear and organized. She agreed that she was at the hospital for help and understood criteria for having signed the CV, evidenced by asking relevant questions and later going up and asking to sign a 3 day notice. Hospital course: 12/05: contiue current treatmetn plan 12/08: Patient keeping to self. Presents guarded but organized. Pt stated, I'm feeling homesick. I'll keep taking my meds so I can leave . Patient retracted 3 day notice. denies SI/HI/VH/AH. Continue current tx plan. 12/09: Patient presents disorganized, confused with times of echolalia. When T/W would ask pt a question, pt would either repeat the question back, repeat a word from the sentence or state a word she overheard someone use who is standing within hearing distance. Patient attempted to elope from unit multiple times this morning. When T/W asked where she planned on going, pt stated, home. the tank maker wood will bring me home . T/W explained to patient she would have to wait until she improved; pt stated, okay. I can do that . Showered. Medication compliant. Added Ativan 1mg PO BID PRN and Risperdal 0.5mg PO BID PRN. 12/10: Patient presents disorganized, confused with times of echolalia. Staff reported patient was seen standing on chair, when asked reasoning, pt stated, I'm not a turkey baster . Patient unable to have logical conversation at this time. Appears restless. Medication compliant. DC Risperdal, does not seem to be improving psychosis. Start Zyprexa 5mg PO daily. Patient aware. 12/11: Patient presents disorganized, confused with times of echolalia. Patient unable to have logical conversation at this time; flight of ideas. Medication compliant. Patient standing in hallway, jumping up and down and stating I'm bat shit crazy! 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 If I don't go to medical school I'm going to [place]. I wanna hug you! Continue taper of risperdal and increase in Zyprexa. 12/12: Increase Zyprexa tomorrow and lower Risperidone. 12/13: DC Risperidone. Continue titrating Zyprexa. Mouth checks. 12/14: remains floridly psychotic, disorganized. Will switch to Zydis and increase dose to 10mg bid (up from 5mg bid) 12/15 continue tx plan 12/16 remains dsorganized; maybe a little less...did not sleep overnight. Will increase Zydis to 20mg qhs -television script writer reviewed collateral and this seems to be a 1st break for patient; some psychotic symptoms coming up here in their over the past year but they emerged profoundly recently when patient got back from visiting a boyfriend in [place]. 12/17 This morning, patient was able to maintain a linear conversation with television script writer and then with nurse that was mostly logical. Attempted to take patient off one-to-one. Improvement did not last and patient soon dysregulated, wandering the halls, talking loudly and nonsensically; patient clawing at the doors trying to open them to leave the unit; on the phone talking to Ori a former patient that patient says she can see outside her window and thinks that the 2 are engaged. Patient also said she can see her family members outside the window. Patient told staff she feels unsafe without being on a one-to-one because there is safety in numbers. She also put soap in her mouth and explained it was because no one was with me... Patient also walking around the milieu with her hands on her neck imitating as if she is choking herself. Patient did come down some when she was replaced on one-to-one. -since patient seem to improve a little bit with increase Zyprexa dose will leave current regimen for now; however if not continued improvements will consider whether to switch medications or to and another medication, possibly Depakote 12/18 pt is minimally better than on admission, sometimes able to have and now sleeping more through the night, suggesting that Zyprexa maybe partially helpful; however, she remains significantly disorganized; debating med change vs continue w/ zyprexa. Difficult to discern if there is a manic component of if pt is just disorganzed (was not sleeping, but symptoms more psychotic than manic); considering Haldol or other 1st generatoin antipsychotic 12/19 will continue with Haldol 5 mg t.i.d. and discontinue Zyprexa. Having started Haldol, This is the 1st time patient is psychotic symptoms have been subdued. Will continue to monitor 12/20 Will increase Haldol to 10 mg b.i.d. 12/21 not sure if Haldol is working; some hints that it might be lowering symptoms. Will continue with current regimen and monitor 12/22Had an encouraging discussion with patient who was aware of person place and time, date, year, that it was Halloween; no she is at [facility] in the psychiatric unit. She is here because her parents think she has .a little to crazy.. And she agrees that they had reason to be concerned prior to admission. She says she knows she is not . Patient agrees to try getting off one-to-one. Despite this seemingly lucid conversation, patient has been telling other staff all day long that she is worried about her ; sometimes able to talk in a logical/linear way other times remains disorganized -will soon decide whether to go up on Haldol or to switch medications 12/23 continue current treatment plan 12/24 increasing haldol; added depakote 12/28Patient with flat affect, no expression, talking in monotone voice; walking more slowly. Thought content seems more vacuous, just answering questions and not referring to various thoughts she is having unlike the week prior. Patient is more organized in speech, answering questions appropriately however she is very concrete in her answers and with no extraneous words or thoughts expressed. Window Air Conditioner Installer asked about Ori a former patient about whom patient would sometimes expressed delusional memories, to which patient answered that was just a andrés I liked.. Which was matter of fact and without the typical additional odd or delusional comments. Denies AVH. Patient says she sleepy and over the weekend and today has been mostly keeping to herself, sleeping, not interacting with others, unchanged previous week -Says she had a good visit with her family and that her parents told her to remain on the unit until the doctors think she is ready to go home. To that and patient agreed to retract 3 day notice. Again discussed clozapine and patient agreed to trial including weekly blood draws. -observation: On lower dose of Haldol, 10 mg b.i.d., patient with improved symptoms compared to admission, however still disorganized; with increased Haldol, adding Haldol 5 mg in the afternoon, patient was more organized thought process however significantly blunted affect and still with limited insight and ability to discuss illness 12/29Patient a little less flat today with lower dose of Haldol. She remains improved from admission but still disorganized and in the milieu patient would sit, stand again set then stand again without any obvious reason. Discussed case with colleagues who agreed that Haldol at 10 mg b.i.d. is partially helpful and at this point, having failed to resolve symptoms with 3 antipsychotic trials, the best next option is to add a 2nd antipsychotic. Discussed options which included both clozapine and Abilify. Patient is open to either, including blood draws for clozapine. However Patient's father had some hesitancy about clozapine, not sure if getting weekly blood draws was realistic. Elected to start Abilify 12/30 Still disorganized but blunted affect is resolving and Patient more expressive and more interactive. Patient remains concrete but attended group and sat appropriately and answered a question appropriately as well. Still missing her family and hopes they will visit this weekend. eKG 12/22/22: QT Int : 306 ms/ QTc Int : 432 ms 12/31 Patient nauseous today and threw up 2 times; gave Zofran and it resolved; not sure if it is due to increased Abilify or something else. However Patient a little less flat today with increased Abilify. -some mouth twitching maybe tightness in the mouth Cogentin 0.5 mg 1 time dose given 01/01 patient remains very flat, blunted affect. Also walking a little stiffly. That said she is not expressing any psychotic symptoms and her answers are more organized. Will lower Haldol to 5 mg b.i.d. to try and reduce negative symptoms and EPS; for now will leave Abilify at 5 mg per day 01/04 same presentation, flat, monotone, EPS symptoms. Not expressing psychotic, delusional thinking but far from baseline and with limited insight. Will give Cogentin 0.5 mg 1 time dose since patient already got a 0.5 mg dose this morning; will discontinue Haldol due to only partial benefit with intolerable EPS side effects; will consider whether to increase Abilify. Patient agrees to clozapine; discussed this medication at length with her father. -will consider catatonia as well if negative symptoms do not subside with discontinuation of Haldol 01/05 Patient much more organized in conversation and behavior. She waved television script writer over and wanted to discuss treatment. Patient said she is definitely feeling more organized in her thoughts. She volunteers that she went to group and shared appropriately (which staff corroborates) at that overall she not quite fully back to her regular self, is feeling better. She denies any AVH. Window Air Conditioner Installer inquired and patient does not remember her behaviors when she was 1st admitted and on hearing them expressed deeper understanding why she has had to remain on the unit. In discussion, patient decided that she rather remain longer on the unit for further med management rather than leaving to soon and risk having to return to the hospital. Patient shared that at baseline, she is mostly is shy and quiet person. -patient still with flat but but it is helpful to learned that patient is on the shy and quiet side at baseline. No over psychotic symptoms exhibited and patient is organized in speech and (more or less) in behavior. Haldol was discontinued and she is now only on Abilify 5 mg daily; EPS/TD/dystonia seem to be resolving, the patient is also on scheduled Cogentin. At this time it is not clear if she will remain stable with Haldol discontinued or if Abilify will proved to be adequate. Prior to being medicated patient was floridly psychotic and it is too early to tell if symptoms will return or for main resolved with current medication regimen. Will leave her on Abilify 5 mg for now and see how she does. 01/06 Patient still with flat affect but remains with organized speech and behavior; feeling much more clear minded; denies AVH. No memory of her behaviors/ events surrounding decompensation/admissions and says hard to hear about them. Thinks that currently she is at a 4/10 (10 being her regular self) however she cannot articulate what is missing. 01/07 No change in presentation; continues to have flat affect and often keeps to herself however she remains with organized speech, linear and logical. Patient shared about group; applied it to her own life. She clarified that she and her [place] boyfriend broke up due to problems with his parents; they had a fight and patient wanted to return home. Around this time however she did start getting confused. hx of cannabis use started in [place], eat gummies only ever bought at a dispensary and used every few days and for a few months; no other drug or alcohol use. 01/08 no change in presentation; continue current treatment plan 01/09 good discussion with family and it seems more likely that patient has bipolar disorder, as she became suddenly manic upon returning to [place]. That said, it is possible that there could have been psychotic symptoms popping up here and there while she was in [place] that just were subclinical. It remains true time will have to more clearly reveal full diagnosis. Currently patient is with a very flat affect, a little disorganized (though vastly improved), with concrete thinking and still some limitations on insight. It is not clear if this is a medication side effect or the negative symptoms of psychosis. Considering medication changes given the fact patient likely had a manic episode which is either due to bipolar disorder or schizoaffective disorder patient is not on a traditional mood stabilizer. At this time will continue with current medication regimen of Abilify 5 mg. Will continue to monitor and see if patient's symptoms reappear or if she is able to remain stable. DX: schizophrenia (provisional as need to further; rule out schizoaffective disorder and clarify timeline of symptoms) Plan: CV Q 15 minute checks Continue Abilify 5mg daily; no side effects noted (last QTC WNL; Abilify known to lower QTC if anything) Discontinue Haldol; only partially effective and causing significant negative side effects and EPS; although psychotic symptoms have lessened with Haldol, side effects will not be tolerable long-term Scheduling Cogentin 0.5 mg b.i.d. due to EPS Discontinue Ativan; patient complains of daytime tiredness Med trials discontinued during this admission: Discontinue Haldol; only partially effective and causing significant negative side effects and EPS; although psychotic symptoms have lessened with Haldol, side effects will not be tolerable long-term Discontinued Zyprexa; maybe partially effective Discontinued Risperdal; did not seem affective Discontinued depakote; was only on a low dose for few days and deemed not necessary Window Air Conditioner Installer reviewed history with social media assistant. Lived with her father through high school. After high school she was living with her mom during which time became involved in a relationship and moved to [place] where she lived for 2 years with her boyfriend; some mild depression but otherwise no other mental health issues. She returned home and lived with her father for several years, working at [employer], good mood no psychiatric symptoms. 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 This past fall, [place] over a month ago patient became came confused though she has no idea why; either he sent her home or she was trying to come home but she could not figure out how to get herself to the airport. She has no other memory of what she was experiencing or her behaviors that led to her hospitalization at [facility] and then this 1 at [facility]. -when she got off the plane her father could tell that she was acting a little strange; over the next few days her strangeness increased, he brought her to the hospital and she was psychiatrically admitted at [facility], where she spent 2 or 3 days and then was admitted to this hospital. Father reports patient is shy and quiet, but also friendly at baseline Patient educated on: diagnosis, medication risk/benefits and therapeutic strategies Informed Consent: understands and further education needed Reason for continued inpatient stay Substantial Risk for: rapid decompensation Time Spent With Patient Time: Total time managing care of this patient today ____ minutes.
[2023-01-09 18:00] VITALS: BP 107/70; PULSE 80; RESP 17; TEMP 36.7; O2SAT 98
[2023-01-09] MEDS: Melatonin 3 MG TABLET 6 MG PO (19:36)
[2023-01-09] MEDS: traZODone HCL 50 MG TABLET PO (19:36)
[2023-01-10 08:09] VITALS: BP 127/63; PULSE 82; RESP 16; TEMP 36.9; O2SAT 98
[2023-01-10] MEDS: ARIPiprazole 5 MG TABLET PO (08:28)
[2023-01-10] MEDS: Docusate Sodium 100 MG CAPSULE PO ×2 (08:28→21:48)
[2023-01-10] MEDS: Benztropine Mesylate 0.5 MG TABLET PO (08:29)
--- NOTE | 2023-01-10 11:06 | HO.PSYCHPN ---
Subjective Subjective Date of Service: 01/10/23 Reason For Visit: mood Interim History: Met with patient; discussed with team No change in presentation; did ask the nurse that she was allowed to leave her room this morning, highlighting some continue disorganized thinking. Mental Status Exam Mental Status Exam Narrative: Pt is alert and oriented; behavior is cooperative, calm, flat affect, talking quietly but audibly; some disorganization; increased interactions with others and attending groups, interacting appropriately; patient is not in distress; dressed in casual attire with braided hair, marginal hygiene; mood and affect still blunted but less so; speech soft, a little slowed with some latency; psychomotor retardation present, though improving; thought process goal oriented, linear, a little less concrete; Thought content is on treatment, missing her family; denies AVH; seems to be internally distracted however denies any AVH; Patients insight and judgment impaired but much improved Diagnostics Vital Signs (24Hr): Vital Signs - 24 hr 01/09/23 18:00 01/10/23 08:09 Temperature 98.0 F 98.5 F Pulse Rate 80 82 Respiratory Rate 17 16 Blood Pressure 107/70 127/63 Pulse Oximetry 98 98 Oxygen Delivery Method Room Air Room Air BMI result Body Mass Index 26.1 Labs 12/02/22 21:20 12/04/22 08:17 Medications Medications Current Medications Acetaminophen (Acetaminophen 325 Mg Tablet) 650 mg PO Q6H PRN PRN Reason: Headache/Pain Mild Scale (1-3) Last Admin: 12/21/22 02:55 Dose: 650 mg Al Hydroxide/Mg Hydroxide (Magnesium Hydrox/Alum Hydrox 30 Ml Oral.Susp) 30 ml PO Q6H PRN PRN Reason: Heartburn/Nausea Aripiprazole (Aripiprazole 5 Mg Tablet) 5 mg PO DAILY [facility] Last Admin: 01/10/23 08:28 Dose: 5 mg Benztropine Mesylate (Benztropine Mesylate 0.5 Mg Tablet) 0.5 mg PO BID [facility] Last Admin: 01/10/23 08:29 Dose: 0.5 mg Docusate Sodium (Docusate Sodium 100 Mg Capsule) 100 mg PO BID [facility] Last Admin: 01/10/23 08:28 Dose: 100 mg Hydroxyzine HCl (Hydroxyzine Hcl 25 Mg Tablet) 25 mg PO Q6H PRN PRN Reason: Anxiety Last Admin: 01/08/23 22:42 Dose: 25 mg Magnesium Hydroxide (Milk Of Magnesia 30 Ml Oral.Susp) 30 ml PO DAILY PRN PRN Reason: Constipation Melatonin (Melatonin 3 Mg Tablet) 6 mg PO BEDTIME LETTY Last Admin: 01/09/23 19:36 Dose: 6 mg Ondansetron HCl (Ondansetron Odt 4 Mg Tab.Rapdis) 4 mg TRANSLINGU Q6H PRN PRN Reason: Nausea and Vomiting Trazodone HCl (Trazodone Hcl 50 Mg Tablet) 50 mg PO BEDTIME MRX1 PRN PRN Reason: Insomnia Last Admin: 01/09/23 19:36 Dose: 50 mg Allergies Allergies Allergy/AdvReac Type Severity Reaction Status Date / Time shrimp AdvReac Intermediate Rash Verified 12/02/22 21:40 Assessment & Plan Assessment & Plan (1) Schizoaffective disorder, bipolar type: Status: Acute Code(s): F25.0 - Schizoaffective disorder, bipolar type (2) Von Willebrand disease: Status: Acute Code(s): D68.00 - Von Willebrand disease, unspecified Plan Patient is a 27-year-old female with history of psychotic illness who presents with disorganized speech and behavior, recently discharged from [facility] but brought back to the hospital at the behest of her father. Patient having trouble focusing on conversation and is almost talking in a word salad. If asked a question she will mostly respond with some completely irrelevant and nonsensical answer. She said something about double tongs; [employer] song which she saying; physics; something about [place] in [place] and being stalked. She denies any AVH but does seem internally preoccupied. She denies any drug or alcohol use other than weed... A little. Patient gives permission for team to discuss case with her father and gives the phone number. Patient agreed to take antipsychotic medication. Later in the day, patient was more linear and organized. She agreed that she was at the hospital for help and understood criteria for having signed the CV, evidenced by asking relevant questions and later going up and asking to sign a 3 day notice. Hospital course: 12/05: contiue current treatmetn plan 12/08: Patient keeping to self. Presents guarded but organized. Pt stated, I'm feeling homesick. I'll keep taking my meds so I can leave . Patient retracted 3 day notice. denies SI/HI/VH/AH. Continue current tx plan. 12/09: Patient presents disorganized, confused with times of echolalia. When T/W would ask pt a question, pt would either repeat the question back, repeat a word from the sentence or state a word she overheard someone use who is standing within hearing distance. Patient attempted to elope from unit multiple times this morning. When T/W asked where she planned on going, pt stated, home. the primary health care nurse will bring me home . T/W explained to patient she would have to wait until she improved; pt stated, okay. I can do that . Showered. Medication compliant. Added Ativan 1mg PO BID PRN and Risperdal 0.5mg PO BID PRN. 12/10: Patient presents disorganized, confused with times of echolalia. Staff reported patient was seen standing on chair, when asked reasoning, pt stated, I'm not a turkey baster . Patient unable to have logical conversation at this time. Appears restless. Medication compliant. DC Risperdal, does not seem to be improving psychosis. Start Zyprexa 5mg PO daily. Patient aware. 12/11: Patient presents disorganized, confused with times of echolalia. Patient unable to have logical conversation at this time; flight of ideas. Medication compliant. Patient standing in hallway, jumping up and down and stating I'm bat shit crazy! 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 If I don't go to medical school I'm going to [place]. I wanna hug you! Continue taper of risperdal and increase in Zyprexa. 12/12: Increase Zyprexa tomorrow and lower Risperidone. 12/13: DC Risperidone. Continue titrating Zyprexa. Mouth checks. 12/14: remains floridly psychotic, disorganized. Will switch to Zydis and increase dose to 10mg bid (up from 5mg bid) 12/15 continue tx plan 12/16 remains dsorganized; maybe a little less...did not sleep overnight. Will increase Zydis to 20mg qhs -consumer loan underwriter reviewed collateral and this seems to be a 1st break for patient; some psychotic symptoms coming up here in their over the past year but they emerged profoundly recently when patient got back from visiting a boyfriend in [place]. 12/17 This morning, patient was able to maintain a linear conversation with consumer loan underwriter and then with nurse that was mostly logical. Attempted to take patient off one-to-one. Improvement did not last and patient soon dysregulated, wandering the halls, talking loudly and nonsensically; patient clawing at the doors trying to open them to leave the unit; on the phone talking to Ori a former patient that patient says she can see outside her window and thinks that the 2 are engaged. Patient also said she can see her family members outside the window. Patient told staff she feels unsafe without being on a one-to-one because there is safety in numbers. She also put soap in her mouth and explained it was because no one was with me... Patient also walking around the milieu with her hands on her neck imitating as if she is choking herself. Patient did come down some when she was replaced on one-to-one. -since patient seem to improve a little bit with increase Zyprexa dose will leave current regimen for now; however if not continued improvements will consider whether to switch medications or to and another medication, possibly Depakote 12/18 pt is minimally better than on admission, sometimes able to have and now sleeping more through the night, suggesting that Zyprexa maybe partially helpful; however, she remains significantly disorganized; debating med change vs continue w/ zyprexa. Difficult to discern if there is a manic component of if pt is just disorganzed (was not sleeping, but symptoms more psychotic than manic); considering Haldol or other 1st generatoin antipsychotic 12/19 will continue with Haldol 5 mg t.i.d. and discontinue Zyprexa. Having started Haldol, This is the 1st time patient is psychotic symptoms have been subdued. Will continue to monitor 12/20 Will increase Haldol to 10 mg b.i.d. 12/21 not sure if Haldol is working; some hints that it might be lowering symptoms. Will continue with current regimen and monitor 12/22Had an encouraging discussion with patient who was aware of person place and time, date, year, that it was Halloween; no she is at [facility] in the psychiatric unit. She is here because her parents think she has .a little to crazy.. And she agrees that they had reason to be concerned prior to admission. She says she knows she is not . Patient agrees to try getting off one-to-one. Despite this seemingly lucid conversation, patient has been telling other staff all day long that she is worried about her ; sometimes able to talk in a logical/linear way other times remains disorganized -will soon decide whether to go up on Haldol or to switch medications 12/23 continue current treatment plan 12/24 increasing haldol; added depakote 12/28Patient with flat affect, no expression, talking in monotone voice; walking more slowly. Thought content seems more vacuous, just answering questions and not referring to various thoughts she is having unlike the week prior. Patient is more organized in speech, answering questions appropriately however she is very concrete in her answers and with no extraneous words or thoughts expressed. Package Dye Stand Loader asked about Ori a former patient about whom patient would sometimes expressed delusional memories, to which patient answered that was just a andrés I liked.. Which was matter of fact and without the typical additional odd or delusional comments. Denies AVH. Patient says she sleepy and over the weekend and today has been mostly keeping to herself, sleeping, not interacting with others, unchanged previous week -Says she had a good visit with her family and that her parents told her to remain on the unit until the doctors think she is ready to go home. To that and patient agreed to retract 3 day notice. Again discussed clozapine and patient agreed to trial including weekly blood draws. -observation: On lower dose of Haldol, 10 mg b.i.d., patient with improved symptoms compared to admission, however still disorganized; with increased Haldol, adding Haldol 5 mg in the afternoon, patient was more organized thought process however significantly blunted affect and still with limited insight and ability to discuss illness 12/29Patient a little less flat today with lower dose of Haldol. She remains improved from admission but still disorganized and in the milieu patient would sit, stand again set then stand again without any obvious reason. Discussed case with colleagues who agreed that Haldol at 10 mg b.i.d. is partially helpful and at this point, having failed to resolve symptoms with 3 antipsychotic trials, the best next option is to add a 2nd antipsychotic. Discussed options which included both clozapine and Abilify. Patient is open to either, including blood draws for clozapine. However Patient's father had some hesitancy about clozapine, not sure if getting weekly blood draws was realistic. Elected to start Abilify 12/30 Still disorganized but blunted affect is resolving and Patient more expressive and more interactive. Patient remains concrete but attended group and sat appropriately and answered a question appropriately as well. Still missing her family and hopes they will visit this weekend. eKG 12/22/22: QT Int : 306 ms/ QTc Int : 432 ms 12/31 Patient nauseous today and threw up 2 times; gave Zofran and it resolved; not sure if it is due to increased Abilify or something else. However Patient a little less flat today with increased Abilify. -some mouth twitching maybe tightness in the mouth Cogentin 0.5 mg 1 time dose given 01/01 patient remains very flat, blunted affect. Also walking a little stiffly. That said she is not expressing any psychotic symptoms and her answers are more organized. Will lower Haldol to 5 mg b.i.d. to try and reduce negative symptoms and EPS; for now will leave Abilify at 5 mg per day 01/04 same presentation, flat, monotone, EPS symptoms. Not expressing psychotic, delusional thinking but far from baseline and with limited insight. Will give Cogentin 0.5 mg 1 time dose since patient already got a 0.5 mg dose this morning; will discontinue Haldol due to only partial benefit with intolerable EPS side effects; will consider whether to increase Abilify. Patient agrees to clozapine; discussed this medication at length with her father. -will consider catatonia as well if negative symptoms do not subside with discontinuation of Haldol 01/05 Patient much more organized in conversation and behavior. She waved consumer loan underwriter over and wanted to discuss treatment. Patient said she is definitely feeling more organized in her thoughts. She volunteers that she went to group and shared appropriately (which staff corroborates) at that overall she not quite fully back to her regular self, is feeling better. She denies any AVH. Package Dye Stand Loader inquired and patient does not remember her behaviors when she was 1st admitted and on hearing them expressed deeper understanding why she has had to remain on the unit. In discussion, patient decided that she rather remain longer on the unit for further med management rather than leaving to soon and risk having to return to the hospital. Patient shared that at baseline, she is mostly is shy and quiet person. -patient still with flat but but it is helpful to learned that patient is on the shy and quiet side at baseline. No over psychotic symptoms exhibited and patient is organized in speech and (more or less) in behavior. Haldol was discontinued and she is now only on Abilify 5 mg daily; EPS/TD/dystonia seem to be resolving, the patient is also on scheduled Cogentin. At this time it is not clear if she will remain stable with Haldol discontinued or if Abilify will proved to be adequate. Prior to being medicated patient was floridly psychotic and it is too early to tell if symptoms will return or for main resolved with current medication regimen. Will leave her on Abilify 5 mg for now and see how she does. 01/06 Patient still with flat affect but remains with organized speech and behavior; feeling much more clear minded; denies AVH. No memory of her behaviors/ events surrounding decompensation/admissions and says hard to hear about them. Thinks that currently she is at a 4/10 (10 being her regular self) however she cannot articulate what is missing. 01/07 No change in presentation; continues to have flat affect and often keeps to herself however she remains with organized speech, linear and logical. Patient shared about group; applied it to her own life. She clarified that she and her [place] boyfriend broke up due to problems with his parents; they had a fight and patient wanted to return home. Around this time however she did start getting confused. hx of cannabis use started in [place], eat gummies only ever bought at a dispensary and used every few days and for a few months; no other drug or alcohol use. 01/08 no change in presentation; continue current treatment plan 01/09 good discussion with family and it seems more likely that patient has bipolar disorder, as she became suddenly manic upon returning to [place]. That said, it is possible that there could have been psychotic symptoms popping up here and there while she was in [place] that just were subclinical. It remains true time will have to more clearly reveal full diagnosis. Currently patient is with a very flat affect, a little disorganized (though vastly improved), with concrete thinking and still some limitations on insight. It is not clear if this is a medication side effect or the negative symptoms of psychosis. Considering medication changes given the fact patient likely had a manic episode which is either due to bipolar disorder or schizoaffective disorder patient is not on a traditional mood stabilizer. 01/10 continue current treatment plan; will get additional advice on medication management from colleagues. Given the patient is from the [facility], it is taking extra time to set up aftercare with providers At this time will continue with current medication regimen of Abilify 5 mg. Will continue to monitor and see if patient's symptoms reappear or if she is able to remain stable. DX: schizophrenia (provisional as need to further; rule out schizoaffective disorder and clarify timeline of symptoms) Plan: CV Q 15 minute checks Continue Abilify 5mg daily; no side effects noted (last QTC WNL; Abilify known to lower QTC if anything) Discontinue Haldol; only partially effective and causing significant negative side effects and EPS; although psychotic symptoms have lessened with Haldol, side effects will not be tolerable long-term Scheduling Cogentin 0.5 mg b.i.d. due to EPS Discontinue Ativan; patient complains of daytime tiredness Med trials discontinued during this admission: Discontinue Haldol; only partially effective and causing significant negative side effects and EPS; although psychotic symptoms have lessened with Haldol, side effects will not be tolerable long-term Discontinued Zyprexa; maybe partially effective Discontinued Risperdal; did not seem affective Discontinued depakote; was only on a low dose for few days and deemed not necessary Package Dye Stand Loader reviewed history with social studies department chair. Lived with her father through high school. After high school she was living with her mom during which time became involved in a relationship and moved to [place] where she lived for 2 years with her boyfriend; some mild depression but otherwise no other mental health issues. She returned home and lived with her father for several years, working at [employer], good mood no psychiatric symptoms. 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 This past fall, [place] over a month ago patient became came confused though she has no idea why; either he sent her home or she was trying to come home but she could not figure out how to get herself to the airport. She has no other memory of what she was experiencing or her behaviors that led to her hospitalization at [facility] and then this 1 at [place]. -when she got off the plane her father could tell that she was acting a little strange; over the next few days her strangeness increased, he brought her to the hospital and she was psychiatrically admitted at [facility], where she spent 2 or 3 days and then was admitted to this hospital. Father reports patient is shy and quiet, but also friendly at baseline Patient educated on: diagnosis and medication risk/benefits Reason for continued inpatient stay Substantial Risk for: rapid decompensation Time Spent With Patient Time: Total time managing care of this patient today ____ minutes.
[2023-01-10 16:24] VITALS: BP 112/65; PULSE 78; RESP 16; TEMP 36.8; O2SAT 100
[2023-01-10] MEDS: Melatonin 3 MG TABLET 6 MG PO (21:48)
[2023-01-11] MEDS: ARIPiprazole 5 MG TABLET PO (08:41)
[2023-01-11] MEDS: Docusate Sodium 100 MG CAPSULE PO ×2 (08:41→22:08)
[2023-01-11 08:45] VITALS: BP 125/83; PULSE 87; RESP 18; TEMP 36.6; O2SAT 99
--- NOTE | 2023-01-11 09:46 | P.PNPSI_ITS ---
Subjective Subjective Date of Service: 01/11/23 Reason For Visit: mood Interim History: met with patient; discussed with team Brighter? No overall change in presentation. Seems to be walking more freely, fluidly, less stiffness. Mental Status Exam Mental Status Exam Narrative: Pt is alert and oriented; behavior is cooperative, calm, flat affect, talking quietly but audibly; some disorganization; increased interactions with others and attending groups, interacting appropriately; patient is not in distress; dressed in casual attire with braided hair, marginal hygiene; mood and affect still blunted but less so; speech soft, a little slowed with some latency; psychomotor retardation present, though improving; thought process goal oriented, linear, a little less concrete; Thought content is on treatment, missing her family; denies AVH; seems to be internally distracted however denies any AVH; Patients insight and judgment impaired but much improved Diagnostics Vital Signs (24Hr): Vital Signs - 24 hr 01/10/23 16:24 01/11/23 08:45 Temperature 98.2 F 97.8 F Pulse Rate 78 87 Respiratory Rate 16 18 Blood Pressure 112/65 125/83 Pulse Oximetry 100 99 Oxygen Delivery Method Room Air Room Air BMI result Body Mass Index 26.1 Labs 12/02/22 21:20 12/04/22 08:17 Medications Medications Current Medications Acetaminophen (Acetaminophen 325 Mg Tablet) 650 mg PO Q6H PRN PRN Reason: Headache/Pain Mild Scale (1-3) Last Admin: 12/21/22 02:55 Dose: 650 mg Al Hydroxide/Mg Hydroxide (Magnesium Hydrox/Alum Hydrox 30 Ml Oral.Susp) 30 ml PO Q6H PRN PRN Reason: Heartburn/Nausea Aripiprazole (Aripiprazole 5 Mg Tablet) 5 mg PO DAILY [facility] Last Admin: 01/11/23 08:41 Dose: 5 mg Benztropine Mesylate (Benztropine Mesylate 0.5 Mg Tablet) 0.5 mg PO BID PRN PRN Reason: EPS Docusate Sodium (Docusate Sodium 100 Mg Capsule) 100 mg PO BID [facility] Last Admin: 01/11/23 08:41 Dose: 100 mg Hydroxyzine HCl (Hydroxyzine Hcl 25 Mg Tablet) 25 mg PO Q6H PRN PRN Reason: Anxiety Last Admin: 01/08/23 22:42 Dose: 25 mg Magnesium Hydroxide (Milk Of Magnesia 30 Ml Oral.Susp) 30 ml PO DAILY PRN PRN Reason: Constipation Melatonin (Melatonin 3 Mg Tablet) 6 mg PO BEDTIME LETTY Last Admin: 01/10/23 21:48 Dose: 6 mg Trazodone HCl (Trazodone Hcl 50 Mg Tablet) 50 mg PO BEDTIME MRX1 PRN PRN Reason: Insomnia Last Admin: 01/09/23 19:36 Dose: 50 mg Allergies Allergies Allergy/AdvReac Type Severity Reaction Status Date / Time shrimp AdvReac Intermediate Rash Verified 12/02/22 21:40 Assessment & Plan Assessment & Plan (1) Schizophrenia: Status: Suspected Code(s): F20.9 - Schizophrenia, unspecified Plan Patient is a 27-year-old female with history of psychotic illness who presents with disorganized speech and behavior, recently discharged from [facility] but brought back to the hospital at the behest of her father. Patient having trouble focusing on conversation and is almost talking in a word salad. If asked a question she will mostly respond with some completely irrelevant and nonsensical answer. She said something about [employer]; [employer] song which she saying; physics; something about [place] in [place] and being stalked. She denies any AVH but does seem internally preoccupied. She denies any drug or alcohol use other than weed... A little. Patient gives permission for team to discuss case with her father and gives the phone number. Patient agreed to take antipsychotic medication. Later in the day, patient was more linear and organized. She agreed that she was at the hospital for help and understood criteria for having signed the CV, evidenced by asking relevant questions and later going up and asking to sign a 3 day notice. Hospital course: 12/05: contiue current treatmetn plan 12/08: Patient keeping to self. Presents guarded but organized. Pt stated, I'm feeling homesick. I'll keep taking my meds so I can leave . Patient retracted 3 day notice. denies SI/HI/VH/AH. Continue current tx plan. 12/09: Patient presents disorganized, confused with times of echolalia. When T/W would ask pt a question, pt would either repeat the question back, repeat a word from the sentence or state a word she overheard someone use who is standing within hearing distance. Patient attempted to elope from unit multiple times this morning. When T/W asked where she planned on going, pt stated, home. the doctor of veterinary medicine will bring me home . T/W explained to patient she would have to wait until she improved; pt stated, okay. I can do that . Showered. Medication compliant. Added Ativan 1mg PO BID PRN and Risperdal 0.5mg PO BID PRN. 12/10: Patient presents disorganized, confused with times of echolalia. Staff reported patient was seen standing on chair, when asked reasoning, pt stated, I'm not a turkey baster . Patient unable to have logical conversation at this time. Appears restless. Medication compliant. DC Risperdal, does not seem to be improving psychosis. Start Zyprexa 5mg PO daily. Patient aware. 12/11: Patient presents disorganized, confused with times of echolalia. Patient unable to have logical conversation at this time; flight of ideas. Medication compliant. Patient standing in hallway, jumping up and down and stating I'm bat shit crazy! 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 If I don't go to medical school I'm going to [place] [employer]. I wanna hug you! Continue taper of risperdal and increase in Zyprexa. 12/12: Increase Zyprexa tomorrow and lower Risperidone. 12/13: DC Risperidone. Continue titrating Zyprexa. Mouth checks. 12/14: remains floridly psychotic, disorganized. Will switch to Zydis and increase dose to 10mg bid (up from 5mg bid) 12/15 continue tx plan 12/16 remains dsorganized; maybe a little less...did not sleep overnight. Will increase Zydis to 20mg qhs -va underwriter reviewed collateral and this seems to be a 1st break for patient; some psychotic symptoms coming up here in their over the past year but they emerged profoundly recently when patient got back from visiting a boyfriend in [place]. 12/17 This morning, patient was able to maintain a linear conversation with va underwriter and then with nurse that was mostly logical. Attempted to take patient off one-to-one. Improvement did not last and patient soon dysregulated, wandering the halls, talking loudly and nonsensically; patient clawing at the doors trying to open them to leave the unit; on the phone talking to Ori a former patient that patient says she can see outside her window and thinks that the 2 are engaged. Patient also said she can see her family members outside the window. Patient told staff she feels unsafe without being on a one-to-one because there is safety in numbers. She also put soap in her mouth and explained it was because no one was with me... Patient also walking around the milieu with her hands on her neck imitating as if she is choking herself. Patient did come down some when she was replaced on one-to-one. -since patient seem to improve a little bit with increase Zyprexa dose will leave current regimen for now; however if not continued improvements will consider whether to switch medications or to and another medication, possibly Depakote 12/18 pt is minimally better than on admission, sometimes able to have and now sleeping more through the night, suggesting that Zyprexa maybe partially helpful; however, she remains significantly disorganized; debating med change vs continue w/ zyprexa. Difficult to discern if there is a manic component of if pt is just disorganzed (was not sleeping, but symptoms more psychotic than manic); considering Haldol or other 1st generatoin antipsychotic 12/19 will continue with Haldol 5 mg t.i.d. and discontinue Zyprexa. Having started Haldol, This is the 1st time patient is psychotic symptoms have been subdued. Will continue to monitor 12/20 Will increase Haldol to 10 mg b.i.d. 12/21 not sure if Haldol is working; some hints that it might be lowering symptoms. Will continue with current regimen and monitor 12/22Had an encouraging discussion with patient who was aware of person place and time, date, year, that it was Halloween; no she is at [facility] in the psychiatric unit. She is here because her parents think she has .a little to crazy.. And she agrees that they had reason to be concerned prior to admission. She says she knows she is not . Patient agrees to try getting off one-to-one. Despite this seemingly lucid conversation, patient has been telling other staff all day long that she is worried about her ; sometimes able to talk in a logical/linear way other times remains disorganized -will soon decide whether to go up on Haldol or to switch medications 12/23 continue current treatment plan 12/24 increasing haldol; added depakote 12/28Patient with flat affect, no expression, talking in monotone voice; walking more slowly. Thought content seems more vacuous, just answering questions and not referring to various thoughts she is having unlike the week prior. Patient is more organized in speech, answering questions appropriately however she is very concrete in her answers and with no extraneous words or thoughts expressed. [employer] [facility]ist asked about Ori a former patient about whom patient would sometimes expressed delusional memories, to which patient answered that was just a andrés I liked.. Which was matter of fact and without the typical additional odd or delusional comments. Denies AVH. Patient says she sleepy and over the weekend and today has been mostly keeping to herself, sleeping, not interacting with others, unchanged previous week -Says she had a good visit with her family and that her parents told her to remain on the unit until the doctors think she is ready to go home. To that and patient agreed to retract 3 day notice. Again discussed clozapine and patient agreed to trial including weekly blood draws. -observation: On lower dose of Haldol, 10 mg b.i.d., patient with improved symptoms compared to admission, however still disorganized; with increased Haldol, adding Haldol 5 mg in the afternoon, patient was more organized thought process however significantly blunted affect and still with limited insight and ability to discuss illness 12/29Patient a little less flat today with lower dose of Haldol. She remains improved from admission but still disorganized and in the milieu patient would sit, stand again set then stand again without any obvious reason. Discussed case with colleagues who agreed that Haldol at 10 mg b.i.d. is partially helpful and at this point, having failed to resolve symptoms with 3 antipsychotic trials, the best next option is to add a 2nd antipsychotic. Discussed options which included both clozapine and Abilify. Patient is open to either, including blood draws for clozapine. However Patient's father had some hesitancy about clozapine, not sure if getting weekly blood draws was realistic. Elected to start Abilify 12/30 Still disorganized but blunted affect is resolving and Patient more expressive and more interactive. Patient remains concrete but attended group and sat appropriately and answered a question appropriately as well. Still missing her family and hopes they will visit this weekend. eKG 12/22/22: QT Int : 306 ms/ QTc Int : 432 ms 12/31 Patient nauseous today and threw up 2 times; gave Zofran and it resolved; not sure if it is due to increased Abilify or something else. However Patient a little less flat today with increased Abilify. -some mouth twitching maybe tightness in the mouth Cogentin 0.5 mg 1 time dose given 01/01 patient remains very flat, blunted affect. Also walking a little stiffly. That said she is not expressing any psychotic symptoms and her answers are more organized. Will lower Haldol to 5 mg b.i.d. to try and reduce negative symptoms and EPS; for now will leave Abilify at 5 mg per day 01/04 same presentation, flat, monotone, EPS symptoms. Not expressing psychotic, delusional thinking but far from baseline and with limited insight. Will give Cogentin 0.5 mg 1 time dose since patient already got a 0.5 mg dose this morning; will discontinue Haldol due to only partial benefit with intolerable EPS side effects; will consider whether to increase Abilify. Patient agrees to clozapine; discussed this medication at length with her father. -will consider catatonia as well if negative symptoms do not subside with discontinuation of Haldol 01/05 Patient much more organized in conversation and behavior. She waved va underwriter over and wanted to discuss treatment. Patient said she is definitely feeling more organized in her thoughts. She volunteers that she went to group and shared appropriately (which staff corroborates) at that overall she not quite fully back to her regular self, is feeling better. She denies any AVH. [employer] [facility]ist inquired and patient does not remember her behaviors when she was 1st admitted and on hearing them expressed deeper understanding why she has had to remain on the unit. In discussion, patient decided that she rather remain longer on the unit for further med management rather than leaving to soon and risk having to return to the hospital. Patient shared that at baseline, she is mostly is shy and quiet person. -patient still with flat but but it is helpful to learned that patient is on the shy and quiet side at baseline. No over psychotic symptoms exhibited and patient is organized in speech and (more or less) in behavior. Haldol was discontinued and she is now only on Abilify 5 mg daily; EPS/TD/dystonia seem to be resolving, the patient is also on scheduled Cogentin. At this time it is not clear if she will remain stable with Haldol discontinued or if Abilify will proved to be adequate. Prior to being medicated patient was floridly psychotic and it is too early to tell if symptoms will return or for main resolved with current medication regimen. Will leave her on Abilify 5 mg for now and see how she does. 01/06 Patient still with flat affect but remains with organized speech and behavior; feeling much more clear minded; denies AVH. No memory of her behaviors/ events surrounding decompensation/admissions and says hard to hear about them. Thinks that currently she is at a 4/10 (10 being her regular self) however she cannot articulate what is missing. 01/07 No change in presentation; continues to have flat affect and often keeps to herself however she remains with organized speech, linear and logical. Patient shared about group; applied it to her own life. She clarified that she and her [place] boyfriend broke up due to problems with his parents; they had a fight and patient wanted to return home. Around this time however she did start getting confused. hx of cannabis use started in [place], eat gummies only ever bought at a dispensary and used every few days and for a few months; no other drug or alcohol use. 01/08 no change in presentation; continue current treatment plan 01/09 good discussion with family and it seems more likely that patient has bipolar disorder, as she became suddenly manic upon returning to [place]. That said, it is possible that there could have been psychotic symptoms popping up here and there while she was in [place] that just were subclinical. It remains true time will have to more clearly reveal full diagnosis. Currently patient is with a very flat affect, a little disorganized (though vastly improved), with concrete thinking and still some limitations on insight. It is not clear if this is a medication side effect or the negative symptoms of psychosis. Considering medication changes given the fact patient likely had a manic episode which is either due to bipolar disorder or schizoaffective disorder patient is not on a traditional mood stabilizer. 01/10 continue current treatment plan; will get additional advice on medication management from colleagues. Given the patient is from the [facility], it is taking extra time to set up aftercare with providers 01/11 made Cogentin p.r.n.; will monitor for EPS symptoms but if none, Cogentin does not need to be scheduled; Seems to be walking more freely, fluidly, less stiffness. At this time will continue with current medication regimen of Abilify 5 mg. Will continue to monitor and see if patient's symptoms reappear or if she is able to remain stable. DX: schizophrenia (provisional as need to further; rule out schizoaffective disorder and clarify timeline of symptoms) Plan: CV Q 15 minute checks Continue Abilify 5mg daily; no side effects noted (last QTC WNL; Abilify known to lower QTC if anything) Discontinue Haldol; only partially effective and causing significant negative side effects and EPS; although psychotic symptoms have lessened with Haldol, side effects will not be tolerable long-term CHANGED Cogentin 0.5 mg b.i.d P.R.N.. (Changed since no longer on Haldol; will monitor for EPS) Discontinue Ativan; patient complains of daytime tiredness Med trials discontinued during this admission: Discontinue Haldol; only partially effective and causing significant negative side effects and EPS; although psychotic symptoms have lessened with Haldol, side effects will not be tolerable long-term Discontinued Zyprexa; maybe partially effective Discontinued Risperdal; did not seem affective Discontinued depakote; was only on a low dose for few days and deemed not necessary [employer] [facility]ist reviewed history with certified social workers in health care. Lived with her father through high school. After high school she was living with her mom during which time became involved in a relationship and moved to [place] where she lived for 2 years with her boyfriend; some mild depression but otherwise no other mental health issues. She returned home and lived with her father for several years, working at [employer], good mood no psychiatric symptoms. 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 This past fall, Little over a month ago patient became came confused though she has no idea why; either he sent her home or she was trying to come home but she could not figure out how to get herself to the airport. She has no other memory of what she was experiencing or her behaviors that led to her hospitalization at [facility] and then this 1 at [place]. -when she got off the plane her father could tell that she was acting a little strange; over the next few days her strangeness increased, he brought her to the hospital and she was psychiatrically admitted at [facility], where she spent 2 or 3 days and then was admitted to this hospital. Father reports patient is shy and quiet, but also friendly at baseline Patient educated on: diagnosis Informed Consent: understands and further education needed Reason for continued inpatient stay Substantial Risk for: rapid decompensation Time Spent With Patient Time: Total time managing care of this patient today ____ minutes.
[2023-01-11 18:00] VITALS: BP 119/66; PULSE 86; RESP 17; TEMP 36.4; O2SAT 100
[2023-01-11] MEDS: Melatonin 3 MG TABLET 6 MG PO (22:09)
[2023-01-12 08:00] VITALS: BP 126/59; PULSE 81; RESP 16; TEMP 36.8; O2SAT 99
[2023-01-12] MEDS: ARIPiprazole 5 MG TABLET PO (08:47)
[2023-01-12] MEDS: Docusate Sodium 100 MG CAPSULE PO ×2 (08:47→20:53)
--- NOTE | 2023-01-12 09:10 | P.PNPSI_ITS ---
Subjective Subjective Date of Service: 01/12/23 Reason For Visit: mood Interim History: Met with patient; discussed with team Seems a little brighter today; no EPS symptoms noted. Continue current regimen Mental Status Exam Mental Status Exam Narrative: Pt is alert and oriented; behavior is cooperative, calm, flat affect, talking quietly but audibly; some disorganization; increased interactions with others and attending groups, interacting appropriately; patient is not in distress; dressed in casual attire with braided hair, marginal hygiene; mood and affect still blunted but less so; speech soft, a little slowed with some latency; psychomotor retardation present, though improving; thought process goal oriented, linear, a little less concrete; Thought content is on treatment, missing her family; denies AVH; seems to be internally distracted however denies any AVH; Patients insight and judgment impaired but much improved Diagnostics Vital Signs (24Hr): Vital Signs - 24 hr 01/11/23 18:00 01/12/23 08:00 Temperature 97.5 F 98.2 F Pulse Rate 86 81 Respiratory Rate 17 16 Blood Pressure 119/66 126/59 L Pulse Oximetry 100 99 Oxygen Delivery Method Room Air Room Air BMI result Body Mass Index 26.1 Labs 12/02/22 21:20 12/04/22 08:17 Medications Medications Current Medications Acetaminophen (Acetaminophen 325 Mg Tablet) 650 mg PO Q6H PRN PRN Reason: Headache/Pain Mild Scale (1-3) Last Admin: 12/21/22 02:55 Dose: 650 mg Al Hydroxide/Mg Hydroxide (Magnesium Hydrox/Alum Hydrox 30 Ml Oral.Susp) 30 ml PO Q6H PRN PRN Reason: Heartburn/Nausea Aripiprazole (Aripiprazole 5 Mg Tablet) 5 mg PO DAILY [facility] Last Admin: 01/12/23 08:47 Dose: 5 mg Benztropine Mesylate (Benztropine Mesylate 0.5 Mg Tablet) 0.5 mg PO BID PRN PRN Reason: EPS Docusate Sodium (Docusate Sodium 100 Mg Capsule) 100 mg PO BID [facility] Last Admin: 01/12/23 08:47 Dose: 100 mg Hydroxyzine HCl (Hydroxyzine Hcl 25 Mg Tablet) 25 mg PO Q6H PRN PRN Reason: Anxiety Last Admin: 01/08/23 22:42 Dose: 25 mg Magnesium Hydroxide (Milk Of Magnesia 30 Ml Oral.Susp) 30 ml PO DAILY PRN PRN Reason: Constipation Melatonin (Melatonin 3 Mg Tablet) 6 mg PO BEDTIME LETTY Last Admin: 01/11/23 22:09 Dose: 6 mg Trazodone HCl (Trazodone Hcl 50 Mg Tablet) 50 mg PO BEDTIME MRX1 PRN PRN Reason: Insomnia Last Admin: 01/09/23 19:36 Dose: 50 mg Allergies Allergies Allergy/AdvReac Type Severity Reaction Status Date / Time shrimp AdvReac Intermediate Rash Verified 12/02/22 21:40 Assessment & Plan Assessment & Plan (1) Schizophrenia: Status: Suspected Code(s): F20.9 - Schizophrenia, unspecified Plan Patient is a 27-year-old female with history of psychotic illness who presents with disorganized speech and behavior, recently discharged from [facility] but brought back to the hospital at the behest of her father. Patient having trouble focusing on conversation and is almost talking in a word salad. If asked a question she will mostly respond with some completely irrelevant and nonsensical answer. She said something about Tango [employer]; YelloYello song which she saying; physics; something about [place] in [place] and being stalked. She denies any AVH but does seem internally preoccupied. She denies any drug or alcohol use other than weed... A little. Patient gives permission for team to discuss case with her father and gives the phone number. Patient agreed to take antipsychotic medication. Later in the day, patient was more linear and organized. She agreed that she was at the hospital for help and understood criteria for having signed the CV, evidenced by asking relevant questions and later going up and asking to sign a 3 day notice. Hospital course: 12/05: contiue current treatmetn plan 12/08: Patient keeping to self. Presents guarded but organized. Pt stated, I'm feeling homesick. I'll keep taking my meds so I can leave . Patient retracted 3 day notice. denies SI/HI/VH/AH. Continue current tx plan. 12/09: Patient presents disorganized, confused with times of echolalia. When T/W would ask pt a question, pt would either repeat the question back, repeat a word from the sentence or state a word she overheard someone use who is standing within hearing distance. Patient attempted to elope from unit multiple times this morning. When T/W asked where she planned on going, pt stated, home. the global human resources director will bring me home . T/W explained to patient she would have to wait until she improved; pt stated, okay. I can do that . Showered. Medication compliant. Added Ativan 1mg PO BID PRN and Risperdal 0.5mg PO BID PRN. 12/10: Patient presents disorganized, confused with times of echolalia. Staff reported patient was seen standing on chair, when asked reasoning, pt stated, I'm not a turkey baster . Patient unable to have logical conversation at this time. Appears restless. Medication compliant. DC Risperdal, does not seem to be improving psychosis. Start Zyprexa 5mg PO daily. Patient aware. 12/11: Patient presents disorganized, confused with times of echolalia. Patient unable to have logical conversation at this time; flight of ideas. Medication compliant. Patient standing in hallway, jumping up and down and stating I'm bat shit crazy! 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 If I don't go to medical school I'm going to [employer]. I wanna hug you! Continue taper of risperdal and increase in Zyprexa. 12/12: Increase Zyprexa tomorrow and lower Risperidone. 12/13: DC Risperidone. Continue titrating Zyprexa. Mouth checks. 12/14: remains floridly psychotic, disorganized. Will switch to Zydis and increase dose to 10mg bid (up from 5mg bid) 12/15 continue tx plan 12/16 remains dsorganized; maybe a little less...did not sleep overnight. Will increase Zydis to 20mg qhs -typewriter assembly and parts inspector reviewed collateral and this seems to be a 1st break for patient; some psychotic symptoms coming up here in their over the past year but they emerged profoundly recently when patient got back from visiting a boyfriend in [place]. 12/17 This morning, patient was able to maintain a linear conversation with typewriter assembly and parts inspector and then with nurse that was mostly logical. Attempted to take patient off one-to-one. Improvement did not last and patient soon dysregulated, wandering the halls, talking loudly and nonsensically; patient clawing at the doors trying to open them to leave the unit; on the phone talking to Ori a former patient that patient says she can see outside her window and thinks that the 2 are engaged. Patient also said she can see her family members outside the window. Patient told staff she feels unsafe without being on a one-to-one because there is safety in numbers. She also put soap in her mouth and explained it was because no one was with me... Patient also walking around the milieu with her hands on her neck imitating as if she is choking herself. Patient did come down some when she was replaced on one-to-one. -since patient seem to improve a little bit with increase Zyprexa dose will leave current regimen for now; however if not continued improvements will consider whether to switch medications or to and another medication, possibly Depakote 12/18 pt is minimally better than on admission, sometimes able to have and now sleeping more through the night, suggesting that Zyprexa maybe partially helpful; however, she remains significantly disorganized; debating med change vs continue w/ zyprexa. Difficult to discern if there is a manic component of if pt is just disorganzed (was not sleeping, but symptoms more psychotic than manic); considering Haldol or other 1st generatoin antipsychotic 12/19 will continue with Haldol 5 mg t.i.d. and discontinue Zyprexa. Having started Haldol, This is the 1st time patient is psychotic symptoms have been subdued. Will continue to monitor 12/20 Will increase Haldol to 10 mg b.i.d. 12/21 not sure if Haldol is working; some hints that it might be lowering symptoms. Will continue with current regimen and monitor 12/22Had an encouraging discussion with patient who was aware of person place and time, date, year, that it was Halloween; no she is at [facility] in the psychiatric unit. She is here because her parents think she has .a little to crazy.. And she agrees that they had reason to be concerned prior to admission. She says she knows she is not . Patient agrees to try getting off one-to-one. Despite this seemingly lucid conversation, patient has been telling other staff all day long that she is worried about her ; sometimes able to talk in a logical/linear way other times remains disorganized -will soon decide whether to go up on Haldol or to switch medications 12/23 continue current treatment plan 12/24 increasing haldol; added depakote 12/28Patient with flat affect, no expression, talking in monotone voice; walking more slowly. Thought content seems more vacuous, just answering questions and not referring to various thoughts she is having unlike the week prior. Patient is more organized in speech, answering questions appropriately however she is very concrete in her answers and with no extraneous words or thoughts expressed. Back Hanger asked about Ori a former patient about whom patient would sometimes expressed delusional memories, to which patient answered that was just a andrés I liked.. Which was matter of fact and without the typical additional odd or delusional comments. Denies AVH. Patient says she sleepy and over the weekend and today has been mostly keeping to herself, sleeping, not interacting with others, unchanged previous week -Says she had a good visit with her family and that her parents told her to remain on the unit until the doctors think she is ready to go home. To that and patient agreed to retract 3 day notice. Again discussed clozapine and patient agreed to trial including weekly blood draws. -observation: On lower dose of Haldol, 10 mg b.i.d., patient with improved symptoms compared to admission, however still disorganized; with increased Haldol, adding Haldol 5 mg in the afternoon, patient was more organized thought process however significantly blunted affect and still with limited insight and ability to discuss illness 12/29Patient a little less flat today with lower dose of Haldol. She remains improved from admission but still disorganized and in the milieu patient would sit, stand again set then stand again without any obvious reason. Discussed case with colleagues who agreed that Haldol at 10 mg b.i.d. is partially helpful and at this point, having failed to resolve symptoms with 3 antipsychotic trials, the best next option is to add a 2nd antipsychotic. Discussed options which included both clozapine and Abilify. Patient is open to either, including blood draws for clozapine. However Patient's father had some hesitancy about clozapine, not sure if getting weekly blood draws was realistic. Elected to start Abilify 12/30 Still disorganized but blunted affect is resolving and Patient more expressive and more interactive. Patient remains concrete but attended group and sat appropriately and answered a question appropriately as well. Still missing her family and hopes they will visit this weekend. eKG 12/22/22: QT Int : 306 ms/ QTc Int : 432 ms 12/31 Patient nauseous today and threw up 2 times; gave Zofran and it resolved; not sure if it is due to increased Abilify or something else. However Patient a little less flat today with increased Abilify. -some mouth twitching maybe tightness in the mouth Cogentin 0.5 mg 1 time dose given 01/01 patient remains very flat, blunted affect. Also walking a little stiffly. That said she is not expressing any psychotic symptoms and her answers are more organized. Will lower Haldol to 5 mg b.i.d. to try and reduce negative symptoms and EPS; for now will leave Abilify at 5 mg per day 01/04 same presentation, flat, monotone, EPS symptoms. Not expressing psychotic, delusional thinking but far from baseline and with limited insight. Will give Cogentin 0.5 mg 1 time dose since patient already got a 0.5 mg dose this morning; will discontinue Haldol due to only partial benefit with intolerable EPS side effects; will consider whether to increase Abilify. Patient agrees to clozapine; discussed this medication at length with her father. -will consider catatonia as well if negative symptoms do not subside with discontinuation of Haldol 01/05 Patient much more organized in conversation and behavior. She waved typewriter assembly and parts inspector over and wanted to discuss treatment. Patient said she is definitely feeling more organized in her thoughts. She volunteers that she went to group and shared appropriately (which staff corroborates) at that overall she not quite fully back to her regular self, is feeling better. She denies any AVH. Back Hanger inquired and patient does not remember her behaviors when she was 1st admitted and on hearing them expressed deeper understanding why she has had to remain on the unit. In discussion, patient decided that she rather remain longer on the unit for further med management rather than leaving to soon and risk having to return to the hospital. Patient shared that at baseline, she is mostly is shy and quiet person. -patient still with flat but but it is helpful to learned that patient is on the shy and quiet side at baseline. No over psychotic symptoms exhibited and patient is organized in speech and (more or less) in behavior. Haldol was discontinued and she is now only on Abilify 5 mg daily; EPS/TD/dystonia seem to be resolving, the patient is also on scheduled Cogentin. At this time it is not clear if she will remain stable with Haldol discontinued or if Abilify will proved to be adequate. Prior to being medicated patient was floridly psychotic and it is too early to tell if symptoms will return or for main resolved with current medication regimen. Will leave her on Abilify 5 mg for now and see how she does. 01/06 Patient still with flat affect but remains with organized speech and behavior; feeling much more clear minded; denies AVH. No memory of her behaviors/ events surrounding decompensation/admissions and says hard to hear about them. Thinks that currently she is at a 4/10 (10 being her regular self) however she cannot articulate what is missing. 01/07 No change in presentation; continues to have flat affect and often keeps to herself however she remains with organized speech, linear and logical. Patient shared about group; applied it to her own life. She clarified that she and her [place] boyfriend broke up due to problems with his parents; they had a fight and patient wanted to return home. Around this time however she did start getting confused. hx of cannabis use started in [place], eat gummies only ever bought at a dispensary and used every few days and for a few months; no other drug or alcohol use. 01/08 no change in presentation; continue current treatment plan 01/09 good discussion with family and it seems more likely that patient has bipolar disorder, as she became suddenly manic upon returning to [place]. That said, it is possible that there could have been psychotic symptoms popping up here and there while she was in [place] that just were subclinical. It remains true time will have to more clearly reveal full diagnosis. Currently patient is with a very flat affect, a little disorganized (though vastly improved), with concrete thinking and still some limitations on insight. It is not clear if this is a medication side effect or the negative symptoms of psychosis. Considering medication changes given the fact patient likely had a manic episode which is either due to bipolar disorder or schizoaffective disorder patient is not on a traditional mood stabilizer. 01/10 continue current treatment plan; will get additional advice on medication management from colleagues. Given the patient is from the [facility], it is taking extra time to set up aftercare with providers 01/11 made Cogentin p.r.n.; will monitor for EPS symptoms but if none, Cogentin does not need to be scheduled; Seems to be walking more freely, fluidly, less stiffness. 01/12 continue current regimen At this time will continue with current medication regimen of Abilify 5 mg. Will continue to monitor and see if patient's symptoms reappear or if she is able to remain stable. DX: schizophrenia (provisional as need to further; rule out schizoaffective disorder and clarify timeline of symptoms) Plan: CV Q 15 minute checks Continue Abilify 5mg daily; no side effects noted (last QTC WNL; Abilify known to lower QTC if anything) Discontinue Haldol; only partially effective and causing significant negative side effects and EPS; although psychotic symptoms have lessened with Haldol, side effects will not be tolerable long-term CHANGED Cogentin 0.5 mg b.i.d P.R.N.. (Changed since no longer on Haldol; will monitor for EPS) Discontinue Ativan; patient complains of daytime tiredness Med trials discontinued during this admission: Discontinue Haldol; only partially effective and causing significant negative side effects and EPS; although psychotic symptoms have lessened with Haldol, side effects will not be tolerable long-term Discontinued Zyprexa; maybe partially effective Discontinued Risperdal; did not seem affective Discontinued depakote; was only on a low dose for few days and deemed not necessary Back Hanger reviewed history with social human services assistants. Lived with her father through high school. After high school she was living with her mom during which time became involved in a relationship and moved to [place] where she lived for 2 years with her boyfriend; some mild depression but otherwise no other mental health issues. She returned home and lived with her father for several years, working at [employer], good mood no psychiatric symptoms. 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 This past fall, [place] over a month ago patient became came confused though she has no idea why; either he sent her home or she was trying to come home but she could not figure out how to get herself to the airport. She has no other memory of what she was experiencing or her behaviors that led to her hospitalization at [facility] and then this 1 at [place]. -when she got off the plane her father could tell that she was acting a little strange; over the next few days her strangeness increased, he brought her to the hospital and she was psychiatrically admitted at [facility], where she spent 2 or 3 days and then was admitted to this hospital. Father reports patient is shy and quiet, but also friendly at baseline Patient educated on: diagnosis Informed Consent: understands and further education needed Reason for continued inpatient stay Substantial Risk for: rapid decompensation Time Spent With Patient Time: Total time managing care of this patient today ____ minutes.
[2023-01-12 16:54] VITALS: BP 121/82; PULSE 86; RESP 18; TEMP 36.4; O2SAT 99
[2023-01-12] MEDS: Melatonin 3 MG TABLET 6 MG PO (20:53)
[2023-01-13 08:00] VITALS: BP 124/73; PULSE 96; RESP 16; TEMP 36.1; O2SAT 100
[2023-01-13] MEDS: ARIPiprazole 5 MG TABLET PO (08:29)
[2023-01-13] MEDS: Docusate Sodium 100 MG CAPSULE PO ×2 (08:29→21:31)
--- NOTE | 2023-01-13 09:12 | HO.PSYCHPN ---
Subjective Subjective Date of Service: 01/13/23 Reason For Visit: mood Interim History: Met with patient; discussed with team brighter; smiled and even laughed some; no complaints; staff corroborates more natural expression Mental Status Exam Mental Status Exam Narrative: Pt is alert and oriented; behavior is cooperative, calm, brighter; talking more freely; patient is not in distress; dressed in casual attire with braided hair, marginal hygiene; mood and affect more relaxed, sometimes smiling; speech soft, but less so and normal rate; latency seems to be resolving; less psychomotor retardation present; thought process goal oriented, linear, a little less concrete; Thought content is on treatment, missing her family; denies AVH; seems to be internally distracted however denies any AVH; Patients insight and judgment impaired but much improved Diagnostics Vital Signs (24Hr): Vital Signs - 24 hr 01/12/23 16:54 01/13/23 08:00 Temperature 97.5 F 96.9 F Pulse Rate 86 96 Respiratory Rate 18 16 Blood Pressure 121/82 124/73 Pulse Oximetry 99 100 Oxygen Delivery Method Room Air Room Air BMI result Body Mass Index 26.1 Labs 12/02/22 21:20 12/04/22 08:17 Medications Medications Current Medications Acetaminophen (Acetaminophen 325 Mg Tablet) 650 mg PO Q6H PRN PRN Reason: Headache/Pain Mild Scale (1-3) Last Admin: 12/21/22 02:55 Dose: 650 mg Al Hydroxide/Mg Hydroxide (Magnesium Hydrox/Alum Hydrox 30 Ml Oral.Susp) 30 ml PO Q6H PRN PRN Reason: Heartburn/Nausea Aripiprazole (Aripiprazole 5 Mg Tablet) 5 mg PO DAILY [facility] Last Admin: 01/13/23 08:29 Dose: 5 mg Benztropine Mesylate (Benztropine Mesylate 0.5 Mg Tablet) 0.5 mg PO BID PRN PRN Reason: EPS Docusate Sodium (Docusate Sodium 100 Mg Capsule) 100 mg PO BID [facility] Last Admin: 01/13/23 08:29 Dose: 100 mg Hydroxyzine HCl (Hydroxyzine Hcl 25 Mg Tablet) 25 mg PO Q6H PRN PRN Reason: Anxiety Last Admin: 01/08/23 22:42 Dose: 25 mg Magnesium Hydroxide (Milk Of Magnesia 30 Ml Oral.Susp) 30 ml PO DAILY PRN PRN Reason: Constipation Melatonin (Melatonin 3 Mg Tablet) 6 mg PO BEDTIME LETTY Last Admin: 01/12/23 20:53 Dose: 6 mg Trazodone HCl (Trazodone Hcl 50 Mg Tablet) 50 mg PO BEDTIME MRX1 PRN PRN Reason: Insomnia Last Admin: 01/09/23 19:36 Dose: 50 mg Allergies Allergies Allergy/AdvReac Type Severity Reaction Status Date / Time shrimp AdvReac Intermediate Rash Verified 12/02/22 21:40 Assessment & Plan Assessment & Plan (1) Schizophrenia: Status: Suspected Code(s): F20.9 - Schizophrenia, unspecified Plan Patient is a 27-year-old female with history of psychotic illness who presents with disorganized speech and behavior, recently discharged from [facility] but brought back to the hospital at the behest of her father. Patient having trouble focusing on conversation and is almost talking in a word salad. If asked a question she will mostly respond with some completely irrelevant and nonsensical answer. She said something about [employer]; [employer] song which she saying; physics; something about [place] in [place] and being stalked. She denies any AVH but does seem internally preoccupied. She denies any drug or alcohol use other than weed... A little. Patient gives permission for team to discuss case with her father and gives the phone number. Patient agreed to take antipsychotic medication. Later in the day, patient was more linear and organized. She agreed that she was at the hospital for help and understood criteria for having signed the CV, evidenced by asking relevant questions and later going up and asking to sign a 3 day notice. Hospital course: 12/05: contiue current treatmetn plan 12/08: Patient keeping to self. Presents guarded but organized. Pt stated, I'm feeling homesick. I'll keep taking my meds so I can leave . Patient retracted 3 day notice. denies SI/HI/VH/AH. Continue current tx plan. 12/09: Patient presents disorganized, confused with times of echolalia. When T/W would ask pt a question, pt would either repeat the question back, repeat a word from the sentence or state a word she overheard someone use who is standing within hearing distance. Patient attempted to elope from unit multiple times this morning. When T/W asked where she planned on going, pt stated, home. the director aeronautics commission will bring me home . T/W explained to patient she would have to wait until she improved; pt stated, okay. I can do that . Showered. Medication compliant. Added Ativan 1mg PO BID PRN and Risperdal 0.5mg PO BID PRN. 12/10: Patient presents disorganized, confused with times of echolalia. Staff reported patient was seen standing on chair, when asked reasoning, pt stated, I'm not a turkey baster . Patient unable to have logical conversation at this time. Appears restless. Medication compliant. DC Risperdal, does not seem to be improving psychosis. Start Zyprexa 5mg PO daily. Patient aware. 12/11: Patient presents disorganized, confused with times of echolalia. Patient unable to have logical conversation at this time; flight of ideas. Medication compliant. Patient standing in hallway, jumping up and down and stating I'm bat shit crazy! 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 If I don't go to medical school I'm going to [place]. I wanna hug you! Continue taper of risperdal and increase in Zyprexa. 12/12: Increase Zyprexa tomorrow and lower Risperidone. 12/13: DC Risperidone. Continue titrating Zyprexa. Mouth checks. 12/14: remains floridly psychotic, disorganized. Will switch to Zydis and increase dose to 10mg bid (up from 5mg bid) 12/15 continue tx plan 12/16 remains dsorganized; maybe a little less...did not sleep overnight. Will increase Zydis to 20mg qhs -expert medical writer reviewed collateral and this seems to be a 1st break for patient; some psychotic symptoms coming up here in their over the past year but they emerged profoundly recently when patient got back from visiting a boyfriend in [place]. 12/17 This morning, patient was able to maintain a linear conversation with expert medical writer and then with nurse that was mostly logical. Attempted to take patient off one-to-one. Improvement did not last and patient soon dysregulated, wandering the halls, talking loudly and nonsensically; patient clawing at the doors trying to open them to leave the unit; on the phone talking to Ori a former patient that patient says she can see outside her window and thinks that the 2 are engaged. Patient also said she can see her family members outside the window. Patient told staff she feels unsafe without being on a one-to-one because there is safety in numbers. She also put soap in her mouth and explained it was because no one was with me... Patient also walking around the milieu with her hands on her neck imitating as if she is choking herself. Patient did come down some when she was replaced on one-to-one. -since patient seem to improve a little bit with increase Zyprexa dose will leave current regimen for now; however if not continued improvements will consider whether to switch medications or to and another medication, possibly Depakote 12/18 pt is minimally better than on admission, sometimes able to have and now sleeping more through the night, suggesting that Zyprexa maybe partially helpful; however, she remains significantly disorganized; debating med change vs continue w/ zyprexa. Difficult to discern if there is a manic component of if pt is just disorganzed (was not sleeping, but symptoms more psychotic than manic); considering Haldol or other 1st generatoin antipsychotic 12/19 will continue with Haldol 5 mg t.i.d. and discontinue Zyprexa. Having started Haldol, This is the 1st time patient is psychotic symptoms have been subdued. Will continue to monitor 12/20 Will increase Haldol to 10 mg b.i.d. 12/21 not sure if Haldol is working; some hints that it might be lowering symptoms. Will continue with current regimen and monitor 12/22Had an encouraging discussion with patient who was aware of person place and time, date, year, that it was Halloween; no she is at [facility] in the psychiatric unit. She is here because her parents think she has .a little to crazy.. And she agrees that they had reason to be concerned prior to admission. She says she knows she is not . Patient agrees to try getting off one-to-one. Despite this seemingly lucid conversation, patient has been telling other staff all day long that she is worried about her ; sometimes able to talk in a logical/linear way other times remains disorganized -will soon decide whether to go up on Haldol or to switch medications 12/23 continue current treatment plan 12/24 increasing haldol; added depakote 12/28Patient with flat affect, no expression, talking in monotone voice; walking more slowly. Thought content seems more vacuous, just answering questions and not referring to various thoughts she is having unlike the week prior. Patient is more organized in speech, answering questions appropriately however she is very concrete in her answers and with no extraneous words or thoughts expressed. Power Press Operator asked about Ori a former patient about whom patient would sometimes expressed delusional memories, to which patient answered that was just a andrés I liked.. Which was matter of fact and without the typical additional odd or delusional comments. Denies AVH. Patient says she sleepy and over the weekend and today has been mostly keeping to herself, sleeping, not interacting with others, unchanged previous week -Says she had a good visit with her family and that her parents told her to remain on the unit until the doctors think she is ready to go home. To that and patient agreed to retract 3 day notice. Again discussed clozapine and patient agreed to trial including weekly blood draws. -observation: On lower dose of Haldol, 10 mg b.i.d., patient with improved symptoms compared to admission, however still disorganized; with increased Haldol, adding Haldol 5 mg in the afternoon, patient was more organized thought process however significantly blunted affect and still with limited insight and ability to discuss illness 12/29Patient a little less flat today with lower dose of Haldol. She remains improved from admission but still disorganized and in the milieu patient would sit, stand again set then stand again without any obvious reason. Discussed case with colleagues who agreed that Haldol at 10 mg b.i.d. is partially helpful and at this point, having failed to resolve symptoms with 3 antipsychotic trials, the best next option is to add a 2nd antipsychotic. Discussed options which included both clozapine and Abilify. Patient is open to either, including blood draws for clozapine. However Patient's father had some hesitancy about clozapine, not sure if getting weekly blood draws was realistic. Elected to start Abilify 12/30 Still disorganized but blunted affect is resolving and Patient more expressive and more interactive. Patient remains concrete but attended group and sat appropriately and answered a question appropriately as well. Still missing her family and hopes they will visit this weekend. eKG 12/22/22: QT Int : 306 ms/ QTc Int : 432 ms 12/31 Patient nauseous today and threw up 2 times; gave Zofran and it resolved; not sure if it is due to increased Abilify or something else. However Patient a little less flat today with increased Abilify. -some mouth twitching maybe tightness in the mouth Cogentin 0.5 mg 1 time dose given 01/01 patient remains very flat, blunted affect. Also walking a little stiffly. That said she is not expressing any psychotic symptoms and her answers are more organized. Will lower Haldol to 5 mg b.i.d. to try and reduce negative symptoms and EPS; for now will leave Abilify at 5 mg per day 01/04 same presentation, flat, monotone, EPS symptoms. Not expressing psychotic, delusional thinking but far from baseline and with limited insight. Will give Cogentin 0.5 mg 1 time dose since patient already got a 0.5 mg dose this morning; will discontinue Haldol due to only partial benefit with intolerable EPS side effects; will consider whether to increase Abilify. Patient agrees to clozapine; discussed this medication at length with her father. -will consider catatonia as well if negative symptoms do not subside with discontinuation of Haldol 01/05 Patient much more organized in conversation and behavior. She waved expert medical writer over and wanted to discuss treatment. Patient said she is definitely feeling more organized in her thoughts. She volunteers that she went to group and shared appropriately (which staff corroborates) at that overall she not quite fully back to her regular self, is feeling better. She denies any AVH. Power Press Operator inquired and patient does not remember her behaviors when she was 1st admitted and on hearing them expressed deeper understanding why she has had to remain on the unit. In discussion, patient decided that she rather remain longer on the unit for further med management rather than leaving to soon and risk having to return to the hospital. Patient shared that at baseline, she is mostly is shy and quiet person. -patient still with flat but but it is helpful to learned that patient is on the shy and quiet side at baseline. No over psychotic symptoms exhibited and patient is organized in speech and (more or less) in behavior. Haldol was discontinued and she is now only on Abilify 5 mg daily; EPS/TD/dystonia seem to be resolving, the patient is also on scheduled Cogentin. At this time it is not clear if she will remain stable with Haldol discontinued or if Abilify will proved to be adequate. Prior to being medicated patient was floridly psychotic and it is too early to tell if symptoms will return or for main resolved with current medication regimen. Will leave her on Abilify 5 mg for now and see how she does. 01/06 Patient still with flat affect but remains with organized speech and behavior; feeling much more clear minded; denies AVH. No memory of her behaviors/ events surrounding decompensation/admissions and says hard to hear about them. Thinks that currently she is at a 4/10 (10 being her regular self) however she cannot articulate what is missing. 01/07 No change in presentation; continues to have flat affect and often keeps to herself however she remains with organized speech, linear and logical. Patient shared about group; applied it to her own life. She clarified that she and her [place] boyfriend broke up due to problems with his parents; they had a fight and patient wanted to return home. Around this time however she did start getting confused. hx of cannabis use started in [place], eat gummies only ever bought at a dispensary and used every few days and for a few months; no other drug or alcohol use. 01/08 no change in presentation; continue current treatment plan 01/09 good discussion with family and it seems more likely that patient has bipolar disorder, as she became suddenly manic upon returning to [place]. That said, it is possible that there could have been psychotic symptoms popping up here and there while she was in [place] that just were subclinical. It remains true time will have to more clearly reveal full diagnosis. Currently patient is with a very flat affect, a little disorganized (though vastly improved), with concrete thinking and still some limitations on insight. It is not clear if this is a medication side effect or the negative symptoms of psychosis. Considering medication changes given the fact patient likely had a manic episode which is either due to bipolar disorder or schizoaffective disorder patient is not on a traditional mood stabilizer. 01/10 continue current treatment plan; will get additional advice on medication management from colleagues. Given the patient is from the [facility], it is taking extra time to set up aftercare with providers 01/11 made Cogentin p.r.n.; will monitor for EPS symptoms but if none, Cogentin does not need to be scheduled; Seems to be walking more freely, fluidly, less stiffness. 01/12 continue current regimen At this time will continue with current medication regimen of Abilify 5 mg. Will continue to monitor and see if patient's symptoms reappear or if she is able to remain stable. 01/13 patient is slowly improving; continue current treatment plan DX: schizophrenia (provisional as need to further; rule out schizoaffective disorder and clarify timeline of symptoms) Plan: CV Q 15 minute checks Continue Abilify 5mg daily; no side effects noted (last QTC WNL; Abilify known to lower QTC if anything) Discontinue Haldol; only partially effective and causing significant negative side effects and EPS; although psychotic symptoms have lessened with Haldol, side effects will not be tolerable long-term CHANGED Cogentin 0.5 mg b.i.d P.R.N.. (Changed since no longer on Haldol; will monitor for EPS) Discontinue Ativan; patient complains of daytime tiredness Med trials discontinued during this admission: Discontinue Haldol; only partially effective and causing significant negative side effects and EPS; although psychotic symptoms have lessened with Haldol, side effects will not be tolerable long-term Discontinued Zyprexa; maybe partially effective Discontinued Risperdal; did not seem affective Discontinued depakote; was only on a low dose for few days and deemed not necessary Power Press Operator reviewed history with social media campaign manager. Lived with her father through high school. After high school she was living with her mom during which time became involved in a relationship and moved to [place] where she lived for 2 years with her boyfriend; some mild depression but otherwise no other mental health issues. She returned home and lived with her father for several years, working at [employer], good mood no psychiatric symptoms. 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 This past fall, Little over a month ago patient became came confused though she has no idea why; either he sent her home or she was trying to come home but she could not figure out how to get herself to the airport. She has no other memory of what she was experiencing or her behaviors that led to her hospitalization at [facility] and then this 1 at [place]. -when she got off the plane her father could tell that she was acting a little strange; over the next few days her strangeness increased, he brought her to the hospital and she was psychiatrically admitted at [facility], where she spent 2 or 3 days and then was admitted to this hospital. Father reports patient is shy and quiet, but also friendly at baseline Patient educated on: diagnosis Informed Consent: understands Reason for continued inpatient stay Substantial Risk for: rapid decompensation Time Spent With Patient Time: Total time managing care of this patient today ____ minutes.
[2023-01-13 16:44] VITALS: BP 123/65; PULSE 86; RESP 18; TEMP 36.5; O2SAT 99
[2023-01-13] MEDS: Melatonin 3 MG TABLET 6 MG PO (21:31)
[2023-01-14 08:35] VITALS: BP 141/92; PULSE 99; RESP 18; TEMP 36.4; O2SAT 100
[2023-01-14] MEDS: ARIPiprazole 5 MG TABLET PO (08:48)
[2023-01-14] MEDS: Docusate Sodium 100 MG CAPSULE PO ×2 (08:49→20:41)
[2023-01-14 09:28] VITALS: BMI 26.7
[2023-01-14 10:58] VITALS: BMI 41.9
--- NOTE | 2023-01-14 12:19 | HO.PSYCHPN ---
Subjective Subjective Date of Service: 01/14/23 Reason For Visit: mood Interim History: Met with patient; discussed with team Patient continues to be doing a little better, more naturally expressive, showered today, laughed, interacting with peers appropriately Mental Status Exam Mental Status Exam Narrative: Pt is alert and oriented; behavior is cooperative, calm, brighter; talking more freely; patient is not in distress; dressed in casual attire with braided hair, marginal hygiene; mood and affect more relaxed, sometimes smiling; speech soft, but less so and normal rate; latency seems to be resolving; less psychomotor retardation present; thought process goal oriented, linear, a little less concrete; Thought content is on treatment, missing her family; denies AVH; seems to be internally distracted however denies any AVH; Patients insight and judgment impaired but much improved Diagnostics Vital Signs (24Hr): Vital Signs - 24 hr 01/13/23 16:44 01/14/23 08:35 Temperature 97.7 F 97.6 F Pulse Rate 86 99 Respiratory Rate 18 18 Blood Pressure 123/65 141/92 H Pulse Oximetry 99 100 Oxygen Delivery Method Room Air Room Air BMI result Body Mass Index 41.9 Labs 12/02/22 21:20 12/04/22 08:17 Medications Medications Current Medications Acetaminophen (Acetaminophen 325 Mg Tablet) 650 mg PO Q6H PRN PRN Reason: Headache/Pain Mild Scale (1-3) Last Admin: 12/21/22 02:55 Dose: 650 mg Al Hydroxide/Mg Hydroxide (Magnesium Hydrox/Alum Hydrox 30 Ml Oral.Susp) 30 ml PO Q6H PRN PRN Reason: Heartburn/Nausea Aripiprazole (Aripiprazole 5 Mg Tablet) 5 mg PO DAILY [facility] Last Admin: 01/14/23 08:48 Dose: 5 mg Benztropine Mesylate (Benztropine Mesylate 0.5 Mg Tablet) 0.5 mg PO BID PRN PRN Reason: EPS Docusate Sodium (Docusate Sodium 100 Mg Capsule) 100 mg PO BID [facility] Last Admin: 01/14/23 08:49 Dose: 100 mg Hydroxyzine HCl (Hydroxyzine Hcl 25 Mg Tablet) 25 mg PO Q6H PRN PRN Reason: Anxiety Last Admin: 01/08/23 22:42 Dose: 25 mg Magnesium Hydroxide (Milk Of Magnesia 30 Ml Oral.Susp) 30 ml PO DAILY PRN PRN Reason: Constipation Melatonin (Melatonin 3 Mg Tablet) 6 mg PO BEDTIME LETTY Last Admin: 01/13/23 21:31 Dose: 6 mg Trazodone HCl (Trazodone Hcl 50 Mg Tablet) 50 mg PO BEDTIME MRX1 PRN PRN Reason: Insomnia Last Admin: 01/09/23 19:36 Dose: 50 mg Allergies Allergies Allergy/AdvReac Type Severity Reaction Status Date / Time shrimp AdvReac Intermediate Rash Verified 12/02/22 21:40 Assessment & Plan Assessment & Plan (1) Bipolar 1 disorder: Status: Acute Code(s): F31.9 - Bipolar disorder, unspecified (2) Von Willebrand disease: Status: Acute Code(s): D68.00 - Von Willebrand disease, unspecified Plan Patient is a 27-year-old female with history of psychotic illness who presents with disorganized speech and behavior, recently discharged from [facility] but brought back to the hospital at the behest of her father. Patient having trouble focusing on conversation and is almost talking in a word salad. If asked a question she will mostly respond with some completely irrelevant and nonsensical answer. She said something about [employer]; [employer] song which she saying; physics; something about [place] in [place] and being stalked. She denies any AVH but does seem internally preoccupied. She denies any drug or alcohol use other than weed... A little. Patient gives permission for team to discuss case with her father and gives the phone number. Patient agreed to take antipsychotic medication. Later in the day, patient was more linear and organized. She agreed that she was at the hospital for help and understood criteria for having signed the CV, evidenced by asking relevant questions and later going up and asking to sign a 3 day notice. Hospital course: 12/05: contiue current treatmetn plan 12/08: Patient keeping to self. Presents guarded but organized. Pt stated, I'm feeling homesick. I'll keep taking my meds so I can leave . Patient retracted 3 day notice. denies SI/HI/VH/AH. Continue current tx plan. 12/09: Patient presents disorganized, confused with times of echolalia. When T/W would ask pt a question, pt would either repeat the question back, repeat a word from the sentence or state a word she overheard someone use who is standing within hearing distance. Patient attempted to elope from unit multiple times this morning. When T/W asked where she planned on going, pt stated, home. the school bus operator will bring me home . T/W explained to patient she would have to wait until she improved; pt stated, okay. I can do that . Showered. Medication compliant. Added Ativan 1mg PO BID PRN and Risperdal 0.5mg PO BID PRN. 12/10: Patient presents disorganized, confused with times of echolalia. Staff reported patient was seen standing on chair, when asked reasoning, pt stated, I'm not a turkey baster . Patient unable to have logical conversation at this time. Appears restless. Medication compliant. DC Risperdal, does not seem to be improving psychosis. Start Zyprexa 5mg PO daily. Patient aware. 12/11: Patient presents disorganized, confused with times of echolalia. Patient unable to have logical conversation at this time; flight of ideas. Medication compliant. Patient standing in hallway, jumping up and down and stating I'm bat shit crazy! 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 If I don't go to medical school I'm going to [place]. I wanna hug you! Continue taper of risperdal and increase in Zyprexa. 12/12: Increase Zyprexa tomorrow and lower Risperidone. 12/13: DC Risperidone. Continue titrating Zyprexa. Mouth checks. 12/14: remains floridly psychotic, disorganized. Will switch to Zydis and increase dose to 10mg bid (up from 5mg bid) 12/15 continue tx plan 12/16 remains dsorganized; maybe a little less...did not sleep overnight. Will increase Zydis to 20mg qhs -travel writer reviewed collateral and this seems to be a 1st break for patient; some psychotic symptoms coming up here in their over the past year but they emerged profoundly recently when patient got back from visiting a boyfriend in [place]. 12/17 This morning, patient was able to maintain a linear conversation with travel writer and then with nurse that was mostly logical. Attempted to take patient off one-to-one. Improvement did not last and patient soon dysregulated, wandering the halls, talking loudly and nonsensically; patient clawing at the doors trying to open them to leave the unit; on the phone talking to Ori a former patient that patient says she can see outside her window and thinks that the 2 are engaged. Patient also said she can see her family members outside the window. Patient told staff she feels unsafe without being on a one-to-one because there is safety in numbers. She also put soap in her mouth and explained it was because no one was with me... Patient also walking around the milieu with her hands on her neck imitating as if she is choking herself. Patient did come down some when she was replaced on one-to-one. -since patient seem to improve a little bit with increase Zyprexa dose will leave current regimen for now; however if not continued improvements will consider whether to switch medications or to and another medication, possibly Depakote 12/18 pt is minimally better than on admission, sometimes able to have and now sleeping more through the night, suggesting that Zyprexa maybe partially helpful; however, she remains significantly disorganized; debating med change vs continue w/ zyprexa. Difficult to discern if there is a manic component of if pt is just disorganzed (was not sleeping, but symptoms more psychotic than manic); considering Haldol or other 1st generatoin antipsychotic 12/19 will continue with Haldol 5 mg t.i.d. and discontinue Zyprexa. Having started Haldol, This is the 1st time patient is psychotic symptoms have been subdued. Will continue to monitor 12/20 Will increase Haldol to 10 mg b.i.d. 12/21 not sure if Haldol is working; some hints that it might be lowering symptoms. Will continue with current regimen and monitor 12/22Had an encouraging discussion with patient who was aware of person place and time, date, year, that it was Halloween; no she is at [facility] in the psychiatric unit. She is here because her parents think she has .a little to crazy.. And she agrees that they had reason to be concerned prior to admission. She says she knows she is not . Patient agrees to try getting off one-to-one. Despite this seemingly lucid conversation, patient has been telling other staff all day long that she is worried about her ; sometimes able to talk in a logical/linear way other times remains disorganized -will soon decide whether to go up on Haldol or to switch medications 12/23 continue current treatment plan 12/24 increasing haldol; added depakote 12/28Patient with flat affect, no expression, talking in monotone voice; walking more slowly. Thought content seems more vacuous, just answering questions and not referring to various thoughts she is having unlike the week prior. Patient is more organized in speech, answering questions appropriately however she is very concrete in her answers and with no extraneous words or thoughts expressed. Aluminum Hydroxide Process Operator asked about Ori a former patient about whom patient would sometimes expressed delusional memories, to which patient answered that was just a andrés I liked.. Which was matter of fact and without the typical additional odd or delusional comments. Denies AVH. Patient says she sleepy and over the weekend and today has been mostly keeping to herself, sleeping, not interacting with others, unchanged previous week -Says she had a good visit with her family and that her parents told her to remain on the unit until the doctors think she is ready to go home. To that and patient agreed to retract 3 day notice. Again discussed clozapine and patient agreed to trial including weekly blood draws. -observation: On lower dose of Haldol, 10 mg b.i.d., patient with improved symptoms compared to admission, however still disorganized; with increased Haldol, adding Haldol 5 mg in the afternoon, patient was more organized thought process however significantly blunted affect and still with limited insight and ability to discuss illness 12/29Patient a little less flat today with lower dose of Haldol. She remains improved from admission but still disorganized and in the milieu patient would sit, stand again set then stand again without any obvious reason. Discussed case with colleagues who agreed that Haldol at 10 mg b.i.d. is partially helpful and at this point, having failed to resolve symptoms with 3 antipsychotic trials, the best next option is to add a 2nd antipsychotic. Discussed options which included both clozapine and Abilify. Patient is open to either, including blood draws for clozapine. However Patient's father had some hesitancy about clozapine, not sure if getting weekly blood draws was realistic. Elected to start Abilify 12/30 Still disorganized but blunted affect is resolving and Patient more expressive and more interactive. Patient remains concrete but attended group and sat appropriately and answered a question appropriately as well. Still missing her family and hopes they will visit this weekend. eKG 12/22/22: QT Int : 306 ms/ QTc Int : 432 ms 12/31 Patient nauseous today and threw up 2 times; gave Zofran and it resolved; not sure if it is due to increased Abilify or something else. However Patient a little less flat today with increased Abilify. -some mouth twitching maybe tightness in the mouth Cogentin 0.5 mg 1 time dose given 01/01 patient remains very flat, blunted affect. Also walking a little stiffly. That said she is not expressing any psychotic symptoms and her answers are more organized. Will lower Haldol to 5 mg b.i.d. to try and reduce negative symptoms and EPS; for now will leave Abilify at 5 mg per day 01/04 same presentation, flat, monotone, EPS symptoms. Not expressing psychotic, delusional thinking but far from baseline and with limited insight. Will give Cogentin 0.5 mg 1 time dose since patient already got a 0.5 mg dose this morning; will discontinue Haldol due to only partial benefit with intolerable EPS side effects; will consider whether to increase Abilify. Patient agrees to clozapine; discussed this medication at length with her father. -will consider catatonia as well if negative symptoms do not subside with discontinuation of Haldol 01/05 Patient much more organized in conversation and behavior. She waved travel writer over and wanted to discuss treatment. Patient said she is definitely feeling more organized in her thoughts. She volunteers that she went to group and shared appropriately (which staff corroborates) at that overall she not quite fully back to her regular self, is feeling better. She denies any AVH. Aluminum Hydroxide Process Operator inquired and patient does not remember her behaviors when she was 1st admitted and on hearing them expressed deeper understanding why she has had to remain on the unit. In discussion, patient decided that she rather remain longer on the unit for further med management rather than leaving to soon and risk having to return to the hospital. Patient shared that at baseline, she is mostly is shy and quiet person. -patient still with flat but but it is helpful to learned that patient is on the shy and quiet side at baseline. No over psychotic symptoms exhibited and patient is organized in speech and (more or less) in behavior. Haldol was discontinued and she is now only on Abilify 5 mg daily; EPS/TD/dystonia seem to be resolving, the patient is also on scheduled Cogentin. At this time it is not clear if she will remain stable with Haldol discontinued or if Abilify will proved to be adequate. Prior to being medicated patient was floridly psychotic and it is too early to tell if symptoms will return or for main resolved with current medication regimen. Will leave her on Abilify 5 mg for now and see how she does. 01/06 Patient still with flat affect but remains with organized speech and behavior; feeling much more clear minded; denies AVH. No memory of her behaviors/ events surrounding decompensation/admissions and says hard to hear about them. Thinks that currently she is at a 4/10 (10 being her regular self) however she cannot articulate what is missing. 01/07 No change in presentation; continues to have flat affect and often keeps to herself however she remains with organized speech, linear and logical. Patient shared about group; applied it to her own life. She clarified that she and her [place] boyfriend broke up due to problems with his parents; they had a fight and patient wanted to return home. Around this time however she did start getting confused. hx of cannabis use started in [place], eat gummies only ever bought at a dispensary and used every few days and for a few months; no other drug or alcohol use. 01/08 no change in presentation; continue current treatment plan 01/09 good discussion with family and it seems more likely that patient has bipolar disorder, as she became suddenly manic upon returning to [place]. That said, it is possible that there could have been psychotic symptoms popping up here and there while she was in [place] that just were subclinical. It remains true time will have to more clearly reveal full diagnosis. Currently patient is with a very flat affect, a little disorganized (though vastly improved), with concrete thinking and still some limitations on insight. It is not clear if this is a medication side effect or the negative symptoms of psychosis. Considering medication changes given the fact patient likely had a manic episode which is either due to bipolar disorder or schizoaffective disorder patient is not on a traditional mood stabilizer. 01/10 continue current treatment plan; will get additional advice on medication management from colleagues. Given the patient is from the [facility], it is taking extra time to set up aftercare with providers 01/11 made Cogentin p.r.n.; will monitor for EPS symptoms but if none, Cogentin does not need to be scheduled; Seems to be walking more freely, fluidly, less stiffness. 01/12 continue current regimen At this time will continue with current medication regimen of Abilify 5 mg. Will continue to monitor and see if patient's symptoms reappear or if she is able to remain stable. 01/13 patient is slowly improving; continue current treatment plan 01/14 patient improving, continue current treatment plan DX: Change diagnosis to bipolar disorder given that patient incident started with sudden onset manic episode (as far as able to tell); will rule out schizoaffective disorder Plan: CV Q 15 minute checks Continue Abilify 5mg daily; no side effects noted (last QTC WNL; Abilify known to lower QTC if anything) Discontinue Haldol; only partially effective and causing significant negative side effects and EPS; although psychotic symptoms have lessened with Haldol, side effects will not be tolerable long-term CHANGED Cogentin 0.5 mg b.i.d P.R.N.. (Changed since no longer on Haldol; will monitor for EPS) Discontinue Ativan; patient complains of daytime tiredness Med trials discontinued during this admission: Discontinue Haldol; only partially effective and causing significant negative side effects and EPS; although psychotic symptoms have lessened with Haldol, side effects will not be tolerable long-term Discontinued Zyprexa; maybe partially effective Discontinued Risperdal; did not seem affective Discontinued depakote; was only on a low dose for few days and deemed not necessary Aluminum Hydroxide Process Operator reviewed history with social work nurse. Lived with her father through high school. After high school she was living with her mom during which time became involved in a relationship and moved to [place] where she lived for 2 years with her boyfriend; some mild depression but otherwise no other mental health issues. She returned home and lived with her father for several years, working at [employer], good mood no psychiatric symptoms. 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 This past fall, [place] over a month ago patient became came confused though she has no idea why; either he sent her home or she was trying to come home but she could not figure out how to get herself to the airport. She has no other memory of what she was experiencing or her behaviors that led to her hospitalization at [facility] and then this at [place]. -when she got off the plane her father could tell that she was acting a little strange; over the next few days her strangeness increased, he brought her to the hospital and she was psychiatrically admitted at [facility], where she spent 2 or 3 days and then was admitted to this hospital. Father reports patient is shy and quiet, but also friendly at baseline Patient educated on: diagnosis Informed Consent: understands and further education needed Reason for continued inpatient stay Substantial Risk for: rapid decompensation Time Spent With Patient Time: Total time managing care of this patient today ____ minutes.
[2023-01-14 18:00] VITALS: BP 114/59; PULSE 86; TEMP 36.4; O2SAT 100
[2023-01-14] MEDS: Melatonin 3 MG TABLET 6 MG PO (20:41)
[2023-01-15 08:15] VITALS: BP 122/79; PULSE 94; RESP 16; TEMP 36.4; O2SAT 100
[2023-01-15] MEDS: ARIPiprazole 5 MG TABLET PO (08:25)
[2023-01-15] MEDS: Docusate Sodium 100 MG CAPSULE PO ×2 (08:25→20:52)
--- NOTE | 2023-01-15 09:46 | HO.PSYCHPN ---
Subjective Subjective Date of Service: 01/15/23 Reason For Visit: mood Interim History: met with patient; discussed with team Seems to continue improving, more expressive, more interactive Mental Status Exam Mental Status Exam Narrative: Pt is alert and oriented; behavior is cooperative, calm, brighter; talking more freely; patient is not in distress; dressed in casual attire with braided hair, marginal hygiene; mood and affect more relaxed, sometimes smiling; speech soft, but less so and normal rate; latency seems to be resolving; less psychomotor retardation present; thought process goal oriented, linear, a little less concrete; Thought content is on treatment, missing her family; denies AVH; seems to be internally distracted however denies any AVH; Patients insight and judgment impaired but much improved Diagnostics Vital Signs (24Hr): Vital Signs - 24 hr 01/14/23 18:00 01/15/23 08:15 Temperature 97.6 F 97.6 F Pulse Rate 86 94 Respiratory Rate 16 Blood Pressure 114/59 L 122/79 Pulse Oximetry 100 100 Oxygen Delivery Method Room Air Room Air BMI result Body Mass Index 41.9 Labs 12/02/22 21:20 12/04/22 08:17 Medications Medications Current Medications Acetaminophen (Acetaminophen 325 Mg Tablet) 650 mg PO Q6H PRN PRN Reason: Headache/Pain Mild Scale (1-3) Last Admin: 12/21/22 02:55 Dose: 650 mg Al Hydroxide/Mg Hydroxide (Magnesium Hydrox/Alum Hydrox 30 Ml Oral.Susp) 30 ml PO Q6H PRN PRN Reason: Heartburn/Nausea Aripiprazole (Aripiprazole 5 Mg Tablet) 5 mg PO DAILY [facility] Last Admin: 01/15/23 08:25 Dose: 5 mg Benztropine Mesylate (Benztropine Mesylate 0.5 Mg Tablet) 0.5 mg PO BID PRN PRN Reason: EPS Docusate Sodium (Docusate Sodium 100 Mg Capsule) 100 mg PO BID [facility] Last Admin: 01/15/23 08:25 Dose: 100 mg Hydroxyzine HCl (Hydroxyzine Hcl 25 Mg Tablet) 25 mg PO Q6H PRN PRN Reason: Anxiety Last Admin: 01/08/23 22:42 Dose: 25 mg Magnesium Hydroxide (Milk Of Magnesia 30 Ml Oral.Susp) 30 ml PO DAILY PRN PRN Reason: Constipation Melatonin (Melatonin 3 Mg Tablet) 6 mg PO BEDTIME [facility] Last Admin: 01/14/23 20:41 Dose: 6 mg Trazodone HCl (Trazodone Hcl 50 Mg Tablet) 50 mg PO BEDTIME MRX1 PRN PRN Reason: Insomnia Last Admin: 01/09/23 19:36 Dose: 50 mg Allergies Allergies Allergy/AdvReac Type Severity Reaction Status Date / Time shrimp AdvReac Intermediate Rash Verified 12/02/22 21:40 Assessment & Plan Assessment & Plan (1) Bipolar 1 disorder: Status: Acute Code(s): F31.9 - Bipolar disorder, unspecified (2) Von Willebrand disease: Status: Acute Code(s): D68.00 - Von Willebrand disease, unspecified Plan Patient is a 27-year-old female with history of psychotic illness who presents with disorganized speech and behavior, recently discharged from [facility] but brought back to the hospital at the behest of her father. Patient having trouble focusing on conversation and is almost talking in a word salad. If asked a question she will mostly respond with some completely irrelevant and nonsensical answer. She said something about [employer]; Fanatic[employer] song which she saying; physics; something about [place] in [place] and being stalked. She denies any AVH but does seem internally preoccupied. She denies any drug or alcohol use other than weed... A little. Patient gives permission for team to discuss case with her father and gives the phone number. Patient agreed to take antipsychotic medication. Later in the day, patient was more linear and organized. She agreed that she was at the hospital for help and understood criteria for having signed the CV, evidenced by asking relevant questions and later going up and asking to sign a 3 day notice. Hospital course: 12/05: contiue current treatmetn plan 12/08: Patient keeping to self. Presents guarded but organized. Pt stated, I'm feeling homesick. I'll keep taking my meds so I can leave . Patient retracted 3 day notice. denies SI/HI/VH/AH. Continue current tx plan. 12/09: Patient presents disorganized, confused with times of echolalia. When T/W would ask pt a question, pt would either repeat the question back, repeat a word from the sentence or state a word she overheard someone use who is standing within hearing distance. Patient attempted to elope from unit multiple times this morning. When T/W asked where she planned on going, pt stated, home. the truck hop will bring me home . T/W explained to patient she would have to wait until she improved; pt stated, okay. I can do that . Showered. Medication compliant. Added Ativan 1mg PO BID PRN and Risperdal 0.5mg PO BID PRN. 12/10: Patient presents disorganized, confused with times of echolalia. Staff reported patient was seen standing on chair, when asked reasoning, pt stated, I'm not a turkey baster . Patient unable to have logical conversation at this time. Appears restless. Medication compliant. DC Risperdal, does not seem to be improving psychosis. Start Zyprexa 5mg PO daily. Patient aware. 12/11: Patient presents disorganized, confused with times of echolalia. Patient unable to have logical conversation at this time; flight of ideas. Medication compliant. Patient standing in hallway, jumping up and down and stating I'm bat shit crazy! 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 If I don't go to medical school I'm going to [employer]. I wanna hug you! Continue taper of risperdal and increase in Zyprexa. 12/12: Increase Zyprexa tomorrow and lower Risperidone. 12/13: DC Risperidone. Continue titrating Zyprexa. Mouth checks. 12/14: remains floridly psychotic, disorganized. Will switch to Zydis and increase dose to 10mg bid (up from 5mg bid) 12/15 continue tx plan 12/16 remains dsorganized; maybe a little less...did not sleep overnight. Will increase Zydis to 20mg qhs -advertising copy writer reviewed collateral and this seems to be a 1st break for patient; some psychotic symptoms coming up here in their over the past year but they emerged profoundly recently when patient got back from visiting a boyfriend in [place]. 12/17 This morning, patient was able to maintain a linear conversation with advertising copy writer and then with nurse that was mostly logical. Attempted to take patient off one-to-one. Improvement did not last and patient soon dysregulated, wandering the halls, talking loudly and nonsensically; patient clawing at the doors trying to open them to leave the unit; on the phone talking to Ori a former patient that patient says she can see outside her window and thinks that the 2 are engaged. Patient also said she can see her family members outside the window. Patient told staff she feels unsafe without being on a one-to-one because there is safety in numbers. She also put soap in her mouth and explained it was because no one was with me... Patient also walking around the milieu with her hands on her neck imitating as if she is choking herself. Patient did come down some when she was replaced on one-to-one. -since patient seem to improve a little bit with increase Zyprexa dose will leave current regimen for now; however if not continued improvements will consider whether to switch medications or to and another medication, possibly Depakote 12/18 pt is minimally better than on admission, sometimes able to have and now sleeping more through the night, suggesting that Zyprexa maybe partially helpful; however, she remains significantly disorganized; debating med change vs continue w/ zyprexa. Difficult to discern if there is a manic component of if pt is just disorganzed (was not sleeping, but symptoms more psychotic than manic); considering Haldol or other 1st generatoin antipsychotic 12/19 will continue with Haldol 5 mg t.i.d. and discontinue Zyprexa. Having started Haldol, This is the 1st time patient is psychotic symptoms have been subdued. Will continue to monitor 12/20 Will increase Haldol to 10 mg b.i.d. 12/21 not sure if Haldol is working; some hints that it might be lowering symptoms. Will continue with current regimen and monitor 12/22Had an encouraging discussion with patient who was aware of person place and time, date, year, that it was Halloween; no she is at [facility] in the psychiatric unit. She is here because her parents think she has .a little to crazy.. And she agrees that they had reason to be concerned prior to admission. She says she knows she is not . Patient agrees to try getting off one-to-one. Despite this seemingly lucid conversation, patient has been telling other staff all day long that she is worried about her ; sometimes able to talk in a logical/linear way other times remains disorganized -will soon decide whether to go up on Haldol or to switch medications 12/23 continue current treatment plan 12/24 increasing haldol; added depakote 12/28Patient with flat affect, no expression, talking in monotone voice; walking more slowly. Thought content seems more vacuous, just answering questions and not referring to various thoughts she is having unlike the week prior. Patient is more organized in speech, answering questions appropriately however she is very concrete in her answers and with no extraneous words or thoughts expressed. Senior Branch Manager asked about Ori a former patient about whom patient would sometimes expressed delusional memories, to which patient answered that was just a andrés I liked.. Which was matter of fact and without the typical additional odd or delusional comments. Denies AVH. Patient says she sleepy and over the weekend and today has been mostly keeping to herself, sleeping, not interacting with others, unchanged previous week -Says she had a good visit with her family and that her parents told her to remain on the unit until the doctors think she is ready to go home. To that and patient agreed to retract 3 day notice. Again discussed clozapine and patient agreed to trial including weekly blood draws. -observation: On lower dose of Haldol, 10 mg b.i.d., patient with improved symptoms compared to admission, however still disorganized; with increased Haldol, adding Haldol 5 mg in the afternoon, patient was more organized thought process however significantly blunted affect and still with limited insight and ability to discuss illness 12/29Patient a little less flat today with lower dose of Haldol. She remains improved from admission but still disorganized and in the milieu patient would sit, stand again set then stand again without any obvious reason. Discussed case with colleagues who agreed that Haldol at 10 mg b.i.d. is partially helpful and at this point, having failed to resolve symptoms with 3 antipsychotic trials, the best next option is to add a 2nd antipsychotic. Discussed options which included both clozapine and Abilify. Patient is open to either, including blood draws for clozapine. However Patient's father had some hesitancy about clozapine, not sure if getting weekly blood draws was realistic. Elected to start Abilify 12/30 Still disorganized but blunted affect is resolving and Patient more expressive and more interactive. Patient remains concrete but attended group and sat appropriately and answered a question appropriately as well. Still missing her family and hopes they will visit this weekend. eKG 12/22/22: QT Int : 306 ms/ QTc Int : 432 ms 12/31 Patient nauseous today and threw up 2 times; gave Zofran and it resolved; not sure if it is due to increased Abilify or something else. However Patient a little less flat today with increased Abilify. -some mouth twitching maybe tightness in the mouth Cogentin 0.5 mg 1 time dose given 01/01 patient remains very flat, blunted affect. Also walking a little stiffly. That said she is not expressing any psychotic symptoms and her answers are more organized. Will lower Haldol to 5 mg b.i.d. to try and reduce negative symptoms and EPS; for now will leave Abilify at 5 mg per day 01/04 same presentation, flat, monotone, EPS symptoms. Not expressing psychotic, delusional thinking but far from baseline and with limited insight. Will give Cogentin 0.5 mg 1 time dose since patient already got a 0.5 mg dose this morning; will discontinue Haldol due to only partial benefit with intolerable EPS side effects; will consider whether to increase Abilify. Patient agrees to clozapine; discussed this medication at length with her father. -will consider catatonia as well if negative symptoms do not subside with discontinuation of Haldol 01/05 Patient much more organized in conversation and behavior. She waved advertising copy writer over and wanted to discuss treatment. Patient said she is definitely feeling more organized in her thoughts. She volunteers that she went to group and shared appropriately (which staff corroborates) at that overall she not quite fully back to her regular self, is feeling better. She denies any AVH. Senior Branch Manager inquired and patient does not remember her behaviors when she was 1st admitted and on hearing them expressed deeper understanding why she has had to remain on the unit. In discussion, patient decided that she rather remain longer on the unit for further med management rather than leaving to soon and risk having to return to the hospital. Patient shared that at baseline, she is mostly is shy and quiet person. -patient still with flat but but it is helpful to learned that patient is on the shy and quiet side at baseline. No over psychotic symptoms exhibited and patient is organized in speech and (more or less) in behavior. Haldol was discontinued and she is now only on Abilify 5 mg daily; EPS/TD/dystonia seem to be resolving, the patient is also on scheduled Cogentin. At this time it is not clear if she will remain stable with Haldol discontinued or if Abilify will proved to be adequate. Prior to being medicated patient was floridly psychotic and it is too early to tell if symptoms will return or for main resolved with current medication regimen. Will leave her on Abilify 5 mg for now and see how she does. 01/06 Patient still with flat affect but remains with organized speech and behavior; feeling much more clear minded; denies AVH. No memory of her behaviors/ events surrounding decompensation/admissions and says hard to hear about them. Thinks that currently she is at a 4/10 (10 being her regular self) however she cannot articulate what is missing. 01/07 No change in presentation; continues to have flat affect and often keeps to herself however she remains with organized speech, linear and logical. Patient shared about group; applied it to her own life. She clarified that she and her [place] boyfriend broke up due to problems with his parents; they had a fight and patient wanted to return home. Around this time however she did start getting confused. hx of cannabis use started in [place], eat gummies only ever bought at a dispensary and used every few days and for a few months; no other drug or alcohol use. 01/08 no change in presentation; continue current treatment plan 01/09 good discussion with family and it seems more likely that patient has bipolar disorder, as she became suddenly manic upon returning to [place]. That said, it is possible that there could have been psychotic symptoms popping up here and there while she was in [place] that just were subclinical. It remains true time will have to more clearly reveal full diagnosis. Currently patient is with a very flat affect, a little disorganized (though vastly improved), with concrete thinking and still some limitations on insight. It is not clear if this is a medication side effect or the negative symptoms of psychosis. Considering medication changes given the fact patient likely had a manic episode which is either due to bipolar disorder or schizoaffective disorder patient is not on a traditional mood stabilizer. 01/10 continue current treatment plan; will get additional advice on medication management from colleagues. Given the patient is from the [facility], it is taking extra time to set up aftercare with providers 01/11 made Cogentin p.r.n.; will monitor for EPS symptoms but if none, Cogentin does not need to be scheduled; Seems to be walking more freely, fluidly, less stiffness. 01/12 continue current regimen At this time will continue with current medication regimen of Abilify 5 mg. Will continue to monitor and see if patient's symptoms reappear or if she is able to remain stable. 01/13 patient is slowly improving; continue current treatment plan 01/14 patient improving, continue current treatment plan DX: Change diagnosis to bipolar disorder given that patient incident started with sudden onset manic episode (as far as able to tell); will rule out schizoaffective disorder Plan: CV Q 15 minute checks Continue Abilify 5mg daily; no side effects noted (last QTC WNL; Abilify known to lower QTC if anything) Discontinue Haldol; only partially effective and causing significant negative side effects and EPS; although psychotic symptoms have lessened with Haldol, side effects will not be tolerable long-term CHANGED Cogentin 0.5 mg b.i.d P.R.N.. (Changed since no longer on Haldol; will monitor for EPS) Discontinue Ativan; patient complains of daytime tiredness Med trials discontinued during this admission: Discontinue Haldol; only partially effective and causing significant negative side effects and EPS; although psychotic symptoms have lessened with Haldol, side effects will not be tolerable long-term Discontinued Zyprexa; maybe partially effective Discontinued Risperdal; did not seem affective Discontinued depakote; was only on a low dose for few days and deemed not necessary Senior Branch Manager reviewed history with social media marketing specialist. Lived with her father through high school. After high school she was living with her mom during which time became involved in a relationship and moved to [place] where she lived for 2 years with her boyfriend; some mild depression but otherwise no other mental health issues. She returned home and lived with her father for several years, working at [employer], good mood no psychiatric symptoms. 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 This past fall, Little over a month ago patient became came confused though she has no idea why; either he sent her home or she was trying to come home but she could not figure out how to get herself to the airport. She has no other memory of what she was experiencing or her behaviors that led to her hospitalization at [facility] and then this 1 at [place]. -when she got off the plane her father could tell that she was acting a little strange; over the next few days her strangeness increased, he brought her to the hospital and she was psychiatrically admitted at [facility], where she spent 2 or 3 days and then was admitted to this hospital. Father reports patient is shy and quiet, but also friendly at baseline Patient educated on: diagnosis Reason for continued inpatient stay Substantial Risk for: stable for discharge Time Spent With Patient Time: Total time managing care of this patient today ____ minutes.
[2023-01-15 18:00] VITALS: BP 131/79; PULSE 91; RESP 16; TEMP 36.6; O2SAT 100
[2023-01-15] MEDS: Melatonin 3 MG TABLET 6 MG PO (20:52)
[2023-01-16 06:00] VITALS: PULSE 88; O2SAT 100
[2023-01-16] MEDS: ARIPiprazole 5 MG TABLET PO (08:57)
[2023-01-16] MEDS: Docusate Sodium 100 MG CAPSULE PO ×2 (08:57→20:23)
--- NOTE | 2023-01-16 16:08 | HO.PSYCHPN ---
Subjective Subjective Date of Service: 01/16/23 Reason For Visit: mood Subjective Notes: Conditional Voluntary Healthcare Proxy: No Guardianship: No Medical Problems Affecting Mental Status: No Interim History: met with patient. Discussed with Nursing. Chart reviewed. Overall patient has been sleeping a lot. However is out of her room more for meals with some groups. With filing writer today she reports things are getting better. Reports not feeling confused. Reports he did have difficulty interpreting the world around her prior to admission. Feels safe. Feels positive regarding medications. Has been attending some groups. Looking forward to father visiting today. No med concerns. Sleep okay. Medication Compliance: Yes Side effects from medications: No Attending Groups: Intermittent Review of Systems Acute medical concerns: No Review of Systems Review of Systems Yes all other systems are reviewed and are negative Mental Status Exam Mental Status Exam Narrative: Pleasant. Engaged. Casually dressed. Fair self-care. Organized. Euthymic. Affect is restricted. No SI. No HI. No overt psychosis noted. Insight and judgment fair Diagnostics Vital Signs (24Hr): Vital Signs - 24 hr 01/15/23 18:00 01/16/23 06:00 Temperature 98 F Pulse Rate 91 88 Respiratory Rate 16 Blood Pressure 131/79 Pulse Oximetry 100 100 Oxygen Delivery Method Room Air Room Air BMI result Body Mass Index 41.9 Labs 12/02/22 21:20 12/04/22 08:17 Medications Medications Current Medications Acetaminophen (Acetaminophen 325 Mg Tablet) 650 mg PO Q6H PRN PRN Reason: Headache/Pain Mild Scale (1-3) Last Admin: 12/21/22 02:55 Dose: 650 mg Al Hydroxide/Mg Hydroxide (Magnesium Hydrox/Alum Hydrox 30 Ml Oral.Susp) 30 ml PO Q6H PRN PRN Reason: Heartburn/Nausea Aripiprazole (Aripiprazole 5 Mg Tablet) 5 mg PO DAILY [facility] Last Admin: 01/16/23 08:57 Dose: 5 mg Benztropine Mesylate (Benztropine Mesylate 0.5 Mg Tablet) 0.5 mg PO BID PRN PRN Reason: EPS Docusate Sodium (Docusate Sodium 100 Mg Capsule) 100 mg PO BID [facility] Last Admin: 01/16/23 08:57 Dose: 100 mg Hydroxyzine HCl (Hydroxyzine Hcl 25 Mg Tablet) 25 mg PO Q6H PRN PRN Reason: Anxiety Last Admin: 01/08/23 22:42 Dose: 25 mg Magnesium Hydroxide (Milk Of Magnesia 30 Ml Oral.Susp) 30 ml PO DAILY PRN PRN Reason: Constipation Melatonin (Melatonin 3 Mg Tablet) 6 mg PO BEDTIME LETTY Last Admin: 01/15/23 20:52 Dose: 6 mg Trazodone HCl (Trazodone Hcl 50 Mg Tablet) 50 mg PO BEDTIME MRX1 PRN PRN Reason: Insomnia Last Admin: 01/09/23 19:36 Dose: 50 mg Allergies Allergies Allergy/AdvReac Type Severity Reaction Status Date / Time shrimp AdvReac Intermediate Rash Verified 12/02/22 21:40 Assessment & Plan Assessment & Plan (1) Bipolar 1 disorder: Status: Acute Code(s): F31.9 - Bipolar disorder, unspecified (2) Von Willebrand disease: Status: Acute Code(s): D68.00 - Von Willebrand disease, unspecified Plan Patient is a 27-year-old female with history of psychotic illness who presents with disorganized speech and behavior, recently discharged from [facility] but brought back to the hospital at the behest of her father. Patient having trouble focusing on conversation and is almost talking in a word salad. If asked a question she will mostly respond with some completely irrelevant and nonsensical answer. She said something about [employer]; [employer] song which she saying; physics; something about [place] in [place] and being stalked. She denies any AVH but does seem internally preoccupied. She denies any drug or alcohol use other than weed... A little. Patient gives permission for team to discuss case with her father and gives the phone number. Patient agreed to take antipsychotic medication. Later in the day, patient was more linear and organized. She agreed that she was at the hospital for help and understood criteria for having signed the CV, evidenced by asking relevant questions and later going up and asking to sign a 3 day notice. Hospital course: 12/05: contiue current treatmetn plan 12/08: Patient keeping to self. Presents guarded but organized. Pt stated, I'm feeling homesick. I'll keep taking my meds so I can leave . Patient retracted 3 day notice. denies SI/HI/VH/AH. Continue current tx plan. 12/09: Patient presents disorganized, confused with times of echolalia. When T/W would ask pt a question, pt would either repeat the question back, repeat a word from the sentence or state a word she overheard someone use who is standing within hearing distance. Patient attempted to elope from unit multiple times this morning. When T/W asked where she planned on going, pt stated, home. the white hat hacker will bring me home . T/W explained to patient she would have to wait until she improved; pt stated, okay. I can do that . Showered. Medication compliant. Added Ativan 1mg PO BID PRN and Risperdal 0.5mg PO BID PRN. 12/10: Patient presents disorganized, confused with times of echolalia. Staff reported patient was seen standing on chair, when asked reasoning, pt stated, I'm not a turkey baster . Patient unable to have logical conversation at this time. Appears restless. Medication compliant. DC Risperdal, does not seem to be improving psychosis. Start Zyprexa 5mg PO daily. Patient aware. 12/11: Patient presents disorganized, confused with times of echolalia. Patient unable to have logical conversation at this time; flight of ideas. Medication compliant. Patient standing in hallway, jumping up and down and stating I'm bat shit crazy! 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 If I don't go to medical school I'm going to [place] [employer]. I wanna hug you! Continue taper of risperdal and increase in Zyprexa. 12/12: Increase Zyprexa tomorrow and lower Risperidone. 12/13: DC Risperidone. Continue titrating Zyprexa. Mouth checks. 12/14: remains floridly psychotic, disorganized. Will switch to Zydis and increase dose to 10mg bid (up from 5mg bid) 12/15 continue tx plan 12/16 remains dsorganized; maybe a little less...did not sleep overnight. Will increase Zydis to 20mg qhs -filing writer reviewed collateral and this seems to be a 1st break for patient; some psychotic symptoms coming up here in their over the past year but they emerged profoundly recently when patient got back from visiting a boyfriend in [place]. 12/17 This morning, patient was able to maintain a linear conversation with filing writer and then with nurse that was mostly logical. Attempted to take patient off one-to-one. Improvement did not last and patient soon dysregulated, wandering the halls, talking loudly and nonsensically; patient clawing at the doors trying to open them to leave the unit; on the phone talking to Ori a former patient that patient says she can see outside her window and thinks that the 2 are engaged. Patient also said she can see her family members outside the window. Patient told staff she feels unsafe without being on a one-to-one because there is safety in numbers. She also put soap in her mouth and explained it was because no one was with me... Patient also walking around the milieu with her hands on her neck imitating as if she is choking herself. Patient did come down some when she was replaced on one-to-one. -since patient seem to improve a little bit with increase Zyprexa dose will leave current regimen for now; however if not continued improvements will consider whether to switch medications or to and another medication, possibly Depakote 12/18 pt is minimally better than on admission, sometimes able to have and now sleeping more through the night, suggesting that Zyprexa maybe partially helpful; however, she remains significantly disorganized; debating med change vs continue w/ zyprexa. Difficult to discern if there is a manic component of if pt is just disorganzed (was not sleeping, but symptoms more psychotic than manic); considering Haldol or other 1st generatoin antipsychotic 12/19 will continue with Haldol 5 mg t.i.d. and discontinue Zyprexa. Having started Haldol, This is the 1st time patient is psychotic symptoms have been subdued. Will continue to monitor 12/20 Will increase Haldol to 10 mg b.i.d. 12/21 not sure if Haldol is working; some hints that it might be lowering symptoms. Will continue with current regimen and monitor 12/22Had an encouraging discussion with patient who was aware of person place and time, date, year, that it was Halloween; no she is at [facility] in the psychiatric unit. She is here because her parents think she has .a little to crazy.. And she agrees that they had reason to be concerned prior to admission. She says she knows she is not . Patient agrees to try getting off one-to-one. Despite this seemingly lucid conversation, patient has been telling other staff all day long that she is worried about her ; sometimes able to talk in a logical/linear way other times remains disorganized -will soon decide whether to go up on Haldol or to switch medications 12/23 continue current treatment plan 12/24 increasing haldol; added depakote 12/28Patient with flat affect, no expression, talking in monotone voice; walking more slowly. Thought content seems more vacuous, just answering questions and not referring to various thoughts she is having unlike the week prior. Patient is more organized in speech, answering questions appropriately however she is very concrete in her answers and with no extraneous words or thoughts expressed. Production Assembler asked about Ori a former patient about whom patient would sometimes expressed delusional memories, to which patient answered that was just a andrés I liked.. Which was matter of fact and without the typical additional odd or delusional comments. Denies AVH. Patient says she sleepy and over the weekend and today has been mostly keeping to herself, sleeping, not interacting with others, unchanged previous week -Says she had a good visit with her family and that her parents told her to remain on the unit until the doctors think she is ready to go home. To that and patient agreed to retract 3 day notice. Again discussed clozapine and patient agreed to trial including weekly blood draws. -observation: On lower dose of Haldol, 10 mg b.i.d., patient with improved symptoms compared to admission, however still disorganized; with increased Haldol, adding Haldol 5 mg in the afternoon, patient was more organized thought process however significantly blunted affect and still with limited insight and ability to discuss illness 12/29Patient a little less flat today with lower dose of Haldol. She remains improved from admission but still disorganized and in the milieu patient would sit, stand again set then stand again without any obvious reason. Discussed case with colleagues who agreed that Haldol at 10 mg b.i.d. is partially helpful and at this point, having failed to resolve symptoms with 3 antipsychotic trials, the best next option is to add a 2nd antipsychotic. Discussed options which included both clozapine and Abilify. Patient is open to either, including blood draws for clozapine. However Patient's father had some hesitancy about clozapine, not sure if getting weekly blood draws was realistic. Elected to start Abilify 12/30 Still disorganized but blunted affect is resolving and Patient more expressive and more interactive. Patient remains concrete but attended group and sat appropriately and answered a question appropriately as well. Still missing her family and hopes they will visit this weekend. eKG 12/22/22: QT Int : 306 ms/ QTc Int : 432 ms 12/31 Patient nauseous today and threw up 2 times; gave Zofran and it resolved; not sure if it is due to increased Abilify or something else. However Patient a little less flat today with increased Abilify. -some mouth twitching maybe tightness in the mouth Cogentin 0.5 mg 1 time dose given 01/01 patient remains very flat, blunted affect. Also walking a little stiffly. That said she is not expressing any psychotic symptoms and her answers are more organized. Will lower Haldol to 5 mg b.i.d. to try and reduce negative symptoms and EPS; for now will leave Abilify at 5 mg per day 01/04 same presentation, flat, monotone, EPS symptoms. Not expressing psychotic, delusional thinking but far from baseline and with limited insight. Will give Cogentin 0.5 mg 1 time dose since patient already got a 0.5 mg dose this morning; will discontinue Haldol due to only partial benefit with intolerable EPS side effects; will consider whether to increase Abilify. Patient agrees to clozapine; discussed this medication at length with her father. -will consider catatonia as well if negative symptoms do not subside with discontinuation of Haldol 01/05 Patient much more organized in conversation and behavior. She waved filing writer over and wanted to discuss treatment. Patient said she is definitely feeling more organized in her thoughts. She volunteers that she went to group and shared appropriately (which staff corroborates) at that overall she not quite fully back to her regular self, is feeling better. She denies any AVH. Production Assembler inquired and patient does not remember her behaviors when she was 1st admitted and on hearing them expressed deeper understanding why she has had to remain on the unit. In discussion, patient decided that she rather remain longer on the unit for further med management rather than leaving to soon and risk having to return to the hospital. Patient shared that at baseline, she is mostly is shy and quiet person. -patient still with flat but but it is helpful to learned that patient is on the shy and quiet side at baseline. No over psychotic symptoms exhibited and patient is organized in speech and (more or less) in behavior. Haldol was discontinued and she is now only on Abilify 5 mg daily; EPS/TD/dystonia seem to be resolving, the patient is also on scheduled Cogentin. At this time it is not clear if she will remain stable with Haldol discontinued or if Abilify will proved to be adequate. Prior to being medicated patient was floridly psychotic and it is too early to tell if symptoms will return or for main resolved with current medication regimen. Will leave her on Abilify 5 mg for now and see how she does. 01/06 Patient still with flat affect but remains with organized speech and behavior; feeling much more clear minded; denies AVH. No memory of her behaviors/ events surrounding decompensation/admissions and says hard to hear about them. Thinks that currently she is at a 4/10 (10 being her regular self) however she cannot articulate what is missing. 01/07 No change in presentation; continues to have flat affect and often keeps to herself however she remains with organized speech, linear and logical. Patient shared about group; applied it to her own life. She clarified that she and her [place] boyfriend broke up due to problems with his parents; they had a fight and patient wanted to return home. Around this time however she did start getting confused. hx of cannabis use started in [place], eat gummies only ever bought at a dispensary and used every few days and for a few months; no other drug or alcohol use. 01/08 no change in presentation; continue current treatment plan 01/09 good discussion with family and it seems more likely that patient has bipolar disorder, as she became suddenly manic upon returning to [place]. That said, it is possible that there could have been psychotic symptoms popping up here and there while she was in [place] that just were subclinical. It remains true time will have to more clearly reveal full diagnosis. Currently patient is with a very flat affect, a little disorganized (though vastly improved), with concrete thinking and still some limitations on insight. It is not clear if this is a medication side effect or the negative symptoms of psychosis. Considering medication changes given the fact patient likely had a manic episode which is either due to bipolar disorder or schizoaffective disorder patient is not on a traditional mood stabilizer. 01/10 continue current treatment plan; will get additional advice on medication management from colleagues. Given the patient is from the [facility], it is taking extra time to set up aftercare with providers 01/11 made Cogentin p.r.n.; will monitor for EPS symptoms but if none, Cogentin does not need to be scheduled; Seems to be walking more freely, fluidly, less stiffness. 01/12 continue current regimen At this time will continue with current medication regimen of Abilify 5 mg. Will continue to monitor and see if patient's symptoms reappear or if she is able to remain stable. 01/13 patient is slowly improving; continue current treatment plan 01/14 patient improving, continue current treatment plan 01/16/2023: No changes to current plan DX: Change diagnosis to bipolar disorder given that patient incident started with sudden onset manic episode (as far as able to tell); will rule out schizoaffective disorder Plan: CV Q 15 minute checks Continue Abilify 5mg daily; no side effects noted (last QTC WNL; Abilify known to lower QTC if anything) Discontinue Haldol; only partially effective and causing significant negative side effects and EPS; although psychotic symptoms have lessened with Haldol, side effects will not be tolerable long-term CHANGED Cogentin 0.5 mg b.i.d P.R.N.. (Changed since no longer on Haldol; will monitor for EPS) Discontinue Ativan; patient complains of daytime tiredness Med trials discontinued during this admission: Discontinue Haldol; only partially effective and causing significant negative side effects and EPS; although psychotic symptoms have lessened with Haldol, side effects will not be tolerable long-term Discontinued Zyprexa; maybe partially effective Discontinued Risperdal; did not seem affective Discontinued depakote; was only on a low dose for few days and deemed not necessary Production Assembler reviewed history with social problems specialist. Lived with her father through high school. After high school she was living with her mom during which time became involved in a relationship and moved to [place] where she lived for 2 years with her boyfriend; some mild depression but otherwise no other mental health issues. She returned home and lived with her father for several years, working at [employer], good mood no psychiatric symptoms. 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 This past fall, [place] over a month ago patient became came confused though she has no idea why; either he sent her home or she was trying to come home but she could not figure out how to get herself to the airport. She has no other memory of what she was experiencing or her behaviors that led to her hospitalization at [facility] and then this 1 at [place]. -when she got off the plane her father could tell that she was acting a little strange; over the next few days her strangeness increased, he brought her to the hospital and she was psychiatrically admitted at [facility], where she spent 2 or 3 days and then was admitted to this hospital. Father reports patient is shy and quiet, but also friendly at baseline Reason for continued inpatient stay Substantial Risk for: rapid decompensation Time Spent With Patient Time: Total time managing care of this patient today ____ minutes.
[2023-01-16 18:00] VITALS: BP 99/50; PULSE 79; RESP 18; TEMP 36.8; O2SAT 97
[2023-01-16] MEDS: Melatonin 3 MG TABLET 6 MG PO (20:24)
[2023-01-17 08:01] VITALS: BP 135/61; PULSE 76; RESP 16; TEMP 36.6; O2SAT 95
[2023-01-17] MEDS: Docusate Sodium 100 MG CAPSULE PO ×2 (08:14→20:28)
[2023-01-17] MEDS: ARIPiprazole 5 MG TABLET PO (08:14)
--- NOTE | 2023-01-17 15:09 | P.PNPSI_ITS ---
Subjective Subjective Date of Service: 01/17/23 Reason For Visit: mood Interim History: Met with patient. Discussed with Nursing. Overall patient has been out of her room a lot more, eating meals and attending some groups. Is looking forward to discharge. Reports enjoying visit with her father yesterday. Will be living with him after discharge and her stepmother whom she has known for the best part of 10 years and reports getting on well with her. Happy that she is no longer feeling confused and much more organized. Denies having concerns regarding the environment or people around her. Feels safe. Sleep okay. No med concerns. Medication Compliance: Yes Side effects from medications: No Attending Groups: Yes Review of Systems Acute medical concerns: No Review of Systems Review of Systems Yes all other systems are reviewed and are negative Mental Status Exam Mental Status Exam Narrative: Pleasant. Engaged. Casually dressed. Fair self-care. Organized. Euthymic. Affect is restricted. No SI. No HI. No overt psychosis noted. Insight and judgment fair Diagnostics Vital Signs (24Hr): Vital Signs - 24 hr 01/16/23 18:00 01/17/23 08:01 Temperature 98.3 F 97.8 F Pulse Rate 79 76 Respiratory Rate 18 16 Blood Pressure 99/50 L 135/61 Pulse Oximetry 97 95 Oxygen Delivery Method Room Air Room Air BMI result Body Mass Index 41.9 Labs 12/02/22 21:20 12/04/22 08:17 Medications Medications Current Medications Acetaminophen (Acetaminophen 325 Mg Tablet) 650 mg PO Q6H PRN PRN Reason: Headache/Pain Mild Scale (1-3) Last Admin: 12/21/22 02:55 Dose: 650 mg Al Hydroxide/Mg Hydroxide (Magnesium Hydrox/Alum Hydrox 30 Ml Oral.Susp) 30 ml PO Q6H PRN PRN Reason: Heartburn/Nausea Aripiprazole (Aripiprazole 5 Mg Tablet) 5 mg PO DAILY [facility] Last Admin: 01/17/23 08:14 Dose: 5 mg Benztropine Mesylate (Benztropine Mesylate 0.5 Mg Tablet) 0.5 mg PO BID PRN PRN Reason: EPS Docusate Sodium (Docusate Sodium 100 Mg Capsule) 100 mg PO BID [facility] Last Admin: 01/17/23 08:14 Dose: 100 mg Hydroxyzine HCl (Hydroxyzine Hcl 25 Mg Tablet) 25 mg PO Q6H PRN PRN Reason: Anxiety Last Admin: 01/08/23 22:42 Dose: 25 mg Magnesium Hydroxide (Milk Of Magnesia 30 Ml Oral.Susp) 30 ml PO DAILY PRN PRN Reason: Constipation Melatonin (Melatonin 3 Mg Tablet) 6 mg PO BEDTIME LETTY Last Admin: 01/16/23 20:24 Dose: 6 mg Trazodone HCl (Trazodone Hcl 50 Mg Tablet) 50 mg PO BEDTIME MRX1 PRN PRN Reason: Insomnia Last Admin: 01/09/23 19:36 Dose: 50 mg Allergies Allergies Allergy/AdvReac Type Severity Reaction Status Date / Time shrimp AdvReac Intermediate Rash Verified 12/02/22 21:40 Assessment & Plan Assessment & Plan (1) Bipolar 1 disorder: Status: Acute Code(s): F31.9 - Bipolar disorder, unspecified (2) Von Willebrand disease: Status: Acute Code(s): D68.00 - Von Willebrand disease, unspecified Plan Patient is a 27-year-old female with history of psychotic illness who presents with disorganized speech and behavior, recently discharged from [facility] but brought back to the hospital at the behest of her father. Patient having trouble focusing on conversation and is almost talking in a word salad. If asked a question she will mostly respond with some completely irrelevant and nonsensical answer. She said something about [employer]; Fast Dr[employer] song which she saying; physics; something about [place] in [place] and being stalked. She denies any AVH but does seem internally preoccupied. She denies any drug or alcohol use other than weed... A little. Patient gives permission for team to discuss case with her father and gives the phone number. Patient agreed to take antipsychotic medication. Later in the day, patient was more linear and organized. She agreed that she was at the hospital for help and understood criteria for having signed the CV, evidenced by asking relevant questions and later going up and asking to sign a 3 day notice. Hospital course: 12/05: contiue current treatmetn plan 12/08: Patient keeping to self. Presents guarded but organized. Pt stated, I'm feeling homesick. I'll keep taking my meds so I can leave . Patient retracted 3 day notice. denies SI/HI/VH/AH. Continue current tx plan. 12/09: Patient presents disorganized, confused with times of echolalia. When T/W would ask pt a question, pt would either repeat the question back, repeat a word from the sentence or state a word she overheard someone use who is standing within hearing distance. Patient attempted to elope from unit multiple times this morning. When T/W asked where she planned on going, pt stated, home. the snuff grinder will bring me home . T/W explained to patient she would have to wait until she improved; pt stated, okay. I can do that . Showered. Medication compliant. Added Ativan 1mg PO BID PRN and Risperdal 0.5mg PO BID PRN. 12/10: Patient presents disorganized, confused with times of echolalia. Staff reported patient was seen standing on chair, when asked reasoning, pt stated, I'm not a turkey baster . Patient unable to have logical conversation at this time. Appears restless. Medication compliant. DC Risperdal, does not seem to be improving psychosis. Start Zyprexa 5mg PO daily. Patient aware. 12/11: Patient presents disorganized, confused with times of echolalia. Patient unable to have logical conversation at this time; flight of ideas. Medication compliant. Patient standing in hallway, jumping up and down and stating I'm bat shit crazy! 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 If I don't go to medical school I'm going to [employer]. I wanna hug you! Continue taper of risperdal and increase in Zyprexa. 12/12: Increase Zyprexa tomorrow and lower Risperidone. 12/13: DC Risperidone. Continue titrating Zyprexa. Mouth checks. 12/14: remains floridly psychotic, disorganized. Will switch to Zydis and increase dose to 10mg bid (up from 5mg bid) 12/15 continue tx plan 12/16 remains dsorganized; maybe a little less...did not sleep overnight. Will increase Zydis to 20mg qhs -jingle writer reviewed collateral and this seems to be a 1st break for patient; some psychotic symptoms coming up here in their over the past year but they emerged profoundly recently when patient got back from visiting a boyfriend in [place]. 12/17 This morning, patient was able to maintain a linear conversation with jingle writer and then with nurse that was mostly logical. Attempted to take patient off one-to-one. Improvement did not last and patient soon dysregulated, wandering the halls, talking loudly and nonsensically; patient clawing at the doors trying to open them to leave the unit; on the phone talking to Ori a former patient that patient says she can see outside her window and thinks that the 2 are engaged. Patient also said she can see her family members outside the window. Patient told staff she feels unsafe without being on a one-to-one because there is safety in numbers. She also put soap in her mouth and explained it was because no one was with me... Patient also walking around the milieu with her hands on her neck imitating as if she is choking herself. Patient did come down some when she was replaced on one-to-one. -since patient seem to improve a little bit with increase Zyprexa dose will leave current regimen for now; however if not continued improvements will consider whether to switch medications or to and another medication, possibly Depakote 12/18 pt is minimally better than on admission, sometimes able to have and now sleeping more through the night, suggesting that Zyprexa maybe partially helpful; however, she remains significantly disorganized; debating med change vs continue w/ zyprexa. Difficult to discern if there is a manic component of if pt is just disorganzed (was not sleeping, but symptoms more psychotic than manic); considering Haldol or other 1st generatoin antipsychotic 12/19 will continue with Haldol 5 mg t.i.d. and discontinue Zyprexa. Having started Haldol, This is the 1st time patient is psychotic symptoms have been subdued. Will continue to monitor 12/20 Will increase Haldol to 10 mg b.i.d. 12/21 not sure if Haldol is working; some hints that it might be lowering symptoms. Will continue with current regimen and monitor 12/22Had an encouraging discussion with patient who was aware of person place and time, date, year, that it was Halloween; no she is at [facility] in the psychiatric unit. She is here because her parents think she has .a little to crazy.. And she agrees that they had reason to be concerned prior to admission. She says she knows she is not . Patient agrees to try getting off one-to-one. Despite this seemingly lucid conversation, patient has been telling other staff all day long that she is worried about her ; sometimes able to talk in a logical/linear way other times remains disorganized -will soon decide whether to go up on Haldol or to switch medications 12/23 continue current treatment plan 12/24 increasing haldol; added depakote 12/28Patient with flat affect, no expression, talking in monotone voice; walking more slowly. Thought content seems more vacuous, just answering questions and not referring to various thoughts she is having unlike the week prior. Patient is more organized in speech, answering questions appropriately however she is very concrete in her answers and with no extraneous words or thoughts expressed. Client Application Support Engineer asked about Ori a former patient about whom patient would sometimes expressed delusional memories, to which patient answered that was just a andrés I liked.. Which was matter of fact and without the typical additional odd or delusional comments. Denies AVH. Patient says she sleepy and over the weekend and today has been mostly keeping to herself, sleeping, not interacting with others, unchanged previous week -Says she had a good visit with her family and that her parents told her to remain on the unit until the doctors think she is ready to go home. To that and patient agreed to retract 3 day notice. Again discussed clozapine and patient agreed to trial including weekly blood draws. -observation: On lower dose of Haldol, 10 mg b.i.d., patient with improved symptoms compared to admission, however still disorganized; with increased Haldol, adding Haldol 5 mg in the afternoon, patient was more organized thought process however significantly blunted affect and still with limited insight and ability to discuss illness 12/29Patient a little less flat today with lower dose of Haldol. She remains improved from admission but still disorganized and in the milieu patient would sit, stand again set then stand again without any obvious reason. Discussed case with colleagues who agreed that Haldol at 10 mg b.i.d. is partially helpful and at this point, having failed to resolve symptoms with 3 antipsychotic trials, the best next option is to add a 2nd antipsychotic. Discussed options which included both clozapine and Abilify. Patient is open to either, including blood draws for clozapine. However Patient's father had some hesitancy about clozapine, not sure if getting weekly blood draws was realistic. Elected to start Abilify 12/30 Still disorganized but blunted affect is resolving and Patient more expressive and more interactive. Patient remains concrete but attended group and sat appropriately and answered a question appropriately as well. Still missing her family and hopes they will visit this weekend. eKG 12/22/22: QT Int : 306 ms/ QTc Int : 432 ms 12/31 Patient nauseous today and threw up 2 times; gave Zofran and it resolved; not sure if it is due to increased Abilify or something else. However Patient a little less flat today with increased Abilify. -some mouth twitching maybe tightness in the mouth Cogentin 0.5 mg 1 time dose given 01/01 patient remains very flat, blunted affect. Also walking a little stiffly. That said she is not expressing any psychotic symptoms and her answers are more organized. Will lower Haldol to 5 mg b.i.d. to try and reduce negative symptoms and EPS; for now will leave Abilify at 5 mg per day 01/04 same presentation, flat, monotone, EPS symptoms. Not expressing psychotic, delusional thinking but far from baseline and with limited insight. Will give Cogentin 0.5 mg 1 time dose since patient already got a 0.5 mg dose this morning; will discontinue Haldol due to only partial benefit with intolerable EPS side effects; will consider whether to increase Abilify. Patient agrees to clozapine; discussed this medication at length with her father. -will consider catatonia as well if negative symptoms do not subside with discontinuation of Haldol 01/05 Patient much more organized in conversation and behavior. She waved jingle writer over and wanted to discuss treatment. Patient said she is definitely feeling more organized in her thoughts. She volunteers that she went to group and shared appropriately (which staff corroborates) at that overall she not quite fully back to her regular self, is feeling better. She denies any AVH. Client Application Support Engineer inquired and patient does not remember her behaviors when she was 1st admitted and on hearing them expressed deeper understanding why she has had to remain on the unit. In discussion, patient decided that she rather remain longer on the unit for further med management rather than leaving to soon and risk having to return to the hospital. Patient shared that at baseline, she is mostly is shy and quiet person. -patient still with flat but but it is helpful to learned that patient is on the shy and quiet side at baseline. No over psychotic symptoms exhibited and patient is organized in speech and (more or less) in behavior. Haldol was discontinued and she is now only on Abilify 5 mg daily; EPS/TD/dystonia seem to be resolving, the patient is also on scheduled Cogentin. At this time it is not clear if she will remain stable with Haldol discontinued or if Abilify will proved to be adequate. Prior to being medicated patient was floridly psychotic and it is too early to tell if symptoms will return or for main resolved with current medication regimen. Will leave her on Abilify 5 mg for now and see how she does. 01/06 Patient still with flat affect but remains with organized speech and behavior; feeling much more clear minded; denies AVH. No memory of her behaviors/ events surrounding decompensation/admissions and says hard to hear about them. Thinks that currently she is at a 4/10 (10 being her regular self) however she cannot articulate what is missing. 01/07 No change in presentation; continues to have flat affect and often keeps to herself however she remains with organized speech, linear and logical. Patient shared about group; applied it to her own life. She clarified that she and her [place] boyfriend broke up due to problems with his parents; they had a fight and patient wanted to return home. Around this time however she did start getting confused. hx of cannabis use started in [place], eat gummies only ever bought at a dispensary and used every few days and for a few months; no other drug or alcohol use. 01/08 no change in presentation; continue current treatment plan 01/09 good discussion with family and it seems more likely that patient has bipolar disorder, as she became suddenly manic upon returning to [place]. That said, it is possible that there could have been psychotic symptoms popping up here and there while she was in [place] that just were subclinical. It remains true time will have to more clearly reveal full diagnosis. Currently patient is with a very flat affect, a little disorganized (though vastly improved), with concrete thinking and still some limitations on insight. It is not clear if this is a medication side effect or the negative symptoms of psychosis. Considering medication changes given the fact patient likely had a manic episode which is either due to bipolar disorder or schizoaffective disorder patient is not on a traditional mood stabilizer. 01/10 continue current treatment plan; will get additional advice on medication management from colleagues. Given the patient is from the [facility], it is taking extra time to set up aftercare with providers 01/11 made Cogentin p.r.n.; will monitor for EPS symptoms but if none, Cogentin does not need to be scheduled; Seems to be walking more freely, fluidly, less stiffness. 01/12 continue current regimen At this time will continue with current medication regimen of Abilify 5 mg. Will continue to monitor and see if patient's symptoms reappear or if she is able to remain stable. 01/13 patient is slowly improving; continue current treatment plan 01/14 patient improving, continue current treatment plan 01/17/2023: No changes to current plan DX: Change diagnosis to bipolar disorder given that patient incident started with sudden onset manic episode (as far as able to tell); will rule out schizoaffective disorder Plan: CV Q 15 minute checks Continue Abilify 5mg daily; no side effects noted (last QTC WNL; Abilify known to lower QTC if anything) Discontinue Haldol; only partially effective and causing significant negative side effects and EPS; although psychotic symptoms have lessened with Haldol, side effects will not be tolerable long-term CHANGED Cogentin 0.5 mg b.i.d P.R.N.. (Changed since no longer on Haldol; will monitor for EPS) Discontinue Ativan; patient complains of daytime tiredness Med trials discontinued during this admission: Discontinue Haldol; only partially effective and causing significant negative side effects and EPS; although psychotic symptoms have lessened with Haldol, side effects will not be tolerable long-term Discontinued Zyprexa; maybe partially effective Discontinued Risperdal; did not seem affective Discontinued depakote; was only on a low dose for few days and deemed not necessary Client Application Support Engineer reviewed history with licensed master social worker. Lived with her father through high school. After high school she was living with her mom during which time became involved in a relationship and moved to [place] where she lived for 2 years with her boyfriend; some mild depression but otherwise no other mental health issues. She returned home and lived with her father for several years, working at [employer], good mood no psychiatric symptoms. 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 This past fall, Little over a month ago patient became came confused though she has no idea why; either he sent her home or she was trying to come home but she could not figure out how to get herself to the airport. She has no other memory of what she was experiencing or her behaviors that led to her hospitalization at [facility] and then this 1 at [place]. -when she got off the plane her father could tell that she was acting a little strange; over the next few days her strangeness increased, he brought her to the hospital and she was psychiatrically admitted at [facility], where she spent 2 or 3 days and then was admitted to this hospital. Father reports patient is shy and quiet, but also friendly at baseline Reason for continued inpatient stay Substantial Risk for: rapid decompensation Time Spent With Patient Time: Total time managing care of this patient today ____ minutes.
[2023-01-17 18:00] VITALS: BP 125/71; PULSE 79; TEMP 36.4; O2SAT 100
[2023-01-17] MEDS: traZODone HCL 50 MG TABLET PO (20:27)
[2023-01-17] MEDS: Melatonin 3 MG TABLET 6 MG PO (20:27)
[2023-01-18 08:08] VITALS: BP 126/63; PULSE 120; TEMP 36.9; O2SAT 98
[2023-01-18] MEDS: Docusate Sodium 100 MG CAPSULE PO ×2 (08:14→21:31)
[2023-01-18] MEDS: ARIPiprazole 5 MG TABLET PO (08:14)
--- NOTE | 2023-01-18 08:48 | P.PNPSI_ITS ---
Subjective Subjective Date of Service: 01/18/23 Reason For Visit: mood Interim History: Met with patient; discussed with team; reviewed progress notes Patient remains stable, good mood, said she is feeling 100% back to her regular self and looking forward to discharge tomorrow. Mental Status Exam Mental Status Exam Narrative: Pt is alert and oriented; behavior is cooperative, calm, brighter; talking more freely; patient is not in distress; dressed in casual attire with braided hair, good hygiene; mood and affect more relaxed, sometimes smiling; speech soft, but less so and normal rate; no latency; no psychomotor retardation; thought process goal oriented, linear; Thought content is on discharge, missing her family; denies AVH; Patients insight and judgment fair Diagnostics Vital Signs (24Hr): Vital Signs - 24 hr 01/17/23 18:00 01/18/23 08:08 Temperature 97.6 F 98.5 F Pulse Rate 79 120 H Blood Pressure 125/71 126/63 Pulse Oximetry 100 98 Oxygen Delivery Method Room Air Room Air BMI result Body Mass Index 41.9 Labs 12/02/22 21:20 12/04/22 08:17 Medications Medications Current Medications Acetaminophen (Acetaminophen 325 Mg Tablet) 650 mg PO Q6H PRN PRN Reason: Headache/Pain Mild Scale (1-3) Last Admin: 12/21/22 02:55 Dose: 650 mg Al Hydroxide/Mg Hydroxide (Magnesium Hydrox/Alum Hydrox 30 Ml Oral.Susp) 30 ml PO Q6H PRN PRN Reason: Heartburn/Nausea Aripiprazole (Aripiprazole 5 Mg Tablet) 5 mg PO DAILY [facility] Last Admin: 01/18/23 08:14 Dose: 5 mg Benztropine Mesylate (Benztropine Mesylate 0.5 Mg Tablet) 0.5 mg PO BID PRN PRN Reason: EPS Docusate Sodium (Docusate Sodium 100 Mg Capsule) 100 mg PO BID [facility] Last Admin: 01/18/23 08:14 Dose: 100 mg Hydroxyzine HCl (Hydroxyzine Hcl 25 Mg Tablet) 25 mg PO Q6H PRN PRN Reason: Anxiety Last Admin: 01/08/23 22:42 Dose: 25 mg Magnesium Hydroxide (Milk Of Magnesia 30 Ml Oral.Susp) 30 ml PO DAILY PRN PRN Reason: Constipation Melatonin (Melatonin 3 Mg Tablet) 6 mg PO BEDTIME LETTY Last Admin: 01/17/23 20:27 Dose: 6 mg Trazodone HCl (Trazodone Hcl 50 Mg Tablet) 50 mg PO BEDTIME MRX1 PRN PRN Reason: Insomnia Last Admin: 01/17/23 20:27 Dose: 50 mg Allergies Allergies Allergy/AdvReac Type Severity Reaction Status Date / Time shrimp AdvReac Intermediate Rash Verified 12/02/22 21:40 Assessment & Plan Assessment & Plan (1) Bipolar 1 disorder: Status: Acute Code(s): F31.9 - Bipolar disorder, unspecified (2) Von Willebrand disease: Status: Acute Code(s): D68.00 - Von Willebrand disease, unspecified Plan Patient is a 27-year-old female with history of psychotic illness who presents with disorganized speech and behavior, recently discharged from [facility] but brought back to the hospital at the behest of her father. Patient having trouble focusing on conversation and is almost talking in a word salad. If asked a question she will mostly respond with some completely irrelevant and nonsensical answer. She said something about [employer]; [employer] song which she saying; physics; something about [place] in [place] and being stalked. She denies any AVH but does seem internally preoccupied. She denies any drug or alcohol use other than weed... A little. Patient gives permission for team to discuss case with her father and gives the phone number. Patient agreed to take antipsychotic medication. Later in the day, patient was more linear and organized. She agreed that she was at the hospital for help and understood criteria for having signed the CV, evidenced by asking relevant questions and later going up and asking to sign a 3 day notice. Hospital course: 12/05: contiue current treatmetn plan 12/08: Patient keeping to self. Presents guarded but organized. Pt stated, I'm feeling homesick. I'll keep taking my meds so I can leave . Patient retracted 3 day notice. denies SI/HI/VH/AH. Continue current tx plan. 12/09: Patient presents disorganized, confused with times of echolalia. When T/W would ask pt a question, pt would either repeat the question back, repeat a word from the sentence or state a word she overheard someone use who is standing within hearing distance. Patient attempted to elope from unit multiple times this morning. When T/W asked where she planned on going, pt stated, home. the support analyst will bring me home . T/W explained to patient she would have to wait until she improved; pt stated, okay. I can do that . Showered. Medication compliant. Added Ativan 1mg PO BID PRN and Risperdal 0.5mg PO BID PRN. 12/10: Patient presents disorganized, confused with times of echolalia. Staff reported patient was seen standing on chair, when asked reasoning, pt stated, I'm not a turkey baster . Patient unable to have logical conversation at this time. Appears restless. Medication compliant. DC Risperdal, does not seem to be improving psychosis. Start Zyprexa 5mg PO daily. Patient aware. 12/11: Patient presents disorganized, confused with times of echolalia. Patient unable to have logical conversation at this time; flight of ideas. Medication compliant. Patient standing in hallway, jumping up and down and stating I'm bat shit crazy! 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 If I don't go to medical school I'm going to [place]. I wanna hug you! Continue taper of risperdal and increase in Zyprexa. 12/12: Increase Zyprexa tomorrow and lower Risperidone. 12/13: DC Risperidone. Continue titrating Zyprexa. Mouth checks. 12/14: remains floridly psychotic, disorganized. Will switch to Zydis and increase dose to 10mg bid (up from 5mg bid) 12/15 continue tx plan 12/16 remains dsorganized; maybe a little less...did not sleep overnight. Will increase Zydis to 20mg qhs -business writer reviewed collateral and this seems to be a 1st break for patient; some psychotic symptoms coming up here in their over the past year but they emerged profoundly recently when patient got back from visiting a boyfriend in [place]. 12/17 This morning, patient was able to maintain a linear conversation with business writer and then with nurse that was mostly logical. Attempted to take patient off one-to-one. Improvement did not last and patient soon dysregulated, wandering the halls, talking loudly and nonsensically; patient clawing at the doors trying to open them to leave the unit; on the phone talking to Ori a former patient that patient says she can see outside her window and thinks that the 2 are engaged. Patient also said she can see her family members outside the window. Patient told staff she feels unsafe without being on a one-to-one because there is safety in numbers. She also put soap in her mouth and explained it was because no one was with me... Patient also walking around the milieu with her hands on her neck imitating as if she is choking herself. Patient did come down some when she was replaced on one-to-one. -since patient seem to improve a little bit with increase Zyprexa dose will leave current regimen for now; however if not continued improvements will consider whether to switch medications or to and another medication, possibly Depakote 12/18 pt is minimally better than on admission, sometimes able to have and now sleeping more through the night, suggesting that Zyprexa maybe partially helpful; however, she remains significantly disorganized; debating med change vs continue w/ zyprexa. Difficult to discern if there is a manic component of if pt is just disorganzed (was not sleeping, but symptoms more psychotic than manic); considering Haldol or other 1st generatoin antipsychotic 12/19 will continue with Haldol 5 mg t.i.d. and discontinue Zyprexa. Having started Haldol, This is the 1st time patient is psychotic symptoms have been subdued. Will continue to monitor 12/20 Will increase Haldol to 10 mg b.i.d. 12/21 not sure if Haldol is working; some hints that it might be lowering symptoms. Will continue with current regimen and monitor 12/22Had an encouraging discussion with patient who was aware of person place and time, date, year, that it was Halloween; no she is at [facility] in the psychiatric unit. She is here because her parents think she has .a little to crazy.. And she agrees that they had reason to be concerned prior to admission. She says she knows she is not . Patient agrees to try getting off one-to-one. Despite this seemingly lucid conversation, patient has been telling other staff all day long that she is worried about her ; sometimes able to talk in a logical/linear way other times remains disorganized -will soon decide whether to go up on Haldol or to switch medications 12/23 continue current treatment plan 12/24 increasing haldol; added depakote 12/28Patient with flat affect, no expression, talking in monotone voice; walking more slowly. Thought content seems more vacuous, just answering questions and not referring to various thoughts she is having unlike the week prior. Patient is more organized in speech, answering questions appropriately however she is very concrete in her answers and with no extraneous words or thoughts expressed. Insurance Professional asked about Ori a former patient about whom patient would sometimes expressed delusional memories, to which patient answered that was just a andrés I liked.. Which was matter of fact and without the typical additional odd or delusional comments. Denies AVH. Patient says she sleepy and over the weekend and today has been mostly keeping to herself, sleeping, not interacting with others, unchanged previous week -Says she had a good visit with her family and that her parents told her to remain on the unit until the doctors think she is ready to go home. To that and patient agreed to retract 3 day notice. Again discussed clozapine and patient agreed to trial including weekly blood draws. -observation: On lower dose of Haldol, 10 mg b.i.d., patient with improved symptoms compared to admission, however still disorganized; with increased Haldol, adding Haldol 5 mg in the afternoon, patient was more organized thought process however significantly blunted affect and still with limited insight and ability to discuss illness 12/29Patient a little less flat today with lower dose of Haldol. She remains improved from admission but still disorganized and in the milieu patient would sit, stand again set then stand again without any obvious reason. Discussed case with colleagues who agreed that Haldol at 10 mg b.i.d. is partially helpful and at this point, having failed to resolve symptoms with 3 antipsychotic trials, the best next option is to add a 2nd antipsychotic. Discussed options which included both clozapine and Abilify. Patient is open to either, including blood draws for clozapine. However Patient's father had some hesitancy about clozapine, not sure if getting weekly blood draws was realistic. Elected to start Abilify 12/30 Still disorganized but blunted affect is resolving and Patient more expressive and more interactive. Patient remains concrete but attended group and sat appropriately and answered a question appropriately as well. Still missing her family and hopes they will visit this weekend. eKG 12/22/22: QT Int : 306 ms/ QTc Int : 432 ms 12/31 Patient nauseous today and threw up 2 times; gave Zofran and it resolved; not sure if it is due to increased Abilify or something else. However Patient a little less flat today with increased Abilify. -some mouth twitching maybe tightness in the mouth Cogentin 0.5 mg 1 time dose given 01/01 patient remains very flat, blunted affect. Also walking a little stiffly. That said she is not expressing any psychotic symptoms and her answers are more organized. Will lower Haldol to 5 mg b.i.d. to try and reduce negative symptoms and EPS; for now will leave Abilify at 5 mg per day 01/04 same presentation, flat, monotone, EPS symptoms. Not expressing psychotic, delusional thinking but far from baseline and with limited insight. Will give Cogentin 0.5 mg 1 time dose since patient already got a 0.5 mg dose this morning; will discontinue Haldol due to only partial benefit with intolerable EPS side effects; will consider whether to increase Abilify. Patient agrees to clozapine; discussed this medication at length with her father. -will consider catatonia as well if negative symptoms do not subside with discontinuation of Haldol 01/05 Patient much more organized in conversation and behavior. She waved business writer over and wanted to discuss treatment. Patient said she is definitely feeling more organized in her thoughts. She volunteers that she went to group and shared appropriately (which staff corroborates) at that overall she not quite fully back to her regular self, is feeling better. She denies any AVH. Insurance Professional inquired and patient does not remember her behaviors when she was 1st admitted and on hearing them expressed deeper understanding why she has had to remain on the unit. In discussion, patient decided that she rather remain longer on the unit for further med management rather than leaving to soon and risk having to return to the hospital. Patient shared that at baseline, she is mostly is shy and quiet person. -patient still with flat but but it is helpful to learned that patient is on the shy and quiet side at baseline. No over psychotic symptoms exhibited and patient is organized in speech and (more or less) in behavior. Haldol was discontinued and she is now only on Abilify 5 mg daily; EPS/TD/dystonia seem to be resolving, the patient is also on scheduled Cogentin. At this time it is not clear if she will remain stable with Haldol discontinued or if Abilify will proved to be adequate. Prior to being medicated patient was floridly psychotic and it is too early to tell if symptoms will return or for main resolved with current medication regimen. Will leave her on Abilify 5 mg for now and see how she does. 01/06 Patient still with flat affect but remains with organized speech and behavior; feeling much more clear minded; denies AVH. No memory of her behaviors/ events surrounding decompensation/admissions and says hard to hear about them. Thinks that currently she is at a 4/10 (10 being her regular self) however she cannot articulate what is missing. 01/07 No change in presentation; continues to have flat affect and often keeps to herself however she remains with organized speech, linear and logical. Patient shared about group; applied it to her own life. She clarified that she and her [place] boyfriend broke up due to problems with his parents; they had a fight and patient wanted to return home. Around this time however she did start getting confused. hx of cannabis use started in [place], eat gummies only ever bought at a dispensary and used every few days and for a few months; no other drug or alcohol use. 01/08 no change in presentation; continue current treatment plan 01/09 good discussion with family and it seems more likely that patient has bipolar disorder, as she became suddenly manic upon returning to [place]. That said, it is possible that there could have been psychotic symptoms popping up here and there while she was in [place] that just were subclinical. It remains true time will have to more clearly reveal full diagnosis. Currently patient is with a very flat affect, a little disorganized (though vastly improved), with concrete thinking and still some limitations on insight. It is not clear if this is a medication side effect or the negative symptoms of psychosis. Considering medication changes given the fact patient likely had a manic episode which is either due to bipolar disorder or schizoaffective disorder patient is not on a traditional mood stabilizer. 01/10 continue current treatment plan; will get additional advice on medication management from colleagues. Given the patient is from the [facility], it is taking extra time to set up aftercare with providers 01/11 made Cogentin p.r.n.; will monitor for EPS symptoms but if none, Cogentin does not need to be scheduled; Seems to be walking more freely, fluidly, less stiffness. 01/12 continue current regimen At this time will continue with current medication regimen of Abilify 5 mg. Will continue to monitor and see if patient's symptoms reappear or if she is able to remain stable. 01/13 patient is slowly improving; continue current treatment plan 01/14 patient improving, continue current treatment plan DX: Change diagnosis to bipolar disorder given that patient incident started with sudden onset manic episode (as far as able to tell); will rule out schizoaffective disorder Plan: CV Q 15 minute checks Continue Abilify 5mg daily; no side effects noted (last QTC WNL; Abilify known to lower QTC if anything) Discontinue Haldol; only partially effective and causing significant negative side effects and EPS; although psychotic symptoms have lessened with Haldol, side effects will not be tolerable long-term CHANGED Cogentin 0.5 mg b.i.d P.R.N.. 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 Lived with her father through high school. After high school she was living with her mom during which time became involved in a relationship and moved to [place] where she lived for 2 years with her boyfriend; some mild depression but otherwise no other mental health issues. She returned home and lived with her father for several years, working at [employer], good mood no psychiatric symptoms. 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 This past fall, [place] over a month ago patient became came confused though she has no idea why; either he sent her home or she was trying to come home but she could not figure out how to get herself to the airport. She has no other memory of what she was experiencing or her behaviors that led to her hospitalization at [facility] and then this 1 at [place]. -when she got off the plane her father could tell that she was acting a little strange; over the next few days her strangeness increased, he brought her to the hospital and she was psychiatrically admitted at [facility], where she spent 2 or 3 days and then was admitted to this hospital. Father reports patient is shy and quiet, but also friendly at baseline Patient educated on: diagnosis Informed Consent: understands Reason for continued inpatient stay Substantial Risk for: stable for discharge Time Spent With Patient Time: Total time managing care of this patient today ____ minutes.
[2023-01-18 18:00] VITALS: BP 108/55; PULSE 115; RESP 20; TEMP 38.8; O2SAT 94
[2023-01-18] MEDS: Acetaminophen 325 MG TABLET 650 MG PO (21:28)
[2023-01-18] MEDS: Melatonin 3 MG TABLET 6 MG PO (21:29)
[2023-01-18 23:42] LABS: COVID-19 Test Negative (Negative); IDNOW Serial# 6674DD1D
[2023-01-19 08:42] VITALS: BP 136/61; PULSE 107; RESP 16; TEMP 39; O2SAT 96
[2023-01-19] MEDS: Acetaminophen 325 MG TABLET 650 MG PO ×2 (09:01→15:13)
[2023-01-19] MEDS: ARIPiprazole 5 MG TABLET PO (09:01)
[2023-01-19] MEDS: Docusate Sodium 100 MG CAPSULE PO (09:01)
[2023-01-19 09:59] VITALS: TEMP 37.7
[2023-01-19 10:19] LABS: IDNOW Serial# 08D9AD1C; Strep A Nucleic Acid Negative (Negative)
--- NOTE | 2023-01-19 12:44 | PM.PSYDC ---
DS: Providers Provider Date of Service: 01/19/23 Date of admission: 12/03/22 17:16 Date of discharge: 01/19/23 Primary care physician: Unknown Physician Attending physician on admission: Asad Luna Attending physician on discharge: Asad Luna DS: Diagnosis Discharge Diagnosis (1) Bipolar 1 disorder: Status: Acute (2) Von Willebrand disease: Status: Acute DS: Medications Discharge Medications Home Medications: Home Medications Medication Instructions Recorded Confirmed hydroxyzine HCl 50 mg tablet 50 mg PO Q6H PRN Anxiety 12/02/22 12/02/22 melatonin 3 mg tablet 6 mg PO BEDTIME PRN Insomnia 12/02/22 12/02/22 quetiapine 300 mg tablet 300 mg PO BEDTIME 12/02/22 12/02/22 Mental Status Exam Mental Status Exam Narrative: Pt is alert and oriented; behavior is cooperative, calm, brighter; talking more freely; patient is not in distress; dressed in casual attire with braided hair, good hygiene; mood and affect more relaxed, sometimes smiling; speech soft, but less so and normal rate; no latency; no psychomotor retardation; thought process goal oriented, linear; Thought content is on discharge, missing her family; denies AVH; Patients insight and judgment fair Data Data Completed and Pending Completed studies during hospitalization [Text1]: 01/18/23 01/19/23 22:45 09:48 COVID-19 ([facility]) Negative COVID-19 Clin Com See Note Influenza Type A (PCR) Pending Influenza Type B (PCR) Pending RSV RNA Qual (PCR) Pending SARS-CoV-2 RNA (RT-PCR) Pending S. pyogenes GrpA CARLEEN Negative 12/02/22 22:46 Urine clean catch - Urine olivarez top Urine Culture - Final DS: Summary Hospital Course Hospital Course: Patient is a 27-year-old female with history of psychotic illness who presents with disorganized speech and behavior, recently discharged from [facility] but brought back to the hospital at the behest of her father. Patient having trouble focusing on conversation and is almost talking in a word salad. If asked a question she will mostly respond with some completely irrelevant and nonsensical answer. She said something about double tongs; Cathi Barakat song which she saying; physics; something about [place] in [place] and being stalked. She denies any AVH but does seem internally preoccupied. She denies any drug or alcohol use other than weed... A little. Patient gives permission for team to discuss case with her father and gives the phone number. Patient agreed to take antipsychotic medication. Later in the day, patient was more linear and organized. She agreed that she was at the hospital for help and understood criteria for having signed the CV, evidenced by asking relevant questions and later going up and asking to sign a 3 day notice. Hospital course: 12/05: contiue current treatmetn plan 12/08: Patient keeping to self. Presents guarded but organized. Pt stated, I'm feeling homesick. I'll keep taking my meds so I can leave . Patient retracted 3 day notice. denies SI/HI/VH/AH. Continue current tx plan. 12/09: Patient presents disorganized, confused with times of echolalia. When T/W would ask pt a question, pt would either repeat the question back, repeat a word from the sentence or state a word she overheard someone use who is standing within hearing distance. Patient attempted to elope from unit multiple times this morning. When T/W asked where she planned on going, pt stated, home. the jerker will bring me home . T/W explained to patient she would have to wait until she improved; pt stated, okay. I can do that . Showered. Medication compliant. Added Ativan 1mg PO BID PRN and Risperdal 0.5mg PO BID PRN. 12/10: Patient presents disorganized, confused with times of echolalia. Staff reported patient was seen standing on chair, when asked reasoning, pt stated, I'm not a turkey baster . Patient unable to have logical conversation at this time. Appears restless. Medication compliant. DC Risperdal, does not seem to be improving psychosis. Start Zyprexa 5mg PO daily. Patient aware. 12/11: Patient presents disorganized, confused with times of echolalia. Patient unable to have logical conversation at this time; flight of ideas. Medication compliant. Patient standing in hallway, jumping up and down and stating I'm bat shit crazy! 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 If I don't go to medical school I'm going to [place]. I wanna hug you! Continue taper of risperdal and increase in Zyprexa. 12/12: Increase Zyprexa tomorrow and lower Risperidone. 12/13: DC Risperidone. Continue titrating Zyprexa. Mouth checks. 12/14: remains floridly psychotic, disorganized. Will switch to Zydis and increase dose to 10mg bid (up from 5mg bid) 12/16 remains dsorganized; maybe a little less...did not sleep overnight. Will increase Zydis to 20mg qhs -greeting card writer reviewed collateral and this seems to be a 1st break for patient; some psychotic symptoms coming up here in their over the past year but they emerged profoundly recently when patient got back from visiting a boyfriend in [place]. 12/17 patient soon dysregulated, wandering the halls, talking loudly and nonsensically; patient clawing at the doors trying to open them to leave the unit; on the phone talking to Ori a former patient that patient says she can see outside her window and thinks that the 2 are engaged. Patient also said she can see her family members outside the window. Patient told staff she feels unsafe without being on a one-to-one because there is safety in numbers. She also put soap in her mouth and explained it was because no one was with me... Patient also walking around the milieu with her hands on her neck imitating as if she is choking herself. Patient did come down some when she was replaced on one-to-one. -since patient seem to improve a little bit with increase Zyprexa dose will leave current regimen for now; however if not continued improvements will consider whether to switch medications or to and another medication, possibly Depakote 12/18 pt is minimally better than on admission, sometimes able to have and now sleeping more through the night, suggesting that Zyprexa maybe partially helpful; however, she remains significantly disorganized; debating med change vs continue w/ zyprexa. Difficult to discern if there is a manic component of if pt is just disorganzed (was not sleeping, but symptoms more psychotic than manic); considering Haldol or other 1st generatoin antipsychotic 12/19 will continue with Haldol 5 mg t.i.d. and discontinue Zyprexa. Having started Haldol, This is the 1st time patient is psychotic symptoms have been subdued. Will continue to monitor 12/20 Will increase Haldol to 10 mg b.i.d. 12/21 not sure if Haldol is working; some hints that it might be lowering symptoms. Will continue with current regimen and monitor 12/22Had an encouraging discussion with patient who was aware of person place and time, date, year, that it was Halloween; no she is at [facility] in the psychiatric unit. She is here because her parents think she has .a little to crazy.. And she agrees that they had reason to be concerned prior to admission. She says she knows she is not . Patient agrees to try getting off one-to-one. Despite this seemingly lucid conversation, patient has been telling other staff all day long that she is worried about her ; sometimes able to talk in a logical/linear way other times remains disorganized -will soon decide whether to go up on Haldol or to switch medications 12/23 continue current treatment plan 12/24 increasing haldol; added depakote 12/28 On Haldol...Patient with flat affect, no expression, talking in monotone voice; walking more slowly. Thought content seems more vacuous, just answering questions and not referring to various thoughts she is having unlike the week prior. Patient is more organized in speech, answering questions appropriately however she is very concrete in her answers and with no extraneous words or thoughts expressed. Fondant Puff Maker asked about Ori a former patient about whom patient would sometimes expressed delusional memories, to which patient answered that was just a andrés I liked.. Which was matter of fact and without the typical additional odd or delusional comments. Denies AVH. Patient says she sleepy and over the weekend and today has been mostly keeping to herself, sleeping, not interacting with others, unchanged previous week -Says she had a good visit with her family and that her parents told her to remain on the unit until the doctors think she is ready to go home. To that and patient agreed to retract 3 day notice. Again discussed clozapine and patient agreed to trial including weekly blood draws. -observation: On lower dose of Haldol, 10 mg b.i.d., patient with improved symptoms compared to admission, however still disorganized; with increased Haldol, adding Haldol 5 mg in the afternoon, patient was more organized thought process however significantly blunted affect and still with limited insight and ability to discuss illness 12/29 as Haldol lowered, Patient a little less flat today. She remains improved from admission but still disorganized and in the milieu patient would sit, stand again set then stand again without any obvious reason. Discussed case with colleagues who agreed that Haldol at 10 mg b.i.d. is partially helpful and at this point, having failed to resolve symptoms with 3 antipsychotic trials, the best next option is to add a 2nd antipsychotic. Discussed options which included both clozapine and Abilify. Patient is open to either, including blood draws for clozapine. However Patient's father had some hesitancy about clozapine, not sure if getting weekly blood draws was realistic. Elected to start Abilify 12/30 Still disorganized but blunted affect is resolving and Patient more expressive and more interactive. Patient remains concrete but attended group and sat appropriately and answered a question appropriately as well. Still missing her family and hopes they will visit this weekend. eKG 12/22/22: QT Int : 306 ms/ QTc Int : 432 ms 12/31 Patient nauseous today and threw up 2 times; gave Zofran and it resolved; not sure if it is due to increased Abilify or something else. However Patient a little less flat today with increased Abilify. -some mouth twitching maybe tightness in the mouth Cogentin 0.5 mg 1 time dose given 01/01 patient remains very flat, blunted affect. Also walking a little stiffly. That said she is not expressing any psychotic symptoms and her answers are more organized. Will lower Haldol to 5 mg b.i.d. to try and reduce negative symptoms and EPS; for now will leave Abilify at 5 mg per day 01/04 same presentation, flat, monotone, EPS symptoms. Not expressing psychotic, delusional thinking but far from baseline and with limited insight. Will give Cogentin 0.5 mg 1 time dose since patient already got a 0.5 mg dose this morning; will discontinue Haldol due to only partial benefit with intolerable EPS side effects; will consider whether to increase Abilify. Patient agrees to clozapine; discussed this medication at length with her father. -will consider catatonia as well if negative symptoms do not subside with discontinuation of Haldol Improvin/14 Patient much more organized in conversation and behavior. She waved greeting card writer over and wanted to discuss treatment. Patient said she is definitely feeling more organized in her thoughts. She volunteers that she went to group and shared appropriately (which staff corroborates) at that overall she not quite fully back to her regular self, is feeling better. She denies any AVH. Fondant Puff Maker inquired and patient does not remember her behaviors when she was 1st admitted and on hearing them expressed deeper understanding why she has had to remain on the unit. In discussion, patient decided that she rather remain longer on the unit for further med management rather than leaving to soon and risk having to return to the hospital. Patient shared that at baseline, she is mostly is shy and quiet person. -patient still with flat but but it is helpful to learned that patient is on the shy and quiet side at baseline. No over psychotic symptoms exhibited and patient is organized in speech and (more or less) in behavior. Haldol was discontinued and she is now only on Abilify 5 mg daily; EPS/TD/dystonia seem to be resolving, the patient is also on scheduled Cogentin. At this time it is not clear if she will remain stable with Haldol discontinued or if Abilify will proved to be adequate. Prior to being medicated patient was floridly psychotic and it is too early to tell if symptoms will return or for main resolved with current medication regimen. Will leave her on Abilify 5 mg for now and see how she does. 01/06 Patient still with flat affect but remains with organized speech and behavior; feeling much more clear minded; denies AVH. No memory of her behaviors/ events surrounding decompensation/admissions and says hard to hear about them. Thinks that currently she is at a 4/10 (10 being her regular self) however she cannot articulate what is missing. 01/07 No change in presentation; continues to have flat affect and often keeps to herself however she remains with organized speech, linear and logical. Patient shared about group; applied it to her own life. 01/09 good discussion with family and it seems more likely that patient has bipolar disorder, as she became suddenly manic upon returning to [place]. That said, it is possible that there could have been psychotic symptoms popping up here and there while she was in [place] that just were subclinical. It remains true time will have to more clearly reveal full diagnosis. Currently patient is with a very flat affect, a little disorganized (though vastly improved), with concrete thinking and still some limitations on insight. It is not clear if this is a medication side effect or the negative symptoms of psychosis. Considering medication changes given the fact patient likely had a manic episode which is either due to bipolar disorder or schizoaffective disorder patient is not on a traditional mood stabilizer. 01/10 continue current treatment plan; will get additional advice on medication management from colleagues. Given the patient is from the [facility], it is taking extra time to set up aftercare with providers 01/11 made Jamal p.r.n.; will monitor for EPS symptoms but if none, Jamal does not need to be scheduled; Seems to be walking more freely, fluidly, less stiffness. At this time will continue with current medication regimen of Abilify 5 mg. Will continue to monitor and see if patient's symptoms reappear or if she is able to remain stable. 01/13 patient is slowly improving; continue current treatment plan By the end of admission, patient was doing much better. Still with somewhat of a blunted affect but significantly less and much more able to engage, with increased in flexion and emotional expression. Patient was feeling that she was heading back to her regular self as did both her mother and father. She felt ready for discharge and would be returning home to live with her father who is supportive. Patient had outpatient support set up and in place. She was tolerating Abilify well and had made significant improvement. She was organized behavior and speech and in good behavioral and impulse control. Although not quite back to baseline she continued to progress in this direction. Patient and parents felt that the being on the unit was starting to cause depression as she missed being with her family. She agreed to continue medications and attend outpatient treatment. Patient was not in imminent risk for harm to self or others and request for discharge honored. DX: Bipolar disorder given that patient incident started with sudden onset manic episode (as far as able to tell); will leave as rule out schizoaffective disorder Medication: Abilify 5mg daily Med trials discontinued during this admission: Discontinue Haldol; only partially effective and causing significant negative side effects and EPS; although psychotic symptoms have lessened with Haldol, side effects will not be tolerable long-term Discontinued Zyprexa; maybe partially effective Discontinued Risperdal; did not seem affective Discontinued depakote; was only on a low dose for few days and deemed not necessary Pertinent history leading to this admission. Lived with her father through high school. After high school she was living with her mom during which time became involved in a relationship and moved to [place] where she lived for 2 years with her boyfriend; some mild depression but otherwise no other mental health issues. She returned home and lived with her father for several years, working at [employer], good mood no psychiatric symptoms. Around 2020 she started dating another man and they live together during which time she worked at a [employer] and took a college class; together they moved to [place] for about a year. This past fall, Little over a month ago patient became came confused though she has no idea why; either he sent her home or she was trying to come home but she could not figure out how to get herself to the airport. She has no other memory of what she was experiencing or her behaviors that led to her hospitalization at [facility] and then this 1 at [place].She clarified that she and her [place] boyfriend broke up due to problems with his parents; they had a fight and patient wanted to return home. Around this time however she did start getting confused. hx of cannabis use started in [place], eat gummies only ever bought at a dispensary and used every few days and for a few months; no other drug or alcohol use. -when she got off the plane her father could tell that she was acting a little strange; over the next few days her strangeness increased, he brought her to the hospital and she was psychiatrically admitted at [facility], where she spent 2 or 3 days and then was admitted to this hospital. Father reports patient is shy and quiet, but also friendly at baseline Time spent discussing smoking cessation with patient: 3 to 10 minutes Status at Discharge Functional status at discharge: independent ambulation Overall status at discharge: patient is progressing back to baseline Time Spent with Patient Time attestation: Total time managing care of this patient today ____ minutes. Time spent: Less than 30 minutes Discharge Plan Discharge Anticipated Discharge Date/Time: 01/19/23 16:00 Patient Disposition: Home, Self-Care Discharge Diagnosis: Bipolar I disorder, single episode, severe, with psychotic symptoms, in full remission Referrals: [facility] PCP nithya Niño [Other] - 03/25/23 9:00 am (The agency requires a PCP first and then the PCP will refer to therapy and psychiatry. ) [facility]In [Other] - 1 Week (This is the urgent care center that will be able to bridge your prescriptions until you see the PCP. Walk in same day appts: hours include 9:30am - 6:00 pm weekdays) [facility] [Other] - 1 Week (Walk in services available) Discharge Medications: New aripiprazole [Abilify] 5 mg Tablet 5 mg PO DAILY 30 Days Qty: 30 3RF trazodone 50 mg Tablet 50 mg PO BEDTIME MRX1 PRN (Reason: Insomnia) 30 Days Qty: 30 3RF Chloraseptic Sore Throat 6-10 mg Lozenge 1 akiko mucous membrane Q2H PRN (Reason: Sore Throat) 6 Days Qty: 18 0RF docusate sodium 100 mg Capsule 100 mg PO BID 30 Days Qty: 60 0RF aripiprazole [Abilify] 5 mg tablet 5 mg PO DAILY 30 Days Qty: 30 0RF melatonin 5 mg tablet 5 mg PO BEDTIME PRN (Reason: sleep) 30 Days Qty: 30 0RF Continued melatonin 3 mg Tablet 6 mg PO BEDTIME PRN (Reason: Insomnia) 30 Days Qty: 60 0RF Discontinued quetiapine 300 mg Tablet 300 mg PO BEDTIME hydroxyzine HCl 50 mg Tablet 50 mg PO Q6H PRN (Reason: Anxiety) Discharge Orders: Discharge Order (Routine); Ordered 01/19/23 Ordered By: Asad Luna Diet: Regular diet Activity on Discharge: As tolerated Stand Alone Forms: Patient Portal Discharge page, Community Support Care Plan Goals: Maintain mood and safe behaviors Take medications as prescribed Continue to pursue sobriety from cannabis Practice coping skills Continue with outpatient providers and reach out to them as needed Health Concerns: Mood stability and behaviors Plan of Treatment: Follow up with your PCP, psychiatric provider and other outpatient providers regarding above concerns Take medications as prescribed Assessment: Risk assessment at time of discharge:? Patient was interviewed prior to discharge and found to be fully oriented and without any SI or HI. Patient has improved insight and judgment and wants to continue treatment. Patient is not in imminent risk of harm to self or others and has a safety plan that includes presenting to the closest ER or calling 911 if feeling unsafe.? Patient has been observed closely by nursing and unit staff throughout admission; patient has not engaged in any behaviors that suggest dangerousness to self or others and has demonstrated appropriate behaviors and impulse control Discharge Date/Time: 01/19/23 16:13
[2023-01-19 13:01] LABS: Influenza A PCR NEGATIVE (Negative); Influenza B PCR NEGATIVE (Negative); Resp Syncy Virus RNA Qual PCR NEGATIVE (Negative); SARS COV2 PCR INHOUSE POSITIVE (Negative)
== END 2023-01-19 16:13 | disposition home or self-care (01) | DRG 753 ==
LOC: HO.ED 21:31 → HO.PM5 12-03 17:28
PROVIDERS: Physician Assistant; Psychiatry & Neurology Psychiatry; Registered Nurse; Admitting Provider Psychiatry & Neurology Psychiatry; Emergency Provider Emergency Medicine; Visit Provider Psychiatry & Neurology Psychiatry
DX: F31.9 Bipolar disorder, unspecified (principal); U07.1 COVID-19; D68.00 Von Willebrand disease, unspecified; N39.0 Urinary tract infection, site not specified; Z79.899 Other long term (current) drug therapy
CPT/HCPCS: 0241U; 36415; 80053; 80061; 80143; 80179; 80307; 80342; 81001; 81003; 81025; 83735; 84443; 85025; 87086; 87635; 87651; 93005; 99285; S9485

== ENCOUNTER → 2022-12-03 17:16 | Outpatient (BNV) | payer OTHER, SELFPAY | PROVIDERS: Admitting Provider Psychiatry & Neurology Psychiatry; Emergency Provider Emergency Medicine; Visit Provider Psychiatry & Neurology Psychiatry | DX: F31.2 Bipolar disorder, current episode manic severe with psychotic features (principal); D68.00 Von Willebrand disease, unspecified | CPT/HCPCS: 90792; 99231; 99232; 99238 ==

== ENCOUNTER → 2022-12-03 17:16 | Outpatient (BNV) | payer OTHER, SELFPAY | PROVIDERS: Admitting Provider Psychiatry & Neurology Psychiatry; Emergency Provider Emergency Medicine; Visit Provider Psychiatry & Neurology Psychiatry | DX: F29 Unspecified psychosis not due to a substance or known physiological condition (principal); N39.0 Urinary tract infection, site not specified | CPT/HCPCS: 99231; 99232 ==